=== PATIENT | female | born 1940 | race Caucasian/White ===

== ENCOUNTER → 2017-12-14 08:36 | Outpatient (CLI) | payer MEDICARE, OTHER, SELFPAY ==
--- NOTE | 2017-12-14 | DI.CT.S_ITS ---
PROCEDURE: CT CHEST ABDOMEN W CON INDICATIONS: RESTAGING CANCER TECHNIQUE: After the administration of oral contrast and intravenous contrast, 5 mm thick sections acquired from the lung apices to the iliac crests. 5 mm coronal and sagittal reformats were performed, with additional 7 mm coronal MIP reformats through the lungs. For radiation dose reduction, the following was used: automated exposure control, adjustment of mA and/or kV according to patient size. COMPARISON: [facility], CT, CHEST/ABD/PEL WITH CONTRAST, 04/18/2016, 9:55. [facility], [place], PET/CT SKULL BASE TO MID THIGH, 08/01/2016, 11:01. [facility], CT, CHEST/ABD/PEL WITH CONTRAST, 11/11/2016, 7:59. [facility], CT, CHEST/ABDOMEN WITH CONTRAST, 02/16/2017, 11:02. [facility], CT, CHEST/ABD/PEL WITH CONTRAST, 05/25/2017, 10:32. FINDINGS: Image quality: Excellent. 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 Volume loss in the right hemithorax compatible with prior partial resection. No acute air space opacities. No pleural effusions or pneumothorax. Central and peripheral airways are patent and normal in caliber. Mediastinum: Heart size is normal. No pericardial effusion. No mediastinal or hilar adenopathy by size criteria. Thoracic aorta and central pulmonary arteries are normal in size. Esophagus is normal in caliber. No hiatal hernia. Right paraesophageal lymph node noted on prior exams is stable measuring 1.3 x 0.8 cm. Chest wall: No axillary or supraclavicular adenopathy by size criteria. Thyroid gland appears normal. Sclerosis and old fracture in the right fourth rib is unchanged. Right shoulder prosthesis as before. ABDOMEN: Solid organs: Liver is normal in size and hypodense in enhancement. A 9 mm water attenuation filling defect is seen just beneath the capsule in the dome of the liver, unchanged. Gallbladder appears normal. Biliary system is non dilated. Pancreas enhances normally. Spleen is normal in size and enhancement. Small splenule. No adrenal nodules. Kidneys are normal in size and enhancement, without hydronephrosis. Peritoneum and bowel: Bowel loops demonstrate normal wall thickness and caliber. No free fluid or air. Nodes and vessels: No retroperitoneal or mesenteric adenopathy by size criteria. Atheromatous aorta and inferior vena cava are normal in caliber. Accessory left renal vein is retroaortic. Bones: No suspicious bony lesions. No vertebral body compression fractures. Miscellaneous: No ventral hernias. IMPRESSION: 1. Surgical and post radiation changes in the right hemithorax appear stable. Sclerosis and old fracture in the right fourth rib is unchanged. The small right paraesophageal lymph node near the diaphragm remains stable. No evidence of tumor recurrence or metastases. 2. Small hepatic cyst in the anterior dome of the liver. Generalized hepatic steatosis. 3. 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 Dictated by: Joseph Spann M.D. on 12/14/2017 at 12:19 Approved by: Joseph Spann M.D. on 12/14/2017 at 12:40
[2017-12-14 09:12] LABS: Add Manual Diff / Slide Review NO; Basophils Percent Auto 0.9 % (0-2); Eosinophils Percent Auto 0.1 % (2-4); Hematocrit 38.6 % (36-46); Hemoglobin 13.3 g/dL (12.0-16.0); Lymphocytes Percent Auto 9.5 % (25-40); Mean Corpuscular HGB Conc 34.4 % (30-36); Mean Corpuscular Hemoglobin 33.9 PG (26-34); Mean Corpuscular Volume 98.4 fL (80-100); Monocytes Percent Auto 1.2 % (3-14); Neutrophils Absolute Auto 4000 /uL (3000-5900); Neutrophils Percent Auto 88.3 % (50-75); Platelet Count 248 X10^3/uL (150-400); Red Blood Cell Count 3.93 X10^6/uL (4.0-5.2); Red Cell Distribution Width 13.8 % (11.6-14.8); White Blood Cell Count 4.6 X10^3/uL (4.5-11.0)
[2017-12-14 09:37] LABS: Alanine Aminotransferase 44 IU/L (9-52); Albumin 4.5 g/dL (3.5-5.0); Albumin Globulin Ratio 1.4 (1.0-2.8); Alkaline Phosphatase 75 U/L (38-126); Aspartate Aminotransferase 33 IU/L (14-36); BUN Creatinine Ratio 24.2 (6-22); Bilirubin Total 0.5 mg/dL (0.2-1.3); Blood Urea Nitrogen 29 mg/dL (7-17); Calcium 9.5 mg/dL (8.4-10.2); Carbon Dioxide 23 mmol/L (22-32); Chloride 100 mmol/L (98-107); Estimated Glomerular Filt Rate 43.8 mL/min (>60); Globulin 3.3 g/dL (1.7-4.1); Glucose 184 mg/dL (80-110); HEMOLYSIS < 15 (0-50); Potassium 4.8 mmol/L (3.4-5.1); Sodium 137 mmol/L (137-145); Total Protein 7.8 g/dL (6.3-8.2)
== END ==
PROVIDERS: Family Provider Family Medicine; PCP Family Medicine; Visit Provider Nurse Practitioner Gerontology
DX: C34.90 Malignant neoplasm of unspecified part of unspecified bronchus or lung (principal)
CPT/HCPCS: 36415; 71260; 74160; 80053; 85025; Q9967

== ENCOUNTER → 2017-12-29 10:25 | Outpatient (CLI) | payer MEDICARE, OTHER, SELFPAY ==
--- NOTE | 2017-12-29 | DI.RAD.S_ITS ---
PROCEDURE: XR LUMBAR SPINE 2-3V INDICATIONS: LOW BACK PAIN WITH RADCULOPATHY TECHNIQUE: 3 views of the lumbar spine were acquired. COMPARISON: [facility], , -SPINE 2-3 VIEWS, 11/01/2013, 11:06. FINDINGS: Bones: 5 [id number] vertebrae are present. There is multilevel trace retrolisthesis throughout the lumbar spine. Mild to moderate disc space narrowing is present at L1-L2, L4-5 and L5-S1, mild at L2-3, L3-4. There is moderate foraminal narrowing at L4-5 and L5-S1. Mild overall interval progression of degenerative changes is noted. No vertebral body compression fractures. No suspicious bony lesions. Soft tissues: Overlying bowel gas pattern is normal. No suspicious soft tissue calcifications. IMPRESSION: Degenerative changes most prominent at L4-5 and L5-S1 with overall mild interval progression compared to prior exam. Dictated by: Rosemary Holland M.D. on 12/29/2017 at 17:18 Approved by: Rosemary Holland M.D. on 12/29/2017 at 17:20
== END ==
PROVIDERS: Family Provider Family Medicine; PCP Family Medicine; Visit Provider Family Medicine
DX: M54.5 Low back pain (principal); M51.16 Intervertebral disc disorders with radiculopathy, lumbar region; M51.17 Intervertebral disc disorders with radiculopathy, lumbosacral region
CPT/HCPCS: 72100

== ENCOUNTER → 2018-04-05 12:15 | Outpatient (CLI) | payer MEDICARE, OTHER, SELFPAY ==
--- NOTE | 2018-04-05 12:07 | DI.RAD.S_ITS ---
PROCEDURE: XR CHEST 2V INDICATIONS: right rib pain TECHNIQUE: 2 views of the chest were acquired. COMPARISON: [facility], CT, CHEST/ABDOMEN WITH CONTRAST, 02/16/2017, 11:02. [facility], CT, CHEST/ABD/PEL WITH CONTRAST, 05/25/2017, 10:32. [facility], CT, CT CHEST ABDOMEN W CON, 12/14/2017, 9:40. [facility], CR, CHEST 1 VIEW, 12/21/2015, 12:25. [facility], CR, CHEST 1 VIEW, 12/04/2015, 8:59. FINDINGS: Surgical changes and devices: Prior right humeral arthroplasty.. Lungs and pleura: No pleural effusions or pneumothorax. Lungs are clear on the left and shows a persistent masslike radiodensity at the right lung parenchyma abutting the right hilum and extending peripherally to the mid chest ribs. A focus of rib ostiolysis is not found but quality of visualization is somewhat limited in this area.. Mediastinum: Mediastinal contours are normal. Heart size is normal. Bones and chest wall: No suspicious bony abnormalities. Soft tissues appear unremarkable. IMPRESSION: A definite warp changer time involving the right mid chest, right hilum, and right mid ribs is not seen in this patient who has reportedly undergone treatment for lung carcinoma and associated radiation therapy. As noted the quality of visualization through the area discussed on the right is somewhat limited by plain film and much better visualized by CT scanning. If clinically warranted a followup CT may become necessary, but also bone scanning may be warranted instead. Dictated by: Emory Garza M.D. on 04/05/2018 at 13:19 Approved by: Emory Garza M.D. on 04/05/2018 at 13:24
--- NOTE | 2018-05-11 12:21 | PC.NURSE ---
Spoke with Lavonne in diagnostic imaging. Pt scheduled for 940 check in for injection for bone scan on may 14Thursday. She'll start oral contrast for CT scan at 1030. Ct Scan to be done at 1200. Bone Scan to be done at 1 pm. She should be done with all scans by 2 pm that day. Pt has history of reaction to contrast and she has medications at home to help prevent this (dex and benadryl). Called twice to inform Carlota of above but she was not available to come to phone. Above information left with and he will relay to her the information. Instructed to have her call with any questions and also to remind her to take her premeds that she has at home prior to contrast. Verbalized understanding.
== END ==
PROVIDERS: PCP Internal Medicine; Visit Provider Nurse Practitioner Gerontology
DX: C34.90 Malignant neoplasm of unspecified part of unspecified bronchus or lung (principal); J70.0 Acute pulmonary manifestations due to radiation; R07.81 Pleurodynia
CPT/HCPCS: 71046

== ENCOUNTER → 2018-05-14 09:34 | Outpatient (CLI) | payer MEDICARE, OTHER, SELFPAY ==
--- NOTE | 2018-05-14 09:35 | DI.NM.S_ITS ---
PROCEDURE: MT BONE SCAN WHOLE BODY RADIOPHARMACEUTICAL: 20.9 mCi Tc-99m MDP IV. INDICATIONS: Non-small cell lung carcinoma. TECHNIQUE: Delayed whole-body scintigrams were obtained approximately 3-4 hours after intravenous injection of radiotracer. Anterior and posterior views were acquired from vertex to feet. Additional left and right oblique views of the thorax were obtained. COMPARISON: [facility], CT, CT CHEST ABDOMEN W CON, 05/14/2018, 10:40. [facility], [place], PET/CT SKULL BASE TO MID THIGH, 08/01/2016, 11:01. FINDINGS: Moderate radiotracer uptake noted in the cervical spine, the shoulders bilaterally, the elbows bilaterally, the wrists bilaterally, the knees bilaterally, the ankles bilaterally in the feet bilaterally most consistent with osteoarthritis. No areas of relative intense radiotracer uptake identified that are suspicious for metastatic disease. No areas of osteopenia identified in the osseous skeleton. No abnormal soft tissue uptake identified. Activity in the kidneys is normal and symmetric. IMPRESSION: No evidence of osseous metastatic disease. Dictated by: Lucia Carrasquillo MD, PhD on 05/14/2018 at 14:25 Approved by: Lucia Carrasquillo MD, PhD on 05/14/2018 at 14:29
[2018-05-14 10:01] LABS: Blood Urea Nitrogen 23 mg/dL (7-17); Estimated Glomerular Filt Rate 53.9 mL/min (>60)
--- NOTE | 2018-05-14 10:02 | DI.CT.S_ITS ---
PROCEDURE: CT CHEST ABDOMEN W CON INDICATIONS: new findings on chest x-ray, pain right side on chest and abdominal area TECHNIQUE: After the administration of oral contrast and intravenous contrast, 5 mm thick sections acquired from the lung apices to the iliac crests. 5 mm coronal and sagittal reformats were performed, with additional 7 mm coronal MIP reformats through the lungs. For radiation dose reduction, the following was used: automated exposure control, adjustment of mA and/or kV according to patient size. COMPARISON: [facility], CT, CHEST/ABD/PEL WITH CONTRAST, 05/25/2017, 10:32. [facility], CT, CHEST/ABD/PEL WITH CONTRAST, 07/15/2016, 10:31. [facility], CT, CHEST/ABD/PEL WITH CONTRAST, 04/18/2016, 9:55. [facility], CT, THORAX WITHOUT CONTRAST, 12/15/2016, 9:46. [facility], CR, CHEST 1 VIEW, 12/21/2015, 12:25. [facility], CR, XR CHEST 2V, 04/05/2018, 12:03. [facility], CT, CT CHEST ABDOMEN W CON, 12/14/2017, 9:40. FINDINGS: Image quality: Excellent. CHEST: Lungs and pleura: There is triangular shaped opacity in the right of her hemithorax, unchanged compared to 12/14/2017. There is airspace opacity in the right upper thorax and to lesser degree right lower thorax, probably secondary to postradiation inflammation. No pleural effusions or pneumothorax. Central and peripheral airways are patent and normal in caliber. Mediastinum: Heart size is normal. No pericardial effusion. No mediastinal or hilar adenopathy by size criteria. Thoracic aorta and central pulmonary arteries are normal in size. Esophagus is normal in caliber. Small hiatal hernia. Chest wall: No axillary or supraclavicular adenopathy by size criteria. Thyroid gland is normal. ABDOMEN: Solid organs: There is diffuse hepatic fatty infiltration. Liver is normal in size and enhancement. Gallbladder is normal. Biliary system is non dilated. Pancreas enhances normally. Spleen is normal in size and enhancement. A 7 mm nodule in the left upper lobe is noted, unchanged from the last exam and probably a small splenule. No adrenal nodules. Kidneys are normal in size and enhancement, without hydronephrosis. Peritoneum and bowel: Bowel loops demonstrate normal wall thickness and caliber. There are scattered colonic diverticula. No free fluid or air. Nodes and vessels: No retroperitoneal or mesenteric adenopathy by size criteria. Aorta and inferior vena cava are normal in caliber. There is moderate to severe atherosclerosis. Bones: An old right fourth rib fracture/deformity appears unchanged. No vertebral body compression fractures. Miscellaneous: Small fat-containing umbilical hernia is noted. IMPRESSION: 1. A triangular shaped opacity with associated air space infiltrate and consolidation in the right upper thorax is not significant changed from the last CT dated 12/14/2017. It is most likely postsurgical/post radiation changes. 2. No mediastinal or hilar lymphadenopathy. 3. Severe hepatic steatosis. 4. Diverticulosis without acute diverticulitis. 5. Atherosclerosis. Dictated by: Filemon Guerrero M.D. on 05/14/2018 at 16:30 Approved by: Filemon Guerrero M.D. on 05/17/2018 at 14:04
== END ==
PROVIDERS: PCP Internal Medicine; Visit Provider Nurse Practitioner Gerontology
DX: C34.90 Malignant neoplasm of unspecified part of unspecified bronchus or lung (principal); K76.0 Fatty (change of) liver, not elsewhere classified; K57.90 Diverticulosis of intestine, part unspecified, without perforation or abscess without bleeding; I70.0 Atherosclerosis of aorta; K42.9 Umbilical hernia without obstruction or gangrene; K44.9 Diaphragmatic hernia without obstruction or gangrene
CPT/HCPCS: 71260; 74160; 78306; 82565; 84520; A9503; Q9967

== ENCOUNTER → 2018-09-29 12:01 | Outpatient (CLI) | payer MEDICARE, OTHER, SELFPAY ==
--- NOTE | 2018-09-29 | DI.MRI.S_ITS ---
PROCEDURE: MR LUMBAR SPINE WO CON INDICATIONS: LOW BACK PAIN TECHNIQUE: Noncontrast sagittal T1 spin echo and T2 fast echo, sagittal STIR, axial T1 and T2 fast spin echo through the lumbar spine. In cases with scoliosis, additional coronal T2 fast spin echo may be performed. COMPARISON: [facility], MR, L-SPINE WITHOUT CONTRAST, 11/24/2013, 10:52. FINDINGS: Image quality: Excellent. Alignment and Curvature: There is normal bony alignment. No spondylolisthesis. Bone Marrow: Marrow is of normal overall signal. No acute vertebral body compression fractures. Vertebral body heights are preserved. Spinal Cord: Conus medullaris terminates at the L1 level. Visualized cord demonstrates normal signal and size. Paraspinous Soft Tissues: No paravertebral masses. L1-L2: Mild diffuse disc bulge and bilateral facet arthrosis is seen. No significant neuroforaminal narrowing or canal stenosis. L2-L3: Mild diffuse disc bulge is seen with bilateral facet arthrosis. No significant central canal stenosis or neuroforaminal narrowing. L3-L4: There is broad-based disc bulge and bilateral facet arthrosis causing mild central canal stenosis and very mild bilateral neuroforaminal narrowing. L4-L5: There is diffuse disc bulge and superimposed central to right-sided disc herniation and extrusion extending to right neural recess causing severe right-sided neuroforaminal narrowing and [id number] central canal stenosis. Mild to moderate left-sided neuroforaminal narrowing is also seen. Herniated disc is seen compressing the exiting right L4 nerve root at this level. L5-S1: Diffuse disc bulge and bilateral facet arthrosis is seen with mild central canal stenosis and moderate bilateral neuroforaminal narrowing. Bulging disc likely compressing bilateral exiting L5 nerve roots. IMPRESSION: 1. Diffuse disc bulge, bilateral facet arthrosis and superimposed central to right-sided disc herniation and extrusion at L4-5 level causing moderate central canal stenosis and severe right-sided neuroforaminal narrowing and compression of exiting right L4 nerve root at this level. Mild to moderate left-sided neuroforaminal narrowing is also seen. 2. Degenerative disc bulge and bilateral facet arthrosis throughout rest of lumbar spine causing [id number] central canal stenosis and bilateral neuroforaminal narrowing at L3-4 and L5-S1 levels as described above. 3. No compression fracture or spondylolisthesis. No marrow edema. Dictated by: Chandana Gary M.D. on 09/29/2018 at 15:12 Approved by: Chandana Gary M.D. on 09/29/2018 at 15:28
== END ==
PROVIDERS: Family Provider Internal Medicine; PCP Internal Medicine; Visit Provider Physical Medicine & Rehabilitation
DX: M47.816 Spondylosis without myelopathy or radiculopathy, lumbar region (principal); M47.817 Spondylosis without myelopathy or radiculopathy, lumbosacral region; M51.26 Other intervertebral disc displacement, lumbar region; M51.36 Other intervertebral disc degeneration, lumbar region; M48.061 Spinal stenosis, lumbar region without neurogenic claudication; M48.07 Spinal stenosis, lumbosacral region
CPT/HCPCS: 72148

== ENCOUNTER → 2018-11-15 07:08 | Outpatient (CLI) | payer MEDICARE, OTHER, SELFPAY ==
[2018-11-15 08:22] LABS: Alanine Aminotransferase 33 IU/L (9-52); Albumin 3.9 g/dL (3.5-5.0); Albumin Globulin Ratio 1.5 (1.0-2.8); Alkaline Phosphatase 78 U/L (38-126); Aspartate Aminotransferase 23 IU/L (14-36); BUN Creatinine Ratio 26.4 (6-22); Bilirubin Total 0.4 mg/dL (0.2-1.3); Blood Urea Nitrogen 29 mg/dL (7-17); Calcium 9.4 mg/dL (8.4-10.2); Carbon Dioxide 28 mmol/L (22-32); Chloride 101 mmol/L (98-107); Estimated Glomerular Filt Rate 48.3 mL/min (>60); Globulin 2.6 g/dL (1.7-4.1); Glucose 125 mg/dL (80-110); HEMOLYSIS < 15 (0-50); Sodium 138 mmol/L (137-145); Total Protein 6.5 g/dL (6.3-8.2)
[2018-11-15 08:24] LABS: Potassium 5.8 mmol/L (3.4-5.1)
[2018-11-15 08:25] LABS: Add Manual Diff / Slide Review NO; Basophils Absolute Auto 0 /uL (0-100); Basophils Percent Auto 0.1 % (0-2); Eosinophils Absolute Auto 600 /uL (0-450); Eosinophils Percent Auto 12.1 % (2-4); Hematocrit 36.1 % (36-46); Hemoglobin 11.9 g/dL (12.0-16.0); Lymphocytes Absolute Auto 800 /uL (1100-4500); Lymphocytes Percent Auto 15.2 % (25-40); Mean Corpuscular HGB Conc 33.1 % (30-36); Mean Corpuscular Hemoglobin 31.2 PG (26-34); Mean Corpuscular Volume 94.4 fL (80-100); Monocytes Absolute Auto 600 /uL (0-900); Neutrophils Absolute Auto 3300 /uL (1500-7000); Neutrophils Percent Auto 61.6 % (50-75); Platelet Count 354 X10^3/uL (150-400); Red Blood Cell Count 3.82 X10^6/uL (4.0-5.2); Red Cell Distribution Width 16.6 % (11.6-14.8); White Blood Cell Count 5.4 X10^3/uL (4.5-11.0)
--- NOTE | 2018-11-15 08:44 | DI.CT.S_ITS ---
PROCEDURE: CT CHEST ABD PEL W CON INDICATIONS: follow up lung cancer TECHNIQUE: After the administration of oral and intravenous contrast, 5 mm thick sections acquired from the lung apices to the symphysis. 5 mm coronal and sagittal reformats were performed, with additional 7 mm coronal MIP reformats through the lungs. For radiation dose reduction, the following was used: automated exposure control, adjustment of mA and/or kV according to patient size. COMPARISON: [facility], CT, ABDOMEN/PELVIS WITH CONTRAST, 07/20/2014, 11:30. [facility], CT, THORAX WITHOUT CONTRAST, 12/04/2015, 13:57. [facility], CT, CT CHEST ABDOMEN W CON, 05/14/2018, 10:40. [facility], CT, CT CHEST ABDOMEN W CON, 12/14/2017, 9:40. [facility], CT, CHEST/ABDOMEN WITH CONTRAST, 02/16/2017, 11:02. [facility], CT, CHEST/ABD/PEL WITH CONTRAST, 05/25/2017, 10:32. [facility], CT, CHEST/ABD/PEL WITH CONTRAST, 11/11/2016, 7:59. FINDINGS: Image quality: Excellent. CHEST: Lungs and pleura: No acute airspace opacities. Fibrotic change within the right middle lobe area contiguous with the mediastinal border is again noted, stable over time, without associated groin mass lesion within this space or within the adjacent mediastinum and hilar regions. No pleural effusions or pneumothorax. Central and peripheral airways appear patent and normal in caliber. Mediastinum: Heart size is normal. No pericardial effusion. No mediastinal or hilar adenopathy by size criteria. Thoracic aorta and central pulmonary arteries are normal in size. Esophagus is normal in caliber. No hiatal hernia. Chest wall: No axillary or supraclavicular adenopathy by size criteria. Thyroid gland appears normal where well visualized. ABDOMEN: Solid organs: Liver is normal in size and enhancement. Gallbladder appears normal. Biliary system is non dilated. Pancreas enhances normally. Spleen is normal in size and enhancement. No adrenal nodules. Kidneys demonstrate normal size and enhancement, without hydronephrosis. Peritoneum and bowel: Bowel loops demonstrate normal wall thickness and caliber. No free fluid or air. Nodes and vessels: No retroperitoneal or mesenteric adenopathy by size criteria. Aorta and inferior vena cava are normal in size. Miscellaneous: No ventral hernias. PELVIS: Genitourinary: Bladder wall thickness is normal. Miscellaneous: No inguinal hernias or adenopathy. Bones: No suspicious bony lesions. No vertebral body compression fractures. IMPRESSION: Stable post radiation fibrotic change at the right middle lobe area, no evidence of adenopathy or local/distant metastatic disease. No new abnormality is found. Dictated by: Emory Garza M.D. on 11/15/2018 at 13:48 Approved by: Emory Garza M.D. on 11/15/2018 at 13:53
== END ==
PROVIDERS: Family Provider Internal Medicine; PCP Internal Medicine
DX: C34.90 Malignant neoplasm of unspecified part of unspecified bronchus or lung (principal)
CPT/HCPCS: 36415; 71260; 74177; 80053; 85025; Q9967

== ENCOUNTER → 2019-04-22 09:43 | Outpatient (CLI) | payer MEDICARE, OTHER, SELFPAY ==
--- NOTE | 2019-04-22 | DI.US.S_ITS ---
PROCEDURE: US ABDOMEN COMPLETE INDICATIONS: UNSPECIFIED ABDOMINAL PAIN TECHNIQUE: Real-time scanning was performed of the abdominal and retroperitoneal organs, with image documentation. COMPARISON: [facility], CT, CT CHEST ABD PEL W CON, 11/15/2018, 8:34. FINDINGS: Liver: Liver is diffusely increased in echogenicity. No focal hepatic abnormalities identified. Normal hepatic size. Gallbladder: No gallstones identified. Normal gallbladder wall. No pericholecystic fluid. Negative sonographic Pierce sign. Biliary ducts: Intrahepatic bile ducts are non-dilated. Extrahepatic bile duct caliber measures 6.0 mm. Normal is 6-7 mm or less in diameter, or 10 mm or less post-cholecystectomy. Pancreas: Visualized portions of the pancreas are sonographically normal. Spleen: Spleen is normal in size and homogeneous in echotexture. Kidneys: Kidneys are normal in size and echotexture. Right kidney measures 11.6 cm long; left kidney measures 9.8 cm long. No hydronephrosis or nephrolithiasis. No solid masses. Aorta: Not well-visualized. Iliacs: Not well-visualized. IVC: Intrahepatic inferior vena cava is patent. Miscellaneous: No free abdominal fluid. IMPRESSION: 1. Increased hepatic echogenicity noted possibly related to hepatic steatosis but other sources of hepatocellular disease cannot be excluded. Recommend clinical correlation. Dictated by: Donovan HOLLINGSWORTH Interpreted: Skylar Tay MD on 04/22/2019 at 11:44 Approved by: Emory Garza M.D. on 04/26/2019 at 9:34
== END ==
PROVIDERS: Family Provider Family Medicine; PCP Internal Medicine; Visit Provider Internal Medicine
DX: R10.9 Unspecified abdominal pain (principal)
CPT/HCPCS: 76700

== ENCOUNTER → 2019-05-06 12:37 | Outpatient (CLI) | payer MEDICARE, OTHER, SELFPAY ==
[2019-05-06 13:05] LABS: Add Manual Diff / Slide Review NO; Basophils Absolute Auto 0 /uL (0-100); Basophils Percent Auto 0.2 % (0-2); Eosinophils Absolute Auto 600 /uL (0-450); Eosinophils Percent Auto 10.2 % (2-4); Hemoglobin 12.2 g/dL (12.0-16.0); Lymphocytes Absolute Auto 900 /uL (1100-4500); Lymphocytes Percent Auto 15.5 % (25-40); Mean Corpuscular HGB Conc 33.8 % (30-36); Mean Corpuscular Hemoglobin 31.5 PG (26-34); Mean Corpuscular Volume 93.1 fL (80-100); Monocytes Absolute Auto 500 /uL (0-900); Monocytes Percent Auto 9.5 % (3-14); Neutrophils Absolute Auto 3600 /uL (1500-7000); Neutrophils Percent Auto 64.6 % (50-75); Platelet Count 365 X10^3/uL (150-400); Red Blood Cell Count 3.87 X10^6/uL (4.0-5.2); Red Cell Distribution Width 15.6 % (11.6-14.8); White Blood Cell Count 5.6 X10^3/uL (4.5-11.0)
[2019-05-06 13:18] LABS: Alanine Aminotransferase 23 IU/L (<35); Albumin 4.4 g/dL (3.5-5.0); Albumin Globulin Ratio 1.4 (1.0-2.8); Alkaline Phosphatase 86 U/L (38-126); Aspartate Aminotransferase 24 IU/L (14-36); BUN Creatinine Ratio 23.8 (6-22); Bilirubin Total 0.4 mg/dL (0.2-1.3); Blood Urea Nitrogen 31 mg/dL (7-17); Calcium 9.6 mg/dL (8.4-10.2); Carbon Dioxide 28 mmol/L (22-32); Chloride 102 mmol/L (98-107); Estimated Glomerular Filt Rate 39.7 mL/min (>60); Globulin 3.2 g/dL (1.7-4.1); Glucose 150 mg/dL (80-110); HEMOLYSIS < 15 (0-50); Potassium 4.9 mmol/L (3.4-5.1); Sodium 142 mmol/L (137-145); Total Protein 7.6 g/dL (6.3-8.2)
== END ==
PROVIDERS: PCP Internal Medicine
DX: C34.90 Malignant neoplasm of unspecified part of unspecified bronchus or lung (principal)
CPT/HCPCS: 36415; 80053; 85025

== ENCOUNTER → 2019-05-11 13:16 | Outpatient (CLI) | payer MEDICARE, OTHER, SELFPAY ==
--- NOTE | 2019-05-11 13:18 | DI.CT.S_ITS ---
PROCEDURE: CT CHEST WO CON INDICATIONS: LUNG CANCER SURVEILLANCE TECHNIQUE: Noncontrast 5 mm thick sections acquired from the pulmonary apices to the posterior costophrenic angles. 1 mm lung window, 5 mm thick coronal and sagittal and 7 mm axial MIP reformats were then acquired. For radiation dose reduction, the following was used: automated exposure control, adjustment of mA and/or kV according to patient size. COMPARISON: [facility], CT, CT CHEST ABDOMEN W CON, 12/14/2017, 9:40. [facility], CT, CT CHEST ABDOMEN W CON, 05/14/2018, 10:40. [facility], CT, CT CHEST ABD PEL W CON, 11/15/2018, 8:34. FINDINGS: Image quality: Excellent. Lungs and pleura: Fibrotic pulmonary radiopacities are unchanged at the anterior right lung base and the posterior right lung base when compared with the prior CT dated 11/15/18. As before, bronchiectatic airways are present within the anterior basilar pulmonary radiopacities. No acute airspace opacities. A 6 mm diameter pulmonary nodule is present at the left apex (series 3, image 33). In retrospect, this is visualized on the comparison CT dated 11/15/18, but was not visualized on the prior CTs. Pulmonary scar is redemonstrated at the right apex. Mediastinum: Heart size is normal. No pericardial effusion. No mediastinal adenopathy by size criteria. Thoracic aorta and central pulmonary arteries are normal in size. Dense atheromatous calcifications are present within the aortic arch. Esophagus is normal in caliber. No hiatal hernia. Bones and chest wall: No suspicious bony lesions. No vertebral body compression fractures. No axillary or supraclavicular adenopathy by size criteria. Thyroid gland is unremarkable. Abdomen: Visualized upper abdominal solid organs and bowel loops appear normal in the absence of contrast. IMPRESSION: 1. Stable fibrotic change at the right lung base most consistent with prior radiation therapy. 2. 6 mm left apical pulmonary nodule now stable for 6 months. Six-month followup recommended. Fleischner Society criteria for SOLID lung nodule followup. Nodule size (mm)Low-risk patientHigh-risk patient?4No follow-up neededFollow-up at 12 mo; if no change, no further follow-up>9-2Ocuhhm-wm CT at 12 mo; if no change, no further follow-up needed.Initial follow-up CT at 6-12 mo, then 18-24 mo if no change. >6-8Initial follow-up CT at 6-12 mo, then 18-24 mo if no change. Initial follow-up CT at 3-6 mo, then 9-12 mo and 24 mo if no change. >8Follow-up CT at 3, 9, 24 mo. Or PET and/or biopsy.Same as for low-risk pts. Fleischner Society criteria for SUB-SOLID lung nodule followup. Solitary pure ground-glass nodules5 mm or lessNo followup needed. >5 mm3 mo follow-up CT to confirm persistence. Then annual CT for 3 years. Part-solid nodules3 mo follow-up CT to confirm persistence. If persistent with solid component <5 mm, annual CT for at least 3 years. If solid component is 5 mm or more, biopsy or surgical resection. Consider PET-CT for lesions > 10 mm. Multiple sub-solid nodulesPure ground glass nodules [address] at 2 and 4 years. Pure ground glass nodules >5 mm without dominant lesion. [address] to confirm persistence, then annual followup CT for at least 3 years. Dominant nodule(s) with part-solid or solid component. [address] to confirm persistence. If persistent, consider biopsy or surgical resection, kevin if lesions have >5 mm solid component. Dictated by: Lila Restrepo M.D. on 05/11/2019 at 15:49 Approved by: Lila Restrepo M.D. on 05/11/2019 at 16:01
== END ==
PROVIDERS: PCP Internal Medicine
DX: C34.91 Malignant neoplasm of unspecified part of right bronchus or lung; R91.1 Solitary pulmonary nodule
CPT/HCPCS: 71250

== ENCOUNTER → 2019-07-28 09:18 | Outpatient (CLI) | payer MEDICARE, OTHER, SELFPAY ==
--- NOTE | 2019-07-28 | DI.MG.S_ITS ---
BILATERAL DIGITAL SCREENING MAMMOGRAM 3D/2D WITH CAD: 07/28/2019 CLINICAL: Routine screening. Family history of breast cancer. Comparison is made to exams dated: 09/25/2017 mammogram, 09/09/2016 mammogram, 09/06/2015 mammogram, 06/06/2014 mammogram, 04/28/2013 mammogram, and 04/27/2012 mammogram - [facility]. There are scattered fibroglandular elements in both breasts. Current study was also evaluated with a Computer Aided Detection (CAD) system. There are benign vascular calcifications in both breasts. No significant masses, calcifications, or other findings are seen in either breast. There has been no significant interval change. IMPRESSION: There is no mammographic evidence of malignancy. A 1 year screening mammogram is recommended. This exam was interpreted at Station ID: [id number]. NOTE: For mammograms, a report in lay terms will be sent to the patient. Approximately 15% of breast malignancies will not be visualized mammographically. In the management of a palpable breast mass, a negative mammogram must not discourage biopsy of a clinically suspicious lesion. Electronically Signed By: Macho Almazan M.D. slc/:07/28/2019 20:47:18 letter sent: Normal Exam ACR BI-RADS Category 2: Benign Finding(s) [id number]
== END ==
PROVIDERS: Family Provider Internal Medicine; PCP Internal Medicine; Referring Provider Internal Medicine; Visit Provider Internal Medicine
DX: Z12.31 Encounter for screening mammogram for malignant neoplasm of breast (principal); Z80.3 Family history of malignant neoplasm of breast
CPT/HCPCS: 77063; 77067

== ENCOUNTER → 2019-07-29 08:41 | Outpatient (CLI) | payer MEDICARE, OTHER, SELFPAY ==
--- NOTE | 2019-08-05 16:33 | PM.PFT.1 ---
Pulmonary Function Test Referral & Results Date Patient Seen: 07/29/19 Requesting provider: Luis Herzog Results: The spirometry demonstrates an FVC of 1.98 L which is 67% of predicted. The FEV1 was measured at 1.60 L which is 73% of predicted. The FEV1/FVC ratio was 81 which is 100 a% of predicted. Following the administration of bronchodilator there was no appreciable change. Lung volumes show an SVC of 2.0 L which is 69% of predicted. The diffusing capacity was measured at 12.21 which is 46% of predicted. No hemoglobin value was provided, so no correction for potential anemia could be made, if appropriate. The maximum voluntary ventilation was reduced Interpretation: This study demonstrates moderate obstructive lung disease without evidence of significant benefit following bronchodilator There is also [id number]-[id number] restrictive lung disease present based on reduction SVC There is more significant reduction in diffusing capacity suggesting significant disease at the capillary alveolar level Clinical correlation suggested
== END ==
PROVIDERS: Family Provider Internal Medicine; PCP Internal Medicine; Referring Provider Internal Medicine; Visit Provider Internal Medicine
DX: J44.9 Chronic obstructive pulmonary disease, unspecified (principal); Z87.891 Personal history of nicotine dependence
CPT/HCPCS: 94060; 94726; 94729

== ENCOUNTER → 2019-08-04 08:56 | Outpatient (CLI) | payer MEDICARE, OTHER, SELFPAY ==
--- NOTE | 2019-08-04 | DI.ECHO.S_ITS ---
[facility] +---------+ : : [address] : [place] : : : : [id number] : : : : Phone: [phone]+ Echocardiogram Report + + :Name: MICHAEL RUBIO Study Date: 08/04/2019 Height: 65 in : :[facility] Weight: 205 lb : : Gender: Female BSA: 2.0 m2 : :: 1940 Age: 79 yrs BP: 168/82 mmHg: :Reason For Study: DYSPNEA : :Ordering Physician: Aric : :Jesika Lee Performed By: Kira Orosco : :Referring: Dr. Luis Herzog : + + Interpretation Summary Left ventricular systolic function is normal without focal wall motion abnormalities with the ejection fraction visually estimated to be 60-65% and is unchanged compared to the previous study. There is mild-moderate concentric left ventricular hypertrophy and diastolic parameters suggest a relaxation abnormality of the left ventricle, consistent with probable normal filling pressures and likely lower compared to the previous study. The right ventricle is normal in size and function and is unchanged compared to the previous study. Pulmonary artery pressures cannot be estimated because of the lack of a measurable TR jet velocity. Both atria are normal in size. The left atrium is likely somewhat smaller compared to the previous study. There is moderate aortic valve sclerosis with slight aortic stenosis with a peak velocity of 2.0 m/s and a mean gradient of 9 mmHg, essentially unchanged from the previous exam.. There is no other significant valvular heart disease. Procedure: A two-dimensional transthoracic echocardiogram with color flow and Doppler was performed. The study quality was technically difficult. Comparison is made with the echocardiogram of 12/07/2015. The patient was in normal sinus rhythm during the exam. Left Ventricle: The left ventricle is normal in size. There is mild-moderate concentric left ventricular hypertrophy. Left ventricular systolic function is normal without focal wall motion abnormalities. The ejection fraction is estimated to be 60-65%. This is unchanged compared to the previous study. Diastolic parameters suggest a relaxation abnormality of the left ventricle, consistent with probable normal filling pressures. This is Likely lower compared to the previous study. Right Ventricle: The right ventricle is normal in size and function. This is unchanged compared to the previous study. Atria: Both atria are normal in size. The left atrium is likely somewhat smaller compared to the previous study. Mitral Valve: There is mild to moderate mitral annular calcification. There is trace mitral regurgitation. This is unchanged compared to the previous study. Aortic Valve: The aortic valve is not well visualized. There is moderate aortic valve sclerosis. There is mildly reduced leaflet mobility. There is mild aortic stenosis. This is unchanged compared to the previous study. No aortic regurgitation is present. Tricuspid Valve: The tricuspid valve is not well visualized, but is grossly normal. There is a trace or physiologic amount of tricuspid regurgitation. Pulmonary artery pressures cannot be estimated because of the lack of a measurable TR jet velocity. Pulmonic Valve: The pulmonic valve is not well visualized. There is no pulmonic valvular regurgitation. There is no other significant valvular heart disease. Great Vessels: The aortic root is normal size. The ascending aorta could not be visualized. The inferior vena cava was not visualized. Pericardium/ Pleura There is no pericardial effusion. There is an anterior echo-free space consistent with a fat pad. There is no pleural effusion. MMode/2D Measurements & Calculations LVIDd: 3.7 cm LVOT diam: 2.2 cm LVIDs: 2.4 cm Ao root diam: 2.6 cm FS: 34.8 % IVSd: 1.2 cm LVPWd: 1.3 cm LV herrera. diameter/BSA (cm/m^2): 1.9 LV sys. diameter/BSA (cm/m^2): 1.2 LA A2 area: 14.1 cm2 RA long axis: 4.2 cm LA A4 area: 12.6 cm2 RA area: 12.4 cm2 LA length (vol): 4.0 cm RA vol: 30.6 ml LA vol: 38.1 ml RA : 15.3 ml/m2 LA vol index: 19.1 ml/m2 RVD1 (basal): 3.4 cm TAPSE: 1.9 cm Doppler Measurements & Calculations Ao V2 max: 201.3 cm/sec LVOT Max Aquiles: 81.9 cm/sec Ao V2 mean: 141.1 cm/sec LV V1 max P.7 mmHg Ao max P.2 mmHg LV V1 VTI: 16.7 cm Ao mean P.8 mmHg ROEL(I,D): 1.3 cm2 Ao V2 VTI: 46.6 cm ROEL(V,D): 1.5 cm2 sev ratio: 0.36 ROEL indexed to BSA (cm^2/m^2): 0.67 MV E max aquiles: 99.3 cm/sec PA V2 max: 89.9 cm/sec MV A max aquiles: 103.5 cm/sec PA V2 mean: 60.9 cm/sec MV E/A: 0.96 PA mean P.7 mmHg Med Peak E' Aquiles: 6.5 cm/sec PA pr(Accel): 41.6 mmHg E/E' med: 15.2 PA Accel Time: 0.07 sec Lat Peak E' Aquiles: 5.8 cm/sec E/E' lat: 17.0 E/e' average: 16.1 MV dec time: 0.24 sec MV P1/2t: 70.1 msec MVA(VTI): 1.8 cm2 MV V2 mean: 77.0 cm/sec MV P1/2t max aquiles: 99.3 cm/sec MV mean P.8 mmHg MVA(P1/2t): 3.1 cm2 MV V2 VTI: 35.2 cm SV(LVOT): 62.3 ml Reading Physician:MARILOU
== END ==
PROVIDERS: Family Provider Internal Medicine; PCP Internal Medicine; Referring Provider Hospitalist; Visit Provider Hospitalist
DX: I35.0 Nonrheumatic aortic (valve) stenosis (principal); R06.09 Other forms of dyspnea
CPT/HCPCS: 93306

== ENCOUNTER → 2019-11-09 10:02 | Outpatient (CLI) | payer MEDICARE, OTHER, SELFPAY ==
--- NOTE | 2019-11-09 10:04 | DI.CT.S_ITS ---
PROCEDURE: CT CHEST WO CON INDICATIONS: f/u lung cancer TECHNIQUE: Noncontrast 5 mm thick sections acquired from the pulmonary apices to the posterior costophrenic angles. 1 mm lung window, 5 mm thick coronal and sagittal and 7 mm axial MIP reformats were then acquired. For radiation dose reduction, the following was used: automated exposure control, adjustment of mA and/or kV according to patient size. COMPARISON: [facility], CT, CT CHEST ABD PEL W CON, 11/15/2018, 8:34. [facility], CT, THORAX WITHOUT CONTRAST, 11/07/2008, 12:11. [facility], [place], PET/CT NECK TO MID THIGH, 07/30/2006, 14:32. [facility], CT, CT CHEST WO CON, 05/11/2019, 13:34. FINDINGS: Image quality: Excellent. Lungs and pleura: There is a 9 mm nodule in the left apex (series 3 image 8, which has slightly increased in size (previously 6 mm on 05/11/2019). There is a masslike density in the right apex measuring 0.6 x 1.6 cm, unchanged in size. There are infiltrate and fibrotic changes in the right middle and lower lobes, also stable. No pleural effusions or pneumothorax. Central and peripheral airways are patent and normal in caliber. Mediastinum: Heart size is normal. No pericardial effusion. Severe calcification of aorta and coronary arteries. There is a 1.4 cm soft tissue nodule right posterior to the esophagus in the azygoesophageal recess. It appears unchanged in size. Thoracic aorta and central pulmonary arteries are normal in size. Esophagus is normal in caliber. Small hiatal hernia. Bones and chest wall: No suspicious bony lesions. No vertebral body compression fractures. Old right fifth rib fracture. No axillary or supraclavicular adenopathy by size criteria. Thyroid gland is normal. There is a right shoulder prosthesis. Abdomen: Visualized upper abdominal solid organs and bowel loops appear normal in the absence of contrast. IMPRESSION: 1. Interval enlargement of left apical nodule now measuring 9 mm (previously 6 mm on 05/11/2019). Continued close imaging followup is suggested. This can be followed by CT in 3 months or a PET/CT. 2. Stable masslike density in the right upper lobe. 3. Stable pulmonary fibrosis in right middle lobe and right lower lobe. 4. Stable 1.4 soft tissue nodule in the azygoesophageal recess. 5. Severe atherosclerosis of the aorta and coronary arteries. Dictated by: Filemon Guerrero M.D. on 11/09/2019 at 12:41 Approved by: Filemon Guerrero M.D. on 11/09/2019 at 13:13
== END ==
PROVIDERS: Family Provider Internal Medicine; PCP Internal Medicine
DX: C34.90 Malignant neoplasm of unspecified part of unspecified bronchus or lung (principal); I25.10 Atherosclerotic heart disease of native coronary artery without angina pectoris; K22.9 Disease of esophagus, unspecified; K44.9 Diaphragmatic hernia without obstruction or gangrene; R91.8 Other nonspecific abnormal finding of lung field; J84.10 Pulmonary fibrosis, unspecified
CPT/HCPCS: 71250

== ENCOUNTER → 2019-11-21 12:26 | Outpatient (CLI) | payer MEDICARE, OTHER, SELFPAY ==
[2019-11-21 13:27] LABS: Add Manual Diff / Slide Review NO; Basophils Absolute Auto 100 /uL (0-100); Basophils Percent Auto 1.3 % (0-2); Eosinophils Absolute Auto 500 /uL (0-450); Eosinophils Percent Auto 9.6 % (2-4); Hematocrit 35.4 % (36-46); Hemoglobin 12.1 g/dL (12.0-16.0); Lymphocytes Absolute Auto 700 /uL (1100-4500); Lymphocytes Percent Auto 13.8 % (25-40); Mean Corpuscular HGB Conc 34.1 % (30-36); Mean Corpuscular Hemoglobin 33.3 PG (26-34); Mean Corpuscular Volume 97.6 fL (80-100); Monocytes Absolute Auto 600 /uL (0-900); Monocytes Percent Auto 11.1 % (3-14); Neutrophils Absolute Auto 3300 /uL (1500-7000); Neutrophils Percent Auto 64.2 % (50-75); Platelet Count 247 X10^3/uL (150-400); Red Blood Cell Count 3.63 X10^6/uL (4.0-5.2); Red Cell Distribution Width 15.5 % (11.6-14.8); White Blood Cell Count 5.1 X10^3/uL (4.5-11.0)
[2019-11-21 13:40] LABS: Alanine Aminotransferase 27 IU/L (<35); Albumin 4.1 g/dL (3.5-5.0); Albumin Globulin Ratio 1.3 (1.0-2.8); Alkaline Phosphatase 80 U/L (38-126); Aspartate Aminotransferase 30 IU/L (14-36); BUN Creatinine Ratio 23.6 (6-22); Bilirubin Total 0.5 mg/dL (0.2-1.3); Blood Urea Nitrogen 26 mg/dL (7-17); Calcium 9.1 mg/dL (8.4-10.2); Carbon Dioxide 22 mmol/L (22-32); Chloride 102 mmol/L (98-107); Estimated Glomerular Filt Rate 48.2 mL/min (>60); Globulin 3.1 g/dL (1.7-4.1); Glucose 136 mg/dL (80-110); HEMOLYSIS 21 (0-50); Potassium 4.7 mmol/L (3.4-5.1); Sodium 135 mmol/L (137-145); Total Protein 7.2 g/dL (6.3-8.2)
== END ==
PROVIDERS: Family Provider Internal Medicine; PCP Internal Medicine; Referring Provider Internal Medicine; Visit Provider Internal Medicine
DX: Z08 Encounter for follow-up examination after completed treatment for malignant neoplasm (principal); Z85.118 Personal history of other malignant neoplasm of bronchus and lung; Z85.72 Personal history of non-Hodgkin lymphomas; Z85.41 Personal history of malignant neoplasm of cervix uteri; R91.1 Solitary pulmonary nodule; R53.83 Other fatigue
CPT/HCPCS: 36415; 80053; 85025

== ENCOUNTER → 2020-02-15 09:57 | Outpatient (CLI) | payer MEDICARE, OTHER, SELFPAY ==
--- NOTE | 2020-02-15 10:12 | DI.CT.S_ITS ---
PROCEDURE: CT CHEST WO CON INDICATIONS: f/u lung cancer with increasing left apical nodule TECHNIQUE: Noncontrast 5 mm thick sections acquired from the pulmonary apices to the posterior costophrenic angles. 1 mm lung window, 5 mm thick coronal and sagittal and 7 mm axial MIP reformats were then acquired. For radiation dose reduction, the following was used: automated exposure control, adjustment of mA and/or kV according to patient size. COMPARISON: [facility], CT, CT CHEST WO CON, 11/09/2019, 10:09. FINDINGS: Image quality: Excellent. Lungs and pleura: Stable 9 mm left apical nodule seen on image 31, series 3. Stable right apical pleural thickening. Stable masslike density in the right apex measuring approximately 0.6 x 1.6 cm (image 57, series 3) with associated architectural distortion. Infiltrative consolidation and fibrotic changes again noted in the right middle lobe and right lower lobe with mild bronchiectasis. This finding again abuts the right side of the mediastinum and right hilum. Unchanged appearance of posterior right lower lobe infiltrative opacity. No pleural effusions or pneumothorax. Central and peripheral airways are patent and normal in caliber. Mediastinum: Heart size is normal. No pericardial effusion. No mediastinal adenopathy by size criteria. Thoracic aorta and central pulmonary arteries are normal in size. Severe atherosclerotic calcifications of the aorta and coronary arteries. The Esophagus is normal in caliber. No hiatal hernia. Stable 1.4 cm soft tissue nodule measured in short axis dimension visualized in the right posterior to the esophagus within the azygoesophageal recess. Small hiatal hernia. Bones and chest wall: No suspicious bony lesions. No acute vertebral body compression fractures. No axillary or supraclavicular adenopathy by size criteria. Thyroid gland is unremarkable. Abdomen: Visualized upper abdominal solid organs and bowel loops appear normal in the absence of contrast. IMPRESSION: 1. Stable appearance of 9 mm left apical nodule. Consider continued imaging follow-up with CT in 6-12 months. 2. Stable appearance of masslike density in the right upper lobe. 3. Stable appearance of fibrotic changes involving the right middle lobe and right lower lobe. 4. Stable appearance of 1.4 cm soft tissue nodule within the azygoesophageal recess. 5. Atherosclerosis of the aorta and coronary arteries. Dictated by: Roc Chicas M.D. on 02/15/2020 at 15:17 Approved by: Roc Chicas M.D. on 02/15/2020 at 16:04
== END ==
PROVIDERS: Family Provider Internal Medicine; PCP Internal Medicine; Referring Provider Internal Medicine; Visit Provider Internal Medicine
DX: R91.8 Other nonspecific abnormal finding of lung field; Z85.118 Personal history of other malignant neoplasm of bronchus and lung; I25.10 Atherosclerotic heart disease of native coronary artery without angina pectoris; I70.0 Atherosclerosis of aorta
CPT/HCPCS: 71250

== ENCOUNTER 2020-05-28 12:10 | Emergency (ER) | payer MEDICARE, OTHER, SELFPAY ==
[2020-05-28 13:36] VITALS: BP 183/84; PULSE 71; RESP 22; TEMP 36.8; O2SAT 96; BMI 33.3
[2020-05-28 14:32] LABS: COVID19 -Nasal RAPID Negative (Negative)
--- NOTE | 2020-05-28 15:16 | ED_ITS ---
HPI - Fever General Chief Complaint: Fever Stated Complaint: Wants COVID Test, Fever, Headache, Backache, Cough Time Seen by Provider: 05/28/20 15:16 Source: patient Mode of arrival: Ambulatory Limitations: no limitations History of Present Illness HPI Narrative: Patient seen by FLOR Fontenot in department. Related Data Home Medications Medication Instructions Recorded Confirmed atorvastatin [Lipitor] 80 mg PO HS #0 04/22/12 02/22/20 citalopram 40 mg PO QDAY #0 04/22/12 02/22/20 hydrochlorothiazide 25 mg PO QDAY #0 04/22/12 02/22/20 telmisartan [Micardis] 40 mg PO Q DAY #0 04/22/12 02/22/20 aspirin 81 mg PO DAILY 12/17/17 02/22/20 diltiazem HCl 180 mg PO DAILY 12/17/17 02/22/20 doxepin 25 mg PO BEDTIME 12/17/17 02/22/20 metformin 500 mg PO TID 12/17/17 02/22/20 metoprolol succinate 50 mg PO BID 12/17/17 02/22/20 Previous Rx's Medication Instructions Recorded nitrofurantoin monohyd/m-cryst 100 mg PO BID #10 cap 05/28/20 [Macrobid] Allergies Allergy/AdvReac Type Severity Reaction Status Date / Time petrolatum,white Allergy Severe Difficulty Verified 05/28/20 13:36 [From A & D Barrier] Breathing venom-honey bee Allergy Severe HIVES Verified 05/28/20 13:36 [BEE VENOM (HONEY BEE)] adhesive [ADHESIVE] Allergy Intermediate REDNESS Verified 05/28/20 13:36 AND ITCHING OF SKIN WITH TAPE USE. Iodinated Contrast Media Allergy Intermediate RASH Verified 05/28/20 13:36 [IODINATED CONTRAST MEDIA - IV DYE] Penicillins [PENICILLINS] Allergy Intermediate SOB, Verified 05/28/20 13:36 ITCHING ALL TOPICAL OINTMENTS Allergy Severe RASH Uncoded 09/16/17 11:53 Patient History Social History Smoking Status: Former smoker Smoking Status: Former smoker alcohol intake frequency: other Exam Initial Vital Signs Initial Vital Signs: Vital Signs Temperature 98.3 F 05/28/20 13:36 Pulse Rate 71 05/28/20 13:36 Respiratory Rate 22 05/28/20 13:36 Blood Pressure 183/84 H 05/28/20 13:36 Pulse Oximetry 96 05/28/20 13:36 Course Orders Ordered: ED Orders 05/28/20 13:50 COVID19 Stat Vital Signs Vital signs: Vital Signs - 8 hr 05/28/20 13:36 Temperature 98.3 F Pulse Rate 71 Respiratory Rate 22 Blood Pressure 183/84 H Pulse Oximetry 96 MDM - Fever Lab Data Labs: Lab Results 05/28/20 05/28/20 Range/Units 13:50 15:28 Urine RBC None seen (0-5/HPF) Urine WBC 5-10/hpf H (0-5/HPF) Urine Bacteria None seen (None) Ur Culture Indicated? Specimen cultured COVID-19 PCR Negative (Negative) Urine Dip Bedside Urine Glucose Negative Bedside Urine Bilirubin - Negative Bedside Urine Ketone - Negative Urine Specific Dozier 1.015 Bedside Urine Occult Blood - Negative Bedside Urine pH 6.0 Bedside Urine Protein - Negative Bedside Urine Urobilinogen - Negative Bedside Urine Nitrite - Negative Bedside Urine Leukocytes + 70 Esterase Discharge Plan Departure Patient Disposition: Home Clinical Impression: Dysuria, Acute UTI Instructions: DI for Urinary Tract Infection (UTI), DI for Dysuria -- Adult Activity Restrictions/Additional Instructions: Follow-up with your physician this week for recheck. Your COVID swab is negative. We have not fully evaluated due for other symptoms. *What to do: * per recommendations from the CDC and the [facility] Department of Health * stay home except to get medical care. Restrict activities outside your home, except for getting medical care. Do not go to work, school, or public areas. Avoid using public transportation, ride sharing, or taxis. * separate yourself from other people in your home. * call ahead before visiting your doctor * Wear a face mask * Cover your coughs and sneezes * Clean your hands often * Avoid sharing household items * Clean all high-touch services every day * Monitor your symptoms and seek prompt medical attention if your illness is worsening, particularly with difficulty in breathing. Discussed continuing home isolation * for individuals with symptoms who are confirmed or suspected cases of COVID-19 and are directed to care for themselves at home, discontinue home isolation under the following conditions: 1. At least 72 hours have passed since recovery, defined as resolution of fever without the use of fever reducing medications, and improvement in respiratory symptoms (cough, shortness of breath) AND, 2. At least 7 days have passed since symptoms 1st appeared Individuals with laboratory confirmed COVID-19 who have not had any symptoms may discontinue home isolation when at least 7 days have passed since the date of their 1st COVID-19 diagnostic test and have had no subsequent illness You declined to have additional labs done today but you did give us a urine sample that suggest that you have a urinary tract infection. I have sent in a prescription to the [facility] in [place] for you to treat this. Please follow-up with your primary care provider in the next 2 days the same your symptom free or have a telemedicine visit about possible. Otherwise do not hesitate to return to the emergency department or seek medical care if you feel your having new or worsening symptoms as we discussed. Prescriptions: New nitrofurantoin monohyd/m-cryst [Macrobid] 100 mg capsule 100 mg PO BID Qty: 10 RF: 0 No Action atorvastatin [Lipitor] 40 MG tablet 80 mg PO HS Qty: 0 RF: 0 citalopram 20 MG tablet 40 mg PO QDAY Qty: 0 RF: 0 telmisartan [Micardis] 80 MG tablet 40 mg PO Q DAY Qty: 0 RF: 0 hydrochlorothiazide 25 MG tablet 25 mg PO QDAY Qty: 0 RF: 0 diltiazem HCl 180 mg Capsule,Extended Release 24 Hr 180 mg PO DAILY RF: 0 metformin 500 mg Tablet Extended Release 24 Hr 500 mg PO TID RF: 0 metoprolol succinate 50 mg Tablet Extended Release 24 Hr 50 mg PO BID RF: 0 doxepin 25 mg Capsule 25 mg PO BEDTIME RF: 0 aspirin 81 mg Tablet,Chewable 81 mg PO DAILY RF: 0 Referrals: Luis Herzog MD [Primary Care Provider] -
--- NOTE | 2020-05-28 15:30 | PC.NURSE ---
Patient informed Covid test negative. Patient refused IV/labs, flu swab, or lab draw. Provider notified and aware.
[2020-05-28 15:37] LABS: Bacteria Urine None Seen; RBC Urine None Seen (0-5/HPF)
[2020-05-28 15:42] LABS: Culture Indicated Urine Specimen Cultured; WBC Urine 5-10/HPF (0-5/HPF)
== END 2020-05-28 15:53 | disposition home or self-care (01) ==
PROVIDERS: Emergency Medicine; Emergency Provider Student in an Organized Health Care Education/Training Program; Family Provider Internal Medicine; PCP Internal Medicine
DX: N39.0 Urinary tract infection, site not specified (principal); Z20.828 Contact with and (suspected) exposure to other viral communicable diseases; R51.9 Headache, unspecified
CPT/HCPCS: 81003; 81015; 87077; 87086; 87186; 87635; 99281; 99282

== ENCOUNTER → 2020-07-31 10:17 | Outpatient (CLI) | payer MEDICARE, OTHER, SELFPAY ==
--- NOTE | 2020-07-31 | DI.MG.S_ITS ---
BILATERAL DIGITAL SCREENING MAMMOGRAM 3D/2D WITH CAD: 07/31/2020 CLINICAL: Routine screening. Family history of breast cancer. Comparison is made to exams dated: 07/28/2019 mammogram, 09/25/2017 mammogram, and 09/09/2016 mammogram - [facility]. There are scattered fibroglandular elements in both breasts. Current study was also evaluated with a Computer Aided Detection (CAD) system. There are benign vascular calcifications in both breasts. No significant masses, calcifications, or other findings are seen in either breast. There has been no significant interval change. IMPRESSION: BENIGN There is no mammographic evidence of malignancy. A 1 year screening mammogram is recommended. This exam was interpreted at Station ID: [id number]. NOTE: For mammograms, a report in lay terms will be sent to the patient. Approximately 15% of breast malignancies will not be visualized mammographically. In the management of a palpable breast mass, a negative mammogram must not discourage biopsy of a clinically suspicious lesion. Electronically Signed By: Millicent reilly/richar:07/31/2020 11:20:50 letter sent: Normal Exam ACR BI-RADS Category 2: Benign Finding(s) [id number]
== END ==
PROVIDERS: Family Provider Internal Medicine; PCP Internal Medicine; Referring Provider Internal Medicine; Visit Provider Internal Medicine
DX: Z12.31 Encounter for screening mammogram for malignant neoplasm of breast (principal); Z80.3 Family history of malignant neoplasm of breast
CPT/HCPCS: 77063; 77067

== ENCOUNTER → 2020-08-14 10:05 | Outpatient (CLI) | payer MEDICARE, OTHER, SELFPAY ==
--- NOTE | 2020-08-14 10:23 | DI.CT.S_ITS ---
PROCEDURE: CT CHEST WO CON INDICATIONS: Follow-up lung cancer TECHNIQUE: Noncontrast 5 mm thick sections acquired from the pulmonary apices to the posterior costophrenic angles. 1 mm lung window, 5 mm thick coronal and sagittal and 7 mm axial MIP reformats were then acquired. For radiation dose reduction, the following was used: automated exposure control, adjustment of mA and/or kV according to patient size. COMPARISON: [facility], CT, CT CHEST WO CON, 05/11/2019, 13:34. [facility], CT, CT CHEST WO CON, 02/15/2020, 9:59. FINDINGS: Image quality: Portions of the chest wall are suboptimally evaluated secondary to metallic streak artifact from right shoulder arthroplasty. Lungs and pleura: Left apical nodule is present appearing slightly larger when compared to prior exam currently measuring 10 mm compared to 7 mm on 02/15/2020. It is noted that this measured 4 mm in 2019. Right apical pleural thickening is present. Masslike density within the right apex is again noted, unchanged. Consolidative and fibrotic changes are noted in the right middle lobe with associated lower lobe bronchiectasis. Overall, this appearance is unchanged. Mediastinum: Heart size is normal. No pericardial effusion. No mediastinal adenopathy by size criteria. Previously noted 14 mm soft tissue nodule posterior to the esophagus within the azygoesophageal recess is unchanged. Thoracic aorta and central pulmonary arteries are normal in size. Esophagus is normal in caliber. No hiatal hernia. Bones and chest wall: No suspicious bony lesions. No vertebral body compression fractures. No axillary or supraclavicular adenopathy by size criteria. Thyroid gland is unremarkable . Abdomen: Visualized upper abdominal solid organs and bowel loops appear normal in the absence of contrast. IMPRESSION: 1. Right middle lobe fibrotic changes as well as right apical somewhat spiculated focus are stable compared to prior exam. 2. Left apical nodule demonstrate interval increase in size as noted above. Overall appearance is concerning for progression of metastatic focus. Dictated by: Rosemary Holland M.D. on 08/14/2020 at 11:25 Approved by: Rosemary Holland M.D. on 08/14/2020 at 11:44
== END ==
PROVIDERS: Family Provider Internal Medicine; PCP Internal Medicine; Referring Provider Internal Medicine; Visit Provider Internal Medicine
DX: Z08 Encounter for follow-up examination after completed treatment for malignant neoplasm (principal); Z85.118 Personal history of other malignant neoplasm of bronchus and lung; R91.8 Other nonspecific abnormal finding of lung field
CPT/HCPCS: 71250

== ENCOUNTER → 2020-08-16 13:54 | Outpatient (CLI) | payer MEDICARE, OTHER, SELFPAY ==
--- NOTE | 2020-08-16 14:44 | DI.MRI.S_ITS ---
PROCEDURE: MR LUMBAR SPINE WO CON INDICATIONS: Low back pain TECHNIQUE: Noncontrast sagittal T1 spin echo and T2 fast echo, sagittal STIR, axial T1 and T2 fast spin echo through the lumbar spine. In cases with scoliosis, additional coronal T2 fast spin echo may be performed. COMPARISON: [facility], MR, MR LUMBAR SPINE WO CON, 09/29/2018, 12:26. [facility], CR, XR LUMBAR SPINE WITH OLBIQUES PLUS FLEXION EXTENSION, 09/17/2018, 13:07. FINDINGS: Image quality: Excellent. Alignment and Curvature: 5 lumbar type vertebral bodies are present by plain film. Mild grade 1 retrolisthesis of L1 on L2. Bone Marrow: Marrow is of normal overall signal. No acute vertebral body compression fractures. Mild reactive signal within the endplates adjacent to the T10-T11, T11-T12, L1-L2, L2-L3, L3-L4, L4-L5, and L5-S1 intervertebral discs. Spinal Cord: Conus medullaris terminates at the L1-L2 disc space level. Visualized cord demonstrates normal signal and size. Paraspinous Soft Tissues: No paravertebral masses. T12-L1: Mild disc desiccation. No significant canal, or foraminal stenosis. No change. L1-L2: Moderate disc desiccation. Mild disc height loss. Moderate diffuse disc bulge. Mild facet and ligamentum flavum hypertrophy. Mild canal stenosis. Mild bilateral foraminal stenosis. No change. L2-L3: Moderate disc desiccation. Mild diffuse disc bulge. Mild facet and ligamentum flavum hypertrophy. Mild canal stenosis. Mild bilateral foraminal stenosis. No change. L3-L4: Moderate disc desiccation. Mild diffuse disc bulge with superimposed broad-based left far lateral protrusion. Mild facet and ligamentum flavum hypertrophy. Mild canal stenosis. Severe left and mild right foraminal stenosis. Left L3 nerve root compression. No change. L4-L5: Moderate disc height loss and desiccation. Moderate diffuse disc bulge. Mild facet and ligamentum flavum hypertrophy. Mild canal stenosis. Moderate bilateral foraminal stenosis. L5-S1: Moderate disc height loss and desiccation. Moderate diffuse disc bulge. Mild bilateral facet hypertrophy. Mild canal stenosis. Moderate right greater than left subarticular foraminal stenosis. No change. IMPRESSION: 1. Multilevel degenerative disc and facet disease, as well as ligamentum flavum hypertrophy and epidural lipomatosis. 2. Mild multilevel canal stenosis. 3. Multilevel foraminal stenosis, worst on the left at L3-L4 where there is associated intraforaminal nerve root compression. Recommend correlation with clinical symptoms to ascertain relevance of this finding. Dictated by: Skylar Tay M.D. on 08/16/2020 at 15:01 Approved by: Skylar Tay M.D. on 08/16/2020 at 15:06
== END ==
PROVIDERS: Family Provider Internal Medicine; PCP Internal Medicine; Referring Provider Internal Medicine; Visit Provider Internal Medicine
DX: M54.5 Low back pain (principal); M51.36 Other intervertebral disc degeneration, lumbar region; M51.37 Other intervertebral disc degeneration, lumbosacral region; M48.061 Spinal stenosis, lumbar region without neurogenic claudication; M48.07 Spinal stenosis, lumbosacral region; E88.2 Lipomatosis, not elsewhere classified
CPT/HCPCS: 72148

== ENCOUNTER → 2020-11-21 10:15 | Outpatient (CLI) | payer MEDICARE, OTHER, SELFPAY ==
[2020-11-21 11:28] LABS: COVID19 -Nasal RAPID Negative (Negative)
== END ==
PROVIDERS: Family Provider Internal Medicine; PCP Internal Medicine; Referring Provider Internal Medicine; Visit Provider Internal Medicine
DX: Z20.822 Contact with and (suspected) exposure to COVID-19 (principal)
CPT/HCPCS: 87635; C9803

== ENCOUNTER → 2020-11-22 06:56 | Outpatient (CLI) | payer MEDICARE, OTHER, SELFPAY ==
--- NOTE | 2020-11-30 08:57 | PM.PFT.1 ---
Pulmonary Function Test Referral & Results Date Patient Seen: 11/22/20 Requesting provider: Luis Herzog Indication: COPD Results: The spirometry demonstrates an FVC of 1.82 L which is 63% of predicted. The FEV1 was measured at 1.45 L which is 68% of predicted. The FEV1/FVC ratio was 80 which is 107% of predicted. Following the administration of bronchodilator there was 36% improvement in FEF 25-75%. Lung volumes show an SVC of 1.91 L which is 67% of predicted. The diffusing capacity was measured at 11.91 which is 45% of predicted. No hemoglobin value was provided, so no correction for potential anemia could be made, if appropriate. The maximum voluntary ventilation was reduced Interpretation: This study demonstrates perhaps mild to moderate obstructive lung disease based on reduction FEV1 although FEV1/FVC ratio is preserved. There is some evidence of benefit in small airway flow post bronchodilator based on improvement in FEF 25-75% as above. There is a minimal reduction in lung volumes suggesting minimal restrictive lung disease is also present There is a more moderate or moderately severe reduction diffusing capacity suggesting more significant disease at the capillary alveolar level Compared to PFTs performed in July 2019, current study is essentially unchanged
== END ==
PROVIDERS: Family Provider Internal Medicine; PCP Internal Medicine; Referring Provider Internal Medicine; Visit Provider Internal Medicine
DX: J44.9 Chronic obstructive pulmonary disease, unspecified (principal); Z87.891 Personal history of nicotine dependence
CPT/HCPCS: 94060; 94726; 94729

== ENCOUNTER 2021-01-27 08:04 | Emergency (ER) | payer MEDICARE, OTHER, SELFPAY ==
[2021-01-27 08:16] VITALS: BP 156/69; PULSE 76; RESP 19; TEMP 36.3; O2SAT 92; BMI 33.9
--- NOTE | 2021-01-27 08:24 | ED.LOWEXIN ---
HPI - Extremity Injury (Lower) General Chief Complaint: Extremity Injury, Lower Stated Complaint: Hurt right foot / painful Time Seen by Provider: 01/27/21 08:23 Source: patient Mode of arrival: Ambulatory Limitations: no limitations History of Present Illness HPI Narrative: The patient developed right lateral foot pain about 3 days ago. 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 She was wearing sandals. She has a right 2nd hammertoe, she is wondering if that is involving the pain. The pain is in lateral foot. She has no obvious trauma, there was no twisting or turning. She is wondering if the sandals may have contributed to the pain. There is no other leg or ankle pain. She has no other complaints. Related Data Home Medications Medication Instructions Recorded Confirmed atorvastatin 40 mg tablet (Lipitor) 80 mg PO HS #0 04/22/12 09/12/20 citalopram 20 mg tablet 40 mg PO QDAY #0 04/22/12 09/12/20 hydrochlorothiazide 25 mg tablet 25 mg PO QDAY #0 04/22/12 09/12/20 telmisartan 80 mg tablet (Micardis) 40 mg PO Q DAY #0 04/22/12 09/12/20 aspirin 81 mg chewable tablet 81 mg PO DAILY 12/17/17 09/12/20 diltiazem HCl 180 mg capsule,24 180 mg PO DAILY 12/17/17 09/12/20 hr,extended release doxepin 25 mg capsule 25 mg PO BEDTIME 12/17/17 09/12/20 metformin 500 mg tablet,extended 500 mg PO TID 12/17/17 09/12/20 release 24 hr metoprolol succinate 50 mg 50 mg PO BID 12/17/17 09/12/20 tablet,extended release 24 hr acetaminophen 650 mg 650 mg PO BEDTIME 08/21/20 09/12/20 tablet,extended release apixaban 5 mg tablet (Eliquis) 5 mg PO BID 08/21/20 09/12/20 Allergies Allergy/AdvReac Type Severity Reaction Status Date / Time petrolatum,white Allergy Severe Difficulty Verified 05/28/20 13:36 [From A & D Barrier] Breathing venom-honey bee Allergy Severe HIVES Verified 05/28/20 13:36 [BEE VENOM (HONEY BEE)] adhesive [ADHESIVE] Allergy Intermediate REDNESS Verified 05/28/20 13:36 AND ITCHING OF SKIN WITH TAPE USE. Iodinated Contrast Media Allergy Intermediate RASH Verified 05/28/20 13:36 [IODINATED CONTRAST MEDIA - IV DYE] Penicillins [PENICILLINS] Allergy Intermediate SOB, Verified 05/28/20 13:36 ITCHING ALL TOPICAL OINTMENTS Allergy Severe RASH Uncoded 09/16/17 11:53 Review of Systems Constitutional Constitutional: Denies weakness Comments: No recent illness, no other injuries. Musculoskeletal Musculoskeletal: Denies numbness Comments: Right foot pain is noted HPI. Integumentary/Breasts Skin/Breast: Denies erythema, Denies rash, Denies skin swelling and Denies skin ulcer Neurologic Neurologic: Denies numbness and Denies weakness Patient History Social History Smoking Status: Former smoker Smoking Status: Former smoker alcohol intake frequency: other Substance Use Type: does not use Exam Initial Vital Signs Initial Vital Signs: Vital Signs Temperature 97.4 F L 01/27/21 08:16 Pulse Rate 76 01/27/21 08:16 Respiratory Rate 19 01/27/21 08:16 Blood Pressure 156/69 H 01/27/21 08:16 Pulse Oximetry 92 01/27/21 08:16 Const General: cooperative, comfortable, well developed and well groomed Skin General: no rashes or lesions noted Neuro General: patient alert, patient awake and no focal motor deficits Extrem Other: Right ankle is nontender. She has a hammertoe of the right 2nd toe. No pain in this location. She has tenderness in the proximal 5th metatarsal region without edema or erythema. There is no palpable deformity. Psych Appearance: grossly normal Procedures Orthopedic Splinting/Casting Injury #1: Side: right Lower Extremity Injury Location: foot Lower Extremity Immobilizer: post-op shoe Post splinting neuro exam: intact Post splinting vascular exam: intact Placed by: Nursing Course Orders Ordered: ED Orders 01/27/21 08:33 XR foot RT min 3V Stat Vital Signs Vital signs: Vital Signs - 8 hr 01/27/21 08:16 01/27/21 09:20 01/27/21 10:33 Temperature 97.4 F L Pulse Rate 76 70 94 H Respiratory Rate 19 18 20 Blood Pressure 156/69 H 145/69 H 164/67 H Pulse Oximetry 92 99 94 MDM - Extremity Injury (Lower) Imaging Data Right foot x-ray: Radiologist's Impression: Right foot DJD Discharge Plan Departure Patient Disposition: Home Clinical Impression: Osteoarthritis of foot, right Qualifiers: Osteoarthritis type: primary Qualified Code(s): M19.071 - Primary osteoarthritis, right ankle and foot Instructions: DI for Foot Pain Activity Restrictions/Additional Instructions: The x-ray shows arthritis. Tylenol or Advil as needed for pain. Use the ortho shoe when up and about. If not improved within 2 days follow up with her PCM. Physical therapy or orthopedic consultation may be warranted. Return here as needed. Prescriptions: No Action atorvastatin [Lipitor] 40 MG tablet 80 mg PO HS Qty: 0 RF: 0 citalopram 20 MG tablet 40 mg PO QDAY Qty: 0 RF: 0 telmisartan [Micardis] 80 MG tablet 40 mg PO Q DAY Qty: 0 RF: 0 hydrochlorothiazide 25 MG tablet 25 mg PO QDAY Qty: 0 RF: 0 diltiazem HCl 180 mg Capsule,Extended Release 24 Hr 180 mg PO DAILY RF: 0 metformin 500 mg Tablet Extended Release 24 Hr 500 mg PO TID RF: 0 metoprolol succinate 50 mg Tablet Extended Release 24 Hr 50 mg PO BID RF: 0 doxepin 25 mg Capsule 25 mg PO BEDTIME RF: 0 aspirin 81 mg Tablet,Chewable 81 mg PO DAILY RF: 0 Eliquis 5 mg Tablet 5 mg PO BID RF: 0 acetaminophen [Tylenol Arthritis] 650 mg Tablet Extended Release 650 mg PO BEDTIME RF: 0 Referrals: Luis Herzog MD [Primary Care Provider] -
--- NOTE | 2021-01-27 08:33 | DI.RAD.S_ITS ---
PROCEDURE: XR FOOT RT MIN 3V INDICATIONS: Right 5th MTP pain TECHNIQUE: 3 views of the foot were acquired. COMPARISON: [facility], CR, XR FOOT 3 VIEWS WEIGHT BEARING RIGHT, 05/19/2017, 14:01. [facility], CR, XR FOOT 3+ VIEWS RIGHT, 07/09/2020, 13:09. FINDINGS: Bones: No fractures or dislocations. No suspicious bony lesions. Degenerative changes are seen, which are worst involving the 1st metatarsal phalangeal. Milder degenerative changes are seen elsewhere. There is a moderate plantar calcaneal spur. Toe alignment abnormalities are seen. Soft tissues: No tibiotalar joint effusion. Achilles tendon appears normal. IMPRESSION: A cause of right 5th metatarsal joint pain is not identified on this plain film study. If it would be helpful for clinical management decision making, please consider a dedicated forefoot MRI (without and with contrast) for further evaluation (assuming that there is no contraindication). Degenerative changes are seen, which are worst involving the 1st metatarsophalangeal joint. Dictated by: Ryan Sam M.D. on 01/27/2021 at 8:37 Approved by: Ryan Sam M.D. on 01/27/2021 at 8:39
--- NOTE | 2021-01-27 08:33 | PC.NURSE ---
pt states it feels like something is rubbing, like the bone on the outside of my foot
[2021-01-27 09:20] VITALS: BP 145/69; PULSE 70; RESP 18; O2SAT 99
[2021-01-27 10:33] VITALS: BP 164/67; PULSE 94; RESP 20; O2SAT 94
== END 2021-01-27 10:33 | disposition home or self-care (01) ==
PROVIDERS: Emergency Provider Emergency Medicine; Family Provider Internal Medicine; PCP Internal Medicine
DX: M19.071 Primary osteoarthritis, right ankle and foot (principal)
CPT/HCPCS: 73630; 99283; 99284

== ENCOUNTER → 2021-02-05 12:51 | Outpatient (CLI) | payer MEDICARE, OTHER, SELFPAY ==
--- NOTE | 2021-02-05 12:54 | DI.CT.S_ITS ---
PROCEDURE: CT CHEST WO CON INDICATIONS: Malignant neoplasm of upper lobe, left bronchus or TECHNIQUE: Noncontrast 5 mm thick sections acquired from the pulmonary apices to the posterior costophrenic angles. 1 mm lung window, 5 mm thick coronal and sagittal and 7 mm axial MIP reformats were then acquired. For radiation dose reduction, the following was used: automated exposure control, adjustment of mA and/or kV according to patient size. COMPARISON: [facility], [place], [place] PET CT FUSION SKULL 2 THIGH, 09/05/2020, 8:42. [facility], [place], CT CHEST WO CON, 08/14/2020, 10:18. FINDINGS: Image quality: Excellent. Lungs and pleura: Nodular scarring at the lung apices. Peribronchial thickening throughout the right lung centrally. Bronchiectasis, consolidative change, and volume loss involving right middle lobe. Patchy peripheral opacity in the right posterolateral lower lobe. The left lung demonstrates minor subpleural ground-glass opacity and trace interstitial thickening at the lung apex. The left lung apex nodule is has decreased in size and is not well seen on sagittal imaging. Mediastinum: Heart size is normal. Heavy coronary artery calcification. No pericardial effusion. Nodules in the right posterior esophageal region are slightly decreased in size, one measuring 1.3 cm and the other measuring 0.5 cm. Infrahilar/subcarinal nodule measures 8 mm, previously 9 mm. Nonenlarged, calcified left hilar lymph nodes. Confluent soft tissue circumferentially in the right perihilar region mildly decreased. Thoracic aorta and central pulmonary arteries are normal in size. Moderate aortic arch calcification. Esophagus is normal in caliber. No hiatal hernia. Bones and chest wall: Right shoulder arthroplasty. There is sclerotic change and contour irregularity involving the right anterior 4th rib. No vertebral body compression fractures. No axillary or supraclavicular adenopathy by size criteria. Thyroid gland Partially imaged and the visible portion is grossly normal. . Abdomen: Visualized upper abdominal solid organs and bowel loops appear normal in the absence of contrast. IMPRESSION: 1. No significant change to fibrotic and consolidative right middle lobe and patchy right lower lobe lung changes. 2. Slight improvement in right perihilar and subcarinal mediastinal adenopathy. 3. Decreased size of left apical pleural-based lung nodule. 4. Heavy coronary artery calcification. Dictated by: Millicent German M.D. on 02/05/2021 at 16:37 Approved by: Millicent German M.D. on 02/05/2021 at 16:56
== END ==
PROVIDERS: Family Provider Internal Medicine; PCP Internal Medicine; Referring Provider Radiology Radiation Oncology; Visit Provider Radiology Radiation Oncology
DX: C34.12 Malignant neoplasm of upper lobe, left bronchus or lung (principal); I25.10 Atherosclerotic heart disease of native coronary artery without angina pectoris
CPT/HCPCS: 71250

== ENCOUNTER → 2021-04-12 11:11 | Outpatient (CLI) | payer MEDICARE, OTHER, SELFPAY ==
--- NOTE | 2021-04-12 | DI.US.S_ITS ---
LIMITED ULTRASOUND OF LEFT BREAST: 04/12/2021 CLINICAL: Palpable left breast lump. Comparison is made to exams dated: 07/31/2020 mammogram, 07/28/2019 mammogram, 09/25/2017 mammogram, and 09/09/2016 mammogram - [facility]. Color flow ultrasound of the left breast 11 o'clock region was performed. See scale images of the real-time examination were reviewed. There is a 1.2 cm x 1.7 cm x 1 cm irregular mass with an indistinct margin in the left breast at 11 o'clock middle depth 4 cm from the nipple. This irregular mass is hyperechoic with posterior acoustic shadowing. This correlates as palpated. Small cystic spaces are seen adjacent to the abnormality. IMPRESSION: PROBABLY BENIGN The 1.2 cm x 1.7 cm x 1 cm irregular mass in the left breast likely represents a hematoma or fat necrosis and is probably benign. A follow-up mammogram and an ultrasound in 6 months is recommended to demonstrate stability. This exam was interpreted at Station ID: [id number]. Electronically Signed By: Terrell jaime/richar:04/12/2021 12:43:36 letter sent: Followup Recommended Ultrasound BI-RADS: 3 Probably benign
== END ==
PROVIDERS: Family Provider Internal Medicine; PCP Internal Medicine; Referring Provider Internal Medicine; Visit Provider Internal Medicine
DX: N63.22 Unspecified lump in the left breast, upper inner quadrant (principal)
CPT/HCPCS: 76642

== ENCOUNTER 2021-04-17 07:58 | Emergency (ER) | payer MEDICARE, OTHER, SELFPAY ==
[2021-04-17 08:14] VITALS: BP 140/63; PULSE 80; RESP 18; TEMP 36.5; O2SAT 94; BMI 32.4
--- NOTE | 2021-04-17 08:19 | ED.LOWEXIN ---
HPI - Extremity Injury (Lower) General Chief Complaint: Extremity Injury, Lower Stated Complaint: Pain in both feet- LT is severe Time Seen by Provider: 04/17/21 08:05 Source: patient Mode of arrival: Ambulatory Limitations: no limitations History of Present Illness HPI Narrative: Patient is a 80-year-old female with history of lung cancer on home oxygen, diabetes, coronary artery disease, hypertension atrial fibrillation on Eliquis presenting today with 1 week of left foot pain. Her big toe hurts the most it is difficult for her to walk. There is no redness she denies any fever. She also complains of right foot pain for which she was seen in the emergency department in January and diagnosed arthritis. She took 2 Tylenol last night for pain she said it did not help. Related Data Home Medications Medication Instructions Recorded Confirmed atorvastatin 40 mg tablet (Lipitor) 80 mg PO HS #0 04/22/12 09/12/20 citalopram 20 mg tablet 40 mg PO QDAY #0 04/22/12 09/12/20 hydrochlorothiazide 25 mg tablet 25 mg PO QDAY #0 04/22/12 09/12/20 telmisartan 80 mg tablet (Micardis) 40 mg PO Q DAY #0 04/22/12 09/12/20 aspirin 81 mg chewable tablet 81 mg PO DAILY 12/17/17 09/12/20 diltiazem HCl 180 mg capsule,24 180 mg PO DAILY 12/17/17 09/12/20 hr,extended release doxepin 25 mg capsule 25 mg PO BEDTIME 12/17/17 09/12/20 metformin 500 mg tablet,extended 500 mg PO TID 12/17/17 09/12/20 release 24 hr metoprolol succinate 50 mg 50 mg PO BID 12/17/17 09/12/20 tablet,extended release 24 hr acetaminophen 650 mg 650 mg PO BEDTIME 08/21/20 09/12/20 tablet,extended release apixaban 5 mg tablet (Eliquis) 5 mg PO BID 08/21/20 09/12/20 Previous Rx's Medication Instructions Recorded hydrocodone 5 mg-acetaminophen 325 1 tab PO Q6H PRN #10 tab 04/17/21 mg tablet Allergies Allergy/AdvReac Type Severity Reaction Status Date / Time petrolatum,white Allergy Severe Difficulty Verified 05/28/20 13:36 [From A & D Barrier] Breathing venom-honey bee Allergy Severe HIVES Verified 05/28/20 13:36 [BEE VENOM (HONEY BEE)] adhesive [ADHESIVE] Allergy Intermediate REDNESS Verified 05/28/20 13:36 AND ITCHING OF SKIN WITH TAPE USE. Iodinated Contrast Media Allergy Intermediate RASH Verified 05/28/20 13:36 [IODINATED CONTRAST MEDIA - IV DYE] Penicillins [PENICILLINS] Allergy Intermediate SOB, Verified 05/28/20 13:36 ITCHING ALL TOPICAL OINTMENTS Allergy Severe RASH Uncoded 09/16/17 11:53 Review of Systems Review of Systems Narrative: GENERAL: Denies chills,fever HEENT: Denies throat pain RESPIRATORY: Denies dyspnea, cough, wheezing CARDIOVASCULAR: Denies chest pain, palpitations GASTROINTESTINAL: Denies nausea, vomiting MUSCULOSKELETAL: See HPI SKIN: No rash, no laceration, no pruritus NEUROLOGIC: Denies weakness, dizziness, headache, numbness 8 point review of systems is negative except for those stated above and HPI Patient History Social History Smoking Status: Former smoker Smoking Status: Former smoker alcohol intake frequency: other Substance Use Type: does not use Exam Initial Vital Signs Initial Vital Signs: Vital Signs Temperature 97.7 F 04/17/21 08:14 Pulse Rate 80 04/17/21 08:14 Respiratory Rate 18 04/17/21 08:14 Blood Pressure 140/63 04/17/21 08:14 Pulse Oximetry 94 04/17/21 08:14 GENERAL: Alert well-appearing 80-year-old female CARDIOVASCULAR: peripheral pulses in tact, cap refill <2 sec RESPIRATORY: No respiratory distress, speaks in full sentences without difficulty EXTREMITIES: Normal range of motion, no clubbing or edema. Neurovascularly intact Left foot no erythema minimal swelling able to lift big toe against mild resistance. Some midfoot pain no gross bony deformity, distal pedal pulse intact. NEUROLOGICAL: Cranial nerves II through XII grossly intact. Normal gait and speech. SKIN: Warm, dry, no petechiae, no rashes or lesions. Course Orders Ordered: ED Orders 04/17/21 08:22 XR foot LT min 3V Stat Vital Signs Vital signs: Vital Signs - 8 hr 04/17/21 08:14 Temperature 97.7 F Pulse Rate 80 Respiratory Rate 18 Blood Pressure 140/63 Pulse Oximetry 94 MDM - Extremity Injury (Lower) Imaging Data Extremity x-ray #1: Radiologist's Impression: PROCEDURE:? XR FOOT LT MIN 3V ? INDICATIONS:? pain ? TECHNIQUE:? 3 views of the foot were acquired.? ? COMPARISON:? [facility], CR, XR FOOT RT MIN 3V, 01/27/2021, 9:06. ? FINDINGS:? ? Bones:? No fractures or dislocations.? No suspicious bony lesions.? Calcaneal enthesophytes are noted.? Mild joint space loss with osteophytosis at the 1st MTP joint.? Prominent osteophytosis of the hallux sesamoids. ? Soft tissues:? No tibiotalar joint effusion.? Vascular calcifications are seen. ? ? IMPRESSION:? No acute osseous abnormality. ? ? Dictated by: Jarett Oliva M.D. on 04/17/2021 at 9:02 ? ? [facility] Narrative Medical decision making narrative: Patient has some left toe and foot pain without any injury. X-ray is negative. No erythema diagnosed with arthritis previously and her other foot. This may be arthritis again. At this time she is given an orthopedic shoe and pain medication. Discharge Plan Departure Patient Disposition: Home Clinical Impression: Pain in toe of left foot Instructions: Toe Sprain Activity Restrictions/Additional Instructions: *You have been diagnosed with left toe pain *What to do: At this time there are no broken bones. Wear supportive shoe as needed *Continue to take medications as directed Tylenol 650 mg every 4-6 hours if needed [id number] [place] 1 tablet at night if needed for severe pain or every 4-6 hours--> SENT TO [facility] *Follow up with your primary care provider in 2-3 days *Return to ER if you should have increasing pain redness fever oror any new, worsening or concerning symptoms CONTROLLED SUBSTANCE DISCHARGE (Narcotoic/benzodiazepine/Flexeril/Phenergan) 1. You have been prescribed narcotic medications, it does have acetaminophen/Tylenol/paracetamol in it, DO NOT TAKE MORE THAN 4,00mg in 24 hours of Tylenol. TRAMADOL DOES NOT CONTAIN TYLENOL 2. Please understand that we cannot provide further refills of narcotics, benzodiazepines or controlled substances through the ED and her pain management will need to be through your provider. 3. While on these medications you cannot drive or operate heavy machinery. 4. You cannot sign legal documents or perform any duties such as this. 5. As long as you're taking opiate pain medications he should also be taking a stool softener such as Colace, Dulcolax, MiraLAX or prune juice, to help avoid constipation. Prescriptions: New hydrocodone-acetaminophen 5-325 mg tablet 1 tab PO Q6H PRN (Reason: pain) Qty: 10 RF: 0 No Action atorvastatin [Lipitor] 40 MG tablet 80 mg PO HS Qty: 0 RF: 0 citalopram 20 MG tablet 40 mg PO QDAY Qty: 0 RF: 0 telmisartan [Micardis] 80 MG tablet 40 mg PO Q DAY Qty: 0 RF: 0 hydrochlorothiazide 25 MG tablet 25 mg PO QDAY Qty: 0 RF: 0 diltiazem HCl 180 mg Capsule,Extended Release 24 Hr 180 mg PO DAILY RF: 0 metformin 500 mg Tablet Extended Release 24 Hr 500 mg PO TID RF: 0 metoprolol succinate 50 mg Tablet Extended Release 24 Hr 50 mg PO BID RF: 0 doxepin 25 mg Capsule 25 mg PO BEDTIME RF: 0 aspirin 81 mg Tablet,Chewable 81 mg PO DAILY RF: 0 Eliquis 5 mg Tablet 5 mg PO BID RF: 0 acetaminophen [Tylenol Arthritis] 650 mg Tablet Extended Release 650 mg PO BEDTIME RF: 0 Referrals: Luis Herzog MD [Primary Care Provider] -
--- NOTE | 2021-04-17 08:22 | DI.RAD.S_ITS ---
PROCEDURE: XR FOOT LT MIN 3V INDICATIONS: pain TECHNIQUE: 3 views of the foot were acquired. COMPARISON: [facility], CR, XR FOOT RT MIN 3V, 01/27/2021, 9:06. FINDINGS: Bones: No fractures or dislocations. No suspicious bony lesions. Calcaneal enthesophytes are noted. Mild joint space loss with osteophytosis at the 1st MTP joint. Prominent osteophytosis of the hallux sesamoids. Soft tissues: No tibiotalar joint effusion. Vascular calcifications are seen. IMPRESSION: No acute osseous abnormality. Dictated by: Jarett Oliva M.D. on 04/17/2021 at 9:02 Approved by: Jarett Oliva M.D. on 04/17/2021 at 9:04
== END 2021-04-17 09:50 | disposition home or self-care (01) ==
PROVIDERS: Emergency Provider Emergency Medicine; Family Provider Internal Medicine; PCP Internal Medicine
DX: M79.675 Pain in left toe(s) (principal)
CPT/HCPCS: 73630; 99283; 99284

== ENCOUNTER 2021-05-01 10:40 | Emergency (ER) | payer MEDICARE, OTHER, SELFPAY ==
[2021-05-01 10:53] VITALS: BP 144/77; PULSE 86; RESP 18; TEMP 37.2; O2SAT 85; BMI 32.5
--- NOTE | 2021-05-01 11:31 | ED_ITS ---
HPI - Extremity Injury (Lower) General Chief Complaint: Extremity Injury, Lower Stated Complaint: fell t-7 days and banged up leg Time Seen by Provider: 05/01/21 11:02 Source: patient Mode of arrival: Family Vehicle Limitations: no limitations History of Present Illness HPI Narrative: 80-year-old female who is here for evaluation of redness and swelling to her right lower extremity. Approximately 1 week ago she had a mechanical fall at home where she fell down some stairs. She is on anticoagulation. She did sustain some abrasions to the front of her right leg. She has been ambulatory since then. The abrasions are healing however she continues to have some redness over the area and it is quite tender to palpation. No fevers. She was putting some peroxide over the area but was told by her primary doctor to stop doing that. Related Data Home Medications Medication Instructions Recorded Confirmed atorvastatin 40 mg tablet (Lipitor) 80 mg PO HS #0 04/22/12 09/12/20 citalopram 20 mg tablet 40 mg PO QDAY #0 04/22/12 09/12/20 hydrochlorothiazide 25 mg tablet 25 mg PO QDAY #0 04/22/12 09/12/20 telmisartan 80 mg tablet (Micardis) 40 mg PO Q DAY #0 04/22/12 09/12/20 aspirin 81 mg chewable tablet 81 mg PO DAILY 12/17/17 09/12/20 diltiazem HCl 180 mg capsule,24 180 mg PO DAILY 12/17/17 09/12/20 hr,extended release doxepin 25 mg capsule 25 mg PO BEDTIME 12/17/17 09/12/20 metformin 500 mg tablet,extended 500 mg PO TID 12/17/17 09/12/20 release 24 hr metoprolol succinate 50 mg 50 mg PO BID 12/17/17 09/12/20 tablet,extended release 24 hr acetaminophen 650 mg 650 mg PO BEDTIME 08/21/20 09/12/20 tablet,extended release apixaban 5 mg tablet (Eliquis) 5 mg PO BID 08/21/20 09/12/20 Previous Rx's Medication Instructions Recorded hydrocodone 5 mg-acetaminophen 325 1 tab PO Q6H PRN #10 tab 04/17/21 mg tablet cephalexin 500 mg tablet 500 mg PO QID 7 Days #28 tab 05/01/21 Allergies Allergy/AdvReac Type Severity Reaction Status Date / Time petrolatum,white Allergy Severe Difficulty Verified 05/28/20 13:36 [From A & D Barrier] Breathing venom-honey bee Allergy Severe HIVES Verified 05/28/20 13:36 [BEE VENOM (HONEY BEE)] adhesive [ADHESIVE] Allergy Intermediate REDNESS Verified 05/28/20 13:36 AND ITCHING OF SKIN WITH TAPE USE. Iodinated Contrast Media Allergy Intermediate RASH Verified 05/28/20 13:36 [IODINATED CONTRAST MEDIA - IV DYE] Penicillins [PENICILLINS] Allergy Intermediate SOB, Verified 05/28/20 13:36 ITCHING ALL TOPICAL OINTMENTS Allergy Severe RASH Uncoded 09/16/17 11:53 Review of Systems Constitutional Constitutional: Denies fever(s) Respiratory Comments: Unchanged from baseline Musculoskeletal Musculoskeletal: Reports system reviewed and no additional complaints, except as documented and Reports as per HPI Integumentary/Breasts Skin/Breast: Reports system reviewed and no additional complaints, except as documented and Reports as per HPI Hematologic/Lymphatic On Anticoagulants: Yes Patient History Medical History Contrast media allergy COPD exacerbation Lung cancer Radiation fibrosis of lung Social History Smoking Status: Former smoker Smoking Status: Former smoker tobacco type: cigarettes alcohol intake frequency: 0-2 drinks per day Substance Use Type: does not use Exam Initial Vital Signs Initial Vital Signs: Vital Signs Temperature 98.9 F 05/01/21 10:53 Pulse Rate 86 05/01/21 10:53 Respiratory Rate 18 05/01/21 10:53 Blood Pressure 144/77 H 05/01/21 10:53 Pulse Oximetry 85 L 05/01/21 10:53 Const General: cooperative, healthy appearing, comfortable and well developed Skin Other: Patient has 2 areas of skin abrasions on the anterior right galo. There are blood clots over the area. No active bleeding. The surrounded by ecchymosis. There is no crepitus in the area. The bruising does extend somewhat back to her calf and there is a small amount on the medial right foot. There is also an area of redness that extends inferior to the skin abrasions. It is somewhat warm to the touch. Neuro General: patient alert, patient awake and moves all extremities Extrem Other: Patient does have bruising and swelling to the anterior aspect of the right galo. She can flex and extend at her ankle in her knee without issues. Her right foot unremarkable. Her hips unremarkable. Course Vital Signs Vital signs: Vital Signs - 8 hr 05/01/21 10:53 Temperature 98.9 F Pulse Rate 86 Respiratory Rate 18 Blood Pressure 144/77 H Pulse Oximetry 85 L MDM - Extremity Injury (Lower) MDM Narrative Medical decision making narrative: Patient is nontoxic. I have low suspicion for sepsis. Has been ambulatory for the past week. Can flex and extend at the knee and the ankle. I have low suspicion for fracture. I feel that we can hold on radiologic studies for now. The ecchymosis around the skin abrasions appears what I would expected to look like 1 week after the injury. There was quite a bit of ecchymosis but there is no crepitus in the area. However there is some redness that extends inferior down to the distal 1/3 of the galo that is somewhat concerning for cellulitis. She is at risk for this given the abrasions on the area. Was start her on antibiotics. She was given return precautions and care instructions and follow- up instructions. She expressed understanding and agreement Discharge Plan Departure Patient Disposition: Home Clinical Impression: Cellulitis Instructions: Cellulitis Activity Restrictions/Additional Instructions: We do need to start you on antibiotics. You can continue to shower like normal. I would expect some increase in bruising. Return to the emergency department for any new or worsening symptoms Prescriptions: New cephalexin 500 mg tablet 500 mg PO QID 7 Days Qty: 28 0RF No Action atorvastatin [Lipitor] 40 MG tablet 80 mg PO HS Qty: 0 0RF citalopram 20 MG tablet 40 mg PO QDAY Qty: 0 0RF telmisartan [Micardis] 80 MG tablet 40 mg PO Q DAY Qty: 0 0RF hydrochlorothiazide 25 MG tablet 25 mg PO QDAY Qty: 0 0RF diltiazem HCl 180 mg Capsule,Extended Release 24 Hr 180 mg PO DAILY 0RF metformin 500 mg Tablet Extended Release 24 Hr 500 mg PO TID 0RF metoprolol succinate 50 mg Tablet Extended Release 24 Hr 50 mg PO BID 0RF doxepin 25 mg Capsule 25 mg PO BEDTIME 0RF aspirin 81 mg Tablet,Chewable 81 mg PO DAILY 0RF Eliquis 5 mg Tablet 5 mg PO BID 0RF acetaminophen [Tylenol Arthritis] 650 mg Tablet Extended Release 650 mg PO BEDTIME 0RF hydrocodone-acetaminophen 5-325 mg tablet 1 tab PO Q6H PRN (Reason: pain) Qty: 10 0RF
[2021-05-01 11:38] VITALS: BP 187/75; PULSE 75; O2SAT 99
== END 2021-05-01 11:59 | disposition home or self-care (01) ==
PROVIDERS: Emergency Provider Emergency Medicine; Family Provider Internal Medicine
DX: L03.115 Cellulitis of right lower limb (principal); S80.811A Abrasion, right lower leg, initial encounter; W10.9XXA Fall (on) (from) unspecified stairs and steps, initial encounter
CPT/HCPCS: 99281

== ENCOUNTER → 2021-05-08 10:37 | Outpatient (CLI) | payer MEDICARE, OTHER, SELFPAY ==
--- NOTE | 2021-05-08 10:39 | DI.RAD.S_ITS ---
PROCEDURE: XR TIBIA FUBULA RT 2V INDICATIONS: fall, pain, cellulitis possible osteomyelitis x3wk TECHNIQUE: 2 views of the tibia and fibula were acquired. COMPARISON: None. FINDINGS: Bones: No fractures or dislocations. No suspicious bony lesions. Degenerative changes are seen, including involving the ankle. A plantar calcaneal spur is seen. Soft tissues: No suspicious soft tissue calcifications or masses. Atherosclerotic calcification is noted. IMPRESSION: Unremarkable plain film study, without plain film findings of osteomyelitis. If there is strong suspicion for developing osteomyelitis, please consider a dedicated MRI without and with contrast for further evaluation (assuming that there is no contraindication to MRI). Age-appropriate bony degenerative changes are seen. Dictated by: Ryan Sam M.D. on 05/08/2021 at 9:59 Approved by: Ryan Sam M.D. on 05/08/2021 at 10:00
== END ==
PROVIDERS: Family Provider Internal Medicine; Referring Provider Physician Assistant; Visit Provider Physician Assistant
DX: L03.90 Cellulitis, unspecified (principal); M77.31 Calcaneal spur, right foot
CPT/HCPCS: 73590

== ENCOUNTER 2021-05-09 08:30 | Outpatient (RCR) | payer MEDICARE, OTHER, SELFPAY | END 2021-05-09 10:30 | LOC: PUL 08:30 | PROVIDERS: Family Provider Internal Medicine; PCP Internal Medicine; Referring Provider Internal Medicine; Visit Provider Internal Medicine | DX: C34.12 Malignant neoplasm of upper lobe, left bronchus or lung (principal) | CPT/HCPCS: G0237; G0238 ==

== ENCOUNTER 2021-05-10 12:05 | Inpatient (IN) | payer MEDICARE, OTHER, SELFPAY ==
[2021-05-10] VITALS (18 sets, daily range): BP systolic 149–229; BP diastolic 81–103; PULSE 89–107; RESP 15–25; TEMP 36.6–37.2; O2SAT 95–99; BMI 30.9
[2021-05-10 13:37] LABS: Add Manual Diff / Slide Review NO; Basophils Absolute Auto 100 /uL (0-100); Basophils Percent Auto 1.1 % (0-2); Eosinophils Absolute Auto 200 /uL (0-450); Eosinophils Percent Auto 4.2 % (2-4); Hematocrit 34.2 % (36-46); Hemoglobin 11.3 g/dL (12.0-16.0); Lymphocytes Absolute Auto 500 /uL (1100-4500); Lymphocytes Percent Auto 9.1 % (25-40); Mean Corpuscular Hemoglobin 32.2 PG (26-34); Mean Corpuscular Volume 97.3 fL (80-100); Monocytes Absolute Auto 500 /uL (0-900); Monocytes Percent Auto 9.4 % (3-14); Neutrophils Absolute Auto 3900 /uL (1500-7000); Neutrophils Percent Auto 76.2 % (50-75); Platelet Count 286 X10^3/uL (150-400); Red Blood Cell Count 3.52 X10^6/uL (4.0-5.2); Red Cell Distribution Width 14.5 % (11.6-14.8); White Blood Cell Count 5.1 X10^3/uL (4.5-11.0)
[2021-05-10 13:45] LABS: INR 1.4 (0.9-1.3)
[2021-05-10 13:47] LABS: PTT Partial Thromboplastin Tim 43 SECONDS (26.4-36.2)
[2021-05-10 13:49] LABS: Lactate (Lactic Acid) 1.2 mmol/L (0.7-2.1)
[2021-05-10 13:52] LABS: Alanine Aminotransferase 24 IU/L (<35); Albumin 4.5 g/dL (3.5-5.0); Albumin Globulin Ratio 1.4 (1.0-2.8); Alkaline Phosphatase 86 U/L (38-126); Aspartate Aminotransferase 27 IU/L (14-36); BUN Creatinine Ratio 25.7 (6-22); Bilirubin Total 0.5 mg/dL (0.2-1.3); Blood Urea Nitrogen 26 mg/dL (7-17); Calcium 9.7 mg/dL (8.4-10.2); Carbon Dioxide 27 mmol/L (22-32); Chloride 103 mmol/L (98-107); Estimated Glomerular Filt Rate 52.9 mL/min (>60); Globulin 3.3 g/dL (1.7-4.1); Glucose 106 mg/dL (80-110); HEMOLYSIS < 15 (0-50); Lipase 212 U/L (23-300); Potassium 4.8 mmol/L (3.4-5.1); Sodium 139 mmol/L (137-145); Total Protein 7.8 g/dL (6.3-8.2)
[2021-05-10 14:03] LABS: Appearance Urine UA SL CLOUDY; Bilirubin Urine UA NEGATIVE (NEGATIVE); Color Urine UA YELLOW; Glucose Urine UA NEGATIVE (Negative); Ketones Urine UA NEGATIVE (NEGATIVE); Leukocyte Esterase Urine UA NEGATIVE (NEGATIVE); Nitrite Urine UA NEGATIVE (Negative); Occult Blood Urine UA NEGATIVE (Negative); Protein Urine UA NEGATIVE (Negative); Urobilinogen Urine UA 0.2 E.U./dL (0.2)
[2021-05-10] MEDS: SODIUM CHLORIDE 0.9% 1,000 ML 1000 ML IV (14:06)
[2021-05-10 14:07] LABS: Procalcitonin 0.08 ng/mL (<0.5)
[2021-05-10 14:14] LABS: Amorphous Sediment Urine 2+; Bacteria Urine None Seen; Culture Indicated Urine Cult Not Indicated; Mucus Urine 1+ (Negative); RBC Urine None Seen (0-5/HPF); Squamous Epithelial Cell Urine 0-1 /HPF (0-5/HPF); WBC Urine 0-1/HPF (0-5/HPF)
[2021-05-10 14:30] LABS: COVID19 - ADMIT (NP swab/PCR) Negative (Negative)
--- NOTE | 2021-05-10 14:54 | ED_ITS ---
HPI - Fever General Chief Complaint: Fever Stated Complaint: Fall, Lt Leg Laceration Pain/Redness Time Seen by Provider: 05/10/21 14:37 Source: patient Mode of arrival: Ambulatory Limitations: no limitations History of Present Illness HPI Narrative: Patient is a 81-year-old female history of chronic hypoxic respiratory failure on oxygen at home, lung cancer, coronary artery disease presenting with right leg redness. She initially fell down stairs on 04/17/2021 no injury to the right leg however seen and evaluated in the emergency department on 05/01/2021 where she to have a right leg tenderness and redness. Diagnosis cellulitis put on Keflex. She was seen and evaluated on 05/08/2021 at the walk-in clinic on doxycycline. She continues to have redness it is painful she generally does not feel well. Related Data Home Medications Medication Instructions Recorded Confirmed atorvastatin 40 mg tablet (Lipitor) 80 mg PO HS #0 04/22/12 05/10/21 citalopram 20 mg tablet 40 mg PO QDAY #0 04/22/12 05/10/21 hydrochlorothiazide 25 mg tablet 25 mg PO QDAY #0 04/22/12 05/10/21 telmisartan 80 mg tablet (Micardis) 40 mg PO Q DAY #0 04/22/12 05/10/21 aspirin 81 mg chewable tablet 81 mg PO DAILY 12/17/17 05/10/21 diltiazem HCl 180 mg capsule,24 180 mg PO DAILY 12/17/17 05/10/21 hr,extended release doxepin 25 mg capsule 25 mg PO BEDTIME 12/17/17 05/10/21 metformin 500 mg tablet,extended 500 mg PO TID 12/17/17 05/10/21 release 24 hr metoprolol succinate 50 mg 50 mg PO BID 12/17/17 05/10/21 tablet,extended release 24 hr acetaminophen 650 mg 650 mg PO BEDTIME 08/21/20 05/10/21 tablet,extended release apixaban 5 mg tablet (Eliquis) 5 mg PO BID 08/21/20 05/10/21 Previous Rx's Medication Instructions Recorded hydrocodone 5 mg-acetaminophen 325 1 tab PO Q6H PRN #10 tab 04/17/21 mg tablet Allergies Allergy/AdvReac Type Severity Reaction Status Date / Time petrayakatum,white Allergy Severe Difficulty Verified 05/08/21 10:53 [From A & D Barrier] Breathing venom-honey bee Allergy Severe HIVES Verified 05/08/21 10:53 [BEE VENOM (HONEY BEE)] adhesive [ADHESIVE] Allergy Intermediate REDNESS Verified 05/08/21 10:53 AND ITCHING OF SKIN WITH TAPE USE. Iodinated Contrast Media Allergy Intermediate RASH Verified 05/08/21 10:53 [IODINATED CONTRAST MEDIA - IV DYE] Penicillins [PENICILLINS] Allergy Intermediate SOB, Verified 05/08/21 10:53 ITCHING ALL TOPICAL OINTMENTS Allergy Severe RASH Uncoded 05/08/21 10:53 Review of Systems Review of Systems Narrative: GENERAL: Denies chills, fatigue, malaise, fever, sweats, travel HEENT: Denies sinus pain, ear pain, sore throat, difficulty swallowing, neck pain RESPIRATORY: Denies dyspnea, cough, wheezing, hemoptysis, sputum. CARDIOVASCULAR: Denies chest pain, palpitations, orthopnea, edema GASTROINTESTINAL: Denies nausea, vomiting, abdominal pain, diarrhea, constipation, melena. : Denies dysuria, frequency, incontinence, hematuria, urinary retention, flank pain. MUSCULOSKELETAL: Denies weakness, joint pain, or bony pain SKIN: See HPI NEUROLOGIC: Denies weakness, dizziness, headache, numbness, change in speech, confusion PSYCHIATRIC: No concerning psychosocial issues. 12 point review of systems is negative except for those stated above and HPI Patient History Medical History (Updated 05/10/21 @ 18:21 by Geeta Patel MD) Chronic atrial fibrillation Chronic respiratory failure with hypoxia Contrast media allergy COPD exacerbation Gout History of lymphoma Hyperlipidemia Hypertension Lung cancer Radiation fibrosis of lung Type 2 diabetes mellitus Family History (Updated 05/10/21 @ 18:22 by Geeta Patel MD) Sister Cancer Mother CAD (coronary artery disease) Father Malaria Social History household members: spouse Smoking Status: Former smoker alcohol intake: current Smoking Status: Former smoker tobacco type: cigarettes alcohol intake frequency: 0-2 drinks per day Substance Use Type: does not use Exam Initial Vital Signs Initial Vital Signs: Vital Signs Temperature 98.9 F 05/10/21 12:21 Pulse Rate 102 H 05/10/21 12:21 Respiratory Rate 18 05/10/21 12:21 Blood Pressure 220/85 H 05/10/21 12:21 Pulse Oximetry 95 05/10/21 12:21 GENERAL: Alert 81-year-old female, appears mildly weak but overall well and in no acute distress HEENT: Head atraumatic,EOMI, pupils reactive, face symmetric, [moist] mucous membranes CARDIOVASCULAR: Regular rate and rhythm without murmurs, rubs or gallops. RESPIRATORY: Breath sounds equal bilaterally, no wheezes rales or rhonchi. ABDOMEN: Soft, nontender. Normoactive bowel sounds all 4 quadrants. No guarding or rebound. RECTAL: + Stool. No blood. EXTREMITIES: Normal range of motion, no clubbing or edema. Neurovascularly intact NEUROLOGICAL: Alert and oriented x4.Normal gait and speech. SKIN: Right leg lower tibia erythematous non circumferential outlined upper legs some mild swelling just inferior patellar tendon no fluctuation Course Orders Ordered: ED Orders 05/10/21 12:26 RT Consult Eval and Treat Now 05/10/21 13:20 Blood Culture Stat Complete Blood Count AUTO DIFF Stat Comprehensive Metabolic Panel Stat Lactate (Lactic Acid) Stat Lipase Stat Partial Thromboplastin Time Stat Procalcitonin Stat Prothrombin Time INR Stat 05/10/21 13:33 COVID19 - ADMIT ([employer] swab/PCR) Stat Urinalysis and Microscopic Stat 05/10/21 15:11 CT LE RT w con Stat Acetaminophen (Acetaminophen 325 Mg Tablet) 650 mg PO Q6HR PRN PRN Reason: Fever/Mild Pain (1-3) Hydrocodone Bitart/Acetaminophen (Hydrocodone/Acet 5/325 Tablet) 1 tab PO Q4HR PRN PRN Reason: Pain, Moderate (4-6) Al Hydrox/Mg Hydrox/Simethicone (Mag Hydrox/Alum/Simeth 30 Ml Udc) 30 ml PO Q6HR PRN PRN Reason: Dyspepsia Aspirin (Aspirin Ec 81 Mg Tablet) 81 mg PO DAILY [facility] Atorvastatin Calcium (Atorvastatin 20 Mg Tablet) 80 mg PO BEDTIME [facility] Bisacodyl (Bisacodyl 10 Mg Supp) 10 mg [place] DAILY PRN PRN Reason: Constipation Citalopram Hydrobromide (Citalopram 10 Mg Tablet) 40 mg PO DAILY [facility] Dextrose (Dextrose 50 % In Water 25 Gm/50 Ml Syringe) 25 gm IV PRN PRN; Protocol PRN Reason: Hypoglycemia Diltiazem HCl (Diltiazem Cd 180 Mg Cap) 180 mg PO DAILY [facility] Docusate Sodium (Docusate 100 Mg Capsule) 100 mg PO BID [facility] Doxepin HCl (Doxepin 25 Mg Capsule) 25 mg PO BEDTIME [facility] Enoxaparin Sodium (Enoxaparin 40 Mg/0.4 Ml Syringe) 40 mg SUBCUT DAILY [facility] Sodium Chloride (Normal Saline 0.9%) 1,000 mls @ 100 mls/hr IV CONT [place] Last Admin: 05/10/21 19:03 Dose: 100 mls/hr Documented by: KENN Ceftriaxone Sodium 1,000 mg/ (Sodium Chloride) 100 mls @ 200 mls/hr IV Q24H [place] Vancomycin HCl/Dextrose (Vancomycin) 1,500 mg in 300 mls @ 200 mls/hr IV Q24H [place] Ibuprofen (Ibuprofen 600 Mg Tablet) 600 mg PO Q6HR PRN PRN Reason: Fever/Mild Pain (1-3) Insulin Human Lispro (Insulin Lispro 100 Unit/Ml 3ml Vial) 0 unit SUBCUT ACHS [place]; Protocol Losartan Potassium (Losartan 50 Mg Tablet) 50 mg PO DAILY [facility] Metoprolol Succinate (Metoprolol Er 50 Mg Tablet) 50 mg PO BID [facility] Morphine Sulfate (Morphine 4 Mg/Ml Inj) 4 mg IV Q4HR PRN PRN Reason: Pain, Severe (7-10) Last Admin: 05/10/21 19:01 Dose: 2 mg Documented by: KENN Naloxone HCl (Naloxone 0.4 Mg/Ml Vial) 0.2 mg IV Q2MIN PRN PRN Reason: Opiate Reversal Oxycodone HCl (Oxycodone Ir 10 Mg Tablet) 10 mg PO Q6HR PRN PRN Reason: Pain, Severe (7-10) Vancomycin HCl (Vancomycin Trough) 1 request [facility] [place], [place] [address] ONE Stop: 05/13/21 14:31 Discontinued Medications Diphenhydramine HCl (Diphenhydramine 50 Mg/Ml Vial) 25 mg IV NOW ONE Stop: 05/10/21 15:16 Last Admin: 05/10/21 15:27 Dose: 25 mg Documented by: HEAVENLY Sodium Chloride (Normal Saline 0.9%) 1,000 mls @ 1,000 mls/hr IV BOLUS ONE Stop: 05/10/21 13:25 Last Infusion: 05/10/21 15:57 Dose: 0 mls/hr Documented by: Admin: 05/10/21 14:06 Dose: 1,000 mls/hr Documented by: HEAVENLY Vancomycin HCl (Vancomycin) 1,250 mg in 250 mls @ 250 mls/hr IV NOW ONE Stop: 05/10/21 16:13 Last Admin: 05/10/21 18:50 Dose: 250 mls/hr Documented by: KENN Ceftriaxone Sodium 1,000 mg/ (Sodium Chloride) 100 mls @ 200 mls/hr IV NOW ONE Stop: 05/10/21 15:15 Last Admin: 05/10/21 16:59 Dose: 200 mls/hr Documented by: KENN Ceftriaxone Sodium 1,000 mg/ (Sodium Chloride) 100 mls @ 200 mls/hr IV Q24H [place] Last Admin: 05/10/21 19:34 Dose: Not Given Documented by: KENN Methylprednisolone (Methylprednisolone 125 Mg/2 Ml Vial) 125 mg IV NOW ONE Stop: 05/10/21 15:16 Last Admin: 05/10/21 15:28 Dose: 125 mg Documented by: HEAVENLY Ondansetron HCl (Ondansetron 4 Mg/2 Ml Inj) 4 mg IV Q8HR PRN PRN Reason: Nausea And Vomiting Vancomycin HCl (Vancomycin Per Pharmacy) 1 request MISC NOW ONE Stop: 05/10/21 18:04 Last Admin: 05/10/21 19:34 Dose: Not Given Documented by: KENN Vital Signs Vital signs: Vital Signs - 8 hr 05/10/21 12:21 05/10/21 12:36 05/10/21 12:37 Temperature 98.9 F Pulse Rate 102 H 101 H 101 H Respiratory Rate 18 Blood Pressure 220/85 H 229/103 H Pulse Oximetry 95 95 98 05/10/21 12:44 05/10/21 13:03 05/10/21 13:30 Temperature Pulse Rate 89 101 H 89 Respiratory Rate 21 20 15 Blood Pressure 201/84 H 206/89 H Pulse Oximetry 99 99 96 05/10/21 13:31 05/10/21 14:00 05/10/21 14:30 Temperature Pulse Rate 89 91 H 93 H Respiratory Rate 17 19 19 Blood Pressure 192/81 H 202/82 H Pulse Oximetry 99 96 97 05/10/21 14:31 05/10/21 15:00 Temperature Pulse Rate 94 H 104 H Respiratory Rate 20 25 H Blood Pressure 200/81 H 208/95 H Pulse Oximetry 97 98 MDM - Fever Lab Data Result diagrams: 05/10/21 19:20 05/10/21 19:20 Labs: Lab Results 05/10/21 05/10/21 05/10/21 Range/Units 13:20 13:20 13:20 WBC 5.1 (4.5-11.0) X10^3/uL RBC 3.52 L (4.0-5.2) X10^6/uL Hgb 11.3 L (12.0-16.0) g/dL Hct 34.2 L (36-46) % MCV 97.3 (80-100) fL MCH 32.2 (26-34) PG MCHC 33.0 (30-36) % RDW 14.5 (11.6-14.8) % Plt Count 286 (150-400) X10^3/uL Neut % (Auto) 76.2 H (50-75) % Lymph % (Auto) 9.1 L (25-40) % Irwin % (Auto) 9.4 (3-14) % Eos % (Auto) 4.2 H (2-4) % Baso % (Auto) 1.1 (0-2) % Neut # (Auto) 3900 (1785-6761) /uL Lymph # (Auto) 500 L (5540-0715) /uL Irwin # (Auto) 500 (0-900) /uL Eos # (Auto) 200 (0-450) /uL Baso # (Auto) 100 (0-100) /uL PT 16.0 H (10.1-12.7) SECONDS INR 1.4 H (0.9-1.3) APTT 43 H (26.4-36.2) SECONDS Sodium 139 (137-145) mmol/L Potassium 4.8 (3.4-5.1) mmol/L Chloride 103 (98-107) mmol/L Carbon Dioxide 27 (22-32) mmol/L BUN 26 H (7-17) mg/dL Creatinine 1.01 (0.52-1.04) mg/dL Estimated GFR 52.9 L (>60) mL/min BUN/Creatinine Ratio 25.7 H (6-22) Glucose 106 (80-110) mg/dL Lactate (0.7-2.1) mmol/L Calcium 9.7 (8.4-10.2) mg/dL Total Bilirubin 0.5 (0.2-1.3) mg/dL AST 27 (14-36) IU/L ALT 24 (<35) IU/L Alkaline Phosphatase 86 (38-126) U/L Total Protein 7.8 (6.3-8.2) g/dL Albumin 4.5 (3.5-5.0) g/dL Globulin 3.3 (1.7-4.1) g/dL Albumin/Globulin Ratio 1.4 (1.0-2.8) Lipase 212 (23-300) U/L Procalcitonin 0.08 (<0.5) ng/mL Urine Color Urine Appearance Urine pH (4.5-8.0) Ur Specific Ferriday (1.000-1.035) Urine Protein (Negative) Urine Glucose (UA) (Negative) g/dL Urine Ketones (NEGATIVE) Urine Occult Blood (Negative) Urine Nitrate (Negative) Urine Bilirubin (NEGATIVE) Urine Urobilinogen (0.2) E.U./dL Ur Leukocyte Esterase (NEGATIVE) Urine RBC (0-5/HPF) Urine WBC (0-5/HPF) Ur Squamous Epith Cells (0-5/HPF) Amorphous Sediment Urine Bacteria (None) Urine Mucus (Negative) Ur Culture Indicated? SARS-CoV-2 (PCR) (Negative) 05/10/21 05/10/21 05/10/21 Range/Units 13:20 13:33 13:33 WBC (4.5-11.0) X10^3/uL RBC (4.0-5.2) X10^6/uL Hgb (12.0-16.0) g/dL Hct (36-46) % MCV (80-100) fL MCH (26-34) PG MCHC (30-36) % RDW (11.6-14.8) % Plt Count (150-400) X10^3/uL Neut % (Auto) (50-75) % Lymph % (Auto) (25-40) % Irwin % (Auto) (3-14) % Eos % (Auto) (2-4) % Baso % (Auto) (0-2) % Neut # (Auto) (6880-6592) /uL Lymph # (Auto) (2165-2126) /uL Irwin # (Auto) (0-900) /uL Eos # (Auto) (0-450) /uL Baso # (Auto) (0-100) /uL PT (10.1-12.7) SECONDS INR (0.9-1.3) APTT (26.4-36.2) SECONDS Sodium (137-145) mmol/L Potassium (3.4-5.1) mmol/L Chloride (98-107) mmol/L Carbon Dioxide (22-32) mmol/L BUN (7-17) mg/dL Creatinine (0.52-1.04) mg/dL Estimated GFR (>60) mL/min BUN/Creatinine Ratio (6-22) Glucose (80-110) mg/dL Lactate 1.2 (0.7-2.1) mmol/L Calcium (8.4-10.2) mg/dL Total Bilirubin (0.2-1.3) mg/dL AST (14-36) IU/L ALT (<35) IU/L Alkaline Phosphatase (38-126) U/L Total Protein (6.3-8.2) g/dL Albumin (3.5-5.0) g/dL Globulin (1.7-4.1) g/dL Albumin/Globulin Ratio (1.0-2.8) Lipase (23-300) U/L Procalcitonin (<0.5) ng/mL Urine Color Yellow Urine Appearance Sl cloudy Urine pH 8.0 (4.5-8.0) Ur Specific Ferriday 1.020 (1.000-1.035) Urine Protein Negative (Negative) Urine Glucose (UA) Negative (Negative) g/dL Urine Ketones Negative (NEGATIVE) Urine Occult Blood Negative (Negative) Urine Nitrate Negative (Negative) Urine Bilirubin Negative (NEGATIVE) Urine Urobilinogen 0.2 (0.2) E.U./dL Ur Leukocyte Esterase Negative (NEGATIVE) Urine RBC None seen (0-5/HPF) Urine WBC 0-1/hpf (0-5/HPF) Ur Squamous Epith Cells 0-1 /hpf (0-5/HPF) Amorphous Sediment 2+ Urine Bacteria None seen (None) Urine Mucus 1+ H (Negative) Ur Culture Indicated? Cult not indicated SARS-CoV-2 (PCR) Negative (Negative) Urine Dip Bedside Urine Leukocytes +/- [address] LE: Radiologist's Impression: PROCEDURE:? CT LE RT W CON ? INDICATIONS:? lower ex wound ? TECHNIQUE:? After the administration of intravenous contrast, 3 mm axial sections acquired of the right lower leg, with coronal and sagittal reformats. ? ? COMPARISON:? [facility], CR, XR FOOT RT MIN 3V, 01/27/2021, 9:06.? [facility], CR, XR FOOT LT MIN 3V, 04/17/2021, 8:22.? [facility], CR, XR TIBIA FIBULA RT 2V, 05/08/2021, 10:32. ? FINDINGS:? Image quality:? Excellent.? ? Bones:? No acute fracture or dislocation.? Mild tricompartmental joint space narrowing is seen in the knee.? Mild dorsal spurring is seen at the talonavicular joint.? Small plantar and posterior calcaneal spurs are present.? Moderate to severe degenerative changes are seen in the 1st metatarsophalangeal joint.? Scattered degenerative changes are seen at the interphalangeal joints of the toes.? There is a focal osseous erosion at the dorsal medial aspect of the 3rd middle phalanx with hyperdense material in the adjacent subcutaneous soft tissues.? No definite overlying skin wound is seen.? Mild skin irregularity is seen in the anterior portion of the lower leg proximally.? The adjacent osseous structures are intact.? The included portions of the left foot demonstrate degenerative changes at the 1st metatarsophalangeal joint and metatarsal sesamoid articulations with mild fragmentation of the sesamoids and mild surrounding edema. ? Soft tissues:? Skin irregularity is seen at the proximal lower leg anteriorly that may represent the clinically indicated wound.? There is confluent subcutaneous edema without a well-formed peripherally enhancing abscess identified.? Edema extends to the deep investing fascial layer of the muscles without intermuscular fascial edema or soft tissue gas.? Subcutaneous soft tissue edema is also seen in the distal lower leg and ankle that is more prominent laterally.? High-density material surrounding the 3rd proximal interphalangeal joint are nonspecific, but could represent gouty tophi.? There is mild fatty infiltration of the lower leg musculature.? Diffuse arterial vascular calcifications are seen. ? IMPRESSION:? 1. Skin irregularity in the anterior proximal lower leg may represent the known wound.? There is underlying subcutaneous edema without a well-formed drainable abscess.? No signs of osteomyelitis or fasciitis.? No soft tissue gas. ? 2. Chronic appearing osseous erosion in the 3rd middle phalanx with nodular hyperdense material in the surrounding subcutaneous tissues of the 3rd toe, which is of uncertain etiology, but is most suspicious for gout.? Recommend correlation with clinical findings and exam. ? ? Dictated by: Terrell Velez M.D. on 05/10/2021 at 16:36 ? ? [facility] Narrative Medical decision making narrative: Patient has obvious cellulitis of her right lower leg that has failed outpatient antibiotic treatment. She has no leukocytosis or fever but persistent nonhealing wound. CT does show some swelling and edema but no obvious abscess. Discussed case with Dr. patel who happily accepts and agrees with vancomycin and Rocephin. Discharge Plan Departure Patient Disposition: Admitted As Inpatient Clinical Impression: Cellulitis Qualifiers: Site of cellulitis of extremity: lower extremity Laterality: right Admit Date/Time: 05/10/21 15:18 Admit Provider: Geeta Patel
--- NOTE | 2021-05-10 15:11 | DI.CT.S_ITS ---
PROCEDURE: CT LE RT W CON INDICATIONS: lower ex wound TECHNIQUE: After the administration of intravenous contrast, 3 mm axial sections acquired of the right lower leg, with coronal and sagittal reformats. COMPARISON: [facility], CR, XR FOOT RT MIN 3V, 01/27/2021, 9:06. [facility], CR, XR FOOT LT MIN 3V, 04/17/2021, 8:22. [facility], CR, XR TIBIA FIBULA RT 2V, 05/08/2021, 10:32. FINDINGS: Image quality: Excellent. Bones: No acute fracture or dislocation. Mild tricompartmental joint space narrowing is seen in the knee. Mild dorsal spurring is seen at the talonavicular joint. Small plantar and posterior calcaneal spurs are present. Moderate to severe degenerative changes are seen in the 1st metatarsophalangeal joint. Scattered degenerative changes are seen at the interphalangeal joints of the toes. There is a focal osseous erosion at the dorsal medial aspect of the 3rd middle phalanx with hyperdense material in the adjacent subcutaneous soft tissues. No definite overlying skin wound is seen. Mild skin irregularity is seen in the anterior portion of the lower leg proximally. The adjacent osseous structures are intact. The included portions of the left foot demonstrate degenerative changes at the 1st metatarsophalangeal joint and metatarsal sesamoid articulations with mild fragmentation of the sesamoids and mild surrounding edema. Soft tissues: Skin irregularity is seen at the proximal lower leg anteriorly that may represent the clinically indicated wound. There is confluent subcutaneous edema without a well-formed peripherally enhancing abscess identified. Edema extends to the deep investing fascial layer of the muscles without intermuscular fascial edema or soft tissue gas. Subcutaneous soft tissue edema is also seen in the distal lower leg and ankle that is more prominent laterally. High-density material surrounding the 3rd proximal interphalangeal joint are nonspecific, but could represent gouty tophi. There is mild fatty infiltration of the lower leg musculature. Diffuse arterial vascular calcifications are seen. IMPRESSION: 1. Skin irregularity in the anterior proximal lower leg may represent the known wound. There is underlying subcutaneous edema without a well-formed drainable abscess. No signs of osteomyelitis or fasciitis. No soft tissue gas. 2. Chronic appearing osseous erosion in the 3rd middle phalanx with nodular hyperdense material in the surrounding subcutaneous tissues of the 3rd toe, which is of uncertain etiology, but is most suspicious for gout. Recommend correlation with clinical findings and exam. Dictated by: Terrell Velez M.D. on 05/10/2021 at 16:36 Approved by: Terrell Velez M.D. on 05/10/2021 at 16:51
[2021-05-10] MEDS: diphenhydrAMINE 50 MG/ML VIAL 25 MG IV (15:27)
[2021-05-10] MEDS: methylPREDNISolone 125 MG/2 ML VIAL IV (15:28)
--- NOTE | 2021-05-10 16:32 | PC.NURSE ---
1555: Pt tranpsorted to CT. ABX held until pt returns. Brianda, Acute Care RN in department for bedside report. Pt taken to acute care from CT scanner. ABX to be given by floor RN.
[2021-05-10] MEDS: cefTRIAXone 1,000 MG in SODIUM CHLORIDE 0.9% 100 ML 200 ML IV (16:59)
--- NOTE | 2021-05-10 18:16 | PM.HP.1 ---
History of Present Illness History of Present Illness Date Patient Seen: 05/10/21 Time Patient Seen: 18:16 Chief complaint: Fall, Lt Leg Laceration Pain/Redness Narrative: The patient is a 81-year-old female with a history of chronic hypoxic respiratory failure on home O2, hypertension, type 2 diabetes, hyperlipidemia, gout, history of lymphoma, history of lung cancer, history of atrial fibrillation on Eliquis. Patient presented to the emergency room on April 17 after a fall. She landed on her right leg. The patient was seen by Dr. Aguilera on May 01 for cellulitis. She was started on Keflex without significant improvement. She was seen in the walk in clinic ceye and switched to doxycycline. She continues to have redness, pain, and an eschar over her anterior galo. She presented to the emergency room for evaluation. Patient is afebrile, her white count is normal, imaging of the right lower extremity revealed the following: Skin irregularity in the anterior proximal lower leg may represent the known wound.?There is underlying subcutaneous edema without a well-formed drainable abscess.? No signs of osteomyelitis or fasciitis.? No soft tissue gas .2. Chronic appearing osseous erosion in the 3rd middle phalanx with nodular hyperdense material in the surrounding subcutaneous tissues of the 3rd toe, which is of uncertain etiology, but is most suspicious for gout.? Recommend correlation with clinical findings and exam. Patient is admitted to the hospital for further evaluation. Patient History Medical History (Updated 05/10/21 @ 18:21 by Geeta Patel MD) Chronic atrial fibrillation Chronic respiratory failure with hypoxia Contrast media allergy COPD exacerbation Gout History of lymphoma Hyperlipidemia Hypertension Lung cancer Radiation fibrosis of lung Type 2 diabetes mellitus Family & Social History Family History (Updated 05/10/21 @ 18:22 by Geeta Patel MD) Sister Cancer Mother CAD (coronary artery disease) Father Malaria Social History: household members spouse Prior Living Arrangements House Safety & Behavioral: Feels Safe in Current Yes Environment Been Physically Hurt or No Threatened By a Person Suicidal Ideation Description None Suicide Plan Description No Plan Tobacco & Substance use: Tobacco type cigarettes Smoking Status Former smoker Smoking packs per day 1 alcohol intake current alcohol intake frequency holiday/special occasion Substance Use Type does not use Meds Home Medications and Allergies Home Medications Medication Instructions Recorded Confirmed Type atorvastatin 40 mg tablet (Lipitor) 80 mg PO HS #0 04/22/12 05/10/21 History citalopram 20 mg tablet 40 mg PO QDAY #0 04/22/12 05/10/21 History hydrochlorothiazide 25 mg tablet 25 mg PO QDAY #0 04/22/12 05/08/21 History telmisartan 80 mg tablet (Micardis) 40 mg PO Q DAY #0 04/22/12 05/08/21 History aspirin 81 mg chewable tablet 81 mg PO DAILY 12/17/17 05/10/21 History diltiazem HCl 180 mg capsule,24 180 mg PO DAILY 12/17/17 05/10/21 History hr,extended release doxepin 25 mg capsule 25 mg PO BEDTIME 12/17/17 05/10/21 History metformin 500 mg tablet,extended 500 mg PO TID 12/17/17 05/08/21 History release 24 hr metoprolol succinate 50 mg 50 mg PO BID 12/17/17 05/08/21 History tablet,extended release 24 hr acetaminophen 650 mg 650 mg PO BEDTIME 08/21/20 05/10/21 History tablet,extended release apixaban 5 mg tablet (Eliquis) 5 mg PO BID 08/21/20 05/10/21 History hydrocodone 5 mg-acetaminophen 325 1 tab PO Q6H PRN #10 tab 04/17/21 05/08/21 Rx mg tablet Allergies Allergy/AdvReac Type Severity Reaction Status Date / Time petrolatum,white Allergy Severe Difficulty Verified 05/08/21 10:53 [From A & D Barrier] Breathing venom-honey bee Allergy Severe HIVES Verified 05/08/21 10:53 [BEE VENOM (HONEY BEE)] adhesive [ADHESIVE] Allergy Intermediate REDNESS Verified 05/08/21 10:53 AND ITCHING OF SKIN WITH TAPE USE. Iodinated Contrast Media Allergy Intermediate RASH Verified 05/08/21 10:53 [IODINATED CONTRAST MEDIA - IV DYE] Penicillins [PENICILLINS] Allergy Intermediate SOB, Verified 05/08/21 10:53 ITCHING ALL TOPICAL OINTMENTS Allergy Severe RASH Uncoded 05/08/21 10:53 Review of Systems Review of Systems Narrative: ten point review of systems is negative except as above The patient does describe having vertigo when rolling over in her bed. That has been present for about 1 month Exam Vital Signs (past 8 hours): - 05/10/21 12:21 05/10/21 12:36 05/10/21 12:37 Temperature 98.9 F Pulse Rate 102 H 101 H 101 H Respiratory Rate 18 Blood Pressure 220/85 H 229/103 H Pulse Oximetry 95 95 98 05/10/21 12:44 05/10/21 13:03 05/10/21 13:30 Temperature Pulse Rate 89 101 H 89 Respiratory Rate 21 20 15 Blood Pressure 201/84 H 206/89 H Pulse Oximetry 99 99 96 05/10/21 13:31 05/10/21 14:00 05/10/21 14:30 Temperature Pulse Rate 89 91 H 93 H Respiratory Rate 17 19 19 Blood Pressure 192/81 H 202/82 H Pulse Oximetry 99 96 97 05/10/21 14:31 05/10/21 15:00 Temperature Pulse Rate 94 H 104 H Respiratory Rate 20 25 H Blood Pressure 200/81 H 208/95 H Pulse Oximetry 97 98 Oxygen Delivery Method Nasal Cannula Oxygen Flow Rate 2 Narrative Exam Narrative: Pleasant chronically ill female lying in bed uncomfortable in pain Const Other: Patient with 2 L of oxygen on HENMT Other: HEENT: Normocephalic atraumatic, extraocular muscles are intact, oropharynx is clear, neck is supple without adenopathy Resp Other: Lungs: Decreased breath sounds with occasional scattered rhonchi Cardio Other: Cardiac exam: Regular rate and rhythm normal S1-S2 with a 3/6 blowing systolic ejection murmur GI Other: Abdomen: Soft nontender nondistended no appreciable hepatosplenomegaly Neuro Other: Neuro exam is nonfocal Extrem Other: Right lower extremity with a large area of erythema extending from above the ankle to just beneath the knee There is an open wound along the anterior galo, with a escar, open area with ecchymosis very tender to palpation, fluctuant, but no pus expressed Objective Labs Result Diagrams: 05/10/21 13:20 05/10/21 13:20 Labs: Laboratory Results - last 24 hr 05/10/21 05/10/21 05/10/21 13:20 13:20 13:20 WBC 5.1 RBC 3.52 L Hgb 11.3 L Hct 34.2 L MCV 97.3 MCH 32.2 MCHC 33.0 RDW 14.5 Plt Count 286 Neut % (Auto) 76.2 H Lymph % (Auto) 9.1 L [place] % (Auto) 9.4 Eos % (Auto) 4.2 H Baso % (Auto) 1.1 Neut # (Auto) 3900 Lymph # (Auto) 500 L [place] # (Auto) 500 Eos # (Auto) 200 Baso # (Auto) 100 PT 16.0 H INR 1.4 H APTT 43 H Sodium 139 Potassium 4.8 Chloride 103 Carbon Dioxide 27 BUN 26 H Creatinine 1.01 Estimated GFR 52.9 L BUN/Creatinine Ratio 25.7 H Glucose 106 Lactate Calcium 9.7 Total Bilirubin 0.5 AST 27 ALT 24 Alkaline Phosphatase 86 Total Protein 7.8 Albumin 4.5 Globulin 3.3 Albumin/Globulin Ratio 1.4 Lipase 212 Procalcitonin 0.08 Urine Color Urine Appearance Urine pH Ur Specific [place] Urine Protein Urine Glucose (UA) Urine Ketones Urine Occult Blood Urine Nitrate Urine Bilirubin Urine Urobilinogen Ur Leukocyte Esterase Urine RBC Urine WBC Ur Squamous Epith Cells Amorphous Sediment Urine Bacteria Urine Mucus Ur Culture Indicated? SARS-CoV-2 (PCR) 05/10/21 05/10/21 05/10/21 13:20 13:33 13:33 WBC RBC Hgb Hct MCV MCH MCHC RDW Plt Count Neut % (Auto) Lymph % (Auto) [place] % (Auto) Eos % (Auto) Baso % (Auto) Neut # (Auto) Lymph # (Auto) [place] # (Auto) Eos # (Auto) Baso # (Auto) PT INR APTT Sodium Potassium Chloride Carbon Dioxide BUN Creatinine Estimated GFR BUN/Creatinine Ratio Glucose Lactate 1.2 Calcium Total Bilirubin AST ALT Alkaline Phosphatase Total Protein Albumin Globulin Albumin/Globulin Ratio Lipase Procalcitonin Urine Color Yellow Urine Appearance Sl cloudy Urine pH 8.0 Ur Specific [place] 1.020 Urine Protein Negative Urine Glucose (UA) Negative Urine Ketones Negative Urine Occult Blood Negative Urine Nitrate Negative Urine Bilirubin Negative Urine Urobilinogen 0.2 Ur Leukocyte Esterase Negative Urine RBC None seen Urine WBC 0-1/hpf Ur Squamous Epith Cells 0-1 /hpf Amorphous Sediment 2+ Urine Bacteria None seen Urine Mucus 1+ H Ur Culture Indicated? Cult not indicated SARS-CoV-2 (PCR) Negative Assessment & Plan Assessment & Plan narrative: 1. 81-year-old female with a history of chronic hypoxic respiratory failure on home O2, chronic atrial fibrillation on Eliquis, hypertension, hyperlipidemia, type 2 diabetes, history of lymphoma, admitted to the hospital with severe right lower extremity cellulitis -patient clearly has significant cellulitis of the right lower extremity which has failed outpatient antibiotic -equally concerning is the open wound that appears to be a hematoma, with possible necrotic tissue -will continue ceftriaxone and vancomycin -will consult Orthopedic surgery, as the patient may require debridement and or a wound VAC for healing -will hold Eliquis at this time until orthopedic consultation has been obtained -pain medication as she is quite uncomfortable -CT of the lower extremity reveals no drainable collection of pus, no gas, or signs of osteomyelitis/fasciitis 2. Chronic hypoxic respiratory failure -patient with a history of COPD and lung cancer -will continue 2 L of oxygen 3. Chronic atrial fibrillation -will continue metoprolol and diltiazem -will hold Eliquis at this time -will hold her baby aspirin at this time 4. Hypertension -continue metoprolol, diltiazem, and telmisartan -will hold hydrochlorothiazide at this time 5. Type 2 diabetes -metformin on hold here in the hospital -will start sliding scale insulin and adjust accordingly 6. Hyperlipidemia -will continue statin Patient reports she has a living will, that outlines her DPOA Review of her prior records indicates that the patient would like to be DNR DNI will note that her record accordingly I have utilized all available methods to review update and confirm her current medications Patient will be admitted as an inpatient as it is expected her length of stay will be greater than 48 hours Time Spent With Patient Critical Care time: I spent a total of [] minutes of critical care time on this patient's care today; this time is exclusive of procedural time. Quality VTE Deep Vein Thrombosis/Pulmonary Embolism Present on Admission: No
--- NOTE | 2021-05-10 18:39 | PC.NURSE ---
PT arrived to room 222 at 1600. Patient is on 2 L NC (at home baseline)Elevated SBP MD notified. Pt states she thinks she forgot to take scheduled home medications this a.m. She reports pain 5-7/10 in RLE. +2 swelling with erythema to RLE. Borders marked with marker. Scab on top of wound is JUVENILE COUNSELOR black not drainage. Pt is A&OX3. Patient able to eat dinner. IV antibiotics initiated ceftriaxone and vancomycin. pharmacy notified of schedule.
[2021-05-10] MEDS: VANCOMYCIN 1,250 MG/250 ML PIGGYBACK 250 MG IV (18:50)
[2021-05-10] MEDS: MORPHINE 4 MG/ML INJ IV (19:01)
[2021-05-10] MEDS: SODIUM CHLORIDE 0.9% 1,000 ML 100 ML IV (19:03)
[2021-05-10 19:25] LABS: Add Manual Diff / Slide Review NO; Basophils Absolute Auto 0 /uL (0-100); Basophils Percent Auto 0.6 % (0-2); Eosinophils Absolute Auto 0 /uL (0-450); Eosinophils Percent Auto 0.3 % (2-4); Hematocrit 35.1 % (36-46); Hemoglobin 11.7 g/dL (12.0-16.0); Lymphocytes Absolute Auto 300 /uL (1100-4500); Lymphocytes Percent Auto 4.5 % (25-40); Mean Corpuscular HGB Conc 33.2 % (30-36); Mean Corpuscular Hemoglobin 31.8 PG (26-34); Mean Corpuscular Volume 95.8 fL (80-100); Monocytes Absolute Auto 100 /uL (0-900); Monocytes Percent Auto 1.2 % (3-14); Neutrophils Absolute Auto 7000 /uL (1500-7000); Neutrophils Percent Auto 93.4 % (50-75); Platelet Count 276 X10^3/uL (150-400); Red Blood Cell Count 3.66 X10^6/uL (4.0-5.2); Red Cell Distribution Width 14.9 % (11.6-14.8); White Blood Cell Count 7.5 X10^3/uL (4.5-11.0)
[2021-05-10 19:42] LABS: Blood Urea Nitrogen 23 mg/dL (7-17); Calcium 9.6 mg/dL (8.4-10.2); Carbon Dioxide 29 mmol/L (22-32); Chloride 101 mmol/L (98-107); Estimated Glomerular Filt Rate 56.1 mL/min (>60); Glucose 233 mg/dL (80-110); HEMOLYSIS < 15 (0-50); Potassium 4.4 mmol/L (3.4-5.1); Sodium 139 mmol/L (137-145)
[2021-05-10] MEDS: DOCUSATE 100 MG CAPSULE PO (20:34)
[2021-05-10] MEDS: METOPROLOL ER 50 MG TABLET PO (20:34)
[2021-05-10] MEDS: ATORVASTATIN 20 MG TABLET 80 MG PO (20:35)
[2021-05-10] MEDS: DOXEPIN 25 MG CAPSULE PO (20:36)
[2021-05-10] MEDS: INSULIN LISPRO 100 UNIT/ML 3ML VIAL SUBCUT (22:09)
[2021-05-11] VITALS (16 sets, daily range): BP systolic 149–163; BP diastolic 77–97; PULSE 86–99; RESP 16–18; TEMP 36.4–37.1; O2SAT 94–98
[2021-05-11] MEDS: SODIUM CHLORIDE 0.9% 1,000 ML 100 ML IV ×2 (05:47→20:11)
[2021-05-11] MEDS: OXYCODONE IR 10 MG TABLET PO (05:48)
[2021-05-11] MEDS: INSULIN LISPRO 100 UNIT/ML 3ML VIAL SUBCUT ×2 (08:30→12:30)
[2021-05-11] MEDS: DOCUSATE 100 MG CAPSULE PO ×2 (08:56→21:00)
[2021-05-11] MEDS: ASPIRIN EC 81 MG TABLET PO (08:56)
[2021-05-11] MEDS: dilTIAZem CD 180 MG CAP PO (08:56)
[2021-05-11] MEDS: ENOXAPARIN 40 MG/0.4 ML SYRINGE SUBCUT (08:56)
[2021-05-11] MEDS: LOSARTAN 50 MG TABLET PO (08:56)
[2021-05-11] MEDS: CITALOPRAM 10 MG TABLET 40 MG PO (08:57)
[2021-05-11] MEDS: METOPROLOL ER 50 MG TABLET PO ×2 (08:57→21:00)
--- NOTE | 2021-05-11 12:09 | CM.DANOTE ---
DCP: Case received, EMR reviewed and met with patient. Introduced self and role. Was able to obtain information regarding patient's baseline activity level prior to hospitalization. DCP assessment completed with information currently available. Patient is a 81 year old female who admitted yesterday afternoon to the care of the hospitalist team. PCP: Dr. Franco/Rosenda. Payer: confirmed: Medicare/ for Life. Patient came to the hospital via private vehicle secondary to her having increased redness and pain to her right lower leg. Patient has tripped on 04/17, over some stairs in her home, with no major injuries. She had noticed some redness recently to her leg and had gone to the walk in clinic on 05/08. She was advised to come here for IV antibiotics, patient holds current diagnosis of cellulitis. According to her diagnostics, she does not have osteomyelitis. She may be getting ortho consult to see if she needs I&D. After discussion at team rounds, patient should be able to go home on oral antibiotics. Met with patient in her room. She is alert and oriented. Her right leg notes redness. She resides in [place] with her spouse, Bob. She does have a FWW at home, and does still drive. Patient indicated, she did drive herself here. Discussed briefly home health possibility for wound care, as she was managing the wound on her own prior. She is open to home health if needed. P: DCP to continue to follow. Patient should be able to go home when stable as long as she can discharge on oral antibiotics, and may benefit with home health as long as she is homebound. Anita Zuniga RN/School Physical Therapist Discharge Planning/Care Management Discharge Assessment Start: 05/11/21 12:07 Freq: Status: Active Protocol: Document 05/11/21 12:08 (Rec: 05/11/21 12:09 [id number]) Discharge Planning Assessment Assigned Shuttle Bus Driver Anita Zuniga RN/School Physical Therapist Advance Directives? Yes Advance Directives on File Yes History Provided By Patient,Medical Record Prior Living Arrangements House Household Members spouse Type of transporation used prior to Drives own vehicle admit Independent with ADL's Yes Is patient alert and oriented? Yes Caregiver for Another No DME Already Rented / Owned FWW / Walker Barriers to Discharge No Discharge Plan Home Transportation Arrangement Spouse Additional Comment Patient may benefit with home health for wound care, will see what ortho indicates. Whiteboard Updated in Patient Room with Yes name and ext. # of Shuttle Bus Driver Review Status In Process Next Review Type Continued Stay Review
[2021-05-11] MEDS: VANCOMYCIN 1,500 MG/300 ML PIGGYBACK 200 MG IV (15:19)
[2021-05-11] MEDS: cefTRIAXone 1,000 MG in SODIUM CHLORIDE 0.9% 100 ML 200 ML IV (17:15)
--- NOTE | 2021-05-11 18:29 | P.PN_ITS ---
Subjective Subjective Interval history: Patient reports continued pain to the RLE cellulitis area. However, she endorse improvement in the redness, swelling and warmth of the area. She reports this happened to her before, many years ago, also after direct trauma to the skin. She has a hx of lymphoma and lung cancer. Exam Vital Signs (past 8 hours): - 05/11/21 11:00 05/11/21 11:35 05/11/21 13:11 Temperature 98.5 F Pulse Rate 99 H 99 H Respiratory Rate 18 Blood Pressure 162/93 H 162/93 H Pulse Oximetry 97 97 05/11/21 14:00 05/11/21 15:00 Temperature 98.8 F Pulse Rate 92 H Respiratory Rate 18 Blood Pressure 149/80 H Pulse Oximetry 97 98 Oxygen Delivery Method Room Air Oxygen Flow Rate 2 Narrative Exam Narrative: Narrative Exam Narrative: Pleasant female lying in bed comfortably, in no apparent acute distress Const Other: Patient with 2 liters of oxygen on HENMT Other: HEENT:? Normocephalic, atraumatic, extraocular muscles are intact Resp Other: Lungs:? Decreased breath sounds with occasional scattered rhonchi Cardio Other: Cardiac exam: Regular rate and rhythm normal S1-S2 with a 3/6 blowing systolic ejection murmur GI Other: Abdomen:? Soft, non-tender, non-distended, with bowel sounds present Extrem Other: Right lower extremity with a large area of erythema extending from above the ankle to just beneath the kneeThere is an open wound along the anterior galo, with a eschar, open area with ecchymosis very tender to palpation, but no pus expressed, with regression of erythema from the marker demarcation lines Objective Labs Result Diagrams: 05/10/21 19:20 05/10/21 19:20 Labs: Laboratory Results - last 24 hr 05/10/21 05/10/21 19:20 19:20 WBC 7.5 RBC 3.66 L Hgb 11.7 L Hct 35.1 L MCV 95.8 MCH 31.8 MCHC 33.2 RDW 14.9 H Plt Count 276 Neut % (Auto) 93.4 H Lymph % (Auto) 4.5 L [place] % (Auto) 1.2 L Eos % (Auto) 0.3 L Baso % (Auto) 0.6 Neut # (Auto) 7000 Lymph # (Auto) 300 L [place] # (Auto) 100 Eos # (Auto) 0 Baso # (Auto) 0 Sodium 139 Potassium 4.4 Chloride 101 Carbon Dioxide 29 BUN 23 H Creatinine 0.96 Estimated GFR 56.1 L BUN/Creatinine Ratio 24.0 H Glucose 233 H D Calcium 9.6 PFSH Medical History (Updated 05/10/21 @ 18:21 by Geeta Patel MD) Chronic atrial fibrillation Chronic respiratory failure with hypoxia Contrast media allergy COPD exacerbation Gout History of lymphoma Hyperlipidemia Hypertension Lung cancer Radiation fibrosis of lung Type 2 diabetes mellitus Family History (Updated 05/10/21 @ 18:22 by Geeta Patel MD) Sister Cancer Mother CAD (coronary artery disease) Father Malaria Social History household members: spouse Smoking Status: Former smoker alcohol intake: current Assessment & Plan Assessment & Plan narrative: 81-year-old female with a history of chronic hypoxic respiratory failure on home O2, chronic atrial fibrillation on Eliquis, hypertension, hyperlipidemia, type 2 diabetes, history of lymphoma, admitted to the hospital with severe right lower extremity cellulitis 1. RLE cellulitis, with portal of entry likely occurring secondary to problem 2 -patient clearly has significant cellulitis of the right lower extremity which has failed outpatient antibiotics -will continue ceftriaxone and vancomycin -will consult general surgery, as the patient may require debridement and or a wound VAC for healing -will hold Eliquis at this time until general surgery consultation has been obtained -pain medication as she is quite uncomfortable -CT of the lower extremity reveals no drainable collection of pus, no gas, or signs of osteomyelitis/fasciitis 2. 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 Chronic hypoxic respiratory failure -patient with a history of COPD and lung cancer -will continue 2 L of oxygen 4. Chronic atrial fibrillation -will continue metoprolol and diltiazem -will hold Eliquis at this time -will hold her baby aspirin at this time 5. Hypertension -continue metoprolol, diltiazem, and telmisartan -will hold hydrochlorothiazide at this time 6. Type 2 diabetes -metformin on hold here in the hospital -will start sliding scale insulin and adjust accordingly 7. Hyperlipidemia -will continue statin VTE prophylaxis: Patient on Eliquis at home for a fib, holding for now pending possible need for surgical debridement Time Spent With Patient Critical Care time: I spent a total of [] minutes of critical care time on this patient's care today; this time is exclusive of procedural time. Quality VTE Deep Vein Thrombosis/Pulmonary Embolism Present on Admission: No
[2021-05-11 19:54] LABS: Add Manual Diff / Slide Review NO; Basophils Absolute Auto 0 /uL (0-100); Basophils Percent Auto 0.3 % (0-2); Eosinophils Absolute Auto 0 /uL (0-450); Eosinophils Percent Auto 0.1 % (2-4); Hematocrit 32.8 % (36-46); Lymphocytes Absolute Auto 500 /uL (1100-4500); Lymphocytes Percent Auto 5.9 % (25-40); Mean Corpuscular HGB Conc 33.7 % (30-36); Mean Corpuscular Hemoglobin 32.3 PG (26-34); Mean Corpuscular Volume 95.8 fL (80-100); Monocytes Absolute Auto 800 /uL (0-900); Neutrophils Absolute Auto 7600 /uL (1500-7000); Neutrophils Percent Auto 84.7 % (50-75); Platelet Count 301 X10^3/uL (150-400); Red Blood Cell Count 3.42 X10^6/uL (4.0-5.2); Red Cell Distribution Width 14.9 % (11.6-14.8)
[2021-05-11 20:23] LABS: BUN Creatinine Ratio 21.6 (6-22); Blood Urea Nitrogen 24 mg/dL (7-17); Calcium 9.1 mg/dL (8.4-10.2); Carbon Dioxide 29 mmol/L (22-32); Chloride 103 mmol/L (98-107); Estimated Glomerular Filt Rate 47.4 mL/min (>60); Glucose 153 mg/dL (80-110); HEMOLYSIS < 15 (0-50); Potassium 4.2 mmol/L (3.4-5.1); Sodium 140 mmol/L (137-145)
[2021-05-11] MEDS: ATORVASTATIN 20 MG TABLET 80 MG PO (20:59)
[2021-05-11] MEDS: DOXEPIN 25 MG CAPSULE PO (21:00)
[2021-05-11] MEDS: HYDROCODONE/ACET 5/325 TABLET 1 TAB PO (21:00)
[2021-05-12] VITALS (16 sets, daily range): BP systolic 154–188; BP diastolic 77–93; PULSE 84–93; RESP 18–22; TEMP 36.4–36.9; O2SAT 92–96
[2021-05-12] MEDS: SODIUM CHLORIDE 0.9% 1,000 ML 100 ML IV ×2 (06:25→17:24)
[2021-05-12] MEDS: LOSARTAN 50 MG TABLET PO (10:01)
[2021-05-12] MEDS: ASPIRIN EC 81 MG TABLET PO (10:01)
[2021-05-12] MEDS: HYDROCODONE/ACET 5/325 TABLET 1 TAB PO ×2 (10:01→20:39)
[2021-05-12] MEDS: dilTIAZem CD 180 MG CAP PO (10:01)
[2021-05-12] MEDS: METOPROLOL ER 50 MG TABLET PO ×2 (10:02→20:39)
[2021-05-12] MEDS: DOCUSATE 100 MG CAPSULE PO ×2 (10:02→20:39)
[2021-05-12] MEDS: CITALOPRAM 10 MG TABLET 40 MG PO (10:02)
[2021-05-12] MEDS: CLOBETASOL 0.05% OINTMENT 30 GM 1 APPLIC TOP ×2 (10:02→20:40)
--- NOTE | 2021-05-12 12:59 | P.CONS_ITS ---
History of Present Illness Consult details Date Patient Seen: 05/12/21 Time Patient Seen: 12:59 Chief complaint: Fall, Lt Leg Laceration Pain/Redness Reason for consult: wound care Requesting provider: Noah Davis Narrative: Patient on Eliquis. Fell recently and has slow healing wound with new onset cellulitis. Being treated with good response using IV antibiotics. Meds Home Medications and Allergies Home Medications Medication Instructions Recorded Confirmed Type atorvastatin 40 mg tablet (Lipitor) 80 mg PO HS #0 04/22/12 05/10/21 History citalopram 20 mg tablet 40 mg PO QDAY #0 04/22/12 05/10/21 History hydrochlorothiazide 25 mg tablet 25 mg PO QDAY #0 04/22/12 05/10/21 History telmisartan 80 mg tablet (Micardis) 40 mg PO Q DAY #0 04/22/12 05/10/21 History aspirin 81 mg chewable tablet 81 mg PO DAILY 12/17/17 05/10/21 History diltiazem HCl 180 mg capsule,24 180 mg PO DAILY 12/17/17 05/10/21 History hr,extended release doxepin 25 mg capsule 25 mg PO BEDTIME 12/17/17 05/10/21 History metformin 500 mg tablet,extended 500 mg PO TID 12/17/17 05/10/21 History release 24 hr metoprolol succinate 50 mg 50 mg PO BID 12/17/17 05/10/21 History tablet,extended release 24 hr acetaminophen 650 mg 650 mg PO BEDTIME 08/21/20 05/10/21 History tablet,extended release apixaban 5 mg tablet (Eliquis) 5 mg PO BID 08/21/20 05/10/21 History hydrocodone 5 mg-acetaminophen 325 1 tab PO Q6H PRN #10 tab 04/17/21 05/11/21 Rx mg tablet Allergies Allergy/AdvReac Type Severity Reaction Status Date / Time petrolatum,white Allergy Severe Difficulty Verified 05/08/21 10:53 [From A & D Barrier] Breathing venom-honey bee Allergy Severe HIVES Verified 05/08/21 10:53 [BEE VENOM (HONEY BEE)] adhesive [ADHESIVE] Allergy Intermediate REDNESS Verified 05/08/21 10:53 AND ITCHING OF SKIN WITH TAPE USE. Iodinated Contrast Media Allergy Intermediate RASH Verified 05/08/21 10:53 [IODINATED CONTRAST MEDIA - IV DYE] Penicillins [PENICILLINS] Allergy Intermediate SOB, Verified 05/08/21 10:53 ITCHING ALL TOPICAL OINTMENTS Allergy Severe RASH Uncoded 05/08/21 10:53 Review of Systems Review of Systems Narrative: SOB on home 02 ROS: Yes All systems reviewed with the patient and are negative except as otherwise documented ENT Ears, Nose, Mouth, and Throat: Yes system reviewed and no additional complaints, except as documented Exam Vital Signs (past 8 hours): - 05/12/21 05:53 05/12/21 08:00 05/12/21 09:00 Temperature 98.2 F Pulse Rate 91 H 89 Respiratory Rate 18 18 Blood Pressure 157/85 H 188/93 H Pulse Oximetry 92 95 94 05/12/21 10:01 05/12/21 10:02 05/12/21 11:30 Temperature 98.5 F Pulse Rate 86 Respiratory Rate 18 Blood Pressure 188/93 H 188/93 H 173/86 H Pulse Oximetry 94 Oxygen Delivery Method Nasal Cannula Oxygen Flow Rate 2 Narrative Exam Narrative: Recent fall. Persistent right lower leg wound now with associated cellulitis re sponding to medical management Const General: cooperative and comfortable Nutritional Appearance: well nourished Orientation: alert and oriented x3 HENMT Head: normocephalic Eyes Sclera: sclerae normal Neck Neck: trachea midline Chest Chest: normal inspection of the chest Resp Effort & Inspection: normal respiratory effort and able to speak in complete sentences Other: Home 02 Cardio Rate: regular rate Rhythm: regular rhythm GI Inspection: normal to inspection Skin General: atrophy, dry skin, ecchymosis and erythema Other: Right anterior tibial region with wound 5 cm x 7cm of thin black eschar with underlying hematoma. Cellulitis receding. Neuro General: patient alert and patient oriented x3 Extrem Other: right lower leg described above Psych Appearance: grossly normal Attitude: cooperative Judgment: judgment good Objective Labs Result Diagrams: 05/11/21 19:45 05/11/21 19:45 Labs: Laboratory Results - last 24 hr 05/11/21 05/11/21 19:45 19:45 WBC 9.0 RBC 3.42 L Hgb 11.0 L Hct 32.8 L MCV 95.8 MCH 32.3 MCHC 33.7 RDW 14.9 H Plt Count 301 Neut % (Auto) 84.7 H Lymph % (Auto) 5.9 L [place] % (Auto) 9.0 Eos % (Auto) 0.1 L Baso % (Auto) 0.3 Neut # (Auto) 7600 H Lymph # (Auto) 500 L [place] # (Auto) 800 Eos # (Auto) 0 Baso # (Auto) 0 Sodium 140 Potassium 4.2 Chloride 103 Carbon Dioxide 29 BUN 24 H Creatinine 1.11 H Estimated GFR 47.4 L BUN/Creatinine Ratio 21.6 Glucose 153 H Calcium 9.1 PFSH Medical History Chronic atrial fibrillation Chronic respiratory failure with hypoxia Contrast media allergy COPD exacerbation Gout History of lymphoma Hyperlipidemia Hypertension Lung cancer Radiation fibrosis of lung Type 2 diabetes mellitus Family History Sister Cancer Mother CAD (coronary artery disease) Father Malaria Social History household members: spouse Tobacco & Substance Use Smoking Status: Former smoker alcohol intake: current Assessment & Plan Assessment & Plan narrative: RLE Cellulitis likely stemming from anterior tibial hematoma with associated wound. Wound would benefit from debridement with hematoma evacutation. Last Eliquis was Thursday. Plan: OR on Thursday. COVID-19 COVID-19 status: Negative Time Spent With Patient Critical Care time: I spent a total of [] minutes of critical care time on this patient's care today; this time is exclusive of procedural time.
[2021-05-12] MEDS: VANCOMYCIN 1,500 MG/300 ML PIGGYBACK 200 MG IV (15:43)
--- NOTE | 2021-05-12 15:52 | PM.PN.1 ---
Subjective Subjective Interval history: Patient reports improvement of her RLE cellulitis daily. She is still experiencing some pain to the area, but reports it's tolerable, and wants to avoid taking pain medication, although I encourage her to take the pain meds when it hurts. She is pending evaluation by general surgery. Exam Vital Signs (past 8 hours): - 05/12/21 08:00 05/12/21 09:00 05/12/21 10:01 Temperature 98.2 F Pulse Rate 89 Respiratory Rate 18 Blood Pressure 188/93 H 188/93 H Pulse Oximetry 95 94 05/12/21 10:02 05/12/21 11:30 05/12/21 13:00 Temperature 98.5 F Pulse Rate 86 Respiratory Rate 18 Blood Pressure 188/93 H 173/86 H Pulse Oximetry 94 94 Oxygen Delivery Method Nasal Cannula Oxygen Flow Rate 2 Narrative Exam Narrative: Pleasant female sitting up in bed comfortably, eating breakfast, in no apparent acute distress Const Other: Patient with 2 liters of oxygen nasal cannulae [facility] Other: HEENT: Normocephalic, atraumatic, extraocular muscles are intact Resp Other: Lungs: Decreased breath sounds with occasional scattered rhonchi Cardio Other: Cardiac exam: Regular rate and rhythm, with normal S1-S2 with a 3/6 blowing systolic ejection murmur GI Other: Abdomen: Soft, non-tender, non-distended, with bowel sounds present Extrem Other: Right lower extremity with a large area of erythema extending from above the ankle to just beneath the knee There is an open wound along the anterior galo, with an eschar, open area with ecchymosis very tender to palpation, but no pus expressed, with regression of erythema from the marker demarcation lines Objective Labs Result Diagrams: 05/11/21 19:45 05/11/21 19:45 Labs: Laboratory Results - last 24 hr 05/11/21 05/11/21 19:45 19:45 WBC 9.0 RBC 3.42 L Hgb 11.0 L Hct 32.8 L MCV 95.8 MCH 32.3 MCHC 33.7 RDW 14.9 H Plt Count 301 Neut % (Auto) 84.7 H Lymph % (Auto) 5.9 L [place] % (Auto) 9.0 Eos % (Auto) 0.1 L Baso % (Auto) 0.3 Neut # (Auto) 7600 H Lymph # (Auto) 500 L [place] # (Auto) 800 Eos # (Auto) 0 Baso # (Auto) 0 Sodium 140 Potassium 4.2 Chloride 103 Carbon Dioxide 29 BUN 24 H Creatinine 1.11 H Estimated GFR 47.4 L BUN/Creatinine Ratio 21.6 Glucose 153 H Calcium 9.1 PFSH Medical History Chronic atrial fibrillation Chronic respiratory failure with hypoxia Contrast media allergy COPD exacerbation Gout History of lymphoma Hyperlipidemia Hypertension Lung cancer Radiation fibrosis of lung Type 2 diabetes mellitus Family History Sister Cancer Mother CAD (coronary artery disease) Father Malaria Social History household members: spouse Smoking Status: Former smoker alcohol intake: current Assessment & Plan Assessment & Plan narrative: 81-year-old female with a history of chronic hypoxic respiratory failure on home O2, chronic atrial fibrillation on Eliquis, hypertension, hyperlipidemia, type 2 diabetes, history of lymphoma, admitted to the hospital with severe right lower extremity cellulitis 1. RLE cellulitis, with portal of entry likely occurring secondary to problem 2 -patient has significant cellulitis of the right lower extremity which has failed outpatient antibiotics -will continue IV ceftriaxone and vancomycin -appreciate general surgery recommendations for OR debridement on May 13 -will hold Eliquis at this time pending surgery -pain medication as she is quite uncomfortable -CT of the lower extremity reveals no drainable collection of pus, no gas, or signs of osteomyelitis/fasciitis 2. 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 Chronic hypoxic respiratory failure -patient with a history of COPD and lung cancer -will continue 2 L of oxygen 4. Chronic atrial fibrillation -will continue metoprolol and diltiazem -will hold Eliquis at this time -will hold her baby aspirin at this time 5. Hypertension -continue metoprolol, diltiazem, and telmisartan -will hold hydrochlorothiazide at this time 6. Type 2 diabetes -metformin on hold here in the hospital -will start sliding scale insulin and adjust accordingly 7. Hyperlipidemia -will continue statin VTE prophylaxis: Patient on Eliquis at home for a fib, holding for now pending possible need for surgical debridement Time Spent With Patient Critical Care time: I spent a total of [] minutes of critical care time on this patient's care today; this time is exclusive of procedural time. Quality VTE Deep Vein Thrombosis/Pulmonary Embolism Present on Admission: No
[2021-05-12] MEDS: INSULIN LISPRO 100 UNIT/ML 3ML VIAL SUBCUT (17:14)
[2021-05-12] MEDS: cefTRIAXone 1,000 MG in SODIUM CHLORIDE 0.9% 100 ML IV (17:19)
[2021-05-12 19:17] LABS: Add Manual Diff / Slide Review NO; Basophils Absolute Auto 0 /uL (0-100); Basophils Percent Auto 0.3 % (0-2); Eosinophils Absolute Auto 0 /uL (0-450); Eosinophils Percent Auto 0.1 % (2-4); Hematocrit 34.4 % (36-46); Hemoglobin 11.7 g/dL (12.0-16.0); Lymphocytes Absolute Auto 500 /uL (1100-4500); Lymphocytes Percent Auto 5.3 % (25-40); Mean Corpuscular Hemoglobin 32.6 PG (26-34); Mean Corpuscular Volume 95.7 fL (80-100); Monocytes Absolute Auto 600 /uL (0-900); Monocytes Percent Auto 6.5 % (3-14); Neutrophils Absolute Auto 8100 /uL (1500-7000); Neutrophils Percent Auto 87.8 % (50-75); Platelet Count 334 X10^3/uL (150-400); Red Cell Distribution Width 15.1 % (11.6-14.8); White Blood Cell Count 9.2 X10^3/uL (4.5-11.0)
[2021-05-12 19:23] LABS: BUN Creatinine Ratio 24.8 (6-22); Blood Urea Nitrogen 26 mg/dL (7-17); Calcium 8.9 mg/dL (8.4-10.2); Carbon Dioxide 27 mmol/L (22-32); Chloride 102 mmol/L (98-107); Estimated Glomerular Filt Rate 50.6 mL/min (>60); Glucose 230 mg/dL (80-110); HEMOLYSIS < 15 (0-50); Potassium 4.7 mmol/L (3.4-5.1); Sodium 138 mmol/L (137-145)
[2021-05-12] MEDS: ATORVASTATIN 20 MG TABLET 80 MG PO (20:39)
[2021-05-12] MEDS: DOXEPIN 25 MG CAPSULE PO (20:39)
[2021-05-13] VITALS (28 sets, daily range): BP systolic 115–199; BP diastolic 62–120; PULSE 75–97; RESP 12–97; TEMP 36.1–37.1; O2SAT 94–100; BMI 30.9
[2021-05-13] MEDS: SODIUM CHLORIDE 0.9% 1,000 ML 100 ML IV ×2 (03:54→18:33)
[2021-05-13] MEDS: dilTIAZem CD 180 MG CAP PO (09:00)
[2021-05-13] MEDS: LOSARTAN 50 MG TABLET PO (09:00)
[2021-05-13] MEDS: METOPROLOL ER 50 MG TABLET PO ×2 (09:00→20:57)
[2021-05-13] MEDS: DOCUSATE 100 MG CAPSULE PO ×2 (09:01→20:57)
[2021-05-13] MEDS: CLOBETASOL 0.05% OINTMENT 30 GM 1 APPLIC TOP (09:01)
[2021-05-13] MEDS: ASPIRIN EC 81 MG TABLET PO (09:01)
[2021-05-13] MEDS: CITALOPRAM 10 MG TABLET 40 MG PO (09:01)
[2021-05-13] MEDS: ACETAMINOPHEN 325 MG TABLET 650 MG PO ×2 (11:38→15:44)
[2021-05-13] MEDS: LACTATED RINGERS 1,000 ML 42 ML IV (13:42)
--- NOTE | 2021-05-13 14:01 | PM.PREOP ---
Pre-operative Note Interval Note History & Physical reviewed/Exam performed by Physician: Yes Changes to H&P: No H&P completed within 30 days and has changed as indicated here:: Incision and drainage today of infected hematoma right lower leg. Technical details discussed with patient. Operative risks including bleeding, infection, delayed wound healing, were discussed. She is in agreement with this plan.
--- NOTE | 2021-05-13 14:01 | SUR.HOLD ---
Patient from room 222 to OPD with this RN on 2L of oxygen [place] after SBAR report at bedside from [place] RN. Pt awake, alert. Alistair velázquez applied. Dr Barnett to bedside. Informed of Vanco trough planned for 1430. last dose of Vanco and Ceftriaxone.
[2021-05-13 14:13] LABS: COVID19 -Nasal RAPID Negative (Negative)
[2021-05-13] MEDS: CEFAZOLIN 2 GM/20 ML SYRINGE IV (14:57)
--- NOTE | 2021-05-13 15:03 | SUR.OPER ---
Supine on padded OR bed, head on pillow, arms secured on padded arm boards at <90 degrees abduction, legs uncrossed, safety belt at thigh, tape over blanket over lower legs.
[2021-05-13] MEDS: VANCOMYCIN 1,500 MG/300 ML PIGGYBACK 200 MG IV (15:12)
[2021-05-13] MEDS: BUPIVACAINE 0.25% (PF) VIAL 30 ML INJ (15:13)
--- NOTE | 2021-05-13 15:26 | PM.OP.1 ---
Operative Date/Time/Diagnoses Date of procedure: 05/13/21 Time of procedure: 15:26 Pre-op diagnosis: infected hematoma Post-op diagnosis: same Procedure & Clinicians Procedure: sharp excisional debridement of right lower extremity wound to the fascia 8 x 5 x 1 cm defect. wound vac application Same procedure as scheduled: Yes Indications: cellulitis associated with hematoma Surgeon: Nathan Barnett Anesthesia Type: MAC +/- Operative Notes Findings: 8x5x1 cm area of necrotic skin with associated hematoma. Specimen(s): none sent Estimated Blood Loss (mL): 10 Procedure in detail: Patient was brought to the operating room placed supine on the table. Lower extremity compression device was applied the left leg. Anesthesia was induced and she was sedated. The right lower leg was then prepped and draped sterile fashion. Time-out performed. Local anesthetic was infiltrated into the skin in the right lower extremity. A elliptical incision was made the wound was sharply debrided to the level of the fascia. The wound measured 8 x 5 x 1 cm. The wound material consisted of skin and subcutaneous tissue which was necrotic and associated hematoma. Cultures were taken of the hematoma. The fascia was viable. Using a curette all remaining areas of necrosis were carefully debrided the wound was irrigated and then a wound VAC was placed to the lower extremity. Patient tolerated procedure well Post-operative Condition: stable Plan for aftercare: 05/15 patient to follow up with wound care services following discharge
[2021-05-13 15:36] LABS: Vancomycin Trough 9.6 ug/mL (10-20)
[2021-05-13] MEDS: OXYCODONE IR 5 MG TABLET 10 MG PO (15:47)
--- NOTE | 2021-05-13 16:36 | PM.PN.1 ---
Subjective Subjective Interval history: Patient endorses feeling much better this morning. She reports significant improvement in her pain of the RLE. She denies any other active issues. Exam Vital Signs (past 8 hours): - 05/13/21 08:53 05/13/21 11:17 05/13/21 11:25 Temperature 97.8 F 97.9 F Pulse Rate 88 83 Respiratory Rate 18 18 Blood Pressure 159/98 H Pulse Oximetry 97 95 98 05/13/21 12:54 05/13/21 13:36 05/13/21 15:25 Temperature 98.8 F 97.3 F L Pulse Rate 82 82 Respiratory Rate 20 19 Blood Pressure 154/84 H 199/96 H 115/62 Pulse Oximetry 98 100 05/13/21 15:29 05/13/21 15:34 05/13/21 15:39 Temperature Pulse Rate 85 83 89 Respiratory Rate 17 97 H 19 Blood Pressure 160/115 H 176/74 H 180/82 H Pulse Oximetry 100 97 97 05/13/21 15:44 05/13/21 15:50 05/13/21 15:55 Temperature 98.1 F Pulse Rate 87 85 87 Respiratory Rate 17 17 15 Blood Pressure 167/100 H 160/72 H 155/120 H Pulse Oximetry 97 98 97 05/13/21 15:59 05/13/21 16:15 Temperature Pulse Rate 97 H 89 Respiratory Rate 12 16 Blood Pressure 193/82 H 194/87 H Pulse Oximetry 98 97 Oxygen Delivery Method Nasal Cannula Oxygen Flow Rate 2 Narrative Exam Narrative: Pleasant female sitting up in bed comfortably, eating breakfast, in no apparent acute distress Const Other: Patient with 2 liters of oxygen nasal cannulae [facility] Other: HEENT: Normocephalic, atraumatic, extraocular muscles are intact Resp Other: Lungs: Decreased breath sounds with occasional scattered rhonchi Cardio Other: Cardiac exam: Regular rate and rhythm, with normal S1-S2 with a 3/6 blowing systolic ejection murmur GI Other: Abdomen: Soft, non-tender, non-distended, with bowel sounds present Extrem Other: Right lower extremity with a large area of erythema extending from above the ankle to just beneath the knee There is an open wound along the anterior galo, with an eschar, open area with ecchymosis very tender to palpation, but no pus expressed, with regression of erythema from the marker demarcation lines Objective Labs Result Diagrams: 05/12/21 18:50 05/12/21 18:50 Labs: Laboratory Results - last 24 hr 05/12/21 05/12/21 05/13/21 18:50 18:50 13:50 WBC 9.2 RBC 3.60 L Hgb 11.7 L Hct 34.4 L MCV 95.7 MCH 32.6 MCHC 34.0 RDW 15.1 H Plt Count 334 Neut % (Auto) 87.8 H Lymph % (Auto) 5.3 L [place] % (Auto) 6.5 Eos % (Auto) 0.1 L Baso % (Auto) 0.3 Neut # (Auto) 8100 H Lymph # (Auto) 500 L [place] # (Auto) 600 Eos # (Auto) 0 Baso # (Auto) 0 Sodium 138 Potassium 4.7 Chloride 102 Carbon Dioxide 27 BUN 26 H Creatinine 1.05 H Estimated GFR 50.6 L BUN/Creatinine Ratio 24.8 H Glucose 230 H Calcium 8.9 Vancomycin Trough SARS-CoV-2 (PCR) Negative 05/13/21 14:50 WBC RBC Hgb Hct MCV MCH MCHC RDW Plt Count Neut % (Auto) Lymph % (Auto) [place] % (Auto) Eos % (Auto) Baso % (Auto) Neut # (Auto) Lymph # (Auto) [place] # (Auto) Eos # (Auto) Baso # (Auto) Sodium Potassium Chloride Carbon Dioxide BUN Creatinine Estimated GFR BUN/Creatinine Ratio Glucose Calcium Vancomycin Trough 9.6 L SARS-CoV-2 (PCR) [facility] Medical History Chronic atrial fibrillation Chronic respiratory failure with hypoxia Contrast media allergy COPD exacerbation Gout History of lymphoma Hyperlipidemia Hypertension Lung cancer Radiation fibrosis of lung Type 2 diabetes mellitus Family History Sister Cancer Mother CAD (coronary artery disease) Father Malaria Social History household members: spouse Smoking Status: Former smoker alcohol intake: current Assessment & Plan Assessment & Plan narrative: 81-year-old female with a history of chronic hypoxic respiratory failure on home O2, chronic atrial fibrillation on Eliquis, hypertension, hyperlipidemia, type 2 diabetes, history of lymphoma, admitted to the hospital with severe right lower extremity cellulitis 1. RLE cellulitis, with portal of entry likely occurring secondary to problem 2 -patient has significant cellulitis of the right lower extremity which has failed outpatient antibiotics -will continue IV ceftriaxone and vancomycin -appreciate general surgery recommendations for OR debridement on May 13 -will hold Eliquis at this time pending surgery -pain medication as she is quite uncomfortable -CT of the lower extremity reveals no drainable collection of pus, no gas, or signs of osteomyelitis/fasciitis 2. RLE cellulitis with associated large wound, underlying hematoma, eschar with necrotic tissue to open wound -pain medication as she is quite uncomfortable -CT of the lower extremity reveals no drainable collection of pus, no gas, or signs of osteomyelitis/fasciitis -pt due to undergo surgical debridement with hematoma evacuation today 3. Chronic hypoxic respiratory failure -patient with a history of COPD and lung cancer -will continue 2 L of oxygen 4. Chronic atrial fibrillation -will continue metoprolol and diltiazem -will hold Eliquis at this time, pending surgery -will hold her baby aspirin at this time 5. Hypertension -continue metoprolol, diltiazem, and telmisartan -will hold hydrochlorothiazide at this time 6. Type 2 diabetes -metformin on hold here in the hospital -will start sliding scale insulin and adjust accordingly 7. Hyperlipidemia -will continue statin VTE prophylaxis: Patient on Eliquis at home for a fib, holding for now pending possible need for surgical debridement Time Spent With Patient Critical Care time: I spent a total of [] minutes of critical care time on this patient's care today; this time is exclusive of procedural time. Quality VTE Deep Vein Thrombosis/Pulmonary Embolism Present on Admission: No
--- NOTE | 2021-05-13 17:00 | SUR.PHASEI ---
Patient transferred in bed on 2L oxygen via [place] per patient baseline. Pt alert, oriented with mild pain. No nausea. SBAR report and update at bedside to [place] LOPEZ. Wound Vac at cont suction, intact. Bed in low position. Call Light in reach.
[2021-05-13] MEDS: cefTRIAXone 1,000 MG in SODIUM CHLORIDE 0.9% 100 ML 200 ML IV (17:04)
[2021-05-13] MEDS: ATORVASTATIN 20 MG TABLET 80 MG PO (20:57)
[2021-05-13] MEDS: INSULIN LISPRO 100 UNIT/ML 3ML VIAL SUBCUT (20:57)
[2021-05-13] MEDS: OXYCODONE IR 10 MG TABLET PO (20:57)
[2021-05-13] MEDS: DOXEPIN 25 MG CAPSULE PO (20:57)
[2021-05-14] VITALS (18 sets, daily range): BP systolic 146–195; BP diastolic 76–95; PULSE 72–88; RESP 16–20; TEMP 36.2–36.9; O2SAT 93–99
[2021-05-14] MEDS: SODIUM CHLORIDE 0.9% 1,000 ML 100 ML IV ×2 (04:44→15:55)
[2021-05-14] MEDS: ASPIRIN EC 81 MG TABLET PO (08:06)
[2021-05-14] MEDS: METOPROLOL ER 50 MG TABLET PO ×2 (08:06→21:05)
[2021-05-14] MEDS: CITALOPRAM 10 MG TABLET 40 MG PO (08:07)
[2021-05-14] MEDS: LOSARTAN 50 MG TABLET PO (08:07)
[2021-05-14] MEDS: dilTIAZem CD 180 MG CAP PO (08:07)
[2021-05-14] MEDS: INSULIN LISPRO 100 UNIT/ML 3ML VIAL SUBCUT (08:08)
[2021-05-14] MEDS: DOCUSATE 100 MG CAPSULE PO ×2 (08:12→21:04)
--- NOTE | 2021-05-14 10:38 | PM.PN.1 ---
Subjective Subjective Interval history: Patient denies any acute complaints this morning. She reports some discomfort at the wound vac site, but reports it's tolerable. She thinks the surrounding erythema might have slightly worsened. She denies fever/chills, or generally feeling unwell. Exam Vital Signs (past 8 hours): - 05/14/21 04:00 05/14/21 06:00 05/14/21 07:30 Temperature 97.2 F L Pulse Rate 73 88 Respiratory Rate 17 18 Blood Pressure 151/77 H 195/95 H Pulse Oximetry 93 94 98 05/14/21 08:06 05/14/21 08:07 05/14/21 09:38 Temperature Pulse Rate 88 88 84 Respiratory Rate Blood Pressure 195/95 H 195/95 H 156/86 H Pulse Oximetry 05/14/21 09:39 05/14/21 10:00 Temperature Pulse Rate 84 Respiratory Rate Blood Pressure 156/86 H Pulse Oximetry 94 Oxygen Delivery Method Nasal Cannula Oxygen Flow Rate 2 Narrative Exam Narrative: Pleasant female sitting up in bed comfortably, eating breakfast, in no apparent acute distress Const Other: Patient with 2 liters of oxygen nasal cannulae [facility] Other: HEENT: Normocephalic, atraumatic, extraocular muscles are intact Resp Other: Lungs: Decreased breath sounds with occasional scattered rhonchi Cardio Other: Cardiac exam: Regular rate and rhythm, with normal S1-S2 with a 3/6 blowing systolic ejection murmur GI Other: Abdomen: Soft, non-tender, non-distended, with bowel sounds present Extrem Other: There is an open wound along the anterior galo, with wound vac in place, with no purulence appreciated, and regression of erythema from originial demarcation lines Objective Labs Result Diagrams: 05/12/21 18:50 05/12/21 18:50 Labs: Laboratory Results - last 24 hr 05/13/21 05/13/21 13:50 14:50 Vancomycin Trough 9.6 L SARS-CoV-2 (PCR) Negative PFSH Medical History Chronic atrial fibrillation Chronic respiratory failure with hypoxia Contrast media allergy COPD exacerbation Gout History of lymphoma Hyperlipidemia Hypertension Lung cancer Radiation fibrosis of lung Type 2 diabetes mellitus Family History Sister Cancer Mother CAD (coronary artery disease) Father Malaria Social History household members: spouse Smoking Status: Former smoker alcohol intake: current Assessment & Plan Assessment & Plan narrative: 81-year-old female with a history of chronic hypoxic respiratory failure on home O2, chronic atrial fibrillation on Eliquis, hypertension, hyperlipidemia, type 2 diabetes, history of lymphoma, admitted to the hospital with severe right lower extremity cellulitis associated with open wound to the anterior galo area 1. RLE cellulitis, with portal of entry likely occurring secondary open wound to anterior galo area -CT of the RLE reveals no drainable collection of pus, no gas, or signs of osteomyelitis/fasciitis -will continue IV ceftriaxone and vancomycin -status post debridement of necrotic tissue with wound vac placement by general surgery on May 13 -apprecite general surgery recommendations to resume Eliquis on May 15 -pain medication as she is quite uncomfortable 3. Chronic hypoxic respiratory failure -patient with a history of COPD and lung cancer -will continue home 2 liters of oxygen 4. Chronic atrial fibrillation -will continue metoprolol and diltiazem -appreciate general surgery recommendations to resume Eliquis on May 15 5. Hypertension -continue metoprolol, diltiazem, and telmisartan 6. Type 2 diabetes -metformin on hold here in the hospital -will start sliding scale insulin and adjust accordingly -will continue home aspirin 81 mg daily 7. Hyperlipidemia -will continue statin VTE prophylaxis: Patient on Eliquis at home for a fib, holding for now, likely resume on May 15 Time Spent With Patient Critical Care time: I spent a total of [] minutes of critical care time on this patient's care today; this time is exclusive of procedural time. Quality VTE Deep Vein Thrombosis/Pulmonary Embolism Present on Admission: No
--- NOTE | 2021-05-14 15:10 | CM.DPC ---
DCP Cont: Patient has a wound vac in place to lower right leg. Was placed after surgery for debridement yesterday. Hospitalist indicated during team rounds that patient should be able to go home with oral antibiotics. It is uncertain if patient will need to still have wound vac in place upon discharge. Did have hospitalist sign face to face for nursing to come into the home for wound care. Met with patient in her room. She wants home, not rehab. Stated, she has no preference upon home health agencies. [facility] is on the list. Called Felicity at [facility]. Faxed her over the referral letting her know that patient may need wound vac when going home. Called Michelle at wound clinic. She encouraged this shutdown planner to fax over face sheet and surgical note to her so she can start the process. Left Page a message. Her phone number is: [phone]. Faxing her face sheet, surgical note. Her fax number is: [phone]. Michelle at wound care stated that she can be seen at their clinic Thursday at 1300, if she discharges tomorrow. P: DCP sent referral to [facility]. Included face sheet, face to face, orders, H&P, surgical progress note. Faxed Page at [employer] to review in case patient needs wound vac. Anita Zuniga RN/Wireless Sales Consultant
[2021-05-14] MEDS: VANCOMYCIN 1,500 MG/300 ML PIGGYBACK 200 MG IV (15:54)
[2021-05-14] MEDS: cefTRIAXone 1,000 MG in SODIUM CHLORIDE 0.9% 100 ML 200 ML IV (18:55)
[2021-05-14] MEDS: ATORVASTATIN 20 MG TABLET 80 MG PO (21:04)
[2021-05-14] MEDS: OXYCODONE IR 10 MG TABLET PO (21:04)
[2021-05-14] MEDS: DOXEPIN 25 MG CAPSULE PO (21:05)
[2021-05-15] VITALS (11 sets, daily range): BP systolic 140–192; BP diastolic 72–90; PULSE 68–77; RESP 16–18; TEMP 36.3–36.8; O2SAT 95–98
[2021-05-15] MEDS: SODIUM CHLORIDE 0.9% 1,000 ML 40 ML IV (06:24)
[2021-05-15 06:36] LABS: Hematocrit 36.1 % (36-46); Hemoglobin 12.2 g/dL (12.0-16.0); Mean Corpuscular HGB Conc 33.8 % (30-36); Mean Corpuscular Hemoglobin 32.3 PG (26-34); Mean Corpuscular Volume 95.6 fL (80-100); Platelet Count 323 X10^3/uL (150-400); Red Blood Cell Count 3.77 X10^6/uL (4.0-5.2); White Blood Cell Count 8.1 X10^3/uL (4.5-11.0)
[2021-05-15 06:38] LABS: Add Manual Diff / Slide Review YES
[2021-05-15 06:59] LABS: Alanine Aminotransferase 26 IU/L (<35); Albumin 3.7 g/dL (3.5-5.0); Albumin Globulin Ratio 1.3 (1.0-2.8); Alkaline Phosphatase 53 U/L (38-126); Aspartate Aminotransferase 25 IU/L (14-36); BUN Creatinine Ratio 29.8 (6-22); Bilirubin Total 0.3 mg/dL (0.2-1.3); Blood Urea Nitrogen 28 mg/dL (7-17); Calcium 8.9 mg/dL (8.4-10.2); Carbon Dioxide 32 mmol/L (22-32); Chloride 102 mmol/L (98-107); Estimated Glomerular Filt Rate 57.4 mL/min (>60); Globulin 2.8 g/dL (1.7-4.1); Glucose 122 mg/dL (80-110); HEMOLYSIS < 15 (0-50); Magnesium 1.4 mg/dL (1.6-2.3); Sodium 139 mmol/L (137-145); Total Protein 6.5 g/dL (6.3-8.2)
[2021-05-15 08:22] LABS: Neutrophils Absolute Manual 6561 /uL (3000-5900); RBC Morphology Normal Morphology; Total Cells Counted 100
[2021-05-15] MEDS: CITALOPRAM 10 MG TABLET 40 MG PO (08:23)
[2021-05-15] MEDS: LOSARTAN 50 MG TABLET PO (08:23)
[2021-05-15] MEDS: dilTIAZem CD 180 MG CAP PO (08:23)
[2021-05-15] MEDS: ASPIRIN EC 81 MG TABLET PO (08:23)
[2021-05-15] MEDS: DOCUSATE 100 MG CAPSULE PO (08:23)
[2021-05-15] MEDS: HYDROCODONE/ACET 5/325 TABLET 1 TAB PO (08:24)
[2021-05-15] MEDS: METOPROLOL ER 50 MG TABLET PO (08:24)
--- NOTE | 2021-05-15 11:58 | PM.PN.1 ---
Subjective Subjective Date Patient Seen: 05/15/21 Time Patient Seen: 09:00 Interval history: Today she has mild pain. She says it is controlled with pain medications. Exam Vital Signs (past 8 hours): - 05/15/21 04:00 05/15/21 06:00 05/15/21 08:00 Temperature 97.4 F L 98.2 F Pulse Rate 77 68 Respiratory Rate 16 16 Blood Pressure 152/82 H 192/74 H Pulse Oximetry 97 97 97 05/15/21 08:23 05/15/21 08:24 Temperature Pulse Rate 77 77 Respiratory Rate Blood Pressure 190/89 H 190/90 H Pulse Oximetry Oxygen Delivery Method Nasal Cannula Oxygen Flow Rate 0 Narrative Exam Narrative: GEN: no acute distress PULM: clear bilaterally CV: regular rate and rhythm, no murmurs EXT: large wound on antierior galo with wound vac in place and minimal erythema surrounding Objective Labs Result Diagrams: 05/15/21 05:55 05/15/21 05:55 Labs: Laboratory Results - last 24 hr 05/15/21 05/15/21 05:55 05:55 WBC 8.1 RBC 3.77 L Hgb 12.2 Hct 36.1 MCV 95.6 MCH 32.3 MCHC 33.8 RDW 15.0 H Plt Count 323 Neut % (Auto) Not Reportable Lymph % (Auto) Not Reportable [place] % (Auto) Not Reportable Eos % (Auto) Not Reportable Baso % (Auto) Not Reportable Lymph # (Auto) Not Reportable [place] # (Auto) Not Reportable Baso # (Auto) Not Reportable Total Counted 100 Seg Neutrophils % 71.0 H Band Neutrophils % 10.0 H Lymphocytes % (Manual) 12.0 L Atypical Lymphs % 2.0 H Monocytes % (Manual) 5.0 Neutrophils # (Manual) 6561 H RBC Morphology Normal morphology Sodium 139 Potassium 4.0 Chloride 102 Carbon Dioxide 32 BUN 28 H Creatinine 0.94 Estimated GFR 57.4 L BUN/Creatinine Ratio 29.8 H Glucose 122 H D Calcium 8.9 Magnesium 1.4 L Total Bilirubin 0.3 AST 25 ALT 26 Alkaline Phosphatase 53 Total Protein 6.5 Albumin 3.7 Globulin 2.8 Albumin/Globulin Ratio 1.3 PFSH Medical History Chronic atrial fibrillation Chronic respiratory failure with hypoxia Contrast media allergy COPD exacerbation Gout History of lymphoma Hyperlipidemia Hypertension Lung cancer Radiation fibrosis of lung Type 2 diabetes mellitus Family History Sister Cancer Mother CAD (coronary artery disease) Father Malaria Social History household members: spouse Smoking Status: Former smoker alcohol intake: current Assessment & Plan Assessment & Plan narrative: 81-year-old female with a history of chronic hypoxic respiratory failure on home O2, chronic atrial fibrillation on Eliquis, hypertension, hyperlipidemia, type 2 diabetes, history of lymphoma, admitted to the hospital with severe right lower extremity cellulitis associated with open wound to the anterior galo area 1. RLE cellulitis, with portal of entry likely occurring secondary open wound to anterior galo area -CT of the RLE reveals no drainable collection of pus, no gas, or signs of osteomyelitis/fasciitis -will continue IV ceftriaxone and vancomycin -status post debridement of necrotic tissue with wound vac placement by general surgery on May 13 -apprecite general surgery recommendations to resume Eliquis on May 15 -pain medication as she is quite uncomfortable -plan to discuss with surgery need for wound vac on discharge 3. Chronic hypoxic respiratory failure -patient with a history of COPD and lung cancer -will continue home 2 liters of oxygen 4. Chronic atrial fibrillation -will continue metoprolol and diltiazem -appreciate general surgery recommendations to resume Eliquis on May 15 5. Hypertension -continue metoprolol, diltiazem, and telmisartan 6. Type 2 diabetes -metformin on hold here in the hospital -sliding scale insulin and adjust accordingly -will continue home aspirin 81 mg daily 7. Hyperlipidemia -will continue statin Time Spent With Patient Critical Care time: I spent a total of [] minutes of critical care time on this patient's care today; this time is exclusive of procedural time. Quality VTE Deep Vein Thrombosis/Pulmonary Embolism Present on Admission: No
--- NOTE | 2021-05-15 12:12 | CM.DPC ---
Addendum entered by Anita Zuniga R.N. 05/15/21 13:09: Updated hospitalist regarding wound vac. Dr. Elkins signed RX for [facility], faxed over to [place]. Michelle at the wound clinic was updated, and a wound vac will be sent over and exchanged. Left a message with Felicity at [facility] that patient is discharging tomorrow, and that she has wound clinic appointment on Thursday at 1300. Will fax [facility] DC Summary when completed. Orders and face to face were already faxed. Anita Zuniga RN/Autobody Technician Original Note: DCP Cont: Spoke to Michelle at the wound clinic, for this materials planner had not heard back from Ruth Ann at [facility] for wound vac. Michelle indicated that Page just needed signed script for the insurance. Michelle brought up the RX, and this materials planner went down to the OR and had Dr. Elkins, surgeon, sign it. Verified with Dr. Elkins that patient would be going home with wound vac. Faxed the RX back to [facility]. They have the supply in the store room per Michelle. Patient will also follow up with wound clinic on Thursday at 1300. Spoke [address] Velez, and updated him regarding the wound vac. She should be able to go home on oral antibiotics. Patient most likely will discharge today. Will update Felicity at [facility], for they may be able to see her tomorrow. P: DCP to continue to follow. Will follow up with Michelle at wound care as soon as patient is ready for discharge today. Anita Zuniga RN/Autobody Technician
[2021-05-15] MEDS: MAGNESIUM CHLORIDE 64 MG TABLET 128 MG PO (12:44)
[2021-05-15] MEDS: INSULIN LISPRO 100 UNIT/ML 3ML VIAL SUBCUT (12:49)
[2021-05-15] MEDS: OXYCODONE IR 10 MG TABLET PO (12:56)
--- NOTE | 2021-05-15 14:56 | DIET.PN1 ---
Dietary Progress Note Assessment: 81y F admitted after fall resulting in large hematoma on leg requiring I&D and wound vac placement. Pt reports doing well with her diet recently, trying to avoid potatoes at dinner and instead eat meat with two vegetables. Pt endorses eating Triscuit crackers in the evening while watching TV and feels she may be overdoing it because her FBGs are creeping up into 150s range. Pt uses Triscuits as fiber source to avoid constipation. Pt interested in OP DM ed visit to review diet and medications to ensure she is doing everything she can for leg wound to heal. Ht: 165.1 cm Wt: 84.368 kg BMI: 30.9 Last BM: 05/15/21 (05/15/21 07:40) MNA: 10 Bjorn Score: 21 Diet: 05/13/21 Dinner General (Regular) Diet Diet Modifications: Nutrition Percent Meal Consumed 100% 05/15/21 13:37 Percent Meal Consumed 75% 05/15/21 09:00 Percent Meal Consumed 100% 05/14/21 18:00 Percent Meal Consumed 75% 05/14/21 12:53 Percent Meal Consumed 100% 05/14/21 07:30 Percent Meal Consumed 100% 05/13/21 18:15 Labs: RBC 3.77 X10^6/uL (4.0-5.2) L 05/15/21 05:55 Hgb 12.2 g/dL (12.0-16.0) 05/15/21 05:55 Hct 36.1 % (36-46) 05/15/21 05:55 Creatinine 0.94 mg/dL (0.52-1.04) 05/15/21 05:55 Lactate 1.2 mmol/L (0.7-2.1) 05/10/21 13:20 Interventions: 1. Discussed importance of protein and vitamin A foods for healing of leg wound. Educated pt on sources of both and encouraged pt to eat orange fruits and vegetables for not only Vit A, but also beneficial dietary fiber. 2. Discussed Triscuits as a fiber source. While a serving of crackers has 3g fiber, there are many foods which will give her more nutritional benefit without elevating BG. Pt eating crackers without protein or healthy fat in the evening while watching television. Encouraged pt to limit serving to 5 crackers and eat with protein source like string cheese, tuna, chicken, or peanut butter. EER: 85g PRO Monitoring/Evaluations: Pt will call PCP and request OP visit with DM educator at Electronically Signed by: Anuradha Solitario 05/15/21 14:56 Clinical Dietitian [address] [address]
[2021-05-15] MEDS: VANCOMYCIN 1,500 MG/300 ML PIGGYBACK 200 MG IV (14:57)
--- NOTE | 2021-05-15 16:22 | PC.NURSE ---
Pt A&OX3 ambulatory with SBA. Woundvac to RLE, to continuous suction with good seal. Surrounding tissue pink withing marked borders, blanchable. +CMS to RLE no edema to feed, and capillary refill< 3 seconds. Pt reports pain well controlled with PRN pain medications. BP initially elevated but improved after scheduled antihypertensive medications administered. MD at bedside this a.m. clearing patient for discharge home with oral antibiotics. CM received authorization from insurance for wound vac and arranged home health care as well as follow up for patient in wound care clinic. Portable wound vac arrived late this afternoon. Patient and instructed on wound vac as well as follow up, signs of worsening infections and medications. Patient and spouse verbalize understanding of discharge instructions and she is escorted to private vehicle with via wheel chair with wound vac, personal home 02, and all of her belongings as well as prescriptions.
--- NOTE | 2021-05-15 18:48 | P.DS_ITS ---
History of Present Illness History of Present Illness Chief complaint: Fall, Lt Leg Laceration Pain/Redness Narrative: Per Dr. Patel: The patient is a 81-year-old female with a history of chronic hypoxic respirato ry failure on home O2, hypertension, type 2 diabetes, hyperlipidemia, gout, history of lymphoma, history of lung cancer, history of atrial fibrillation on Eliquis.? Patient presented to the emergency room on April 17 after a fall.? She landed on her right leg.? The patient was seen by Dr. Aguilera? on May 01 for cellulitis.? She was started on Keflex without significant improvement.? She was seen in the walk in clinic ceye and switched to doxycycline.? She continues to have redness, pain, and an eschar over her anterior galo.? She presented to the emergency room for evaluation.? Patient is afebrile, her white count is normal, imaging of the right lower extremity revealed the following:?Skin irregularity in the anterior proximal lower leg may represent the known wound.?There is underlying subcutaneous edema without a well-formed drainable abscess.? No signs of osteomyelitis or fasciitis.? No soft tissue gas .2. Chronic appearing osseous erosion in the 3rd middle phalanx with nodular hyperdense material in the surrounding subcutaneous tissues of the 3rd toe, which is of uncertain etiology, but is most suspicious for gout.? Recommend correlation with clinical findings and exam.? Patient is admitted to the hospital for further evaluation. Discharge Providers Provider Date of admission: 05/10/21 15:18 Discharge Date: 05/15/21 Primary care physician: Khai Franco MD Consults: 05/10/21 17:30 Consult to Dietitian, Adult Routine Comment: Reason For Exam: decreased appetite 05/11/21 13:32 Consult to General Surgery Routine Comment: Consulting Provider: Noah Davis Reason for consultation: RLE cellulitis with eschar ulcers, possible debridement Has provider been notified: Yes 05/14/21 14:57 Consult to Home Health Routine Comment: For wound care, dressing changes Reason For Exam: Home Health accounting manager controller provider: Alphonse Velez MD Summary Hospital Course Discharge Diagnosis: 1. R lower extremity cellulitis s/p I and D 2. Chronic hypoxemic respiratory failure secondary to COPD, lung cancer 3. Chronic persistent atrial fibrillation 4. Hypertension 5. Type 2 Diabetes 6. Hyperlipidemia Hospital Course: Ms. Mcduffie was admitted with a cellulitis. She was initially started on broad spectrum antibiotics. She did have a wound on her anterior tibia. She did get this wound debrided with surgery on 05/13. Wound cultures grew back E. coli sensitive to ceftriaxone and cefpodoxime. She was continued on antibiotics and improved. She was discharged with an additional week of oral antibiotics with cefpodoxime. She was recommended to follow up with surgery within one week. Exam Vital Signs (past 8 hours): - 05/15/21 12:00 05/15/21 12:44 05/15/21 14:00 Temperature 97.7 F Pulse Rate 74 74 Respiratory Rate 18 Blood Pressure 140/72 140/72 Pulse Oximetry 95 95 05/15/21 14:43 Temperature Pulse Rate Respiratory Rate Blood Pressure Pulse Oximetry 95 Oxygen Delivery Method Nasal Cannula Oxygen Flow Rate 2 Narrative Exam Narrative: GEN: no acute distress PULM: clear bilaterally CV: regular rate and rhythm, no murmurs EXT: large wound on antierior galo with wound vac in place and minimal erythema surrounding Objective Labs Result Diagrams: 05/15/21 05:55 05/15/21 05:55 Labs: Laboratory Results - last 24 hr 05/15/21 05/15/21 05:55 05:55 WBC 8.1 RBC 3.77 L Hgb 12.2 Hct 36.1 MCV 95.6 MCH 32.3 MCHC 33.8 RDW 15.0 H Plt Count 323 Neut % (Auto) Not Reportable Lymph % (Auto) Not Reportable [place] % (Auto) Not Reportable Eos % (Auto) Not Reportable Baso % (Auto) Not Reportable Lymph # (Auto) Not Reportable [place] # (Auto) Not Reportable Baso # (Auto) Not Reportable Total Counted 100 Seg Neutrophils % 71.0 H Band Neutrophils % 10.0 H Lymphocytes % (Manual) 12.0 L Atypical Lymphs % 2.0 H Monocytes % (Manual) 5.0 Neutrophils # (Manual) 6561 H RBC Morphology Normal morphology Sodium 139 Potassium 4.0 Chloride 102 Carbon Dioxide 32 BUN 28 H Creatinine 0.94 Estimated GFR 57.4 L BUN/Creatinine Ratio 29.8 H Glucose 122 H D Calcium 8.9 Magnesium 1.4 L Total Bilirubin 0.3 AST 25 ALT 26 Alkaline Phosphatase 53 Total Protein 6.5 Albumin 3.7 Globulin 2.8 Albumin/Globulin Ratio 1.3 PFSH Medical History Chronic atrial fibrillation Chronic respiratory failure with hypoxia Contrast media allergy COPD exacerbation Gout History of lymphoma Hyperlipidemia Hypertension Lung cancer Radiation fibrosis of lung Type 2 diabetes mellitus Family History Sister Cancer Mother CAD (coronary artery disease) Father Malaria Social History household members: spouse Smoking Status: Former smoker alcohol intake: current Discharge Plan Discharge Plan Patient Disposition: Home Health Service Provider Discharge Comment: Ms. Jacome was admitted with an infected leg. She had surgery to remove part of the infected area. She will be discharged with a wound vac. She should follow up with her surgeon Dr. Montero within a week. She will be given a prescription for one more week of antibiotics. Discharge orders & Medications Prescriptions: New hydrocodone-acetaminophen 5-325 mg Tablet 1 tab PO Q4HR PRN (Reason: Pain, Moderate (4-6)) Qty: 12 0RF docusate sodium 100 mg Capsule 100 mg PO BID Qty: 20 0RF cefpodoxime 200 mg tablet 400 mg PO Q12H Qty: 14 0RF Rx Instructions: must administer with a meal/food Continued atorvastatin [Lipitor] 40 MG tablet 80 mg PO HS Qty: 0 0RF citalopram 20 MG tablet 40 mg PO QDAY Qty: 0 0RF telmisartan [Micardis] 80 MG tablet 40 mg PO Q DAY Qty: 0 0RF hydrochlorothiazide 25 MG tablet 25 mg PO QDAY Qty: 0 0RF diltiazem HCl 180 mg Capsule,Extended Release 24 Hr 180 mg PO DAILY 0RF metformin 500 mg Tablet Extended Release 24 Hr 500 mg PO TID 0RF metoprolol succinate 50 mg Tablet Extended Release 24 Hr 50 mg PO BID 0RF doxepin 25 mg Capsule 25 mg PO BEDTIME 0RF aspirin 81 mg Tablet,Chewable 81 mg PO DAILY 0RF Eliquis 5 mg Tablet 5 mg PO BID 0RF acetaminophen 650 mg Tablet Extended Release 650 mg PO BEDTIME 0RF hydrocodone-acetaminophen 5-325 mg tablet 1 tab PO Q6H PRN (Reason: pain) Qty: 10 0RF Follow up/Referrals: Khai Franco MD [Primary Care Provider] - Nathan Montero MD [Physician] - 05/22/21 2:30 pm (05/22 chewck in @ 2:15 for a 2:[address] montero [phone]) Diet/Activity/Treatments Diet: Carb-consistent/Diabetic Visit Report/Discharge Packet Instructions: DI for Cellulitis -- Adult, DI for Incision and Drainage Discharge Data Primary Care Provider: Khai Franco Quality VTE Deep Vein Thrombosis/Pulmonary Embolism Present on Admission: No
== END 2021-05-15 16:15 | disposition home health service (06) | DRG 571 ==
LOC: ED 14:37 → AC 15:18
PROVIDERS: Anesthesiology; Nurse Practitioner Family; Surgery; Admitting Provider Internal Medicine; Emergency Provider Emergency Medicine; Family Provider Internal Medicine; PCP Internal Medicine; Referring Provider Emergency Medicine; Visit Provider Internal Medicine
PROC: 0JBN0ZZ Excision of Right Lower Leg Subcutaneous Tissue and Fascia, Open Approach (ICD-10-PCS; principal; 2021-05-13 14:30)
DX: L03.115 Cellulitis of right lower limb (principal); J96.11 Chronic respiratory failure with hypoxia; I48.20 Chronic atrial fibrillation, unspecified; I96 Gangrene, not elsewhere classified; J44.9 Chronic obstructive pulmonary disease, unspecified; Z99.81 Dependence on supplemental oxygen; Z79.01 Long term (current) use of anticoagulants; S81.801A Unspecified open wound, right lower leg, initial encounter; E78.5 Hyperlipidemia, unspecified; B96.20 Unspecified Escherichia coli [E. coli] as the cause of diseases classified elsewhere; E11.22 Type 2 diabetes mellitus with diabetic chronic kidney disease; I12.9 Hypertensive chronic kidney disease with stage 1 through stage 4 chronic kidney disease, or unspecified chronic kidney disease; N18.30 Chronic kidney disease, stage 3 unspecified; W18.30XA Fall on same level, unspecified, initial encounter; Z66 Do not resuscitate; Z87.891 Personal history of nicotine dependence; Z20.822 Contact with and (suspected) exposure to COVID-19; Z79.84 Long term (current) use of oral hypoglycemic drugs
CPT/HCPCS: 11043; 36415; 73590; 73701; 80048; 80053; 80202; 81001; 81003; 82962; 83605; 83690; 83735; 84145; 85007; 85025; 85610; 85730; 87040; 87070; 87075; 87077; 87186; 87205; 87635; 94760; 96361; 96374; 96375; 99232; 99284; 99285; C9803; G0237; G0238; J0690; J0696; J1200; J1650; J1815; J2270; J2704; J2920; J2930; J3010; Q9967

== ENCOUNTER → 2021-05-17 13:11 | Outpatient (CLI) | payer MEDICARE, OTHER, SELFPAY ==
[2021-05-15 13:23] VITALS: BMI 30.9
== END ==
PROVIDERS: Family Provider Internal Medicine; PCP Internal Medicine; Referring Provider Internal Medicine; Visit Provider Family Medicine
DX: T81.31XA Disruption of external operation (surgical) wound, not elsewhere classified, initial encounter (principal); S81.801A Unspecified open wound, right lower leg, initial encounter; S90.821A Blister (nonthermal), right foot, initial encounter; R60.0 Localized edema; E11.628 Type 2 diabetes mellitus with other skin complications; J96.11 Chronic respiratory failure with hypoxia; C34.91 Malignant neoplasm of unspecified part of right bronchus or lung; C50.911 Malignant neoplasm of unspecified site of right female breast; I10 Essential (primary) hypertension; I48.91 Unspecified atrial fibrillation; Z99.81 Dependence on supplemental oxygen; Z74.09 Other reduced mobility; Z79.01 Long term (current) use of anticoagulants; Z79.84 Long term (current) use of oral hypoglycemic drugs; Z85.72 Personal history of non-Hodgkin lymphomas; Z92.3 Personal history of irradiation; Z92.21 Personal history of antineoplastic chemotherapy
CPT/HCPCS: 97597; 97605; 99204; 99214

== ENCOUNTER → 2021-05-24 12:51 | Outpatient (CLI) | payer MEDICARE, OTHER, SELFPAY ==
[2021-05-15 13:23] VITALS: BMI 30.9
== END ==
PROVIDERS: Family Provider Internal Medicine; PCP Internal Medicine; Referring Provider Surgery; Visit Provider Family Medicine
DX: T81.31XA Disruption of external operation (surgical) wound, not elsewhere classified, initial encounter (principal); S90.821A Blister (nonthermal), right foot, initial encounter
CPT/HCPCS: 97605

== ENCOUNTER → 2021-05-30 09:44 | Outpatient (CLI) | payer MEDICARE, OTHER, SELFPAY ==
[2021-05-15 13:23] VITALS: BMI 30.9
== END ==
PROVIDERS: Family Provider Internal Medicine; PCP Internal Medicine; Referring Provider Physician Assistant; Visit Provider Family Medicine
DX: T81.31XA Disruption of external operation (surgical) wound, not elsewhere classified, initial encounter (principal); S81.801A Unspecified open wound, right lower leg, initial encounter
CPT/HCPCS: 97605

== ENCOUNTER → 2021-06-12 14:25 | Outpatient (CLI) | payer MEDICARE, OTHER, SELFPAY ==
[2021-05-15 13:23] VITALS: BMI 30.9
== END ==
PROVIDERS: Family Provider Internal Medicine; PCP Internal Medicine; Referring Provider Physician Assistant; Visit Provider Family Medicine
DX: T81.89XA Other complications of procedures, not elsewhere classified, initial encounter (principal); S81.801A Unspecified open wound, right lower leg, initial encounter; R60.0 Localized edema; E11.51 Type 2 diabetes mellitus with diabetic peripheral angiopathy without gangrene; C34.90 Malignant neoplasm of unspecified part of unspecified bronchus or lung; J44.9 Chronic obstructive pulmonary disease, unspecified; I48.91 Unspecified atrial fibrillation; Z79.01 Long term (current) use of anticoagulants; Z74.09 Other reduced mobility; Z99.81 Dependence on supplemental oxygen; Z79.84 Long term (current) use of oral hypoglycemic drugs
CPT/HCPCS: 11042; 11045; 97605; 99212

== ENCOUNTER → 2021-06-21 14:32 | Outpatient (CLI) | payer MEDICARE, OTHER, SELFPAY ==
[2021-05-15 13:23] VITALS: BMI 30.9
== END ==
PROVIDERS: Family Provider Internal Medicine; PCP Internal Medicine; Referring Provider Physician Assistant; Visit Provider Family Medicine
DX: T81.31XA Disruption of external operation (surgical) wound, not elsewhere classified, initial encounter (principal); S81.801A Unspecified open wound, right lower leg, initial encounter; E11.622 Type 2 diabetes mellitus with other skin ulcer; Z74.09 Other reduced mobility; Z79.01 Long term (current) use of anticoagulants
CPT/HCPCS: 87070; 87075; 87077; 87147; 87185; 87186; 87205; 97597; 97598

== ENCOUNTER → 2021-06-28 11:07 | Outpatient (CLI) | payer MEDICARE, OTHER, SELFPAY ==
[2021-05-15 13:23] VITALS: BMI 30.9
== END ==
PROVIDERS: Family Provider Internal Medicine; PCP Internal Medicine; Referring Provider Internal Medicine; Visit Provider Nurse Practitioner Family
DX: T81.31XA Disruption of external operation (surgical) wound, not elsewhere classified, initial encounter (principal); S81.801A Unspecified open wound, right lower leg, initial encounter; L08.9 Local infection of the skin and subcutaneous tissue, unspecified; E11.628 Type 2 diabetes mellitus with other skin complications; C34.92 Malignant neoplasm of unspecified part of left bronchus or lung; J96.11 Chronic respiratory failure with hypoxia; I48.91 Unspecified atrial fibrillation; Z79.01 Long term (current) use of anticoagulants; I10 Essential (primary) hypertension; Z74.09 Other reduced mobility; Z99.81 Dependence on supplemental oxygen; Z85.72 Personal history of non-Hodgkin lymphomas; Z92.3 Personal history of irradiation
CPT/HCPCS: 11042; 11045; 99212

== ENCOUNTER → 2021-07-05 13:51 | Outpatient (CLI) | payer MEDICARE, OTHER, SELFPAY ==
[2021-05-15 13:23] VITALS: BMI 30.9
== END ==
PROVIDERS: Family Provider Internal Medicine; PCP Internal Medicine; Referring Provider Internal Medicine; Visit Provider Nurse Practitioner Family
DX: T81.89XA Other complications of procedures, not elsewhere classified, initial encounter (principal); S81.801A Unspecified open wound, right lower leg, initial encounter; E11.628 Type 2 diabetes mellitus with other skin complications; J96.11 Chronic respiratory failure with hypoxia; C34.91 Malignant neoplasm of unspecified part of right bronchus or lung; C50.911 Malignant neoplasm of unspecified site of right female breast; I10 Essential (primary) hypertension; I48.91 Unspecified atrial fibrillation; Z74.09 Other reduced mobility; Z99.81 Dependence on supplemental oxygen; Z79.01 Long term (current) use of anticoagulants
CPT/HCPCS: 11042; 11045

== ENCOUNTER → 2021-07-12 10:45 | Outpatient (CLI) | payer MEDICARE, OTHER, SELFPAY ==
[2021-05-15 13:23] VITALS: BMI 30.9
== END ==
PROVIDERS: Family Provider Internal Medicine; PCP Internal Medicine; Referring Provider Internal Medicine; Visit Provider Nurse Practitioner Family
DX: T81.31XA Disruption of external operation (surgical) wound, not elsewhere classified, initial encounter (principal); S81.801A Unspecified open wound, right lower leg, initial encounter; E11.628 Type 2 diabetes mellitus with other skin complications; J96.11 Chronic respiratory failure with hypoxia; C34.91 Malignant neoplasm of unspecified part of right bronchus or lung; C50.911 Malignant neoplasm of unspecified site of right female breast; I10 Essential (primary) hypertension; I48.91 Unspecified atrial fibrillation; Z74.09 Other reduced mobility; Z99.81 Dependence on supplemental oxygen; Z79.01 Long term (current) use of anticoagulants; Z85.72 Personal history of non-Hodgkin lymphomas; Z92.3 Personal history of irradiation; Z92.21 Personal history of antineoplastic chemotherapy; Z79.84 Long term (current) use of oral hypoglycemic drugs
CPT/HCPCS: 15271; 15272; Q4101

== ENCOUNTER → 2021-07-19 13:03 | Outpatient (CLI) | payer MEDICARE, OTHER, SELFPAY ==
[2021-05-15 13:23] VITALS: BMI 30.9
== END ==
PROVIDERS: Family Provider Internal Medicine; PCP Internal Medicine; Referring Provider Internal Medicine; Visit Provider Nurse Practitioner Family
DX: T81.31XA Disruption of external operation (surgical) wound, not elsewhere classified, initial encounter (principal); S81.801A Unspecified open wound, right lower leg, initial encounter; E11.628 Type 2 diabetes mellitus with other skin complications; J96.11 Chronic respiratory failure with hypoxia; C34.91 Malignant neoplasm of unspecified part of right bronchus or lung; C50.911 Malignant neoplasm of unspecified site of right female breast; I10 Essential (primary) hypertension; I48.91 Unspecified atrial fibrillation; Z99.81 Dependence on supplemental oxygen; Z85.72 Personal history of non-Hodgkin lymphomas; Z92.3 Personal history of irradiation; Z92.21 Personal history of antineoplastic chemotherapy; Z79.84 Long term (current) use of oral hypoglycemic drugs; Z79.01 Long term (current) use of anticoagulants; Z74.09 Other reduced mobility
CPT/HCPCS: 15271; Q4196

== ENCOUNTER → 2021-07-26 12:12 | Outpatient (CLI) | payer MEDICARE, OTHER, SELFPAY ==
[2021-05-15 13:23] VITALS: BMI 30.9
== END ==
PROVIDERS: Family Provider Internal Medicine; PCP Internal Medicine; Referring Provider Internal Medicine; Visit Provider Nurse Practitioner Family
DX: T81.31XA Disruption of external operation (surgical) wound, not elsewhere classified, initial encounter (principal); S81.801A Unspecified open wound, right lower leg, initial encounter; L03.031 Cellulitis of right toe; R60.0 Localized edema; E11.628 Type 2 diabetes mellitus with other skin complications; C34.92 Malignant neoplasm of unspecified part of left bronchus or lung; J96.11 Chronic respiratory failure with hypoxia; Z74.09 Other reduced mobility; M10.9 Gout, unspecified; I10 Essential (primary) hypertension; I48.91 Unspecified atrial fibrillation; Z79.01 Long term (current) use of anticoagulants; Z99.81 Dependence on supplemental oxygen; Z79.84 Long term (current) use of oral hypoglycemic drugs
CPT/HCPCS: 15271; 99213; 99214; Q4101

== ENCOUNTER 2021-07-28 06:46 | Emergency (ER) | payer MEDICARE, OTHER, SELFPAY ==
[2021-05-15 13:23] VITALS: BMI 30.9
[2021-07-28 06:59] VITALS: BP 137/64; PULSE 92; RESP 17; TEMP 37.1; O2SAT 93; BMI 32.1
--- NOTE | 2021-07-28 08:29 | ED.SKABFB ---
HPI - Skin/Abscess/Foreign Bdy General Chief complaint: Skin/Abscess/Foreign Body Stated complaint: painful/infected toe on left foot x7 days Time Seen by Provider: 07/28/21 08:29 Source: patient Mode of arrival: Ambulatory Limitations: no limitations History of Present Illness HPI narrative: This is a 81-year-old female who arrives with complaint of potential infected toe on her right foot. Patient states she has had symptoms for at least a week. She has always had a white spot she states for longer than that but she has had increasing redness of the toe and now spreading over to the dorsum of the foot. Patient states that she has not had fevers or chills. She denies any new chest pain or shortness of breath. She has known lung cancer which has been treated with multiple rounds and pneumonectomy or partial lobectomy. She denies any nausea or vomiting. No new GI or urinary symptoms. She has pain with weight-bearing over the toe in is radiating into the foot she has no new numbness or tingling but does have chronic neuropathy so does not have normal sensation. She does not recall any injuries. She was started on doxycycline and has had 4 doses of oral doxycycline since Thursday afternoon. She was seen by wound care for her chronic lower extremity wounds and they had started her on doxycycline. We did discuss that was noted she had a CT in the past which showed possible gout in that toe as well. She uses a history of who returns., dyslipidemia and diabetes. She states she is allergic to penicillin but as a child and does not know the exact cause as well as contrast iodine. Related Data Home Medications Medication Instructions Recorded Confirmed atorvastatin 40 mg tablet (Lipitor) 80 mg PO HS #0 04/22/12 05/23/21 citalopram 20 mg tablet 40 mg PO QDAY #0 04/22/12 05/23/21 hydrochlorothiazide 25 mg tablet 25 mg PO QDAY #0 04/22/12 05/23/21 telmisartan 80 mg tablet (Micardis) 40 mg PO Q DAY #0 04/22/12 05/23/21 aspirin 81 mg chewable tablet 81 mg PO DAILY 12/17/17 05/23/21 diltiazem HCl 180 mg capsule,24 180 mg PO DAILY 12/17/17 05/23/21 hr,extended release doxepin 25 mg capsule 25 mg PO BEDTIME 12/17/17 05/23/21 metformin 500 mg tablet,extended 500 mg PO TID 12/17/17 05/23/21 release 24 hr metoprolol succinate 50 mg 50 mg PO BID 12/17/17 05/23/21 tablet,extended release 24 hr acetaminophen 650 mg 650 mg PO BEDTIME 08/21/20 05/23/21 tablet,extended release apixaban 5 mg tablet (Eliquis) 5 mg PO BID 08/21/20 05/23/21 Previous Rx's Medication Instructions Recorded hydrocodone 5 mg-acetaminophen 325 1 tab PO Q6H PRN #10 tab 04/17/21 mg tablet cefpodoxime 200 mg tablet 400 mg PO Q12H #14 tab 05/15/21 docusate sodium 100 mg capsule 100 mg PO BID #20 cap 05/15/21 hydrocodone 5 mg-acetaminophen 325 1 tab PO Q4HR PRN #12 tab 05/15/21 mg tablet hydrocodone 5 mg-acetaminophen 325 1 tab PO Q6H PRN #10 tab 07/28/21 mg tablet prednisone 10 mg tablets in a dose See Rx Instructions .ROUTE 07/28/21 pack .COMPLEX #27 ea Allergies Allergy/AdvReac Type Severity Reaction Status Date / Time petrolatum,white Allergy Severe Difficulty Verified 05/23/21 09:58 [From A & D Barrier] Breathing venom-honey bee Allergy Severe HIVES Verified 05/23/21 09:58 [BEE VENOM (HONEY BEE)] adhesive [ADHESIVE] Allergy Intermediate REDNESS Verified 05/23/21 09:58 AND ITCHING OF SKIN WITH TAPE USE. Iodinated Contrast Media Allergy Intermediate RASH Verified 05/23/21 09:58 [IODINATED CONTRAST MEDIA - IV DYE] Penicillins [PENICILLINS] Allergy Intermediate SOB, Verified 05/23/21 09:58 ITCHING ALL TOPICAL OINTMENTS Allergy Severe RASH Uncoded 05/23/21 09:58 Review of Systems Review of Systems ROS Unobtainable: All systems reviewed & are unremarkable except as noted in HPI and below Patient History Medical History Chronic atrial fibrillation Chronic respiratory failure with hypoxia Contrast media allergy COPD exacerbation Gout History of lymphoma Hyperlipidemia Hypertension Lung cancer Radiation fibrosis of lung Type 2 diabetes mellitus Family History Sister Cancer Mother CAD (coronary artery disease) Father Malaria Social History household members: spouse Smoking Status: Former smoker alcohol intake: current Smoking Status: Former smoker tobacco type: cigarettes alcohol intake frequency: holidays/special occasions only Substance Use Type: does not use Exam Narrative Exam Narrative: GENERAL: Alert and oriented x three, female in mild distress. HEENT: Head normocephalic, atraumatic, EOMI, pupils reactive, face symmetric, moist mucous membranes NECK: Supple, full range of motion CARDIOVASCULAR: Regular rate and rhythm without murmurs, rubs or gallops. RESPIRATORY: Breath sounds equal bilaterally, no wheezes rales or rhonchi. ABDOMEN: Soft, nontender. Normoactive bowel sounds all 4 quadrants. No guarding or rebound, rigidity, no mass EXTREMITIES: Normal range of motion, no clubbing. Patient's 3rd toe is swollen with area of white discoloration that actually feels harder nodular and nonfluctuant. There is some slight erythema extending into the dorsum of the foot by 1 cm. The toe actually feels normal temperature and not warm. Patient is tender to touch and with movement. She is neurovascularly intact. NEUROLOGICAL: Cranial nerves II through XII grossly Intact. Moving all extremities. Normal range of motion. SKIN: Warm, dry, no petechiae, no rashes or lesions otherwise noted. Patient's lower extremities are wrapped. Initial Vital Signs Initial Vital Signs: Vital Signs Temperature 98.8 F 07/28/21 06:59 Pulse Rate 92 H 07/28/21 06:59 Respiratory Rate 17 07/28/21 06:59 Blood Pressure 137/64 07/28/21 06:59 Pulse Oximetry 93 07/28/21 06:59 Course Orders Ordered: ED Orders 07/28/21 08:40 XR foot RT min 3V Stat 07/28/21 09:00 Basic Metabolic Panel Stat CRP [C-Reactive Protein Quant] Stat Complete Blood Count AUTO DIFF Stat ESR [Erythrocyte Sedimentation Rate] Stat Uric Acid Stat Discontinued Medications Morphine Sulfate (Morphine 2 Mg/Ml Inj) 2 mg IV NOW ONE Stop: 07/28/21 08:43 Last Admin: 07/28/21 09:23 Dose: 2 mg Documented by: MIKEY Prednisone (Prednisone 20 Mg Tablet) 60 mg PO NOW ONE Stop: 07/28/21 09:44 Last Admin: 07/28/21 10:14 Dose: 60 mg Documented by: MIKEY Vital Signs Vital signs: Vital Signs - 8 hr 07/28/21 10:28 Temperature 98.2 F Pulse Rate 83 Respiratory Rate 18 Blood Pressure 154/70 H Pulse Oximetry 93 MDM - Skin/Abscess/Foreign Bdy Lab Data Result diagrams: 07/28/21 09:00 07/28/21 09:00 Labs: Lab Results 07/28/21 07/28/21 Range/Units 09:00 09:00 WBC 6.6 (4.5-11.0) X10^3/uL RBC 3.98 L (4.0-5.2) X10^6/uL Hgb 12.9 (12.0-16.0) g/dL Hct 38.4 (36-46) % MCV 96.7 (80-100) fL MCH 32.5 (26-34) PG MCHC 33.6 (30-36) % RDW 15.9 H (11.6-14.8) % Plt Count 274 (150-400) X10^3/uL Neut % (Auto) Not Reportable Lymph % (Auto) Not Reportable [place] % (Auto) Not Reportable Eos % (Auto) Not Reportable Baso % (Auto) Not Reportable Lymph # (Auto) Not Reportable [place] # (Auto) Not Reportable Baso # (Auto) Not Reportable Total Counted 100 Seg Neutrophils % 68.0 (38-70) % Band Neutrophils % 2.0 L (3-7) % Lymphocytes % (Manual) 7.0 L (25-45) % Atypical Lymphs % 2.0 H ( - 0) % Monocytes % (Manual) 13.0 H (2-11) % Eosinophils % (Manual) 8.0 H (2-4) % Neutrophils # (Manual) 4620 (0409-7098) /uL RBC Morphology Not Reportable Anisocytosis 2+ H ESR 22 H (0-20) MM/HR Sodium 138 (137-145) mmol/L Potassium 4.8 (3.4-5.1) mmol/L Chloride 100 (98-107) mmol/L Carbon Dioxide 28 (22-32) mmol/L BUN 36 H (7-17) mg/dL Creatinine 1.21 H (0.52-1.04) mg/dL Estimated GFR 42.9 L (>60) mL/min BUN/Creatinine Ratio 29.8 H (6-22) Glucose 106 (80-110) mg/dL Uric Acid 9.7 H (2.5-6.2) mg/dL Calcium 9.5 (8.4-10.2) mg/dL C-Reactive Protein < 0.5 (<1.0) mg/dL Imaging Data Extremity x-ray #1: Radiologist's Impression: [address] [address] XRay Report Signed Patient: Carlota Jacome MR#: [id number] : 1940 Acct:[id number] Age/Sex: 81 / F Date of Service: 07/28/21 Loc: ED Accession Number: [id number] ?? Procedure: XR foot RT min 3V Ordering Provider: Latoya Hagen D.O. PROCEDURE:? XR FOOT RT MIN 3V ? INDICATIONS:? 3rd toe, swelling/redness, infx vs. gout ? TECHNIQUE:? 3 views of the foot were acquired.? ? COMPARISON:? [facility], CR, XR FOOT RT MIN 3V, 01/27/2021, 9:06.? [facility], CR, XR FOOT LT MIN 3V, 04/17/2021, 8:22. ? FINDINGS:? ? Bones:? In this patient with this given history, scrutiny is given to the 3rd 2. No felicia areas of bony license are seen when compared to the prior plain films dated 01/27/2021. ? Generalized degenerative changes are seen.? No fractures are seen. ? Soft tissues:? 3rd toe soft tissue swelling is seen. ? ? IMPRESSION:? 3rd toe soft tissue swelling is seen, without felicia plain film findings of osteomyelitis. ? If there is strong suspicion for developing osteomyelitis, please consider a dedicated MRI without and with contrast for further evaluation (assuming that there is no contraindication to MRI).? ? ? Dictated by: Ryan Sam M.D. on 07/28/2021 at 8:02 ? ? Approved by: Ryan Sam M.D. on 07/28/2021 at 8:04?? MDM Narrative Medical decision making narrative: This is a 81-year-old female comes emergency department concern for infected toe for 7 days he was started on oral doxycycline without any improvement. Patient has a known history of gout in that toe she has a CT which shows gouty changes in the past. Patient states there was a white spot which has been present it is tender throughout the toe there is redness she states when she has had gout in the past it has appeared similar. Patient states the pain has been increasing. We re-x-rayed her foot with no clear osteomyelitic or infectious changes from that perspective. Labs showed elevated uric acid and do not sure a clear bacterial infection. I suspect this may be more of a gouty flare and discuss trying prednisone she has chronic kidney disease so ibuprofen and colchicine are not appropriate options. Patient is agreeable to this I asked her to return if she has worsening redness swelling or signs of an infectious change to come back. Discharge Plan Departure Patient Disposition: Home Clinical Impression: Acute gout involving toe of right foot Instructions: Gout Activity Restrictions/Additional Instructions: Based on your examination, imaging, your prior imaging and CT scans as well as labs today I believe you are having a gout flare. Would recommend steroids daily until gone. NSAIDs and colchicine or often recommended but based on your chronic kidney disease I would not give these today. You may take 1-2 tablets of [place] every 6 hours as needed for pain. This medication can make you sleepy do not drive, perform hazardous activities or make any major decisions while taking it. This medication will make you constipated please take a stool softener once to twice daily until stools are soft and regular. You may stop your oral antibiotic Prescription sent to [facility] in [place] Please continue home medications as prescribed. Please return for worsening redness, increasing pain, loss of sensation or discoloration, fevers, redness swelling or skin changes that are spreading. Prescriptions: New hydrocodone-acetaminophen 5-325 mg tablet 1 tab PO Q6H PRN (Reason: pain) Qty: 10 0RF prednisone 10 mg tablets,dose pack See Rx Instructions .ROUTE .COMPLEX Qty: 27 0RF Rx Instructions: Take 40 mg p.o. q.day x3 days, then 30 mg p.o. q.day x3 days, then 20 mg p.o. q.day x3 days, then 10 mg p.o. q.day times 10 days No Action atorvastatin [Lipitor] 40 MG tablet 80 mg PO HS Qty: 0 0RF citalopram 20 MG tablet 40 mg PO QDAY Qty: 0 0RF telmisartan [Micardis] 80 MG tablet 40 mg PO Q DAY Qty: 0 0RF hydrochlorothiazide 25 MG tablet 25 mg PO QDAY Qty: 0 0RF diltiazem HCl 180 mg Capsule,Extended Release 24 Hr 180 mg PO DAILY 0RF metformin 500 mg Tablet Extended Release 24 Hr 500 mg PO TID 0RF metoprolol succinate 50 mg Tablet Extended Release 24 Hr 50 mg PO BID 0RF doxepin 25 mg Capsule 25 mg PO BEDTIME 0RF aspirin 81 mg Tablet,Chewable 81 mg PO DAILY 0RF Eliquis 5 mg Tablet 5 mg PO BID 0RF acetaminophen 650 mg Tablet Extended Release 650 mg PO BEDTIME 0RF hydrocodone-acetaminophen 5-325 mg tablet 1 tab PO Q6H PRN (Reason: pain) Qty: 10 0RF hydrocodone-acetaminophen 5-325 mg Tablet 1 tab PO Q4HR PRN (Reason: Pain, Moderate (4-6)) Qty: 12 0RF docusate sodium 100 mg Capsule 100 mg PO BID Qty: 20 0RF cefpodoxime 200 mg tablet 400 mg PO Q12H Qty: 14 0RF Rx Instructions: must administer with a meal/food Referrals: Luis Herzog MD [Primary Care Provider] -
--- NOTE | 2021-07-28 08:40 | DI.RAD.S_ITS ---
PROCEDURE: XR FOOT RT MIN 3V INDICATIONS: 3rd toe, swelling/redness, infx vs. gout TECHNIQUE: 3 views of the foot were acquired. COMPARISON: [facility], CR, XR FOOT RT MIN 3V, 01/27/2021, 9:06. [facility], CR, XR FOOT LT MIN 3V, 04/17/2021, 8:22. FINDINGS: Bones: In this patient with this given history, scrutiny is given to the 3rd 2. No felicia areas of bony license are seen when compared to the prior plain films dated 01/27/2021. Generalized degenerative changes are seen. No fractures are seen. Soft tissues: 3rd toe soft tissue swelling is seen. IMPRESSION: 3rd toe soft tissue swelling is seen, without felicia plain film findings of osteomyelitis. If there is strong suspicion for developing osteomyelitis, please consider a dedicated MRI without and with contrast for further evaluation (assuming that there is no contraindication to MRI). Dictated by: Ryan Sam M.D. on 07/28/2021 at 8:02 Approved by: Ryan Sam M.D. on 07/28/2021 at 8:04
[2021-07-28 09:14] LABS: Hematocrit 38.4 % (36-46); Hemoglobin 12.9 g/dL (12.0-16.0); Mean Corpuscular HGB Conc 33.6 % (30-36); Mean Corpuscular Hemoglobin 32.5 PG (26-34); Mean Corpuscular Volume 96.7 fL (80-100); Platelet Count 274 X10^3/uL (150-400); Red Blood Cell Count 3.98 X10^6/uL (4.0-5.2); Red Cell Distribution Width 15.9 % (11.6-14.8); White Blood Cell Count 6.6 X10^3/uL (4.5-11.0)
[2021-07-28 09:15] LABS: Add Manual Diff / Slide Review YES
[2021-07-28] MEDS: MORPHINE 2 MG/ML INJ IV (09:23)
[2021-07-28 09:28] LABS: BUN Creatinine Ratio 29.8 (6-22); Blood Urea Nitrogen 36 mg/dL (7-17); C-Reactive Protein Quant < 0.5 mg/dL (<1.0); Calcium 9.5 mg/dL (8.4-10.2); Carbon Dioxide 28 mmol/L (22-32); Chloride 100 mmol/L (98-107); Estimated Glomerular Filt Rate 42.9 mL/min (>60); Glucose 106 mg/dL (80-110); HEMOLYSIS < 15 (0-50); Potassium 4.8 mmol/L (3.4-5.1); Sodium 138 mmol/L (137-145); Uric Acid 9.7 mg/dL (2.5-6.2)
[2021-07-28 09:33] LABS: Anisocytosis 2+; Neutrophils Absolute Manual 4620 /uL (3000-5900); Total Cells Counted 100
[2021-07-28 09:34] LABS: Erythrocyte Sedimentation Rate 22 MM/HR (0-20)
[2021-07-28] MEDS: predniSONE 20 MG TABLET 60 MG PO (10:14)
[2021-07-28 10:28] VITALS: BP 154/70; PULSE 83; RESP 18; TEMP 36.8; O2SAT 93
== END 2021-07-28 10:29 | disposition home or self-care (01) ==
PROVIDERS: Emergency Provider Emergency Medicine; Family Provider Internal Medicine; PCP Internal Medicine
DX: M10.071 Idiopathic gout, right ankle and foot (principal); Z88.0 Allergy status to penicillin
CPT/HCPCS: 36415; 73630; 80048; 84550; 85007; 85025; 85651; 86140; 96374; 99284; J2270

== ENCOUNTER → 2021-08-02 12:06 | Outpatient (CLI) | payer MEDICARE, OTHER, SELFPAY ==
[2021-05-15 13:23] VITALS: BMI 30.9
== END ==
PROVIDERS: Family Provider Internal Medicine; PCP Internal Medicine; Referring Provider Internal Medicine; Visit Provider Nurse Practitioner Family
DX: T81.31XA Disruption of external operation (surgical) wound, not elsewhere classified, initial encounter (principal); S81.801A Unspecified open wound, right lower leg, initial encounter; R60.0 Localized edema; E11.628 Type 2 diabetes mellitus with other skin complications; I10 Essential (primary) hypertension; J96.11 Chronic respiratory failure with hypoxia; I48.91 Unspecified atrial fibrillation; Z79.01 Long term (current) use of anticoagulants; Z74.09 Other reduced mobility; Z85.118 Personal history of other malignant neoplasm of bronchus and lung; Z99.81 Dependence on supplemental oxygen; Z92.3 Personal history of irradiation
CPT/HCPCS: 15271; Q4101

== ENCOUNTER → 2021-08-09 14:42 | Outpatient (CLI) | payer MEDICARE, OTHER, SELFPAY ==
[2021-05-15 13:23] VITALS: BMI 30.9
== END ==
PROVIDERS: Family Provider Internal Medicine; PCP Internal Medicine; Referring Provider Internal Medicine; Visit Provider Nurse Practitioner Family
DX: T81.31XA Disruption of external operation (surgical) wound, not elsewhere classified, initial encounter (principal); S81.801A Unspecified open wound, right lower leg, initial encounter; R60.0 Localized edema; E11.628 Type 2 diabetes mellitus with other skin complications; C34.92 Malignant neoplasm of unspecified part of left bronchus or lung; J96.11 Chronic respiratory failure with hypoxia; M10.9 Gout, unspecified; I10 Essential (primary) hypertension; I48.91 Unspecified atrial fibrillation; Z99.81 Dependence on supplemental oxygen; Z79.84 Long term (current) use of oral hypoglycemic drugs; Z79.01 Long term (current) use of anticoagulants; Z74.09 Other reduced mobility
CPT/HCPCS: 15271; Q4101

== ENCOUNTER → 2021-08-16 12:01 | Outpatient (CLI) | payer MEDICARE, OTHER, SELFPAY ==
[2021-05-15 13:23] VITALS: BMI 30.9
== END ==
PROVIDERS: Family Provider Internal Medicine; PCP Internal Medicine; Referring Provider Internal Medicine; Visit Provider Nurse Practitioner Family
DX: T81.31XA Disruption of external operation (surgical) wound, not elsewhere classified, initial encounter (principal); S81.801A Unspecified open wound, right lower leg, initial encounter; R60.0 Localized edema; E11.628 Type 2 diabetes mellitus with other skin complications; J96.11 Chronic respiratory failure with hypoxia; C34.90 Malignant neoplasm of unspecified part of unspecified bronchus or lung; I48.91 Unspecified atrial fibrillation; I10 Essential (primary) hypertension; Z74.09 Other reduced mobility; Z79.01 Long term (current) use of anticoagulants; Z99.81 Dependence on supplemental oxygen; Z79.84 Long term (current) use of oral hypoglycemic drugs
CPT/HCPCS: 97597

== ENCOUNTER → 2021-08-23 09:30 | Outpatient (CLI) | payer MEDICARE, OTHER, SELFPAY ==
[2021-05-15 13:23] VITALS: BMI 30.9
== END ==
PROVIDERS: Family Provider Internal Medicine; PCP Internal Medicine; Referring Provider Internal Medicine; Visit Provider Nurse Practitioner Family
DX: T81.31XA Disruption of external operation (surgical) wound, not elsewhere classified, initial encounter (principal); S81.801A Unspecified open wound, right lower leg, initial encounter; L92.8 Other granulomatous disorders of the skin and subcutaneous tissue; R60.0 Localized edema; E11.628 Type 2 diabetes mellitus with other skin complications; I10 Essential (primary) hypertension; J96.11 Chronic respiratory failure with hypoxia; I48.91 Unspecified atrial fibrillation; Z74.09 Other reduced mobility; Z79.01 Long term (current) use of anticoagulants; Z99.81 Dependence on supplemental oxygen; Z85.118 Personal history of other malignant neoplasm of bronchus and lung; Z79.84 Long term (current) use of oral hypoglycemic drugs
CPT/HCPCS: 11042; 99213

== ENCOUNTER → 2021-08-30 11:47 | Outpatient (CLI) | payer MEDICARE, OTHER, SELFPAY ==
[2021-05-15 13:23] VITALS: BMI 30.9
== END ==
PROVIDERS: Family Provider Internal Medicine; PCP Internal Medicine; Referring Provider Internal Medicine; Visit Provider Nurse Practitioner Family
DX: T81.31XA Disruption of external operation (surgical) wound, not elsewhere classified, initial encounter (principal); S81.801A Unspecified open wound, right lower leg, initial encounter; E11.622 Type 2 diabetes mellitus with other skin ulcer; J96.11 Chronic respiratory failure with hypoxia; C34.92 Malignant neoplasm of unspecified part of left bronchus or lung; I10 Essential (primary) hypertension; I48.91 Unspecified atrial fibrillation; Z79.01 Long term (current) use of anticoagulants; Z74.09 Other reduced mobility; Z99.81 Dependence on supplemental oxygen; Z92.3 Personal history of irradiation
CPT/HCPCS: 11042

== ENCOUNTER → 2021-09-03 10:21 | Outpatient (CLI) | payer MEDICARE, OTHER, SELFPAY ==
[2021-05-15 13:23] VITALS: BMI 30.9
--- NOTE | 2021-09-03 10:22 | DI.CT.S_ITS ---
PROCEDURE: CT CHEST WO CON INDICATIONS: right lung mass TECHNIQUE: Noncontrast 5 mm thick sections acquired from the pulmonary apices to the posterior costophrenic angles. 1 mm lung window, 5 mm thick coronal and sagittal and 7 mm axial MIP reformats were then acquired. For radiation dose reduction, the following was used: automated exposure control, adjustment of mA and/or kV according to patient size. COMPARISON: [facility], CT, CT CHEST WO CON, 02/05/2021, 13:01. FINDINGS: Image quality: Excellent. Lungs and pleura: Ground-glass opacity in the left apex, unchanged. Biapical scarring and scarring with calcifications in the right upper lobe are unchanged. Bronchiectasis, consolidative change, and volume loss of the right middle lobe is unchanged. Pleural peripheral opacity in the right posterolateral lower lobe is unchanged. Mediastinum: Heart size is normal. The coronary arteries have atherosclerotic calcifications. Nodules in the right posterior esophageal region measuring 1.3 cm and 0.5 cm are unchanged compared to the prior CT on 02/05/2021. Soft tissue density circumferentially surrounding the right perihilar region is unchanged compared to the prior CT. No pericardial effusion. No mediastinal adenopathy by size criteria. Thoracic aorta and central pulmonary arteries are normal in size. The aorta has atherosclerotic calcifications. Esophagus is normal in caliber. No hiatal hernia. Bones and chest wall: No suspicious bony lesions. No vertebral body compression fractures. No axillary or supraclavicular adenopathy by size criteria. Thyroid gland is normal. Status post right shoulder arthroplasty. Contour irregularity of the right anterior 4th rib is unchanged. Abdomen: Visualized upper abdominal solid organs and bowel loops appear normal in the absence of contrast. IMPRESSION: 1. Bronchiectatic and consolidative change in the right middle lobe and consolidation in the right posterolateral lower lobe is unchanged. 2. Confluent soft tissue density around the right hilum and subcarinal mediastinum adjacent to the esophagus on the right is unchanged. 3. Left apical pleural nodule is no longer seen. 4. Coronary artery calcifications. Dictated by: Luan Overton M.D. on 09/03/2021 at 13:05 Approved by: Luan Overton M.D. on 09/03/2021 at 13:16
== END ==
PROVIDERS: Family Provider Internal Medicine; PCP Internal Medicine; Referring Provider Internal Medicine Hematology & Oncology; Visit Provider Internal Medicine Hematology & Oncology
DX: R91.8 Other nonspecific abnormal finding of lung field (principal); I25.10 Atherosclerotic heart disease of native coronary artery without angina pectoris
CPT/HCPCS: 71250

== ENCOUNTER → 2021-09-06 10:08 | Outpatient (CLI) | payer MEDICARE, OTHER, SELFPAY ==
[2021-05-15 13:23] VITALS: BMI 30.9
== END ==
PROVIDERS: Family Provider Internal Medicine; PCP Internal Medicine; Referring Provider Internal Medicine; Visit Provider Nurse Practitioner Family
DX: Z09 Encounter for follow-up examination after completed treatment for conditions other than malignant neoplasm (principal); J96.11 Chronic respiratory failure with hypoxia; I48.91 Unspecified atrial fibrillation; I10 Essential (primary) hypertension; E11.9 Type 2 diabetes mellitus without complications; Z74.09 Other reduced mobility; Z79.01 Long term (current) use of anticoagulants; Z85.118 Personal history of other malignant neoplasm of bronchus and lung; Z99.81 Dependence on supplemental oxygen; Z87.2 Personal history of diseases of the skin and subcutaneous tissue
CPT/HCPCS: 99212

== ENCOUNTER → 2021-11-15 10:58 | Outpatient (CLI) | payer MEDICARE, OTHER, SELFPAY ==
[2021-05-15 13:23] VITALS: BMI 30.9
--- NOTE | 2021-11-15 | DI.RAD.S_ITS ---
PROCEDURE: XR THORACIC SPINE 3V INDICATIONS: Pain in thoracic spine TECHNIQUE: 3 views of the thoracic spine were acquired. COMPARISON: None. FINDINGS: Bones: No fractures or dislocations. No suspicious bony lesions. 12 pairs of ribs are noted, and appear intact where visualized. There is multilevel moderate intervertebral disc space narrowing, endplate sclerosis, and osteophytosis. Soft tissues: No paravertebral stripe thickening. Scattered atheromatous calcifications are present throughout the thoracic aorta. Surgical clips are present in the right upper lobe. IMPRESSION: Moderate degenerative change of the thoracic spine. Aortic atherosclerosis. Dictated by: Lila Restrepo M.D. on 11/15/2021 at 12:46 Approved by: Lila Restrepo M.D. on 11/15/2021 at 12:47
== END ==
PROVIDERS: Family Provider Internal Medicine; PCP Internal Medicine; Referring Provider Internal Medicine; Visit Provider Internal Medicine
DX: M47.814 Spondylosis without myelopathy or radiculopathy, thoracic region (principal); M54.6 Pain in thoracic spine; I70.0 Atherosclerosis of aorta
CPT/HCPCS: 72072

== ENCOUNTER 2021-12-11 09:59 | Outpatient (RCR) | payer MEDICARE, OTHER, SELFPAY ==
[2021-05-15 13:23] VITALS: BMI 30.9
[2021-12-11 10:15] VITALS: BP 130/58; BP 146/70; BP 152/76
--- NOTE | 2021-12-11 11:39 | PT.OIE ---
Current Diagnoses Benign paroxysmal vertigo, bilateral (12/11/21) Orthostatic hypotension (12/11/21) Dizziness and giddiness (12/11/21) Past Medical History (Last Reviewed 07/28/21 @ 09:00 by Latoya Hagen DO) Chronic atrial fibrillation Chronic respiratory failure with hypoxia Contrast media allergy COPD exacerbation Gout History of lymphoma Hyperlipidemia Hypertension Lung cancer Radiation fibrosis of lung Type 2 diabetes mellitus Visit Care Team Role Provider Type Kenia Lam MD Attending Provider Physician Family Provider Primary Care Provider Referring Provider Specialty: Internal Medicine Address: [address] [place] [address], [facility] Email: [email or web address] Physical Therapy Initial Evaluation PT-OP-A Visit Information Start: 12/11/21 11:08 Freq: Status: Active Protocol: Document 12/11/21 10:15 DCW (Rec: 12/11/21 11:13 DCW [id number]) Out-Patient Physical Therapy Visit Information Visit Information Visit Type Initial Evaluation Visit Start Time 10:15 Visit Stop Time 11:00 Total Visit Minutes 45 Visit Number 1 Number of JUNIOR ACCOUNT EXECUTIVE Visits 0 Evaluation Information Evaluation Date 12/11/21 PT-OP-B Current Condition Start: 12/11/21 11:08 Freq: Status: Active Protocol: Document 12/11/21 10:15 DCW (Rec: 12/11/21 11:29 DCW [id number]) Current Condition History of Current Condition Onset Date Two months Current Complaints Positional vertigo, light- headedness with standing History of Current Condition Pt is a 81 year old female complaining of a two month history of motion-induced vertigo. Pt reports episodes last 30-60 seconds. Symptoms are provoked by rolling over in bed, turning to fast, or lying down. Pt additionally notes that she gets light- headed and feel like I'm going to faint when standing up too quickly. Pt denies recent hearing changes, diplopia, dysarthria, discoordination, or decreased mentation/consciousness. Pt reports symptoms are waxing/ waning in nature. Pt denies hx of head trauma, seizure, migraines, anxiety/panic disorders, depression, or excessive smoking or drinking. Does note HTN ( pharmacologically controlled), DM II (pharmacologically controlled), multiple TIAs, A- fib, and vertebral stenosis. Also notes a history of falls, reports she has had a lot over the years, for a much longer time than her vertigo has been occurring, but feels the last few months, most of her falls have been dizziness- related. Personal Factors Other Personal Factors That May Effect Hx Lung cancer s/p R lobectomy Therapy/Recovery on portable O2 concentrator, Hx R TSA, vertebral stenosis PT-OP-C Subjective Start: 12/11/21 11:08 Freq: Status: Active Protocol: Document 12/11/21 10:15 DCW (Rec: 12/11/21 11:13 DCW [id number]) OP-PT Subjective Patient Comments Patient Comments Dr. Lam decreased my one medication, and completely took me off the other, and it seems like it has helped a bit .. Patient Reported Progress Improving Patient Questionnaires Dizziness Handicap Inventory DHI Score 78% DHI Functional Impairment 60 to 79% Impaired (Score 60- 79) PT-OP-H Neuro Start: 12/11/21 11:08 Freq: Status: Active Protocol: Document 12/11/21 10:15 DCW (Rec: 12/11/21 11:13 DCW [id number]) Vital Signs Blood Pressure Standing Blood Pressure (90/60-120/80 mmHg) 130/58 H Blood Pressure Source Manual Cuff,Left Upper Extremity Sitting Blood Pressure (90/60-120/80 mmHg) 146/70 H Blood Pressure Source Manual Cuff,Left Upper Extremity Supine Blood Pressure (90/60-120/80 mmHg) 152/76 H Blood Pressure Source Manual Cuff,Left Upper Extremity PT-OP-O Vestibular Start: 12/11/21 11:08 Freq: Status: Active Protocol: Document 12/11/21 10:15 DCW (Rec: 12/11/21 11:13 DCW [id number]) Vestibular Assessment Screening Tests Vestibular Artery Screen Negative Auditory Tests Dubose Test Within normal limits Rinne Test Negative Air Conduction Results Equal Visual Testing Smooth Pursuits Horizontal WNL Smooth Pursuits Vertical WNL Saccades Horizontal WNL Saccades Vertical WNL Gaze Evoked Nystagmus With Fixation Negative Heave Test Negative Thrust Head Negative Positional Testing Alessandro-Hallpike Negative Left,Negative Right Rolling Test Negative Left,Negative Right PT-OP-T Assessment and Plan Start: 12/11/21 11:08 Freq: Status: Active Protocol: Document 12/11/21 10:15 DCW (Rec: 12/11/21 11:39 DC [id number]) Physical Therapy Assessment Rehab Potential Rehabilitation Potential Good Evaluation Complexity Number of Personal Factors/Comorbidities 3 or More Number of Body Systems Impaired 1-2 Clinical Presentation at Evaluation Unstable Impairments Impairments Activity Tolerance,Balance, Functional Activities, Functional Mobility,Vestibular Goals Two Impairment Pt becomes light-headed when getting out of bed to quickly Short Term Goal (STG) Pt to demonstrate understanding of slow transitions from supine to standing and a pause standing at her bed to decrease risk of falling. STG Duration 12/25/21 One Impairment Pt reports positional vertigo with bed mobility Short Term Goal (STG) Pt to report no vertigo with getting into or rolling in bed STG Duration 12/25/21 Assessment Summary Assessment Pt's vestibular evaluation largely negative today, no complaints of vertigo or nystagmus with positional testing. Pt's subjective history, however, is strongly suggestive of BPPV. Due to the waxing and waning nature that can occur with BPPV, follow- up testing is recommended just to ensure that today's testing was not a false negative. Additionally, pt's complaints of light-headedness with standing are unlikely to be caused by BPPV, and in fact positional blood pressure measurements today are suggestive of orthostatic hypotension, with a systolic drop of 22 mmHg from 152->130 between supine and standing and a diastolic drop of 18 mmHg from 76 ->58. Discussed importance of safety measures of slow transitions from supine to standing and being able to pause for a moment after standing to ensure she does not become light-headed after standing. Physical Therapy Plan Frequency and Duration Frequency of Treatment 1-2x/week Duration of Treatment 3 weeks Plan of Care Start Date 12/11/21 Plan of Care End Date 01/01/22 Therapeutic Interventions Therapeutic Interventions Balance Training,Home Exercise Program,Neuromuscular Re- education,Patient/Caregiver Education,Self-Care/Home Management,Vestibular Rehabilitation Next Visit Focus/Plan Next Note Type Treatment Note Next Visit Plan Positional testing with CRM as indicated.
--- NOTE | 2021-12-11 11:40 | PT.OPPOC ---
Physical, Occupational & Speech Therapy At [facility] Current Diagnoses Benign paroxysmal vertigo, bilateral (12/11/21) Orthostatic hypotension (12/11/21) Dizziness and giddiness (12/11/21) Visit Care Team Role Provider Type Kenia Lam MD Attending Provider Physician Family Provider Primary Care Provider Referring Provider Specialty: Internal Medicine Address: [address] [place] [address], [facility] Email: [email or web address] Plan Of Care PT-OP-T Assessment and Plan Start: 12/11/21 11:08 Freq: Status: Active Protocol: Document 12/11/21 10:15 DCW (Rec: 12/11/21 11:39 DCW [id number]) Physical Therapy Assessment Rehab Potential Rehabilitation Potential Good Evaluation Complexity Number of Personal Factors/Comorbidities 3 or More Number of Body Systems Impaired 1-2 Clinical Presentation at Evaluation Unstable Impairments Impairments Activity Tolerance,Balance, Functional Activities, Functional Mobility,Vestibular Goals Two Impairment Pt becomes light-headed when getting out of bed to quickly Short Term Goal (STG) Pt to demonstrate understanding of slow transitions from supine to standing and a pause standing at her bed to decrease risk of falling. STG Duration 12/25/21 One Impairment Pt reports positional vertigo with bed mobility Short Term Goal (STG) Pt to report no vertigo with getting into or rolling in bed STG Duration 12/25/21 Assessment Summary Assessment Pt's vestibular evaluation largely negative today, no complaints of vertigo or nystagmus with positional testing. Pt's subjective history, however, is strongly suggestive of BPPV. Due to the waxing and waning nature that can occur with BPPV, follow- up testing is recommended just to ensure that today's testing was not a false negative. Additionally, pt's complaints of light-headedness with standing are unlikely to be caused by BPPV, and in fact positional blood pressure measurements today are suggestive of orthostatic hypotension, with a systolic drop of 22 mmHg from 152->130 between supine and standing and a diastolic drop of 18 mmHg from 76 ->58. Discussed importance of safety measures of slow transitions from supine to standing and being able to pause for a moment after standing to ensure she does not become light-headed after standing. Physical Therapy Plan Frequency and Duration Frequency of Treatment 1-2x/week Duration of Treatment 3 weeks Plan of Care Start Date 12/11/21 Plan of Care End Date 01/01/22 Therapeutic Interventions Therapeutic Interventions Balance Training,Home Exercise Program,Neuromuscular Re- education,Patient/Caregiver Education,Self-Care/Home Management,Vestibular Rehabilitation Next Visit Focus/Plan Next Note Type Treatment Note Next Visit Plan Positional testing with CRM as indicated. Plan of Care Dates Plan of Care Start Date 12/11/21 Plan of Care End Date 01/01/22 Electronically Signed by: Marty Severino, PT 12/11/21 [id number] If you are in agreement with this Plan of Care, please return a signed and dated copy. I have reviewed this Plan of Care and certify that the skilled therapy services above are required to meet the patient?s needs. Physician Signature Date Printed Name and Credentials Clinical Instructor Signature Printed Name and Credentials
--- NOTE | 2021-12-25 14:51 | PT-OP ANOTE ---
No show- called pt she states she is no longer having dizziness and requests d/c.
--- NOTE | 2021-12-25 15:15 | PT.OPDS ---
Current Diagnoses Benign paroxysmal vertigo, bilateral (12/11/21) Orthostatic hypotension (12/11/21) Visit Care Team Role Provider Type Kenia Lam MD Attending Provider Physician Family Provider Primary Care Provider Referring Provider Specialty: Internal Medicine Address: [address] [place] [address], [facility] Email: [email or web address] Visit Number Visit Number 1 Discharge Summary PT-OP-B Current Condition Start: 12/11/21 11:08 Freq: Status: Active Protocol: Document 12/11/21 10:15 DCW (Rec: 12/11/21 11:29 DCW [id number]) Current Condition History of Current Condition Onset Date Two months Current Complaints Positional vertigo, light- headedness with standing History of Current Condition Pt is a 81 year old female complaining of a two month history of motion-induced vertigo. Pt reports episodes last 30-60 seconds. Symptoms are provoked by rolling over in bed, turning to fast, or lying down. Pt additionally notes that she gets light- headed and feel like I'm going to faint when standing up too quickly. Pt denies recent hearing changes, diplopia, dysarthria, discoordination, or decreased mentation/consciousness. Pt reports symptoms are waxing/ waning in nature. Pt denies hx of head trauma, seizure, migraines, anxiety/panic disorders, depression, or excessive smoking or drinking. Does note HTN ( pharmacologically controlled), DM II (pharmacologically controlled), multiple TIAs, A- fib, and vertebral stenosis. Also notes a history of falls, reports she has had a lot over the years, for a much longer time than her vertigo has been occurring, but feels the last few months, most of her falls have been dizziness- related. Personal Factors Other Personal Factors That May Effect Hx Lung cancer s/p R lobectomy Therapy/Recovery on portable O2 concentrator, Hx R TSA, vertebral stenosis PT-OP-C Subjective Start: 12/11/21 11:08 Freq: Status: Active Protocol: Document 12/11/21 10:15 DCW (Rec: 12/11/21 11:13 DCW [id number]) OP-PT Subjective Patient Comments Patient Comments Dr. Lam decreased my one medication, and completely took me off the other, and it seems like it has helped a bit .. Patient Reported Progress Improving Patient Questionnaires Dizziness Handicap Inventory DHI Score 78% DHI Functional Impairment 60 to 79% Impaired (Score 60- 79) PT-OP-H Neuro Start: 12/11/21 11:08 Freq: Status: Active Protocol: Document 12/11/21 10:15 DCW (Rec: 12/11/21 11:13 DCW [id number]) Vital Signs Blood Pressure Standing Blood Pressure (90/60-120/80 mmHg) 130/58 H Blood Pressure Source Manual Cuff,Left Upper Extremity Sitting Blood Pressure (90/60-120/80 mmHg) 146/70 H Blood Pressure Source Manual Cuff,Left Upper Extremity Supine Blood Pressure (90/60-120/80 mmHg) 152/76 H Blood Pressure Source Manual Cuff,Left Upper Extremity PT-OP-O Vestibular Start: 12/11/21 11:08 Freq: Status: Active Protocol: Document 12/11/21 10:15 DCW (Rec: 12/11/21 11:13 DCW [id number]) Vestibular Assessment Screening Tests Vestibular Artery Screen Negative Auditory Tests Dubose Test Within normal limits Rinne Test Negative Air Conduction Results Equal Visual Testing Smooth Pursuits Horizontal WNL Smooth Pursuits Vertical WNL Saccades Horizontal WNL Saccades Vertical WNL Gaze Evoked Nystagmus With Fixation Negative Heave Test Negative Thrust Head Negative Positional Testing Alessandro-Hallpike Negative Left,Negative Right Rolling Test Negative Left,Negative Right PT-OP-T Assessment and Plan Start: 12/11/21 11:08 Freq: Status: Active Protocol: Document 12/25/21 14:52 AMB (Rec: 12/25/21 15:15 AMB [id number]) Physical Therapy Assessment Assessment Summary Assessment Pt canceled/no showed all apts after eval. Called her and she is no longer dizzy and requests dc. Physical Therapy Plan Discharge Physical Therapy Discharge Reasons Patient Request
== END 2021-12-30 14:43 ==
LOC: PHYS 09:59
PROVIDERS: Family Provider Internal Medicine; PCP Internal Medicine; Referring Provider Internal Medicine; Visit Provider Internal Medicine
DX: H81.13 Benign paroxysmal vertigo, bilateral (principal); I95.1 Orthostatic hypotension
CPT/HCPCS: 97161

== ENCOUNTER → 2022-02-05 10:17 | Outpatient (CLI) | payer MEDICARE, OTHER, SELFPAY ==
[2021-05-15 13:23] VITALS: BMI 30.9
--- NOTE | 2022-02-05 | DI.MG.S_ITS ---
BILATERAL DIGITAL DIAGNOSTIC MAMMOGRAM 3D/2D: 02/05/2022 CLINICAL: Short term follow up of the left breast, due for bilateral imaging. Comparison is made to exams dated: 04/12/2021 ultrasound, 07/31/2020 mammogram, 07/28/2019 mammogram, and 09/25/2017 mammogram - [facility]. There are scattered areas of fibroglandular density in both breasts (category b / 25%-50% glandular tissue). The abnormality seen on prior left breast ultrasound has no mammographic correlate on the current mammogram. There is no suspicious mass, calcification, or other finding seen in either breast. IMPRESSION: INCOMPLETE: NEEDS ADDITIONAL IMAGING EVALUATION The 1.2 cm x 1.7 cm x 1 cm abnormality seen on previous ultrasound has no mammographic correlate. An ultrasound will be performed to demonstrate stability, as recommended previously. Based on the Tyrer Cuzick model (a risk assessment model) the patient's lifetime risk is 1.6% and her 10 year risk is 0.0%. According to the ACR, ACS, and NCCN guidelines, an annual breast MRI exam along with mammogram is recommended if the patient's lifetime risk is 20% or greater. This exam was interpreted at Station ID: [id number]. NOTE: For mammograms, a report in lay terms will be sent to the patient. Approximately 15% of breast malignancies will not be visualized mammographically. In the management of a palpable breast mass, a negative mammogram must not discourage biopsy of a clinically suspicious lesion. Electronically Signed By: Juanpablo Nguyen M.D. jr/:02/05/2022 12:52:38 ACR BI-RADS Category 0: Incomplete [id number]
--- NOTE | 2022-02-05 | DI.US.S_ITS ---
ULTRASOUND OF LEFT BREAST: 02/05/2022 CLINICAL: 6 month follow-up of hematoma. Comparison is made to exams dated: 02/05/2022 mammogram, 04/12/2021 ultrasound, 07/31/2020 mammogram, 07/28/2019 mammogram, 09/25/2017 mammogram, and 03/26/2017 mammogram - [facility]. Color flow and real-time ultrasound of the left breast were performed. See scale images of the real-time examination were reviewed. Previously seen hematoma has resolved. No significant abnormalities were seen sonographically in the left breast. IMPRESSION: BENIGN There is no sonographic evidence of malignancy. Previously seen hematoma has resolved. This exam was interpreted at Station ID: [id number]. Electronically Signed By: Juanpablo Nguyen M.D. jr/:02/05/2022 12:54:13 letter sent: Normal Exam Ultrasound BI-RADS: 2 Benign
== END ==
PROVIDERS: PCP Internal Medicine; Referring Provider Internal Medicine; Visit Provider Internal Medicine
DX: R92.8 Other abnormal and inconclusive findings on diagnostic imaging of breast (principal); N63.22 Unspecified lump in the left breast, upper inner quadrant
CPT/HCPCS: 76642; 77066; G0279

== ENCOUNTER → 2022-03-06 13:54 | Outpatient (CLI) | payer MEDICARE, OTHER, SELFPAY ==
[2021-05-15 13:23] VITALS: BMI 30.9
--- NOTE | 2022-03-06 13:55 | DI.CT.S_ITS ---
PROCEDURE: CT CHEST WO CON INDICATIONS: lung cancer TECHNIQUE: Noncontrast 5 mm thick sections acquired from the pulmonary apices to the posterior costophrenic angles. 1 mm lung window, 5 mm thick coronal and sagittal and 7 mm axial MIP reformats were then acquired. For radiation dose reduction, the following was used: automated exposure control, adjustment of mA and/or kV according to patient size. COMPARISON: [facility], CT, CT CHEST WO [facility], 09/03/2021, 10:28. FINDINGS: Image quality: Excellent. Lungs and pleura: Pulmonary scarring at the right apex is unchanged from the study dated September 03, 2021. Ground-glass radiopacities at the left apex with interlobular septal thickening is unchanged. Consolidative radiopacities within the right mid lung with bronchiectasis is redemonstrated and unchanged from the prior study. No new pulmonary nodules. No new acute airspace opacities. No pleural effusion or pneumothorax. Mediastinum: Heart size is normal. No pericardial effusion. Coronary artery calcifications are noted. No mediastinal adenopathy by size criteria. Thoracic aorta and central pulmonary arteries are normal in size. Dense atheromatous calcifications are present throughout the thoracic aorta. Esophagus is normal in caliber. No hiatal hernia. Bones and chest wall: No suspicious bony lesions. No vertebral body compression fractures. No axillary or supraclavicular adenopathy by size criteria. Thyroid gland is unremarkable . Abdomen: Visualized upper abdominal solid organs and bowel loops appear normal in the absence of contrast. IMPRESSION: 1. Stable findings when compared with the CT dated September 03, 2021. No findings to suggest tumor recurrence or metastasis at this time. 2. Dense aortic atherosclerosis. Dictated by: Lila Restrepo M.D. on 03/06/2022 at 16:21 Approved by: Lila Restrepo M.D. on 03/06/2022 at 16:29
== END ==
PROVIDERS: PCP Internal Medicine; Referring Provider Internal Medicine Hematology & Oncology; Visit Provider Internal Medicine Hematology & Oncology
DX: C34.91 Malignant neoplasm of unspecified part of right bronchus or lung (principal); C34.92 Malignant neoplasm of unspecified part of left bronchus or lung; I70.0 Atherosclerosis of aorta
CPT/HCPCS: 71250

== ENCOUNTER → 2022-04-07 09:20 | Outpatient (CLI) | payer MEDICARE, OTHER, SELFPAY ==
[2021-05-15 13:23] VITALS: BMI 30.9
--- NOTE | 2022-04-07 | DI.NM.S_ITS ---
PROCEDURE: NM FARHAD PERF SPECT R&S PHARM Rest and pharmacological stress myocardial perfusion SPECT with gated imaging and ejection fraction RADIOPHARMACEUTICAL: 12.7 mCi Tc-99m tetrafosmin IV at rest and 24.8 mCi Tc-99m tetrafosmin IV at peak effect of pharmacological stress. A [id number]-rjzkcngt was performed. INDICATIONS: CAD TECHNIQUE: Radiopharmaceutical was injected at peak stress test, and also at rest. SPECT images were obtained. SPECT myocardial perfusion images were displayed in short axis, horizontal long axis, and vertical long axis views. Gated images were reviewed using Sennari software. COMPARISON: 12/06/2015, report only. CARDIAC STRESS: A pharmacologic stress test was performed under the supervision of an attending staff, using an infusion of regadenoson. Hemodynamic data: There is normal blood pressure and heart rate response to pharmacologic stress. Symptoms: The patient complained of chest pain with inhalation. EKG: No diagnostic changes of ischemia; no ectopy. FINDINGS: Raw data: There is good myocardial uptake of radiotracer. No significant motion artifacts. Zbfz-na-llxoo ratio is 0.26 (normal is less than 0.38 for tetrafosmin tracer). Left ventricle function: Gated images demonstrate normal left ventricular wall thickening. No segmental wall motion abnormalities. No transient ischemic dilation; TID is 1.03 (normal less than 1.3). Left ventricle resting end diastolic volume is 76 mL. Left ventricle stress ejection fraction is >75%; normal range is above 45%. Myocardial perfusion: There is normal distribution of activity in the right and left ventricular myocardium. No fixed or reversible perfusion defects. IMPRESSION: No evidence of pharmacologic induced ischemia or scar. Hyperdynamic left ventricular function. No change when compared to prior pharmacologic nuclear stress test 12/06/2015. Dictated by: Debbie Davila D.O. on 04/07/2022 at 17:18 Approved by: Debbie Davila D.O. on 04/07/2022 at 17:21
[2022-04-07 12:13] LABS: COVID19 -Nasal RAPID Negative (Negative)
== END ==
PROVIDERS: PCP Internal Medicine; Referring Provider Internal Medicine Cardiovascular Disease; Visit Provider Internal Medicine Cardiovascular Disease
DX: I25.10 Atherosclerotic heart disease of native coronary artery without angina pectoris (principal)
CPT/HCPCS: 78452; 87635; 93017; A9502; J2785

== ENCOUNTER 2022-08-20 08:34 | Emergency (ER) | payer MEDICARE, OTHER, SELFPAY ==
[2021-05-15 13:23] VITALS: BMI 30.9
[2022-08-20 09:12] VITALS: BP 194/86; PULSE 90; RESP 18; TEMP 36.6; O2SAT 94; BMI 29.5
--- NOTE | 2022-08-20 09:25 | ED.SKABFB ---
HPI - Skin/Abscess/Foreign Bdy General Chief complaint: Skin/Abscess/Foreign Body Stated complaint: growth on RT side of face T-14 /itches/birch Time Seen by Provider: 08/20/22 09:25 Source: patient Mode of arrival: Family Vehicle Limitations: no limitations History of Present Illness HPI narrative: This is an 82-year-old female history of atrial fibrillation, COPD, gout, hypertension, dyslipidemia, diabetes and prior cancer with complaint of rash on her right cheek which has been growing over the past 2 weeks. She states it started as a small razor sized area and has grown it has been red the skin is been a little bit thickened and itchy. She states she has not had similar issues in the past. She has tried lotion and a new facial bar to see if that is helpful but this was after it started. Patient states it has not bled, she has not had any pain with it. She states it has gotten bigger. Patient states she had an appointment with her primary care but the appointment got pushed back another month so she came to be evaluated. 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 She has not started any other new medications. Related Data Home Medications Medication Instructions Recorded Confirmed atorvastatin 40 mg tablet (Lipitor) 80 mg PO HS ##0 04/22/12 03/13/22 citalopram 20 mg tablet 10 mg PO QDAY ##0 04/22/12 03/13/22 hydrochlorothiazide 25 mg tablet 25 mg PO QDAY ##0 04/22/12 03/13/22 telmisartan 80 mg tablet (Micardis) 20 mg PO Q DAY ##0 04/22/12 03/13/22 aspirin 81 mg chewable tablet 81 mg PO DAILY 12/17/17 03/13/22 diltiazem HCl 180 mg capsule,24 180 mg PO DAILY 12/17/17 03/13/22 hr,extended release doxepin 25 mg capsule 50 mg PO BEDTIME 12/17/17 03/13/22 metformin 500 mg tablet,extended 500 mg PO TID 12/17/17 03/13/22 release 24 hr metoprolol succinate 50 mg 50 mg PO BID 12/17/17 03/13/22 tablet,extended release 24 hr acetaminophen 650 mg 650 mg PO BEDTIME 08/21/20 03/13/22 tablet,extended release apixaban 5 mg tablet (Eliquis) 5 mg PO BID 08/21/20 03/13/22 allopurinol 100 mg tablet 50 mg PO DAILY 09/09/21 03/13/22 dulaglutide 0.75 mg/0.5 mL 0.75 mg SUBCUT QWEEK 09/09/21 03/13/22 subcutaneous pen injector (Trulicity) calcium carbonate 600 mg-vitamin 1 tab PO DAILY 03/13/22 03/13/22 D3 5 mcg (200 unit) tablet fenofibrate 150 mg capsule 145 mg PO DAILY 03/13/22 03/13/22 melatonin 10 mg tablet 20 mg PO DAILY 03/13/22 03/13/22 Previous Rx's Medication Instructions Recorded triamcinolone acetonide 0.025 % 1 applic topical BID 10 days #15 08/20/22 topical cream grams Allergies Allergy/AdvReac Type Severity Reaction Status Date / Time petrolatum,white Allergy Severe Difficulty Verified 05/23/21 09:58 [From A & D Barrier] Breathing venom-honey bee Allergy Severe HIVES Verified 05/23/21 09:58 [BEE VENOM (HONEY BEE)] adhesive [ADHESIVE] Allergy Intermediate REDNESS Verified 05/23/21 09:58 AND ITCHING OF SKIN WITH TAPE USE. Iodinated Contrast Media Allergy Intermediate RASH Verified 05/23/21 09:58 [IODINATED CONTRAST MEDIA - IV DYE] Penicillins [PENICILLINS] Allergy Intermediate SOB, Verified 05/23/21 09:58 ITCHING ALL TOPICAL OINTMENTS Allergy Severe RASH Uncoded 05/23/21 09:58 Review of Systems Review of Systems ROS Unobtainable: All systems reviewed & are unremarkable except as noted in HPI and below Patient History Medical History Chronic atrial fibrillation Chronic respiratory failure with hypoxia Contrast media allergy COPD exacerbation Gout History of lymphoma Hyperlipidemia Hypertension Lung cancer Radiation fibrosis of lung Type 2 diabetes mellitus Family History Sister Cancer Mother CAD (coronary artery disease) Father Malaria Social History household members: spouse Smoking Status: Former smoker alcohol intake: current Smoking Status: Former smoker tobacco type: cigarettes alcohol intake frequency: holidays/special occasions only Substance Use Type: does not use Exam Narrative Exam Narrative: GEN: well nourished, well appearing female, alert and oriented x 3, patient appears to be in mild distress. HEENT: Atraumatic, pupils are equal round reactive to light, extraocular movements are intact, nares are clear, TMs are clear with no fluid, there is no conjunctival pallor. Throat is clear without any exudates, erythema, tonsillar enlargement or uvular deviation HEART: Regular rate and rhythm without murmur, clicks, rubs. LUNGS:Lungs clear to auscultation, no wheezes, rales, crackles, chest moves symmetrically ABD:bowel sounds normal, soft, non-tender, no guarding, rebound, rigidity, no masses noted, no hepatosplenomegaly MSCL: Non-tender, no muscle atrophy, muscles strength 5/5 upper and lower extremities, full range of motion, normal gait NEURO:CN 2-12 intact, sensation normal SKIN: Patient has approximately 2 x 1 cm semi circular erythematous patch that is nonraised, slightly hyperkeratotic, no bleeding, no thickening of the skin is appreciated over the right cheek on the lateral maxillary region. Initial Vital Signs Initial Vital Signs: Vital Signs Temperature 97.9 F 08/20/22 09:12 Pulse Rate 90 08/20/22 09:12 Respiratory Rate 18 08/20/22 09:12 Blood Pressure 194/86 H 08/20/22 09:12 Pulse Oximetry 94 08/20/22 09:12 Oxygen Delivery Method Room Air 08/20/22 09:12 Course Vital Signs Vital signs: Vital Signs - 8 hr 08/20/22 09:12 Temperature 97.9 F Pulse Rate 90 Respiratory Rate 18 Blood Pressure 194/86 H Pulse Oximetry 94 Oxygen Delivery Method Room Air MDM - Skin/Abscess/Foreign Bdy MDM Narrative Medical decision making narrative: Patient has a erythematous patchy area that looks somewhat eczematous but has not had similar issues in the past. Discussed with patient can try a lower dose topical steroid to the affected area and Vaseline or similar emollient to the affected area for 2 weeks. I did ask her to follow up with Dermatology for evaluation if not resolved as she may need biopsy. Discharge Plan Departure Patient Disposition: Home Clinical Impression: Skin rash Instructions: DI for Rash Activity Restrictions/Additional Instructions: Follow-up in the next 2 weeks if your rash has not resolved and is not improving. I would recommend following up for Dermatology for follow-up and possibly biopsy if no improvement or continuing to grow. You may use topical steroid twice daily to the affected area. Do not use this for more than 2 weeks without the direction of a office machinery or equipment installer or your primary care physician. Prescription sent to [facility] in [place] You can also apply a small amount of emollient lotion such as Vaseline twice daily. Please return for rapidly worsening symptoms, bleeding, signs of infection or other new or concerning changes. Prescriptions: New triamcinolone acetonide 0.025 % cream 1 applic topical BID 10 Days Qty: 15 0RF No Action atorvastatin [Lipitor] 40 MG tablet 80 mg PO HS Qty: 0 citalopram 20 MG tablet 10 mg PO QDAY Qty: 0 telmisartan [Micardis] 80 MG tablet 20 mg PO Q DAY Qty: 0 hydrochlorothiazide 25 MG tablet 25 mg PO QDAY Qty: 0 diltiazem HCl 180 mg Capsule,Extended Release 24 Hr 180 mg PO DAILY metformin 500 mg Tablet Extended Release 24 Hr 500 mg PO TID metoprolol succinate 50 mg Tablet Extended Release 24 Hr 50 mg PO BID doxepin 25 mg Capsule 50 mg PO BEDTIME aspirin 81 mg Tablet,Chewable 81 mg PO DAILY Eliquis 5 mg Tablet 5 mg PO BID acetaminophen 650 mg Tablet Extended Release 650 mg PO BEDTIME allopurinol 100 mg Tablet 50 mg PO DAILY Trulicity 0.75 mg/0.5 mL Pen Injector 0.75 mg SUBCUT QWEEK calcium carbonate-vitamin D3 [Calcium + D] 600 mg-5 mcg (200 unit) Tablet 1 tab PO DAILY fenofibrate 150 mg Capsule 145 mg PO DAILY melatonin 10 mg Tablet 20 mg PO DAILY Referrals: Kenia Lam MD [Primary Care Provider] - Stand Alone Forms: Patient Portal/API
[2022-08-20 09:33] VITALS: PULSE 82; O2SAT 94
[2022-08-20 09:43] VITALS: PULSE 83; O2SAT 94
[2022-08-20 09:52] VITALS: BP 159/73
== END 2022-08-20 10:01 | disposition home or self-care (01) ==
PROVIDERS: Emergency Provider Emergency Medicine; PCP Internal Medicine
DX: R21 Rash and other nonspecific skin eruption (principal)
CPT/HCPCS: 99281

== ENCOUNTER → 2022-09-08 11:33 | Outpatient (CLI) | payer MEDICARE, OTHER, SELFPAY ==
[2021-05-15 13:23] VITALS: BMI 30.9
--- NOTE | 2022-09-08 11:35 | DI.CT.S_ITS ---
PROCEDURE: CT CHEST WO CON INDICATIONS: lung cancer TECHNIQUE: Noncontrast 5 mm thick sections acquired from the pulmonary apices to the posterior costophrenic angles. 1 mm lung window, 5 mm thick coronal and sagittal and 7 mm axial MIP reformats were then acquired. For radiation dose reduction, the following was used: automated exposure control, adjustment of mA and/or kV according to patient size. COMPARISON: [facility], CT, CT CHEST WO [facility], 03/06/2022, 14:22. FINDINGS: Image quality: Excellent. Lungs and pleura: Similar pleural parenchymal band with associated nodularity in the right lung apex. Soot is alert ground-glass in the left lung apex. Similar posttreatment change within the right middle lobe, with architectural distortion, volume loss and bronchiectasis. Trace band like consolidation in the dependent right lower lobe. No suspicious pulmonary nodules. Mediastinum: Heart size is normal. No pericardial effusion. No mediastinal adenopathy by size criteria. Thoracic aorta and central pulmonary arteries are normal in size. Esophagus is normal in caliber. No hiatal hernia. Three-vessel coronary artery disease. Bones and chest wall: Dystrophic appearance of the right lateral ribs, with resection; findings are likely posttreatment change. No vertebral body compression fractures. No axillary or supraclavicular adenopathy by size criteria. Thyroid gland is unremarkable. Abdomen: Visualized upper abdominal solid organs and bowel loops appear normal in the absence of contrast. IMPRESSION: Posttreatment change in the right middle lobe, with associated architectural distortion and volume loss. No evidence of local recurrence or terri disease. Similar regions of lung scarring in the lung apices and dependent right lower lobe. Dictated by: José Miguel Kemp M.D. on 09/08/2022 at 14:08 Approved by: José Miguel Kemp M.D. on 09/08/2022 at 14:11
[2022-09-08 12:25] LABS: Add Manual Diff / Slide Review NO; Basophils Absolute Auto 0 /uL (0-100); Basophils Percent Auto 0.3 % (0-2); Eosinophils Absolute Auto 900 /uL (0-450); Eosinophils Percent Auto 15.7 % (2-4); Hematocrit 37.1 % (36-46); Hemoglobin 12.4 g/dL (12.0-16.0); Lymphocytes Absolute Auto 900 /uL (1100-4500); Lymphocytes Percent Auto 17.2 % (25-40); Mean Corpuscular HGB Conc 33.5 % (30-36); Mean Corpuscular Volume 98.5 fL (80-100); Monocytes Absolute Auto 500 /uL (0-900); Monocytes Percent Auto 9.8 % (3-14); Neutrophils Absolute Auto 3100 /uL (1500-7000); Platelet Count 249 X10^3/uL (150-400); Red Blood Cell Count 3.77 X10^6/uL (4.0-5.2); Red Cell Distribution Width 14.1 % (11.6-14.8); White Blood Cell Count 5.4 X10^3/uL (4.5-11.0)
[2022-09-08 12:56] LABS: Alanine Aminotransferase 27 IU/L (<35); Albumin 4.2 g/dL (3.5-5.0); Albumin Globulin Ratio 1.4 (1.0-2.8); Alkaline Phosphatase 39 U/L (38-126); Aspartate Aminotransferase 31 IU/L (14-36); BUN Creatinine Ratio 28.7 (6-22); Bilirubin Total 0.4 mg/dL (0.2-1.3); Blood Urea Nitrogen 35 mg/dL (7-17); Calcium 9.5 mg/dL (8.4-10.2); Carbon Dioxide 27 mmol/L (22-32); Chloride 101 mmol/L (98-107); Estimated Glomerular Filt Rate 45 mL/min (>60); Globulin 3.1 g/dL (1.7-4.1); Glucose 92 mg/dL (80-110); HEMOLYSIS 24 (0-50); Potassium 4.9 mmol/L (3.4-5.1); Sodium 137 mmol/L (137-145); Total Protein 7.3 g/dL (6.3-8.2)
[2022-09-09 07:53] LABS: Labcorp Hemoglobin (Hb) A1c 6.5 % (4.8-5.6)
== END ==
PROVIDERS: PCP Internal Medicine; Referring Provider Internal Medicine Hematology & Oncology; Visit Provider Internal Medicine Hematology & Oncology
DX: I25.10 Atherosclerotic heart disease of native coronary artery without angina pectoris; C34.90 Malignant neoplasm of unspecified part of unspecified bronchus or lung
CPT/HCPCS: 71250; 80053; 83036; 85025

== ENCOUNTER → 2023-02-06 11:17 | Outpatient (CLI) | payer MEDICARE, OTHER, SELFPAY ==
[2021-05-15 13:23] VITALS: BMI 30.9
--- NOTE | 2023-02-06 11:18 | DI.MG.S_ITS ---
BILATERAL DIGITAL SCREENING MAMMOGRAM 3D/2D WITH CAD: 02/06/2023 CLINICAL: Routine screening. Family history of breast cancer. Comparison is made to exams dated: 02/05/2022 mammogram, 07/31/2020 mammogram, 07/28/2019 mammogram, and 09/25/2017 mammogram - [facility]. There are scattered areas of fibroglandular density in both breasts (category b / 25%-50% glandular tissue). Current study was also evaluated with a Computer Aided Detection (CAD) system. There is an irregular equal density asymmetry in the left breast posterior depth superior region seen on the mediolateral oblique view only. This is increased in size. No other significant masses, calcifications, or other findings are seen in either breast. IMPRESSION: INCOMPLETE: NEEDS ADDITIONAL IMAGING EVALUATION The irregular equal density asymmetry in the left breast is indeterminate. Additional views with possible ultrasound are recommended. Based on the Tyrer Cuzick model (a risk assessment model) the patient's lifetime risk is 1.3% and her 10 year risk is 0.0%. According to the ACR, ACS, and NCCN guidelines, an annual breast MRI exam along with mammogram is recommended if the patient's lifetime risk is 20% or greater. This exam was interpreted at Station ID: [id number]. NOTE: For mammograms, a report in lay terms will be sent to the patient. Approximately 15% of breast malignancies will not be visualized mammographically. In the management of a palpable breast mass, a negative mammogram must not discourage biopsy of a clinically suspicious lesion. Electronically Signed By: Millicent reilly/richar:02/10/2023 08:23:19 letter sent: Additional Imaging Needed ACR BI-RADS Category 0: Incomplete 3340F
== END ==
PROVIDERS: PCP Internal Medicine; Referring Provider Internal Medicine; Visit Provider Internal Medicine
DX: Z12.31 Encounter for screening mammogram for malignant neoplasm of breast (principal); Z80.3 Family history of malignant neoplasm of breast
CPT/HCPCS: 77063; 77067

== ENCOUNTER → 2023-02-13 13:54 | Outpatient (CLI) | payer MEDICARE, OTHER, SELFPAY ==
[2021-05-15 13:23] VITALS: BMI 30.9
--- NOTE | 2023-02-13 13:56 | DI.CT.S_ITS ---
PROCEDURE: CT CHEST WO CON INDICATIONS: lung cancer TECHNIQUE: Noncontrast 5 mm thick sections acquired from the pulmonary apices to the posterior costophrenic angles. 1 mm lung window, 5 mm thick coronal and sagittal and 7 mm axial MIP reformats were then acquired. For radiation dose reduction, the following was used: automated exposure control, adjustment of mA and/or kV according to patient size. COMPARISON: [facility], [place], [place] CT FUSION SKULL 2 THIGH, 09/05/2020, 8:42. [facility], CT, CT CHEST WO CON, 05/11/2019, 13:34. [facility], CT, CT CHEST WO CON, 03/06/2022, 14:22. [facility], CT, CT CHEST WO CON, 09/08/2022, 11:53. FINDINGS: Image quality: Excellent. Lungs and pleura: Prior right lobectomy. Similar scarring at the right apex. Similar consolidative opacity in the right mid lung. Right lung volume loss. Mild opacity in the right lower lobe is unchanged. Central airways are clear. Mediastinal thickening near the central airway is unchanged. Mediastinum: Heart size is normal. Three-vessel coronary artery calcifications. No pericardial effusion. No mediastinal adenopathy by size criteria. Thoracic aorta and central pulmonary arteries are normal in size. Esophagus is normal in caliber. No hiatal hernia. Bones and chest wall: No suspicious bony lesions. No vertebral body compression fractures. No axillary or supraclavicular adenopathy by size criteria. Thyroid gland is unremarkable . Right shoulder arthroplasty. Abdomen: Visualized upper abdominal solid organs and bowel loops appear normal in the absence of contrast. IMPRESSION: No interval change appreciated. Stable postoperative changes. Stable consolidation in the right mid lung. Stable mediastinal thickening. Dictated by: Macho Almazan M.D. on 02/13/2023 at 17:36 Approved by: Macho Almazan M.D. on 02/13/2023 at 17:51
== END ==
PROVIDERS: PCP Internal Medicine; Referring Provider Internal Medicine Hematology & Oncology; Visit Provider Internal Medicine Hematology & Oncology
DX: C34.90 Malignant neoplasm of unspecified part of unspecified bronchus or lung (principal)
CPT/HCPCS: 71250

== ENCOUNTER → 2023-02-17 07:58 | Outpatient (CLI) | payer MEDICARE, OTHER, SELFPAY ==
[2021-05-15 13:23] VITALS: BMI 30.9
--- NOTE | 2023-02-17 | DI.MG.S_ITS ---
UNILATERAL LEFT DIGITAL DIAGNOSTIC MAMMOGRAM 3D/2D WITH ADDITIONAL VIEWS: 02/17/2023 CLINICAL: Additional evaluation requested from prior study. Comparison is made to exams dated: 02/06/2023 mammogram, 02/05/2022 mammogram, 07/31/2020 mammogram, and 07/28/2019 mammogram - [facility]. There are scattered areas of fibroglandular density in the left breast (category b / 25%-50% glandular tissue). There is a 5 mm oval equal density asymmetry with a spiculated margin in the left breast at 10 o'clock posterior depth. This is seen in additional views. No other significant masses or calcifications are seen in the breast. IMPRESSION: INCOMPLETE: NEEDS ADDITIONAL IMAGING EVALUATION The 5 mm oval equal density asymmetry in the left breast is confirmed in additional views and remains indeterminate. An ultrasound is recommended. This was performed immediately following this exam. Based on the Tyrer Cuzick model (a risk assessment model) the patient's lifetime risk is 1.3% and her 10 year risk is 0.0%. According to the ACR, ACS, and NCCN guidelines, an annual breast MRI exam along with mammogram is recommended if the patient's lifetime risk is 20% or greater. This exam was interpreted at Station ID: [id number]. NOTE: For mammograms, a report in lay terms will be sent to the patient. Approximately 15% of breast malignancies will not be visualized mammographically. In the management of a palpable breast mass, a negative mammogram must not discourage biopsy of a clinically suspicious lesion. Electronically Signed By: Millicent reilly/:02/17/2023 09:01:57 ACR BI-RADS Category 0: Incomplete 3340F
--- NOTE | 2023-02-17 | DI.US.S_ITS ---
LIMITED ULTRASOUND OF LEFT BREAST: 02/17/2023 CLINICAL: Patient returns today to evaluate an asymmetry in the left breast. Comparison is made to exams dated: 02/17/2023 mammogram, 02/06/2023 mammogram, 02/05/2022 ultrasound, 02/05/2022 mammogram, 04/12/2021 ultrasound, and 07/31/2020 mammogram - [facility]. Color flow ultrasound of the left breast 10 o'clock region was performed. Real-time ultrasonography of left breast was performed with computer guidance to assure complete coverage of the breast tissue and to provide a uniform data set. Images were transferred to a viewing station for 3-D rendering. No significant abnormalities were seen sonographically in the left breast. Specifically, no finding to correspond to the patient's persistent, new left breast mammographic asymmetry. IMPRESSION: PROBABLY BENIGN A follow-up left mammogram and an ultrasound in 6 months is recommended to demonstrate stability of mammogram only finding. This is likely fibrous tissue or scarring. Findings and recommendations were conveyed to the patient at time of exam. This exam was interpreted at Station ID: [id number]. Electronically Signed By: Millicent reilly/:02/17/2023 09:36:35 letter sent: Followup Recommended Ultrasound BI-RADS: 3 Probably benign
== END ==
PROVIDERS: PCP Internal Medicine; Referring Provider Internal Medicine; Visit Provider Internal Medicine
DX: R92.8 Other abnormal and inconclusive findings on diagnostic imaging of breast (principal)
CPT/HCPCS: 76642; 77065; G0279

== ENCOUNTER 2023-03-16 17:20 | Inpatient (IN) | payer MEDICARE, OTHER, SELFPAY ==
[2021-05-15 13:23] VITALS: BMI 30.9
[2023-03-16] VITALS (18 sets, daily range): BP systolic 117–193; BP diastolic 58–79; PULSE 106–117; RESP 20–33; TEMP 36.7–37.1; O2SAT 88–96; BMI 27.8; BMI 27.6
--- NOTE | 2023-03-16 17:31 | DI.RAD.S_ITS ---
PROCEDURE: XR CHEST 1V INDICATIONS: Shortness of breath TECHNIQUE: One view of the chest was acquired. COMPARISON: , , XR CHEST 2V, 04/05/2018, 12:03. FINDINGS: Surgical changes and devices: Right shoulder arthroplasty. Lungs and pleura: No change in right mid lung density and right basilar pleural parenchymal density. No pleural effusions or pneumothorax. Mediastinum: Mediastinal contours appear normal. Heart size is normal. Bones and chest wall: No suspicious bony lesions. Overlying soft tissues appear unremarkable. IMPRESSION: No significant change. No definite acute process. Dictated by: Sklyar Tay M.D. on 03/16/2023 at 17:53 Approved by: Skylar Tay M.D. on 03/16/2023 at 17:53
[2023-03-16 18:05] LABS: Add Manual Diff / Slide Review NO; Basophils Absolute Auto 100 /uL (0-100); Basophils Percent Auto 1.4 % (0-2); Eosinophils Absolute Auto 300 /uL (0-450); Eosinophils Percent Auto 5.8 % (2-4); Lymphocytes Absolute Auto 600 /uL (1100-4500); Lymphocytes Percent Auto 11.9 % (25-40); Mean Corpuscular HGB Conc 32.6 % (30-36); Mean Corpuscular Hemoglobin 29.4 PG (26-34); Mean Corpuscular Volume 90.1 fL (80-100); Monocytes Absolute Auto 500 /uL (0-900); Monocytes Percent Auto 9.2 % (3-14); Neutrophils Absolute Auto 3900 /uL (1500-7000); Neutrophils Percent Auto 71.7 % (50-75); Platelet Count 386 X10^3/uL (150-400); Red Blood Cell Count 2.32 X10^6/uL (4.0-5.2); Red Cell Distribution Width 15.6 % (11.6-14.8); White Blood Cell Count 5.4 X10^3/uL (4.5-11.0)
[2023-03-16 18:06] LABS: Hemoglobin 6.8 g/dL (12.0-16.0)
[2023-03-16 18:07] LABS: Hematocrit 20.9 % (36-46); INR 1.4 (0.9-1.3); Prothrombin Time 16.5 SECONDS (10.1-12.7)
--- NOTE | 2023-03-16 18:09 | ED_ITS ---
HPI - SOB/Dyspnea General Chief Complaint: Shortness of Breath/Dyspnea Stated Complaint: SOB Time Seen by Provider: 03/16/23 18:07 Source: patient Mode of arrival: Wheelchair Limitations: no limitations History of Present Illness HPI Narrative: 82-year-old female with history of atrial fibrillation, cardiac stents x2, COPD, gout, hypertension, dyslipidemia, diabetes, prior non-Hodgkin's lymphoma treated with chapped and prior lung cancer treated with chemo and radiation in upper lobe resection who presents with increasing shortness of breath, weakness and fatigue with exertional dyspnea chest pain with exertion. Patient states she started noticing a month ago she can walk about 2 miles daily and has had increasing shortness of breath with exertion. Patient states no syncope. She does not have any active chest pain currently. She denies any abdominal back or flank pain. She is had some nausea but no vomiting. She is noted black tarry stools in the past 4 days in the last 1-2 days up to 10 times daily. She states she is on Eliquis daily for her atrial fibrillation. She is not had prior ablation, she states she does have an aortic valve that does not close completely. Patient states she is had colonoscopy, unclear she is had EGD in the past. Allergy to bee stings, tape and IV contrast. Quit smoking in 1998, quit alcohol in 1998, no recreational drugs for illicit drugs. Her primary care is Dr. Lam, Dr. Caba is her Microstrategy Architect Developer. Related Data Home Medications Medication Instructions Recorded Confirmed atorvastatin 40 mg tablet (Lipitor) 80 mg PO DAILY ##0 04/22/12 03/16/23 diltiazem HCl 180 mg capsule,24 240 mg PO DAILY 12/17/17 03/16/23 hr,extended release doxepin 25 mg capsule 25 mg PO BID 12/17/17 03/16/23 metformin 500 mg tablet,extended 500 mg PO TID 12/17/17 03/16/23 release 24 hr metoprolol succinate 50 mg 50 mg PO BID 12/17/17 03/16/23 tablet,extended release 24 hr apixaban 5 mg tablet (Eliquis) 5 mg PO BID 08/21/20 03/16/23 allopurinol 100 mg tablet 100 mg PO DAILY 09/09/21 03/16/23 fenofibrate 150 mg capsule 145 mg PO DAILY 03/13/22 03/16/23 melatonin 10 mg tablet 20 mg PO DAILY 03/13/22 03/16/23 acetaminophen 650 mg 650 mg PO BEDTIME 03/16/23 03/16/23 tablet,extended release calcium carbonate 600 mg-vitamin 1 tab PO DAILY 03/16/23 03/16/23 D3 10 mcg (400 unit) chewable tablet (Calcium 600 with Vitamin D3) citalopram 10 mg tablet 10 mg PO DAILY 03/16/23 03/16/23 dulaglutide 1.5 mg/0.5 mL 1.5 mg SUBCUT WEEKLY 03/16/23 03/16/23 subcutaneous pen injector (Trulicity) telmisartan 20 mg tablet 20 mg PO DAILY 03/16/23 03/16/23 Allergies Allergy/AdvReac Type Severity Reaction Status Date / Time petrolatum,white Allergy Severe Difficulty Verified 03/16/23 17:24 [From A & D Barrier] Breathing venom-honey bee Allergy Severe HIVES Verified 03/16/23 17:24 [BEE VENOM (HONEY BEE)] adhesive [ADHESIVE] Allergy Intermediate REDNESS Verified 03/16/23 17:24 AND ITCHING OF SKIN WITH TAPE USE. Iodinated Contrast Media Allergy Intermediate RASH Verified 03/16/23 17:24 [IODINATED CONTRAST MEDIA - IV DYE] Penicillins [PENICILLINS] Allergy Intermediate SOB, Verified 03/16/23 17:24 ITCHING ALL TOPICAL OINTMENTS Allergy Severe RASH Uncoded 05/23/21 09:58 Review of Systems Review of Systems ROS Unobtainable: All systems reviewed & are unremarkable except as noted in HPI and below Patient History Medical History (Updated 03/16/23 @ 23:28 by Tony Elliott MD) Gout Chronic respiratory failure with hypoxia History of lymphoma Chronic atrial fibrillation Type 2 diabetes mellitus Hyperlipidemia Hypertension Radiation fibrosis of lung Contrast media allergy Lung cancer COPD exacerbation Family History Sister Cancer Mother CAD (coronary artery disease) Father Malaria Social History household members: spouse Smoking Status: Former smoker alcohol intake: current Smoking Status: Former smoker tobacco type: cigarettes alcohol intake frequency: holidays/special occasions only Substance Use Type: does not use Exam Narrative Exam Narrative: GENERAL: Alert and oriented x three, female in no distress. HEENT: Head normocephalic, atraumatic, EOMI, pupils reactive, pale conjunctiva, face symmetric, moist mucous membranes NECK: Supple, full range of motion CARDIOVASCULAR: Tachycardic but regular rate and rhythm with systolic ejection murmur heard best at right upper border, no rubs or gallops. No JVD. No swelling bilateral lower extremities. RESPIRATORY: Breath sounds equal bilaterally, no wheezes rales or rhonchi. Mild tachypnea. No accessory muscle use. Speaks in full sentences. ABDOMEN: Soft, nontender. Normoactive bowel sounds all 4 quadrants. No guarding or rebound, rigidity, no mass : No CVA tenderness EXTREMITIES: Normal range of motion, no clubbing or edema. Neurovascularly intact NEUROLOGICAL: Cranial nerves II through XII grossly intact. Moving all extremities SKIN: Warm, dry, no petechiae, no rashes or lesions. Initial Vital Signs Initial Vital Signs: Vital Signs Temperature 98.1 F 03/16/23 17:24 Pulse Rate 109 H 03/16/23 17:24 Respiratory Rate 28 H 03/16/23 17:24 Blood Pressure 144/68 H 03/16/23 17:24 Pulse Oximetry 96 03/16/23 17:24 Oxygen Delivery Method Nasal Cannula 03/16/23 17:24 Oxygen Flow Rate 2 03/16/23 17:24 Course Orders Ordered: ED Orders 03/16/23 17:31 XR chest 1V Stat EKG-12 Lead Stat Measure peak expiratory flow ONCE RT Consult Eval and Treat NOW 03/16/23 17:45 Complete Blood Count AUTO DIFF Stat Comprehensive Metabolic Panel Stat Lactate (Lactic Acid) Stat NT-proBNP (BNP-Adult 18+) Stat Prothrombin Time INR Stat Troponin I Stat 03/16/23 17:55 Respiratory Panel (Film Array) Stat 03/16/23 18:08 PRBC [Packed Cells] Stat Type and Screen Stat Bisacodyl (Bisacodyl 10 Mg Supp) 10 mg MN DAILY PRN PRN Reason: Constipation Diltiazem HCl (Diltiazem 5 Mg/Ml Sdv) 10 mg IV Q2HR PRN PRN Reason: HR > 120 Hydromorphone HCl (Hydromorphone 0.5 Mg Inj) 0.5 mg IV Q2H PRN PRN Reason: Pain, Severe (7-10) Dextrose/Lactated Ringer's (Dextrose 5%-Lactated Ringers) 1,000 mls @ 100 mls/hr IV CONT [place] Last Admin: 03/17/23 01:08 Dose: 100 mls/hr Documented By: VESNA Dextrose (D10w) 100 mls @ 1,200 mls/hr IV PRN PRN PRN Reason: Hypoglycemia Influenza Virus Vaccine (Influenza Hd Vaccine 0.7 Ml Syringe) 0.7 ml IM .ONCE ONE Stop: 03/18/23 09:01 Insulin Human Lispro (Insulin Lispro 100 Unit/Ml 3ml Vial) 0 unit SUBCUT Q6H [facility]; Protocol Last Admin: 03/16/23 22:19 Dose: Not Given Documented By: VESNA Metoprolol Tartrate (Metoprolol Tartrate 5 Mg/5 Ml Inj) 5 mg IV Q2HR PRN PRN Reason: for HR > 120 and SBP>160 Naloxone HCl (Naloxone 0.4 Mg/Ml Vial) 0.2 mg IV Q2MIN PRN PRN Reason: Opiate Reversal Ondansetron HCl (Ondansetron 4 Mg/2 Ml Inj) 4 mg IV Q4HR PRN PRN Reason: nausea Promethazine HCl (Promethazine 12.5 Mg Supp) 12.5 mg MN Q6HR PRN PRN Reason: Nausea And Vomiting Vital Signs Vital signs: Vital Signs - 8 hr 03/16/23 17:37 03/16/23 17:38 03/16/23 17:38 Pulse Rate 117 H 115 H Respiratory Rate Blood Pressure 117/58 L Pulse Oximetry 88 L 89 L Oxygen Delivery Method Room Air Nasal Cannula Oxygen Flow Rate 2 03/16/23 18:00 03/16/23 18:00 03/16/23 18:30 Pulse Rate 106 H 110 H Respiratory Rate 22 31 H Blood Pressure 146/65 H Pulse Oximetry 92 93 Oxygen Delivery Method Nasal Cannula Nasal Cannula Oxygen Flow Rate 2 2 03/16/23 18:31 03/16/23 18:31 03/16/23 19:00 Pulse Rate 112 H 106 H Respiratory Rate 32 H 24 Blood Pressure 180/71 H Pulse Oximetry 92 91 Oxygen Delivery Method Nasal Cannula Oxygen Flow Rate 2 03/16/23 19:00 03/16/23 19:30 03/16/23 19:30 Pulse Rate 113 H Respiratory Rate 21 Blood Pressure 168/74 H 193/77 H Pulse Oximetry 91 Oxygen Delivery Method Nasal Cannula Oxygen Flow Rate 2 MDM - SOB/Dyspnea Lab Data 03/16/23 17:45 03/16/23 17:45 Labs: Lab Results 03/16/23 03/16/23 03/16/23 Range/Units 17:45 17:55 18:08 WBC 5.4 (4.5-11.0) X10^3/uL RBC 2.32 L (4.0-5.2) X10^6/uL Hgb 6.8 L* (12.0-16.0) g/dL Hct 20.9 L* (36-46) % MCV 90.1 (80-100) fL MCH 29.4 (26-34) PG MCHC 32.6 (30-36) % RDW 15.6 H (11.6-14.8) % Plt Count 386 (150-400) X10^3/uL Neut % (Auto) 71.7 (50-75) % Lymph % (Auto) 11.9 L (25-40) % Blaine % (Auto) 9.2 (3-14) % Eos % (Auto) 5.8 H (2-4) % Baso % (Auto) 1.4 (0-2) % Neut # (Auto) 3900 (8215-7846) /uL Lymph # (Auto) 600 L (5096-2795) /uL Blaine # (Auto) 500 (0-900) /uL Eos # (Auto) 300 (0-450) /uL Baso # (Auto) 100 (0-100) /uL PT 16.5 H (10.1-12.7) SECONDS INR 1.4 H (0.9-1.3) Sodium 137 (137-145) mmol/L Potassium 4.1 (3.4-5.1) mmol/L Chloride 102 (98-107) mmol/L Carbon Dioxide 23 (22-32) mmol/L BUN 29 H (7-17) mg/dL Creatinine 1.48 H (0.52-1.04) mg/dL Estimated GFR 36 L (>60) mL/min BUN/Creatinine Ratio 19.6 (6-22) Glucose 131 H (80-110) mg/dL Lactate 2.4 H (0.7-2.1) mmol/L Calcium 9.0 (8.4-10.2) mg/dL Total Bilirubin 0.1 L (0.2-1.3) mg/dL AST 27 (14-36) IU/L ALT 21 (<35) IU/L Alkaline Phosphatase 34 L (38-126) U/L Troponin I < 0.012 (0.01-0.034) ng/mL NT-Pro-B Natriuret Pep 2720 H (<450) pg/mL Total Protein 6.8 (6.3-8.2) g/dL Albumin 4.0 (3.5-5.0) g/dL Globulin 2.8 (1.7-4.1) g/dL Albumin/Globulin Ratio 1.4 (1.0-2.8) Chlamy pneumoniae PCR Not detected (Not Detect) Adenovirus (PCR) Not detected (Not Detect) B.parapertussis DNA PCR Not detected (Not Detecte) Coronavirus OC43 (PCR) Not detected (Not Detect) Coronavirus HKU1 (PCR) Not detected (Not Detect) Coronavirus 229E (PCR) Not detected (Not Detect) SARS-CoV-2 (PCR) Not detected (Not Detecte) Coronavirus NL63 (PCR) Not detected (Not Detect) Human Metapneumovir PCR Not detected (Not Detect) Influenza Type A (PCR) Not detected (Not Detect) Influenza Type B (PCR) Not detected (Not Detect) M. pneumoniae (PCR) Not detected (Not Detect) Parainfluenza 1 (PCR) Not detected (Not Detect) Parainfluenza 2 (PCR) Not detected (Not Detect) Parainfluenza 3 (PCR) Not detected (Not Detect) Parainfluenza 4 (PCR) Not detected (Not Detect) RSV (PCR) Not detected (Not Detect) Entero/Rhino (PCR) Not detected (Not Detect) Blood Type A Positive Antibody Screen Negative Crossmatch See Detail Imaging Data Chest x-ray: Radiologist's Impression: ?TOPICAL OINTMENTS] (More??) Close Chest X-Ray (Signed) Skylar Tay - 03/16/23 Mammogram, Additional Views (Signed) Millicent German - 02/17/23 Breast Ultrasound (Signed) Millicent German - 02/17/[address] (Signed) Macho Almazan - 02/13/23 Mammogram Screening (Signed) Millicent German - 02/06/[address] (Signed) José Miguel Kemp - 09/08/22 Myocardial Perfusion Scan Nuc Med (Signed) Debbie Davila - 04/07/[address] (Signed) Kialmaat,Lila - 03/06/22 Mammogram Diagnostic (Signed) Juanpablo Nguyen - 02/05/22 Breast Ultrasound (Signed) Juanpablo Nguyen - 02/05/22 Thoracic Spine X-Ray (Signed) Evensjames,Lila - 11/15/[address] (Signed) Luan Overton - 09/03/21 Foot X-Ray (Signed) Ryan Sam - 07/28/21 Telemetry Strips 05/10/[address] (Signed) Terrell Velez - 05/10/21 Tibia/Fibula X-Ray (Signed) Ryan Sam - 05/08/21 Foot X-Ray (Signed) Jarett Oliva - 04/17/21 Breast Ultrasound (Signed) Terrell Velez - 04/12/[address] (Signed) Millicent German - 02/05/21 Foot X-Ray (Signed) Ryan Sam - 01/27/21 PFT Result 11/22/20 PET, Tumor Imaging Skull-Mid Thigh (Signed) Brenton Robbins - 09/05/20 Lumbar Spine MRI (Signed) Skylar Tay - 08/16/[address] (Signed) Rosemary Holland - 08/14/20 Mammogram Screening (Signed) Millicent German - 07/31/[address] (Signed) Roc Chicas - 02/15/[address] (Signed) Krishan Guerrero - 11/09/19 Echocardiogram Ultrasound (Signed) Khai Vasquez - 08/04/19 PFT Result 07/29/19 Mammogram Screening (Signed) Macho Almazan - 07/28/[address] (Signed) Kaye,Lila - 05/11/19 Abdomen Ultrasound (Signed) Emory Garza - 04/22/19 Chest/Abdomen/Pelvis CT (Signed) Emory Garza - 11/15/18 Lumbar Spine MRI (Signed) Chandana Gary - 09/29/18 Chest/Abdomen CT (Signed) Krishan Guerrero - 05/14/18 Bone Scan Nuclear Medicine (Signed) Lucia Carrasquillo - 05/14/18 Chest X-Ray (Signed) Emory Garza - 04/05/18 Lumbar Spine X-Ray (Signed) Rosemary Holland - 12/29/17 Chest/Abdomen CT (Signed) Joseph Spann - 12/14/17 Launch?[facility] [address] [address] XRay Report Signed Patient: Carlota Jacome MR#: [id number] : 1940 Acct:[id number] Age/Sex: 82 / F Date of Service: 03/16/23 Loc: ED Accession Number: [id number] Procedure: XR chest 1V Ordering Provider: Chang Aguilera D.O. PROCEDURE: XR CHEST 1V INDICATIONS: Shortness of breath TECHNIQUE: One view of the chest was acquired. COMPARISON: [facility], , XR CHEST 2V, 04/05/2018, 12:03. FINDINGS: Surgical changes and devices: Right shoulder arthroplasty. Lungs and pleura: No change in right mid lung density and right basilar pleural parenchymal density. No pleural effusions or pneumothorax. Mediastinum: Mediastinal contours appear normal. Heart size is normal. Bones and chest wall: No suspicious bony lesions. Overlying soft tissues appear unremarkable. IMPRESSION: No significant change. No definite acute process. Dictated by: Skylar Tay M.D. on 03/16/2023 at 17:53 Approved by: Skylar Tay M.D. on 03/16/2023 at 17:53 ECG Data Attestation: I personally reviewed and interpreted this ECG as follows: Prior ECG tracings: available for review Interpretation: Sinus tachycardia, rate of 105 MN 120 QRS is 88 QTC 449. Rash mostly depression lateral all 2 and AVF. MDM Narrative Medical decision making narrative: This is an 82-year-old female who presents with increasing shortness of breath, dyspnea exertional chest pain who has sinus tachycardia with known cardiac history, patient's hemoglobin is 6.8 was 12 in August, crit of 20, white count 5.4 with platelets of 386. INR is 1.4 she is on Eliquis. Chest x-ray was negative. CMP and troponin show creatinine 1.48 has been slowly trending upwards over the past year was 1.09 in May of 2022 and 1.22 in September of 2022 but with normal hemoglobin, BUN 29 normal electrolytes, lactate was 2.4, LFTs are negative troponins negative BNP is 2720 with no priors for comparison. Chest x-ray shows no acute change, no pulmonary edema to support CHF and suspect patient's symptoms are secondary to her symptomatic anemia and lowered oxygen carrying capacity. Discussed with patient she consents to blood transfusion, 2 units were ordered, patient has had black tarry stools for the past 4 days and suspect upper GI bleed. Plan to hold Eliquis, protonix and admission. Spoke with general surgery, spoke with Dr. Hugo on for General surgery who agrees with plan for admission hospitalist with goal for EGD possibly tomorrow EGD and colonoscopy at the same time. Spoke with hospitalist, Dr. Elliott who accepts for admission. Agrees with plan for transfusion and admission. Critical Care Time Critical Care Time Attestation: The high probability of a clinically significant, sudden or life threatening deterioration of the [cardiac, pulm] system(s) required my full and direct attention, intervention and personal management. The aggregate critical care time was [30] minutes. This time is in addition to time spent performing reported procedures but includes the following: [x] Data Review and interpretation [x] Patient assessment and monitoring of vital signs [x] Documentation [x] Medication orders and management Discharge Plan Departure Patient Disposition: Admitted As Inpatient Clinical Impression: Symptomatic anemia, GI bleed Admit Date/Time: 03/16/23 19:36 Admit Provider: Tony Elliott
[2023-03-16 18:11] LABS: Lactate (Lactic Acid) 2.4 mmol/L (0.7-2.1)
[2023-03-16 18:12] LABS: Alanine Aminotransferase 21 IU/L (<35); Albumin Globulin Ratio 1.4 (1.0-2.8); Alkaline Phosphatase 34 U/L (38-126); Aspartate Aminotransferase 27 IU/L (14-36); BUN Creatinine Ratio 19.6 (6-22); Bilirubin Total 0.1 mg/dL (0.2-1.3); Blood Urea Nitrogen 29 mg/dL (7-17); Carbon Dioxide 23 mmol/L (22-32); Chloride 102 mmol/L (98-107); Estimated Glomerular Filt Rate 36 mL/min (>60); Globulin 2.8 g/dL (1.7-4.1); Glucose 131 mg/dL (80-110); HEMOLYSIS < 15 (0-50); Potassium 4.1 mmol/L (3.4-5.1); Sodium 137 mmol/L (137-145); Total Protein 6.8 g/dL (6.3-8.2)
[2023-03-16 18:24] LABS: NT-proBNP (BNP-Adult 18+) 2720 pg/mL (<450); Troponin I < 0.012 ng/mL (0.01-0.034)
--- NOTE | 2023-03-16 18:32 | PC.NURSE ---
Upon further assessment of patient. Patient reports 4 days of dark black stools I attributed this to the asparagus Patient states she was up all night with multiple dark stools. Patient increase in SOB over the last week. Patient on blood thinners has not had previous GI bleed. Reports some nausea with no vomiting. Decrease appetite.
[2023-03-16 18:50] LABS: Adenovirus Not Detected (Not Detect); B. parapertussis Not Detected (Not Detecte); Bordetella pertussis Not Detected (Not Detect); Chlamydophila pneumoniae Not Detected (Not Detect); Coronavirus 229E Not Detected (Not Detect); Coronavirus HKU1 Not Detected (Not Detect); Coronavirus NL 63 Not Detected (Not Detect); Coronavirus OC43 Not Detected (Not Detect); Human Metapneumovirus Not Detected (Not Detect); Human Rhinovirus/Enterovirus Not Detected (Not Detect); Influenza A Not Detected (Not Detect); Influenza B Not Detected (Not Detect); Mycoplasma pneumoniae Not Detected (Not Detect); Parainfluenza Virus 1 Not Detected (Not Detect); Parainfluenza Virus 2 Not Detected (Not Detect); Parainfluenza Virus 3 Not Detected (Not Detect); Parainfluenza Virus 4 Not Detected (Not Detect); Respiratory Syncytial Virus Not Detected (Not Detect); SARS- CoV-2 Not Detected (Not Detecte)
[2023-03-16 19:55] LABS: Reflexed Lactate in 2 Hours Y
--- NOTE | 2023-03-16 19:58 | P.HP_ITS ---
History of Present Illness History of Present Illness Date Patient Seen: 03/16/23 Chief complaint: SOB Narrative: 82 y/o, presented to ED with complaints on worsening shortness of breath, generalized weakness, over the last month or so, getting more serious 4-5 days ago. Initial workup showing severe anemia, likely GI bleed as she initially reported dark stool and to me she said that she saw blood. She was not sure if it was dark or bright red blood. All that in the last several days. She does not have heartburn, nausea, epigastric pain. [facility] Medical History (Updated 03/16/23 @ 23:28 by Tony Elliott MD) Gout Chronic respiratory failure with hypoxia History of lymphoma Chronic atrial fibrillation Type 2 diabetes mellitus Hyperlipidemia Hypertension Radiation fibrosis of lung Contrast media allergy Lung cancer COPD exacerbation Family History Sister Cancer Mother CAD (coronary artery disease) Father Malaria Social History household members: spouse Smoking Status: Former smoker alcohol intake: current Meds Home Medications and Allergies Home Medications Medication Instructions Recorded Confirmed Type atorvastatin 40 mg tablet (Lipitor) 80 mg PO DAILY ##0 04/22/12 03/16/23 History diltiazem HCl 180 mg capsule,24 240 mg PO DAILY 12/17/17 03/16/23 History hr,extended release doxepin 25 mg capsule 25 mg PO BID 12/17/17 03/16/23 History metformin 500 mg tablet,extended 500 mg PO TID 12/17/17 03/16/23 History release 24 hr metoprolol succinate 50 mg 50 mg PO BID 12/17/17 03/16/23 History tablet,extended release 24 hr apixaban 5 mg tablet (Eliquis) 5 mg PO BID 08/21/20 03/16/23 History allopurinol 100 mg tablet 100 mg PO DAILY 09/09/21 03/16/23 History fenofibrate 150 mg capsule 145 mg PO DAILY 03/13/22 03/16/23 History melatonin 10 mg tablet 20 mg PO DAILY 03/13/22 03/16/23 History acetaminophen 650 mg 650 mg PO BEDTIME 03/16/23 03/16/23 History tablet,extended release calcium carbonate 600 mg-vitamin 1 tab PO DAILY 03/16/23 03/16/23 History D3 10 mcg (400 unit) chewable tablet (Calcium 600 with Vitamin D3) citalopram 10 mg tablet 10 mg PO DAILY 03/16/23 03/16/23 History dulaglutide 1.5 mg/0.5 mL 1.5 mg SUBCUT WEEKLY 03/16/23 03/16/23 History subcutaneous pen injector (Trulicity) telmisartan 20 mg tablet 20 mg PO DAILY 03/16/23 03/16/23 History Allergies Allergy/AdvReac Type Severity Reaction Status Date / Time petrolatum,white Allergy Severe Difficulty Verified 03/16/23 17:24 [From A & D Barrier] Breathing venom-honey bee Allergy Severe HIVES Verified 03/16/23 17:24 [BEE VENOM (HONEY BEE)] adhesive [ADHESIVE] Allergy Intermediate REDNESS Verified 03/16/23 17:24 AND ITCHING OF SKIN WITH TAPE USE. Iodinated Contrast Media Allergy Intermediate RASH Verified 03/16/23 17:24 [IODINATED CONTRAST MEDIA - IV DYE] Penicillins [PENICILLINS] Allergy Intermediate SOB, Verified 03/16/23 17:24 ITCHING ALL TOPICAL OINTMENTS Allergy Severe RASH Uncoded 05/23/21 09:58 Review of Systems Constitutional Comments: generalized weakness, no fever or chills Cardiovascular Comments: w/o chest pain or palpitations Respiratory Comments: exertional dyspnea - a new symptom w/o wheezing or coughing chronic shortness of breath - on 2 L day / night Gastrointestinal Comments: dark stool Genitourinary Comments: w/o hematuria or dysuria Neurologic Comments: w/o headache, focal weakness or numbness Hematologic/Lymphatic Comments: blood in the stool, dark stool Exam Vital Signs (past 8 hours): - 03/16/23 17:24 03/16/23 17:37 03/16/23 17:38 Temperature 98.1 F Pulse Rate 109 H 117 H Respiratory Rate 28 H Blood Pressure 144/68 H 117/58 L Pulse Oximetry 96 88 L Oxygen Delivery Method Nasal Cannula Room Air Oxygen Flow Rate 2 03/16/23 17:38 03/16/23 18:00 03/16/23 18:00 Temperature Pulse Rate 115 H 106 H Respiratory Rate 22 Blood Pressure 146/65 H Pulse Oximetry 89 L 92 Oxygen Delivery Method Nasal Cannula Nasal Cannula Oxygen Flow Rate 2 2 03/16/23 18:30 03/16/23 18:31 03/16/23 18:31 Temperature Pulse Rate 110 H 112 H Respiratory Rate 31 H 32 H Blood Pressure 180/71 H Pulse Oximetry 93 92 Oxygen Delivery Method Nasal Cannula Nasal Cannula Oxygen Flow Rate 2 2 03/16/23 19:00 03/16/23 19:00 03/16/23 19:30 Temperature Pulse Rate 106 H Respiratory Rate 24 Blood Pressure 168/74 H 193/77 H Pulse Oximetry 91 Oxygen Delivery Method Oxygen Flow Rate 03/16/23 19:30 03/16/23 19:50 03/16/23 19:50 Temperature Pulse Rate 113 H 108 H Respiratory Rate 21 27 H Blood Pressure 164/72 H Pulse Oximetry 91 92 Oxygen Delivery Method Nasal Cannula Nasal Cannula Oxygen Flow Rate 2 2 03/16/23 19:54 Temperature 98.7 F Pulse Rate 108 H Respiratory Rate 20 Blood Pressure 164/72 H Pulse Oximetry Oxygen Delivery Method Oxygen Flow Rate Oxygen Delivery Method Nasal Cannula Oxygen Flow Rate 2 Const Other: Laying in bed in no distress HENMT Other: NC with 2L O2 Eyes Other: reactive pupils, eomi Resp Other: decreased breath sounds on right Cardio Other: irregular, HEDY Extrem Other: w/o significant swelling Psych Other: lucid Objective Labs 03/16/23 17:45 03/16/23 17:45 Labs: Laboratory Results - last 24 hr 03/16/23 03/16/23 03/16/23 17:45 17:55 18:08 WBC 5.4 RBC 2.32 L Hgb 6.8 L* Hct 20.9 L* MCV 90.1 MCH 29.4 MCHC 32.6 RDW 15.6 H Plt Count 386 Neut % (Auto) 71.7 Lymph % (Auto) 11.9 L [place] % (Auto) 9.2 Eos % (Auto) 5.8 H Baso % (Auto) 1.4 Neut # (Auto) 3900 Lymph # (Auto) 600 L [place] # (Auto) 500 Eos # (Auto) 300 Baso # (Auto) 100 PT 16.5 H INR 1.4 H Sodium 137 Potassium 4.1 Chloride 102 Carbon Dioxide 23 BUN 29 H Creatinine 1.48 H Estimated GFR 36 L BUN/Creatinine Ratio 19.6 Glucose 131 H Lactate 2.4 H Calcium 9.0 Total Bilirubin 0.1 L AST 27 ALT 21 Alkaline Phosphatase 34 L Troponin I < 0.012 NT-Pro-B Natriuret Pep 2720 H Total Protein 6.8 Albumin 4.0 Globulin 2.8 Albumin/Globulin Ratio 1.4 Chlamy pneumoniae PCR Not detected Adenovirus (PCR) Not detected B.parapertussis DNA PCR Not detected Coronavirus OC43 (PCR) Not detected Coronavirus HKU1 (PCR) Not detected Coronavirus 229E (PCR) Not detected SARS-CoV-2 (PCR) Not detected Coronavirus NL63 (PCR) Not detected Human Metapneumovir PCR Not detected Influenza Type A (PCR) Not detected Influenza Type B (PCR) Not detected M. pneumoniae (PCR) Not detected Parainfluenza 1 (PCR) Not detected Parainfluenza 2 (PCR) Not detected Parainfluenza 3 (PCR) Not detected Parainfluenza 4 (PCR) Not detected RSV (PCR) Not detected Entero/Rhino (PCR) Not detected Blood Type A Positive Antibody Screen Negative Crossmatch See Detail Assessment & Plan Assessment and plan (1) Acute post-hemorrhagic anemia: Status: Acute Plan: Likely GI bleed - NPO, EGD in AM, PPI IV, PRBCs, serial CBCs (2) GI bleed: Status: Acute Plan: As above, if EGD non-revealing - colonoscopy Home Eliquis on hold (3) Chronic atrial fibrillation: Status: Acute Plan: Rate controlled with BB, CCB at home Eliquis on hold Metoprolol iv, Cardiazem iv for rate control, telemetry (4) Type 2 diabetes mellitus: Status: Acute Plan: SS while NPO At home on metformin and Trulicity (5) Hypertension: Status: Acute Plan: On metoprolol and diltiazem at home - restart with resumed PO (6) History of lung cancer: Status: Acute Plan: SCC, currently under oncology surveillance, recent CT chest w/o evidence of recurrence (7) Depression: Status: Acute Plan: With resumed PO restart citalopram and doxepin (8) Mixed hyperlipidemia: Status: Acute Plan: statin, fenofibrate - restart with resumed PO (9) Gout: Status: Acute Plan: resume home allopurinol with resumed PO (10) PAD (peripheral artery disease): Status: Acute Plan: both legs, w/o claudication - on high-intensity statin and Eliquis (hence not on ASA / Plavix) She also has severe carotid stenosis, b/l, Rt > Lt - with treatment as above. Hopefully EGD/Colonoscopy will be diagnostic and possibly therapeutic as she will need to be either anticoagulated or on antiplatelet for both PVD and A-fib.
--- NOTE | 2023-03-16 20:14 | PC.NURSE ---
PRBC started at 1955 at 75ml/hr. Pt tolerated infusion without signs/symptoms of adverse reactions. Rate dose changed to 150ml/hr after 15 minutes. Pt transferred to the floor with transportation planner.
[2023-03-16 21:04] LABS: Lactate 2HR (Lactic Acid Rflx) 1.1 mmol/L (0.7-2.1)
[2023-03-17] VITALS (17 sets, daily range): BP systolic 130–185; BP diastolic 60–89; PULSE 104–115; RESP 14–26; TEMP 36.1–37.5; O2SAT 93–99; BMI 27.6
--- NOTE | 2023-03-17 | PATH_ITS ---
[facility] Accession Number: [id number] No. of containers..02 Tissue . 01 Material submitted: . PART A: gastrointestinal site - GASTRIC BIOPSY PART B: duodenum - DUODENAL BIOPSY . 01 Diagnosis: A. Stomach, Biopsy: Gastric body mucosa with no diagnostic abnormality. No evidence of Helicobacter organisms on H/E stain. Negative for intestinal metaplasia. Negative for dysplasia or malignancy. . B. Duodenum, Biopsy: Duodenal mucosa with no diagnostic abnormality. Negative for active inflammation, features of sprue, dysplasia, or malignancy. MRV 03/20/2023 1324 Local . 01 Electronically signed: . Boo Brar MD, PhD, Pathologist NPI- [id number] . 01 Gross description: . Part A: GASTRIC BIOPSY: Received in formalin is 1 fragment(s) of rubio, soft tissue measuring 0.3 x 0.2 x 0.2 cm submitted entirely in 1 cassette(s) Part B: DUODENAL BIOPSY: Received in formalin is 1 fragment(s) of rubio, soft tissue measuring 0.1 x 0.1 x 0.1 cm submitted entirely in 1 cassette(s) /VALARIE 03/18/2023 1908 Local . 01 Pathologist provided ICD-10: R10.13 . 01 CPT . 757296, 577644 Specimen Comment: A courtesy copy of this report has been sent to [phone] Performed at: [facility] [address] [place] [id number] MD Brenton Morrow MD Phone: [phone]
[2023-03-17] MEDS: DEXTROSE 5%-LACTATED RINGERS 1,000 ML 100 ML IV (01:08)
[2023-03-17] MEDS: PANTOPRAZOLE 40 MG VIAL 80 MG IV (01:40)
[2023-03-17 06:07] LABS: Add Manual Diff / Slide Review NO; Basophils Absolute Auto 100 /uL (0-100); Basophils Percent Auto 1.3 % (0-2); Eosinophils Absolute Auto 200 /uL (0-450); Eosinophils Percent Auto 2.9 % (2-4); Hemoglobin 9.5 g/dL (12.0-16.0); Lymphocytes Absolute Auto 600 /uL (1100-4500); Lymphocytes Percent Auto 8.2 % (25-40); Mean Corpuscular HGB Conc 33.2 % (30-36); Mean Corpuscular Hemoglobin 28.9 PG (26-34); Mean Corpuscular Volume 87.1 fL (80-100); Monocytes Absolute Auto 600 /uL (0-900); Monocytes Percent Auto 8.6 % (3-14); Neutrophils Absolute Auto 5400 /uL (1500-7000); Platelet Count 351 X10^3/uL (150-400); Red Blood Cell Count 3.29 X10^6/uL (4.0-5.2); Red Cell Distribution Width 16.5 % (11.6-14.8); White Blood Cell Count 6.9 X10^3/uL (4.5-11.0)
[2023-03-17 06:08] LABS: Hematocrit 28.6 % (36-46)
[2023-03-17 06:19] LABS: BUN Creatinine Ratio 18.6 (6-22); Blood Urea Nitrogen 19 mg/dL (7-17); Carbon Dioxide 23 mmol/L (22-32); Chloride 105 mmol/L (98-107); Estimated Glomerular Filt Rate 56 mL/min (>60); Glucose 115 mg/dL (80-110); HEMOLYSIS < 15 (0-50); Sodium 137 mmol/L (137-145)
[2023-03-17] MEDS: SODIUM CHLORIDE 0.9% FLUSH 10 ML IV (08:44)
[2023-03-17] MEDS: PANTOPRAZOLE 40 MG VIAL IV ×2 (08:44→20:58)
--- NOTE | 2023-03-17 10:03 | PC.NURSE ---
Pt to OR via w/c for EGD.
--- NOTE | 2023-03-17 10:28 | P.CONS_ITS ---
History of Present Illness Consult details Date Patient Seen: 03/17/23 Time Patient Seen: 10:28 Chief complaint: SOB Narrative: 82-year-old woman history of lung cancer and cardiovascular disease admitted to the hospital with a GI bleed. She takes Eliquis for history cardiac stents last dose yesterday. Complaint weakness and fatigue at admission hematocrit 21 was transfused 2 units of packed red blood cells. History of duodenal ulcer. Currently no abdominal pain nausea or emesis. Meds Home Medications and Allergies Home Medications Medication Instructions Recorded Confirmed Type atorvastatin 40 mg tablet (Lipitor) 80 mg PO DAILY ##0 04/22/12 03/16/23 History diltiazem HCl 180 mg capsule,24 240 mg PO DAILY 12/17/17 03/16/23 History hr,extended release doxepin 25 mg capsule 25 mg PO BID 12/17/17 03/16/23 History metformin 500 mg tablet,extended 500 mg PO TID 12/17/17 03/16/23 History release 24 hr metoprolol succinate 50 mg 50 mg PO BID 12/17/17 03/16/23 History tablet,extended release 24 hr apixaban 5 mg tablet (Eliquis) 5 mg PO BID 08/21/20 03/16/23 History allopurinol 100 mg tablet 100 mg PO DAILY 09/09/21 03/16/23 History fenofibrate 150 mg capsule 145 mg PO DAILY 03/13/22 03/16/23 History melatonin 10 mg tablet 20 mg PO DAILY 03/13/22 03/16/23 History acetaminophen 650 mg 650 mg PO BEDTIME 03/16/23 03/16/23 History tablet,extended release calcium carbonate 600 mg-vitamin 1 tab PO DAILY 03/16/23 03/16/23 History D3 10 mcg (400 unit) chewable tablet (Calcium 600 with Vitamin D3) citalopram 10 mg tablet 10 mg PO DAILY 03/16/23 03/16/23 History dulaglutide 1.5 mg/0.5 mL 1.5 mg SUBCUT WEEKLY 03/16/23 03/16/23 History subcutaneous pen injector (Trulicity) telmisartan 20 mg tablet 20 mg PO DAILY 03/16/23 03/16/23 History Allergies Allergy/AdvReac Type Severity Reaction Status Date / Time petrolatum,white Allergy Severe Difficulty Verified 03/16/23 17:24 [From A & D Barrier] Breathing venom-honey bee Allergy Severe HIVES Verified 03/16/23 17:24 [BEE VENOM (HONEY BEE)] adhesive [ADHESIVE] Allergy Intermediate REDNESS Verified 03/16/23 17:24 AND ITCHING OF SKIN WITH TAPE USE. Iodinated Contrast Media Allergy Intermediate RASH Verified 03/16/23 17:24 [IODINATED CONTRAST MEDIA - IV DYE] Penicillins [PENICILLINS] Allergy Intermediate SOB, Verified 03/16/23 17:24 ITCHING ALL TOPICAL OINTMENTS Allergy Severe RASH Uncoded 05/23/21 09:58 Exam Vital Signs (past 8 hours): - 03/17/23 04:00 03/17/23 08:00 03/17/23 10:14 Temperature 99.5 F 97.1 F L 97.1 F L Pulse Rate 112 H 113 H 114 H Respiratory Rate 22 17 26 H Blood Pressure 154/64 H 168/73 H 185/89 H Pulse Oximetry 93 95 97 Oxygen Delivery Method Nasal Cannula Oxygen Flow Rate 2 2 3 Oxygen Delivery Method Nasal Cannula Oxygen Flow Rate 3 Narrative Exam Narrative: General elderly woman alert oriented no acute distress Abdomen soft nontender nondistended Objective Labs 03/17/23 05:35 03/17/23 05:35 Labs: Laboratory Results - last 24 hr 03/16/23 03/16/23 03/16/23 17:45 17:55 18:08 WBC 5.4 RBC 2.32 L Hgb 6.8 L* Hct 20.9 L* MCV 90.1 MCH 29.4 MCHC 32.6 RDW 15.6 H Plt Count 386 Neut % (Auto) 71.7 Lymph % (Auto) 11.9 L [place] % (Auto) 9.2 Eos % (Auto) 5.8 H Baso % (Auto) 1.4 Neut # (Auto) 3900 Lymph # (Auto) 600 L [place] # (Auto) 500 Eos # (Auto) 300 Baso # (Auto) 100 PT 16.5 H INR 1.4 H Sodium 137 Potassium 4.1 Chloride 102 Carbon Dioxide 23 BUN 29 H Creatinine 1.48 H Estimated GFR 36 L BUN/Creatinine Ratio 19.6 Glucose 131 H Lactate 2.4 H Calcium 9.0 Total Bilirubin 0.1 L AST 27 ALT 21 Alkaline Phosphatase 34 L Troponin I < 0.012 NT-Pro-B Natriuret Pep 2720 H Total Protein 6.8 Albumin 4.0 Globulin 2.8 Albumin/Globulin Ratio 1.4 Chlamy pneumoniae PCR Not detected Adenovirus (PCR) Not detected B.parapertussis DNA PCR Not detected Coronavirus OC43 (PCR) Not detected Coronavirus HKU1 (PCR) Not detected Coronavirus 229E (PCR) Not detected SARS-CoV-2 (PCR) Not detected Coronavirus NL63 (PCR) Not detected Human Metapneumovir PCR Not detected Influenza Type A (PCR) Not detected Influenza Type B (PCR) Not detected M. pneumoniae (PCR) Not detected Parainfluenza 1 (PCR) Not detected Parainfluenza 2 (PCR) Not detected Parainfluenza 3 (PCR) Not detected Parainfluenza 4 (PCR) Not detected RSV (PCR) Not detected Entero/Rhino (PCR) Not detected Blood Type A Positive Antibody Screen Negative Crossmatch See Detail 03/16/23 03/17/23 20:30 05:35 WBC 6.9 RBC 3.29 L Hgb 9.5 L Hct 28.6 L MCV 87.1 D MCH 28.9 MCHC 33.2 RDW 16.5 H Plt Count 351 Neut % (Auto) 79.0 H Lymph % (Auto) 8.2 L [place] % (Auto) 8.6 Eos % (Auto) 2.9 Baso % (Auto) 1.3 Neut # (Auto) 5400 Lymph # (Auto) 600 L [place] # (Auto) 600 Eos # (Auto) 200 Baso # (Auto) 100 PT INR Sodium 137 Potassium 4.0 Chloride 105 Carbon Dioxide 23 BUN 19 H Creatinine 1.02 Estimated GFR 56 L BUN/Creatinine Ratio 18.6 Glucose 115 H Lactate 1.1 Calcium 9.0 Total Bilirubin AST ALT Alkaline Phosphatase Troponin I NT-Pro-B Natriuret Pep Total Protein Albumin Globulin Albumin/Globulin Ratio Chlamy pneumoniae PCR Adenovirus (PCR) B.parapertussis DNA PCR Coronavirus OC43 (PCR) Coronavirus HKU1 (PCR) Coronavirus 229E (PCR) SARS-CoV-2 (PCR) Coronavirus NL63 (PCR) Human Metapneumovir PCR Influenza Type A (PCR) Influenza Type B (PCR) M. pneumoniae (PCR) Parainfluenza 1 (PCR) Parainfluenza 2 (PCR) Parainfluenza 3 (PCR) Parainfluenza 4 (PCR) RSV (PCR) Entero/Rhino (PCR) Blood Type Antibody Screen Crossmatch [facility] Medical History Gout Chronic respiratory failure with hypoxia History of lymphoma Chronic atrial fibrillation Type 2 diabetes mellitus Hyperlipidemia Hypertension Radiation fibrosis of lung Contrast media allergy Lung cancer COPD exacerbation Family History Sister Cancer Mother CAD (coronary artery disease) Father Malaria Social History household members: spouse Tobacco & Substance Use Smoking Status: Former smoker alcohol intake: current Assessment & Plan Assessment and plan (1) GI bleed: Qualifiers: GI bleed type/associated pathology: melena Qualified Code(s): K92.1 - Melena Status: Acute Assessment & Plan narrative: 82-year-old woman on Eliquis with a history of duodenal ulcers admitted with a GI bleed, likely upper hemodynamically stable. Discussed recommendations to proceed with esophagoduodenoscopy for diagnosis and potential treatment. Overview of the procedure was discussed. Procedural risks including hemorrhage, esophageal injury discussed. Questions have been answered and she is in agreement with this plan. She provides her written and verbal consent to proceed
--- NOTE | 2023-03-17 11:05 | P.OP.EGD_ITS ---
Operative Date/Time/Diagnoses Date of procedure: 03/17/23 Time of procedure: 11:05 Pre-op diagnosis: GI bleed Post-op diagnosis: other (Gastritis/duodenitis) Procedure & Clinicians Study performed: Esophagoduodenoscopy Same procedure as scheduled: Yes Indications: 82-year-old woman history of lung cancer and cardiac disease admitted to the [facility] with a GI bleed likely upper hemodynamically stable. Surgeon: Nathan Barnett Procedure Notes Procedure in detail: The history and physical was performed/updated and the patient is ASA class is 3. The procedure was discussed in detail with the patient. Potential risks complications including infection, bleeding, missed diagnosis, perforation, need for surgery, and were explained. Their questions were answered and informed consent was obtained. Patient placed in left lateral decubitus position. Time out was performed. Procedural sedation was administered by Anesthesia. A bite block was placed. the scope was inserted into the mouth and advanced through the esophagus and into the stomach. The stomach was notable for diffuse gastritis, mild. Biopsy of the stomach was performed. The pylorus was intubated and the duodenum was notable for duodenitis no distinct ulcer. Biopsies of the duodenum were performed with forceps. The scope was then pulled back into the stomach and then the stomach was suctioned. The scope was withdrawn into the esophagus the Z line was seen at 35 cm from the incisions. There was no Flores's esophagitis, esophageal masses or strictures. Stomach was desufflated and scope removed. The patient tolerated the procedure well and will be discharged when they meet criteria. Specimen(s): other (Gastric, duodenum) Impression: Gastritis/duodenitis Post-procedure Plan for aftercare: Diet as tolerated. PPI Hold Eliquis Disposition: Acute Care
[2023-03-17] MEDS: ATORVASTATIN 20 MG TABLET 80 MG PO (12:14)
[2023-03-17] MEDS: CITALOPRAM 10 MG TABLET PO (12:15)
[2023-03-17] MEDS: METOPROLOL ER 50 MG TABLET PO ×2 (12:15→20:58)
[2023-03-17] MEDS: allopurinoL 100 MG TABLET PO (12:15)
--- NOTE | 2023-03-17 13:08 | CM.DANOTE ---
Addendum entered by RA Husain 03/17/23 13:15: ADD: SW did confirm that pt still sees Dr. Morillo for Oncology for her baseline lymphoma and has an upcoming appointment with him to review to results of her recent CT scan. BF Original Note: Patient is an 82 yo female who was admitted on 03/16/23 for SOB. Pt has [employer] and [employer] for insurance and her PCP is Dr. Kenia Lam at [facility]. EMR was reviewed. Per MD, pt with hx of AFIB and admitted for increased weakness and SOB due to severe anemia and possible GI bleed. Pt currently NPO for EGD today at 1500. SW met bedside with pt and explained role and she confirms she still lives with her spouse in [place] and both are active and drive and pt does not typically use DME for ambulation but does have a walker if needed. Pt has home oxygen at baseline and a portable tank with her. Pt states her spouse is her DPOA. Both have had some health issues this year as pt was admitted in October 2022 this year for uncontrolled AFIB and her spouse was recently admitted for A-Flutter. Both are mobile and ambulatory but just slow moving. Pt denies any hx of HH or SNF. Pt states she plans to set up Meals on Wheels through the [employer] and requested info from [facility]. Per RN, pt was taken down to EGD earlier than scheduled and EGD showed mild gastritis but no active bleed and no current need for colonoscopy. Plan is to monitor H&H and then likely d/c home tomorrow if stable. SW met bedside again with pt and provided the Meals on Wheels information and she confirms she feels much better post EGD and being able to eat and feels her strength is back and declines any need for HH at d/c and plans transport herself home as her car is in the parking lot from driving herself to the ED. Pt does not anticipate any further needs at d/c. Plan: SW to follow for plan of d/c to home tomorrow via own POV if medically stable and any further identified discharge planning needs. RA Husain Discharge Planning/Care Management CM Discharge Assessment Start: 03/17/23 13:06 Freq: Status: Active Protocol: Document 03/17/23 13:06 BF (Rec: 03/17/23 13:08 BF [id number]) Discharge Planning Assessment Assigned Bilingual Research Interviewer RA Nolan DPOA/Assigned Designee Name spouse Bob Contact Information [phone] Advance Directives? Yes: Advance Directive Advance Directives on File Yes History Provided By Patient,Medical Record Has Patient been admitted in last 30 No days? Comment States last admit was in October 2022 this year for AFIB Prior Living Arrangements House Household Members spouse Type of transporation used prior to Drives own vehicle admit Independent with ADL's Yes Is patient alert and oriented? Yes Caregiver for Another No Community Services used prior to Oxygen Therapy admission: DME Already Rented / Owned FWW / Walker Barriers to Discharge No Discharge Plan Home Community Services Oxygen Therapy Transportation Arrangement Has own vehicle in the parking lot Referrals Initiated None needed Whiteboard Updated in Patient Room with Yes name and ext. # of Bilingual Research Interviewer Review Status In Process Please Provide Date Initial DC 03/17/23 Assessment Was Performed Next Review Type Continued Stay Review
--- NOTE | 2023-03-17 15:17 | P.PN_ITS ---
Subjective Subjective Interval history: EGD this morning negative for bleeding. Gastritis and duodenitis present. Hgb improved to 9.5 from 6.8. Said she had a small BM with blood in it. Exam Vital Signs (past 8 hours): - 03/17/23 08:00 03/17/23 10:14 03/17/23 11:02 Temperature 97.1 F L 97.1 F L 97.8 F Pulse Rate 113 H 114 H 106 H Respiratory Rate 17 26 H 24 Blood Pressure 168/73 H 185/89 H 179/75 H Pulse Oximetry 95 97 99 Oxygen Delivery Method Nasal Cannula Simple Mask Oxygen Flow Rate 2 3 4 03/17/23 11:07 03/17/23 11:12 03/17/23 11:18 Temperature Pulse Rate 107 H 106 H 106 H Respiratory Rate 24 14 25 H Blood Pressure 161/82 H 163/72 H 163/77 H Pulse Oximetry 96 95 96 Oxygen Delivery Method Nasal Cannula Nasal Cannula Nasal Cannula Oxygen Flow Rate 3 3 3 03/17/23 11:30 03/17/23 12:00 03/17/23 12:15 Temperature 97.8 F 97.0 F L Pulse Rate 108 H 107 H Respiratory Rate 17 16 Blood Pressure 180/76 H 158/75 H 180/76 H Pulse Oximetry 97 95 Oxygen Delivery Method Oxygen Flow Rate 2 2 03/17/23 12:30 03/17/23 13:28 Temperature 97.0 F L 97 F L Pulse Rate 112 H 109 H Respiratory Rate 16 16 Blood Pressure 151/85 H 147/60 H Pulse Oximetry 95 96 Oxygen Delivery Method Oxygen Flow Rate 0 2 Oxygen Delivery Method Nasal Cannula Oxygen Flow Rate 2 Const Other: Laying in bed in no distress [facility] Other: NC with 2L O2 Eyes Other: reactive pupils, eomi Resp Other: decreased breath sounds on right Cardio Other: irregular, HEDY Extrem Other: w/o significant swelling Psych Other: lucid Objective Labs 03/17/23 05:35 03/17/23 05:35 Labs: Laboratory Results - last 24 hr 03/16/23 03/16/23 03/16/23 17:45 17:55 18:08 WBC 5.4 RBC 2.32 L Hgb 6.8 L* Hct 20.9 L* MCV 90.1 MCH 29.4 MCHC 32.6 RDW 15.6 H Plt Count 386 Neut % (Auto) 71.7 Lymph % (Auto) 11.9 L [place] % (Auto) 9.2 Eos % (Auto) 5.8 H Baso % (Auto) 1.4 Neut # (Auto) 3900 Lymph # (Auto) 600 L [place] # (Auto) 500 Eos # (Auto) 300 Baso # (Auto) 100 PT 16.5 H INR 1.4 H Sodium 137 Potassium 4.1 Chloride 102 Carbon Dioxide 23 BUN 29 H Creatinine 1.48 H Estimated GFR 36 L BUN/Creatinine Ratio 19.6 Glucose 131 H Lactate 2.4 H Calcium 9.0 Total Bilirubin 0.1 L AST 27 ALT 21 Alkaline Phosphatase 34 L Troponin I < 0.012 NT-Pro-B Natriuret Pep 2720 H Total Protein 6.8 Albumin 4.0 Globulin 2.8 Albumin/Globulin Ratio 1.4 Chlamy pneumoniae PCR Not detected Adenovirus (PCR) Not detected B.parapertussis DNA PCR Not detected Coronavirus OC43 (PCR) Not detected Coronavirus HKU1 (PCR) Not detected Coronavirus 229E (PCR) Not detected SARS-CoV-2 (PCR) Not detected Coronavirus NL63 (PCR) Not detected Human Metapneumovir PCR Not detected Influenza Type A (PCR) Not detected Influenza Type B (PCR) Not detected M. pneumoniae (PCR) Not detected Parainfluenza 1 (PCR) Not detected Parainfluenza 2 (PCR) Not detected Parainfluenza 3 (PCR) Not detected Parainfluenza 4 (PCR) Not detected RSV (PCR) Not detected Entero/Rhino (PCR) Not detected Blood Type A Positive Antibody Screen Negative Crossmatch See Detail 03/16/23 03/17/23 20:30 05:35 WBC 6.9 RBC 3.29 L Hgb 9.5 L Hct 28.6 L MCV 87.1 D MCH 28.9 MCHC 33.2 RDW 16.5 H Plt Count 351 Neut % (Auto) 79.0 H Lymph % (Auto) 8.2 L [place] % (Auto) 8.6 Eos % (Auto) 2.9 Baso % (Auto) 1.3 Neut # (Auto) 5400 Lymph # (Auto) 600 L [place] # (Auto) 600 Eos # (Auto) 200 Baso # (Auto) 100 PT INR Sodium 137 Potassium 4.0 Chloride 105 Carbon Dioxide 23 BUN 19 H Creatinine 1.02 Estimated GFR 56 L BUN/Creatinine Ratio 18.6 Glucose 115 H Lactate 1.1 Calcium 9.0 Total Bilirubin AST ALT Alkaline Phosphatase Troponin I NT-Pro-B Natriuret Pep Total Protein Albumin Globulin Albumin/Globulin Ratio Chlamy pneumoniae PCR Adenovirus (PCR) B.parapertussis DNA PCR Coronavirus OC43 (PCR) Coronavirus HKU1 (PCR) Coronavirus 229E (PCR) SARS-CoV-2 (PCR) Coronavirus NL63 (PCR) Human Metapneumovir PCR Influenza Type A (PCR) Influenza Type B (PCR) M. pneumoniae (PCR) Parainfluenza 1 (PCR) Parainfluenza 2 (PCR) Parainfluenza 3 (PCR) Parainfluenza 4 (PCR) RSV (PCR) Entero/Rhino (PCR) Blood Type Antibody Screen Crossmatch [facility] Medical History Gout Chronic respiratory failure with hypoxia History of lymphoma Chronic atrial fibrillation Type 2 diabetes mellitus Hyperlipidemia Hypertension Radiation fibrosis of lung Contrast media allergy Lung cancer COPD exacerbation Family History Sister Cancer Mother CAD (coronary artery disease) Father Malaria Social History household members: spouse Smoking Status: Former smoker alcohol intake: current Assessment & Plan Assessment and plan (1) Acute post-hemorrhagic anemia: Status: Acute Plan: Likely GI bleed EGD without source of bleed PPI IV, PRBCs 2u given, serial CBCs patient would prefer to defer colonoscopy and watch if Hgb drops with eliquis on hold (2) GI bleed: Qualifiers: GI bleed type/associated pathology: melena Qualified Code(s): K92.1 - Melena Status: Acute Plan: As above, if EGD non-revealing - colonoscopy Home Eliquis on hold (3) Chronic atrial fibrillation: Status: Acute Plan: Rate controlled with BB, CCB at home Eliquis on hold, will likely stop and switch to baby aspirin after discussion with patient. 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 Metoprolol iv, Cardiazem iv for rate control, telemetry (4) Type 2 diabetes mellitus: Status: Acute Plan: SSI At home on metformin and Trulicity (5) Hypertension: Status: Acute Plan: On metoprolol and diltiazem at home, continue (6) History of lung cancer: Status: Acute Plan: SCC, currently under oncology surveillance, recent CT chest w/o evidence of recurrence (7) Depression: Status: Acute Plan: continue citalopram and doxepin (8) Mixed hyperlipidemia: Status: Acute Plan: statin, fenofibrate (9) Gout: Status: Acute Plan: home allopurinol (10) PAD (peripheral artery disease): Status: Acute Plan: both legs, w/o claudication - on high-intensity statin and Eliquis (hence not on ASA / Plavix) She also has severe carotid stenosis, b/l, Rt > Lt - with treatment as above. Hopefully EGD/Colonoscopy will be diagnostic and possibly therapeutic as she will need to be either anticoagulated or on antiplatelet for both PVD and A-fib. Quality VTE Deep Vein Thrombosis/Pulmonary Embolism Present on Admission: No
[2023-03-17] MEDS: MELATONIN 3 MG TABLET 18 MG PO (20:57)
[2023-03-18] VITALS: BP 129/68; PULSE 90; RESP 16; TEMP 36.3; O2SAT 93
[2023-03-18 00:39] VITALS: BP 129/68; PULSE 90
[2023-03-18 04:00] VITALS: BP 146/83; PULSE 104; RESP 19; TEMP 36.8; O2SAT 96
[2023-03-18 06:25] LABS: Add Manual Diff / Slide Review NO; Basophils Absolute Auto 100 /uL (0-100); Basophils Percent Auto 1.1 % (0-2); Eosinophils Absolute Auto 600 /uL (0-450); Eosinophils Percent Auto 11.1 % (2-4); Hematocrit 28.4 % (36-46); Hemoglobin 9.4 g/dL (12.0-16.0); Lymphocytes Absolute Auto 500 /uL (1100-4500); Lymphocytes Percent Auto 9.6 % (25-40); Mean Corpuscular HGB Conc 33.1 % (30-36); Mean Corpuscular Hemoglobin 28.9 PG (26-34); Mean Corpuscular Volume 87.1 fL (80-100); Monocytes Absolute Auto 600 /uL (0-900); Monocytes Percent Auto 10.4 % (3-14); Neutrophils Absolute Auto 3800 /uL (1500-7000); Neutrophils Percent Auto 67.8 % (50-75); Platelet Count 322 X10^3/uL (150-400); Red Blood Cell Count 3.26 X10^6/uL (4.0-5.2); Red Cell Distribution Width 16.7 % (11.6-14.8); White Blood Cell Count 5.7 X10^3/uL (4.5-11.0)
[2023-03-18 06:41] LABS: BUN Creatinine Ratio 21.2 (6-22); Blood Urea Nitrogen 25 mg/dL (7-17); Calcium 9.1 mg/dL (8.4-10.2); Carbon Dioxide 27 mmol/L (22-32); Chloride 103 mmol/L (98-107); Estimated Glomerular Filt Rate 47 mL/min (>60); Glucose 97 mg/dL (80-110); HEMOLYSIS < 15 (0-50); Potassium 4.5 mmol/L (3.4-5.1); Sodium 137 mmol/L (137-145)
[2023-03-18 07:16] VITALS: PULSE 80; O2SAT 98
[2023-03-18 07:59] VITALS: BP 142/64; PULSE 82; RESP 19; TEMP 36.3; O2SAT 97
[2023-03-18] MEDS: ASPIRIN EC 81 MG TABLET PO (09:17)
[2023-03-18] MEDS: FENOFIBRATE, MICRONIZED 67 MG CAPSULE 134 MG PO (09:17)
[2023-03-18] MEDS: dilTIAZem CD 120 MG CAP 240 MG PO (09:17)
[2023-03-18] MEDS: PANTOPRAZOLE 40 MG VIAL IV (09:17)
[2023-03-18] MEDS: METOPROLOL ER 50 MG TABLET PO (09:17)
[2023-03-18] MEDS: ATORVASTATIN 20 MG TABLET 80 MG PO (09:17)
[2023-03-18] MEDS: allopurinoL 100 MG TABLET PO (09:17)
[2023-03-18] MEDS: CITALOPRAM 10 MG TABLET PO (09:18)
[2023-03-18] MEDS: LOSARTAN 25 MG TABLET PO (09:18)
[2023-03-18 11:00] VITALS: BP 134/61; PULSE 89; RESP 18; TEMP 36.2; O2SAT 96
--- NOTE | 2023-03-18 12:15 | P.DS_ITS ---
History of Present Illness History of Present Illness Date Patient Seen: 03/16/23 Chief complaint: SOB Narrative: 82 y/o, presented to ED with complaints on worsening shortness of breath, generalized weakness, over the last month or so, getting more serious 4-5 days ago. Initial workup showing severe anemia, likely GI bleed as she initially reported dark stool and to me she said that she saw blood. She was not sure if it was dark or bright red blood. All that in the last several days. She does not have heartburn, nausea, epigastric pain. Discharge Providers Provider Date of admission: 03/16/23 19:36 Discharge Date: 03/18/23 Primary care physician: Kenia Lam MD Consults: 03/17/23 07:24 Consult to General Surgery Routine Comment: Consulting Provider: Simone Hugo Reason for consultation: GIB Has provider been notified: Yes Discharge provider: Boo Judd DO Summary Hospital Course Discharge Diagnosis: (1) Acute post-hemorrhagic anemia: Status: Acute Plan: Likely GI bleed EGD without source of bleed PPI IV, PRBCs 2u given, serial CBCs patient would prefer to defer colonoscopy and watch if Hgb drops with eliquis on hold Spoke with cards who recommended only aspirin daily until outpatient GI workup. Ok to stop eliquis for now. (2) Melena Qualifier Status: Acute Plan: As above, EGD non-revealing - colonoscopy defered Home Eliquis on hold (3) Chronic atrial fibrillation: Status: Acute Plan: Rate controlled with BB, CCB at home Eliquis on hold, will likely stop and switch to baby aspirin after discussion with patient. Hoof And Shoe Inspector ok with this after discussion. Metoprolol iv, Cardiazem iv for rate control, telemetry (4) Type 2 diabetes mellitus: Status: Acute Plan: SSI At home on metformin and Trulicity (5) Hypertension: Status: Acute Plan: On metoprolol and diltiazem at home, continue (6) History of lung cancer: Status: Acute Plan: SCC, currently under oncology surveillance, recent CT chest w/o evidence of recurrence (7) Depression: Status: Acute Plan: continue citalopram and doxepin (8) Mixed hyperlipidemia: Status: Acute Plan: statin, fenofibrate (9) Gout: Status: Acute Plan: home allopurinol (10) PAD (peripheral artery disease): Status: Acute Plan: both legs, w/o claudication - on high-intensity statin and Eliquis (hence not on ASA / Plavix) She also has severe carotid stenosis, b/l, Rt > Lt - with treatment as above. Hospital Course: Admitted for melena on eliquis with anemia. This was held and 2 units of PRBC given. Hgb stabilized. Had negative EGD. Patient preferred to stop eliquis and defer colonoscopy. Spoke with pressure steamer tender who was ok with holding eliquis and taking just aspirin until outpatient GI workup could be completed. Exam Vital Signs (past 8 hours): - 03/18/23 07:16 03/18/23 07:59 03/18/23 09:17 Temperature 97.4 F L Pulse Rate 80 82 Respiratory Rate 19 Blood Pressure 142/64 H Pulse Oximetry 98 97 Oxygen Delivery Method Nasal Cannula Nasal Cannula Oxygen Flow Rate 2 1 Fraction of Inspired Oxygen 28 03/18/23 11:00 Temperature 97.2 F L Pulse Rate 89 Respiratory Rate 18 Blood Pressure 134/61 Pulse Oximetry 96 Oxygen Delivery Method Oxygen Flow Rate 1 Fraction of Inspired Oxygen Fraction of Inspired Oxygen 28 SaO2/FiO2 Ratio 350 Oxygen Delivery Method Nasal Cannula Oxygen Flow Rate 1 Const Other: Laying in bed in no distress [facility] Other: NC with 2L O2 Eyes Other: reactive pupils, eomi Resp Other: decreased breath sounds on right Cardio Other: irregular, HEDY Extrem Other: w/o significant swelling Psych Other: lucid Objective Labs 03/18/23 06:14 03/18/23 06:14 Labs: Laboratory Results - last 24 hr 03/18/23 06:14 WBC 5.7 RBC 3.26 L Hgb 9.4 L Hct 28.4 L MCV 87.1 MCH 28.9 MCHC 33.1 RDW 16.7 H Plt Count 322 Neut % (Auto) 67.8 Lymph % (Auto) 9.6 L [place] % (Auto) 10.4 Eos % (Auto) 11.1 H Baso % (Auto) 1.1 Neut # (Auto) 3800 Lymph # (Auto) 500 L [place] # (Auto) 600 Eos # (Auto) 600 H Baso # (Auto) 100 Sodium 137 Potassium 4.5 Chloride 103 Carbon Dioxide 27 BUN 25 H Creatinine 1.18 H Estimated GFR 47 L BUN/Creatinine Ratio 21.2 Glucose 97 Calcium 9.1 PFSH Medical History Gout Chronic respiratory failure with hypoxia History of lymphoma Chronic atrial fibrillation Type 2 diabetes mellitus Hyperlipidemia Hypertension Radiation fibrosis of lung Contrast media allergy Lung cancer COPD exacerbation Family History Sister Cancer Mother CAD (coronary artery disease) Father Malaria Social History household members: spouse Smoking Status: Former smoker alcohol intake: current Discharge Plan Discharge Plan Patient Disposition: Home Provider Discharge Comment: We have stopped your eliquis due to likely blood loss in your stool. I've switched you to daily aspirin instead. Discharge orders & Medications Prescriptions: New aspirin 81 mg Tablet,Delayed Release (Dr/Ec) 81 mg PO DAILY Qty: 30 0RF Continued atorvastatin [Lipitor] 40 MG tablet 80 mg PO DAILY Qty: 0 diltiazem HCl 180 mg Capsule,Extended Release 24 Hr 240 mg PO DAILY metformin 500 mg Tablet Extended Release 24 Hr 500 mg PO TID metoprolol succinate 50 mg Tablet Extended Release 24 Hr 50 mg PO BID doxepin 25 mg Capsule 25 mg PO BID allopurinol 100 mg Tablet 100 mg PO DAILY fenofibrate 150 mg Capsule 145 mg PO DAILY melatonin 10 mg Tablet 20 mg PO DAILY citalopram 10 mg tablet 10 mg PO DAILY acetaminophen 650 mg Tablet Extended Release 650 mg PO BEDTIME telmisartan 20 mg tablet 20 mg PO DAILY Calcium 600 with Vitamin D3 600 mg-10 mcg (400 unit) Tablet,Chewable 1 tab PO DAILY Trulicity 1.5 mg/0.5 mL pen injector 1.5 mg SUBCUT WEEKLY Rx Instructions: on fridays Discontinued Eliquis 5 mg Tablet 5 mg PO BID Follow up/Referrals: Kenia Lam MD [Primary Care Provider] - 03/23/23 4:30 pm (Appt:03/23 @ 4:[address] Lam please bring photo id,insurance card if you need to cancel please give 24 hr notice ) Visit Report/Discharge Packet Instructions: DI for Gastritis, Gastrointestinal Bleeding Stand Alone Forms: Patient Portal/API, Stroke Signs & Symptoms, EGD Result: [facility] Surg Discharge Data Primary Care Provider: Young,Kenia Y Quality VTE Deep Vein Thrombosis/Pulmonary Embolism Present on Admission: No
== END 2023-03-18 12:40 | disposition home or self-care (01) | DRG 377 ==
LOC: ED 19:36 → AC 19:37
PROVIDERS: Emergency Medicine; Student in an Organized Health Care Education/Training Program; Surgery; Admitting Provider Internal Medicine; Emergency Provider Emergency Medicine; PCP Internal Medicine; Referring Provider Emergency Medicine; Visit Provider Internal Medicine
PROC: 0DJ08ZZ Inspection of Upper Intestinal Tract, Via Natural or Artificial Opening Endoscopic (ICD-10-PCS; CPT 43235; principal; 2023-03-17 15:00)
DX: K92.2 Gastrointestinal hemorrhage, unspecified (principal); J96.21 Acute and chronic respiratory failure with hypoxia; D62 Acute posthemorrhagic anemia; I48.20 Chronic atrial fibrillation, unspecified; E11.9 Type 2 diabetes mellitus without complications; I10 Essential (primary) hypertension; F32.A Depression, unspecified; E78.2 Mixed hyperlipidemia; M10.9 Gout, unspecified; I73.9 Peripheral vascular disease, unspecified; Z87.891 Personal history of nicotine dependence; Z79.85 Long-term (current) use of injectable non-insulin antidiabetic drugs; Z79.01 Long term (current) use of anticoagulants; Z79.84 Long term (current) use of oral hypoglycemic drugs; Z85.118 Personal history of other malignant neoplasm of bronchus and lung
CPT/HCPCS: 36415; 36430; 43239; 71045; 80048; 80053; 82962; 83605; 83880; 84484; 85025; 85610; 86850; 86900; 86901; 87633; 93005; 94762; 99232; 99285; 99291; P9016; C9113; J2704; J7121

== ENCOUNTER → 2023-03-24 13:23 | Outpatient (CLI) | payer MEDICARE, OTHER, SELFPAY ==
[2023-03-16 19:51] VITALS: BMI 27.6
--- NOTE | 2023-03-24 | DI.RAD.S_ITS ---
PROCEDURE: XR CHEST 2V INDICATIONS: SOB TECHNIQUE: 2 views of the chest were acquired. COMPARISON: [facility], CR, XR CHEST 1V, 03/16/2023, 17:30. FINDINGS: Surgical changes and devices: Right shoulder arthroplasty unchanged Lungs and pleura: Mid right lung pleural-parenchymal density remains unchanged. There is blunting of both costophrenic angles. Remainder the left lung is clear. Underlying chronic interstitial changes Mediastinum: Mediastinal contours are normal. Heart size is normal. Atherosclerotic vascular calcification noted in the aortic arch. Bones and chest wall: No suspicious bony abnormalities. Soft tissues appear unremarkable. IMPRESSION: Stable right midlung pleural and parenchymal density Small bibasilar pleural effusions with atelectasis. Approved by: Jose Juarez M.D. on 03/24/2023 at 18:57
== END ==
PROVIDERS: PCP Internal Medicine; Referring Provider Physician Assistant; Visit Provider Physician Assistant
DX: J96.11 Chronic respiratory failure with hypoxia (principal); J90 Pleural effusion, not elsewhere classified; J98.11 Atelectasis
CPT/HCPCS: 71046

== ENCOUNTER → 2023-06-02 11:07 | Outpatient (CLI) | payer MEDICARE, OTHER, SELFPAY ==
[2023-03-16 19:51] VITALS: BMI 27.6
[2023-06-02 12:05] LABS: Add Manual Diff / Slide Review NO; Basophils Absolute Auto 100 /uL (0-100); Basophils Percent Auto 1.4 % (0-2); Eosinophils Absolute Auto 300 /uL (0-450); Eosinophils Percent Auto 4.7 % (2-4); Hematocrit 36.9 % (36-46); Hemoglobin 12.1 g/dL (12.0-16.0); Lymphocytes Absolute Auto 800 /uL (1100-4500); Lymphocytes Percent Auto 13.4 % (25-40); Mean Corpuscular HGB Conc 32.7 % (30-36); Mean Corpuscular Hemoglobin 29.1 PG (26-34); Mean Corpuscular Volume 89.2 fL (80-100); Monocytes Absolute Auto 400 /uL (0-900); Monocytes Percent Auto 7.2 % (3-14); Neutrophils Absolute Auto 4300 /uL (1500-7000); Neutrophils Percent Auto 73.3 % (50-75); Platelet Count 233 X10^3/uL (150-400); Red Blood Cell Count 4.14 X10^6/uL (4.0-5.2); Red Cell Distribution Width 20.9 % (11.6-14.8); White Blood Cell Count 5.8 X10^3/uL (4.5-11.0)
[2023-06-02 12:11] LABS: Alanine Aminotransferase 27 IU/L (<35); Albumin 4.6 g/dL (3.5-5.0); Albumin Globulin Ratio 1.3 (1.0-2.8); Alkaline Phosphatase 51 U/L (38-126); Aspartate Aminotransferase 39 IU/L (14-36); Bilirubin Total 0.8 mg/dL (0.2-1.3); Blood Urea Nitrogen 33 mg/dL (7-17); Calcium 10.1 mg/dL (8.4-10.2); Carbon Dioxide 31 mmol/L (22-32); Chloride 97 mmol/L (98-107); Cholesterol 190 mg/dL (140-199); Estimated Glomerular Filt Rate 55 mL/min (>60); Globulin 3.5 g/dL (1.7-4.1); Glucose 89 mg/dL (80-110); HDL Cholesterol 46 mg/dL (40-60); HEMOLYSIS 31 (0-50); LDL Cholesterol Calculated 99 mg/dL (<100); Potassium 4.2 mmol/L (3.4-5.1); Sodium 138 mmol/L (137-145); Total Protein 8.1 g/dL (6.3-8.2); Triglycerides 227 mg/dL (35-150)
[2023-06-02 12:28] LABS: Hemoglobin A1C% w Est Avg Glu 5.5 % (4.0-6.0)
[2023-06-02 12:30] LABS: Anisocytosis 1+
[2023-06-02 12:40] LABS: Reticulocyte Count, Percent 0.6 % (1.1-2.6)
[2023-06-02 13:15] LABS: Folate > 20.0 ng/mL (2.76-20.0); Vitamin B12 841 pg/mL (239-931)
[2023-06-02 15:18] LABS: Creatinine Urine Random 29.9 mg/dL
[2023-06-02 15:26] LABS: Microalbumi Creatinin Ratio Ur 53.5 ug/mg CR (<30); Microalbumin Urine Random 1.6 mg/dL (0-1.6)
== END ==
PROVIDERS: PCP Family Medicine; Referring Provider Registered Nurse; Visit Provider Registered Nurse
DX: E11.22 Type 2 diabetes mellitus with diabetic chronic kidney disease (principal); N18.32 Chronic kidney disease, stage 3b; D64.9 Anemia, unspecified
CPT/HCPCS: 36415; 80053; 80061; 82043; 82570; 82607; 82746; 83036; 85025; 85045

== ENCOUNTER → 2023-06-14 10:48 | Outpatient (CLI) | payer MEDICARE, OTHER, SELFPAY ==
[2023-03-16 19:51] VITALS: BMI 27.6
--- NOTE | 2023-06-14 | DI.MRI.S_ITS ---
PROCEDURE: MR ABDOMEN LIVER PROTOCOL INDICATIONS: LIVER MASSES. [id number] lung cancer. Liver lesions on PET-CT. TECHNIQUE: Coronal HASTE, axial 2D FLASH in- and [id number]; axial breath-hold T2 FSE. Dynamic axial VIBE during the administration of contrast; post-contrast coronal VIBE or 2D FLASH with fat saturation from the hepatic dome to the iliac crests. Optional diffusion weighted imaging and ADC may be performed. COMPARISON: [place], [place], PET NECK TO MID THIGH, 06/12/2023, 9:35. FINDINGS: Image quality: Diagnostic. Lung bases: Partially visualized right middle lobe and right lower lobar lesions. Liver: Vascular shunt in segment 8, without filling defect within the portal vein supplying this region. Approximately 11 liver lesions which demonstrate T2 intermediate, T1 hypointense signal with rim enhancement. These are best visualized on the diffusion-weighted sequences (series 13). These have a bilateral distribution. Index lesions as follows: -2.3 centimeter segment 6 lesion (series 6, image 37). -2.5 centimeter segment 3 lesion (series 6, image 45). Gallbladder: No gallstones or wall thickening. Gallbladder sludge. Biliary ducts: No biliary dilation. Pancreas: No ductal dilation. Spleen: Size is within normal limits. Adrenal Glands: No adrenal nodules. Kidneys and Ureters: No hydronephrosis. No solid mass. No complex renal cystic lesion which requires follow up. Stomach and Bowel: Normal colonic caliber, without significant wall thickening. Peritoneum: No abnormal intraperitoneal fluid. No free air. Ventral Wall: No hernia. Abdominal Nodes: No retroperitoneal or mesenteric adenopathy by size criteria. Vessels: Aorta and inferior vena cava are normal in size. Bones: No aggressive osseous abnormality. IMPRESSION: Approximately 11 liver metastases, which are bilateral in distribution. Partially visualized right lung base mass. Dictated by: José Miguel Kemp M.D. on 06/15/2023 at 8:41 Approved by: José Miguel Kemp M.D. on 06/15/2023 at 8:47
== END ==
PROVIDERS: PCP Family Medicine; Referring Provider Family Medicine; Visit Provider Family Medicine
DX: C78.7 Secondary malignant neoplasm of liver and intrahepatic bile duct (principal); C80.1 Malignant (primary) neoplasm, unspecified; R91.8 Other nonspecific abnormal finding of lung field
CPT/HCPCS: 74183; A9579

== ENCOUNTER → 2023-06-16 08:15 | Day surgery (SDC) | payer MEDICARE, OTHER, SELFPAY ==
[2023-03-16 19:51] VITALS: BMI 27.6
[2023-06-16 09:04] VITALS: BMI 24.4
[2023-06-16 09:18] VITALS: BP 161/74; PULSE 98; RESP 16; TEMP 35.7; O2SAT 94
--- NOTE | 2023-06-16 09:20 | P.HP_ITS ---
History of Present Illness History of Present Illness Date Patient Seen: 06/16/23 Time Patient Seen: 09:20 Chief complaint: Colonoscopy Narrative: 83-year-old woman here for diagnostic colonoscopy. Recently admitted to the hospital for management of a GI bleed was found to have duodenitis no active ulcer. Last colonoscopy. No family history of intestinal malignancy. [facility] Medical History Gout Chronic respiratory failure with hypoxia History of lymphoma Chronic atrial fibrillation Type 2 diabetes mellitus Hyperlipidemia Hypertension Radiation fibrosis of lung Contrast media allergy Lung cancer COPD exacerbation Family History Sister Cancer Mother CAD (coronary artery disease) Father Malaria Social History household members: spouse Smoking Status: Former smoker alcohol intake: current Meds Home Medications and Allergies Home Medications Medication Instructions Recorded Confirmed Type atorvastatin 40 mg tablet (Lipitor) 80 mg PO DAILY ##0 04/22/12 06/16/23 History doxepin 25 mg capsule 25 mg PO BID 12/17/17 06/16/23 History metoprolol succinate 50 mg 50 mg PO BID 12/17/17 06/16/23 History tablet,extended release 24 hr allopurinol 100 mg tablet 100 mg PO DAILY 09/09/21 06/16/23 History melatonin 10 mg tablet 20 mg PO DAILY 03/13/22 06/16/23 History acetaminophen 650 mg 650 mg PO BEDTIME 03/16/23 06/16/23 History tablet,extended release calcium carbonate 600 mg-vitamin 1 tab PO DAILY 03/16/23 06/16/23 History D3 10 mcg (400 unit) chewable tablet (Calcium 600 with Vitamin D3) citalopram 10 mg tablet 10 mg PO DAILY 03/16/23 06/16/23 History dulaglutide 1.5 mg/0.5 mL 1.5 mg SUBCUT WEEKLY 03/16/23 06/16/23 History subcutaneous pen injector (Trulicity) aspirin 81 mg tablet,delayed 81 mg PO DAILY #30 tabs 03/18/23 06/16/23 Rx release blood sugar diagnostic (FreeStyle #10 ea 05/25/23 05/25/23 History Lite Strips) blood-glucose meter (FreeStyle #1 ea 05/25/23 05/25/23 History Lite Meter kit) ferrous sulfate 325 mg (65 mg 325 mg PO DAILY 05/25/23 06/16/23 History iron) tablet (FeroSul) furosemide 20 mg tablet 20 mg PO DAILY 05/25/23 06/16/23 History lancets 28 gauge (FreeStyle #100 ea 05/25/23 05/25/23 History Lancets) metformin 500 mg tablet 500 mg PO 3XD 05/25/23 06/16/23 History pantoprazole 40 mg tablet,delayed 40 mg PO DAILY 05/25/23 06/16/23 History release sodium,potassium,mag sulfates 17.5 See Rx Instructions PO .COMPLEX 06/09/23 06/16/23 Rx gram-3.13 gram-1.6 gram oral soln #354 mL (Suprep Bowel Prep Kit) Allergies Allergy/AdvReac Type Severity Reaction Status Date / Time petrolatum,white Allergy Severe Difficulty Verified 06/16/23 08:58 [From A & D Barrier] Breathing venom-honey bee Allergy Severe HIVES Verified 06/16/23 08:58 [BEE VENOM (HONEY BEE)] adhesive [ADHESIVE] Allergy Intermediate REDNESS Verified 06/16/23 08:58 AND ITCHING OF SKIN WITH TAPE USE. Iodinated Contrast Media Allergy Intermediate RASH Verified 06/16/23 08:58 [IODINATED CONTRAST MEDIA - IV DYE] Penicillins [PENICILLINS] Allergy Intermediate SOB, Verified 06/16/23 08:58 ITCHING ALL TOPICAL OINTMENTS Allergy Severe RASH Uncoded 05/23/21 09:58 Exam Narrative Exam Narrative: General elderly woman alert oriented no acute distress Chest nonlabored respiration Extremities warm well perfused Assessment & Plan Assessment & Plan narrative: 83-year-old woman recent GI bleed here for diagnostic colonoscopy. Technical details were discussed. Risks, benefits, alternatives explained. Risks including but not limited to myocardial infarction, aspiration, bleeding, pain, missed lesion, incomplete examination, need for further radiographic studies, colonic perforation, and need for major abdominal surgery were discussed. All questions were answered to their satisfaction, and they are in agreement with this plan.
[2023-06-16] MEDS: LACTATED RINGERS 1,000 ML 120 ML IV (09:33)
--- NOTE | 2023-06-16 10:28 | SUR.PREOP ---
Procedure cancelled by provider. Provider notified patient. IV d/c'd by Annika. Patient dressed and ambulated out independently. She reported having all of her belongings.
--- NOTE | 2023-06-16 10:41 | PM.CALLCOV.1 ---
Call Coverage Note Note Date of Patient Contact: 06/16/23 Time of Patient Contact: 10:41 Narrative of Care Provided: 83 F here for diagnostic colonoscopy. Recent hospitalization for GIB EGD demonstrated gastritis/duodenitis no active ulcer. She has severe symptomatic aortic stenosis and MRI liver shows numerous metastases. In light of these findings procedure cancelled as risk is significant with minimal potential benefit.
== END | disposition home or self-care (01) ==
PROVIDERS: PCP Family Medicine; Referring Provider Surgery; Visit Provider Surgery
CPT/HCPCS: J2704

== ENCOUNTER → 2023-09-01 09:05 | Outpatient (CLI) | payer MEDICARE, OTHER, SELFPAY ==
[2023-03-16 19:51] VITALS: BMI 27.6
--- NOTE | 2023-09-01 09:06 | DI.MG.S_ITS ---
UNILATERAL LEFT DIGITAL DIAGNOSTIC MAMMOGRAM 3D/2D SHORT-TERM FOLLOW-UP: 09/01/2023 CLINICAL: Short term follow up. Comparison is made to exams dated: 02/17/2023 mammogram, 02/06/2023 mammogram, 02/05/2022 mammogram, and 07/31/2020 mammogram - [facility]. There are scattered areas of fibroglandular density in the left breast (category b / 25%-50% glandular tissue). There is a 5 mm oval equal density asymmetry with mildly irregular margin in the left breast at 10 o'clock posterior depth. This is less prominent and was not seen on the prior ultrasound. No other significant masses or calcifications are seen in the breast. IMPRESSION: PROBABLY BENIGN The 5 mm oval equal density asymmetry in the left breast is probably benign. A follow-up bilateral mammogram with possible left ultrasound in 6 months is recommended to demonstrate stability. Findings and recommendations were conveyed to the patient during today's evaluation. Based on the Tyrer Cuzick model (a risk assessment model) the patient's lifetime risk is 0.7% and her 10 year risk is 0.0%. According to the ACR, ACS, and NCCN guidelines, an annual breast MRI exam along with mammogram is recommended if the patient's lifetime risk is 20% or greater. This exam was interpreted at Station ID: [id number]. NOTE: For mammograms, a report in lay terms will be sent to the patient. Approximately 15% of breast malignancies will not be visualized mammographically. In the management of a palpable breast mass, a negative mammogram must not discourage biopsy of a clinically suspicious lesion. Electronically Signed By: Roc Chicas M.D. aty/:09/01/2023 16:59:14 letter sent: Followup Recommended ACR BI-RADS Category 3: Probably benign [id number]
== END ==
PROVIDERS: PCP Family Medicine; Referring Provider Family Medicine; Visit Provider Family Medicine
DX: R92.8 Other abnormal and inconclusive findings on diagnostic imaging of breast (principal); N63.21 Unspecified lump in the left breast, upper outer quadrant; R92.322 Mammographic fibroglandular density, left breast
CPT/HCPCS: 77065; G0279

== ENCOUNTER → 2023-12-18 07:32 | Outpatient (CLI) | payer MEDICARE, OTHER, SELFPAY ==
[2023-03-16 19:51] VITALS: BMI 27.6
--- NOTE | 2023-12-18 07:33 | DI.ECHO.S_ITS ---
[facility] : : [address] : : [place] : : [id number] : : Phone: [phone] Echocardiogram Report + + :Name: MICHAEL RUBIO Study Date: 12/18/2023 Height: 65 in : :[facility] ReadingLocation: Weight: 160 lb : : Gender: Female BSA: 1.8 m2 : :: 1940 Age: 83 yrs BP: 139/77 mmHg: :Reason For Study: SYNCOPE AND COLLAPSE : :Ordering Physician: JASVIR, : :KATE ARREDONDO Performed By: Kira Orosco : :Referring: KATE TAY MD : + + Interpretation Summary The left ventricle is normal in size and wall thickness. The ejection fraction is estimated to be 55-60%. Left ventricular global longitudinal strain average is abnormal, -12.8%. Gee on top pattern noted on GLS's bull eye. Consider cardiac amyloidosis or at least infiltrative cardiomyopathy. Possible inferolateral hypokinesis. Diastolic parameters suggest a pseudonormalization pattern, consistent with probable elevated filling pressures. The right ventricle is normal in size and function. Borderline left atrial enlargement. There is severe aortic stenosis. The peak aortic velocity is 3.9 m/sec. The calculated aortic valve area is 0.52 cm2. The aortic root is normal size. Procedure: A two-dimensional transthoracic echocardiogram with color flow and Doppler was performed. The study quality was technically adequate. Comparison is made with the echocardiogram of 04/07/2023. The patient was in sinus rhythm with heart rates between 68-80 bpm during the exam. Left Ventricle: The left ventricle is normal in size and wall thickness. The ejection fraction is estimated to be 55-60%. Left ventricular global longitudinal strain average is -12.8%. Gee on top pattern noted on GLS's bull eye. Consider cardiac amyloidosis or at least infiltrative cardiomyopathy. Possible inferolateral hypokinesis. Diastolic parameters suggest a pseudonormalization pattern, consistent with probable elevated filling pressures. Right Ventricle: The right ventricle is normal in size and function. Atria: Borderline left atrial enlargement. Right atrial size is normal. There is no Doppler evidence for an interatrial shunt. Mitral Valve: There is mild to moderate mitral annular calcification. The mitral valve leaflets are mildly calcified. The mitral valve mean gradient is 5.3 mmHg. There is mild mitral regurgitation. Aortic Valve: The aortic valve is severely calcified. There is severe aortic stenosis. The peak aortic velocity is 3.9 m/sec. The aortic valve mean gradient is 44 mmHg. The calculated aortic valve area is 0.52 cm2. There is trace aortic regurgitation. Tricuspid Valve: The tricuspid valve is normal in structure and function. There is mild tricuspid regurgitation. Pulmonary artery pressures cannot be estimated because of the lack of a measurable TR jet velocity. Pulmonic Valve: The pulmonic valve leaflets are thin and pliable; valve motion is normal. There is no pulmonic valvular regurgitation. Great Vessels: The aortic root is normal size. The dimensions of the ascending aorta are normal. The IVC is of normal diameter and collapses greater than 50% with a sniff. This suggests a low right atrial pressure of 3 mm Hg. Pericardium/ Pleura There is no pericardial effusion. There is no pleural effusion. MMode/2D Measurements & Calculations LVIDd: 4.3 cm LVOT diam: 2.0 cm LVIDs: 2.6 cm Ao root diam: 2.5 cm FS: 39.8 % asc Aorta Diam: 2.8 cm IVSd: 0.95 cm LVPWd: 1.2 cm LV herrera. diameter/BSA (cm/m^2): 2.4 LV sys. diameter/BSA (cm/m^2): 1.4 LA A2 area: 18.0 cm2 RA long axis: 5.2 cm LA A4 area: 19.0 cm2 RA area: 15.2 cm2 LA length (vol): 5.4 cm RA vol: 37.5 ml LA vol: 54.2 ml RA : 20.9 ml/m2 LA vol index: 30.1 ml/m2 IVC diam: 1.4 cm RVD1 (basal): 3.3 cm TAPSE: 2.0 cm Doppler Measurements & Calculations Ao V2 max: 399.5 cm/sec LVOT Max Aquiles: 64.0 cm/sec Ao V2 mean: 308.7 cm/sec LV V1 max P.6 mmHg Ao max P.0 mmHg LV V1 VTI: 16.1 cm Ao mean P.4 mmHg ROEL(I,D): 0.52 cm2 Ao V2 VTI: 94.0 cm ROEL(V,D): 0.49 cm2 sev ratio: 0.17 ROEL indexed to BSA (cm^2/m^2): 0.29 MV E max aquiles: 144.0 cm/sec PA pr(Accel): 34.5 mmHg MV A max aquiles: 99.5 cm/sec MV E/A: 1.4 Med Peak E' Aquiles: 6.0 cm/sec E/E' med: 24.0 Lat Peak E' Aquiles: 6.6 cm/sec E/E' lat: 21.8 E/e' average: 22.9 MV dec time: 0.22 sec MVA(VTI): 1.2 cm2 MV V2 mean: 99.1 cm/sec SV(LVOT): 48.9 ml MV mean P.3 mmHg MV V2 VTI: 41.1 cm Reading Physician:10:42 AM
== END ==
LOC: ECHO 07:33
PROVIDERS: PCP Family Medicine; Referring Provider Internal Medicine Interventional Cardiology; Visit Provider Internal Medicine Interventional Cardiology
DX: R55 Syncope and collapse (principal); R42 Dizziness and giddiness; I08.1 Rheumatic disorders of both mitral and tricuspid valves
CPT/HCPCS: 93306

== ENCOUNTER → 2023-12-25 12:14 | Outpatient (CLI) | payer MEDICARE, OTHER, SELFPAY ==
[2023-03-16 19:51] VITALS: BMI 27.6
--- NOTE | 2023-12-25 | DI.RAD.S_ITS ---
PROCEDURE: XR FOOT LT MIN 3V INDICATIONS: left foot pain TECHNIQUE: 3 views of the foot were acquired. COMPARISON: [facility], CR, XR FOOT RT MIN 3V, 07/28/2021, 8:45. [facility], CR, XR FOOT LT MIN 3V, 04/17/2021, 8:22. FINDINGS: Bones: No acute displaced fracture or dislocation. [id number] 1st MTP degenerative changes. There is a small bone fragment adjacent to the 5th metatarsal base, not seen in 2020. Soft tissues: No suspicious calcifications elsewhere plantar calcaneal enthesopathy. IMPRESSION: Age-indeterminate possible fracture fragment at the 5th metatarsal base, correlate with location of symptoms. This appears new compared to 202. First MTP degenerative changes. If there is high concern for further derangement, consider MRI evaluation. Dictated by: Casey Jj M.D. on 12/25/2023 at 18:19 Approved by: Casey Jj M.D. on 12/25/2023 at 18:21
--- NOTE | 2023-12-25 | DI.RAD.S_ITS ---
PROCEDURE: XR HIP W PEL IF DONE RT 2V INDICATIONS: right hip pain TECHNIQUE: 2 views of the hip were acquired. COMPARISON: [facility], VAL, [id number] W PEL IF PERFORMED, 09/15/2016, 10:12. [facility], VAL, HIP 2V LEFT, 11/01/2013, 11:09. FINDINGS: Bones: Moderate bilateral hip degenerative changes, slightly progressed from prior. No acute displaced fracture or dislocation. Lumbosacral and pubic symphysis degenerative changes. Soft tissues: Vascular calcifications. IMPRESSION: Moderate bilateral hip arthrosis, slightly progressed from prior. If there is high concern for further derangement, consider MRI evaluation. Dictated by: Casey Jj M.D. on 12/25/2023 at 18:18 Approved by: Casey Jj M.D. on 12/25/2023 at 18:19
== END ==
PROVIDERS: PCP Family Medicine; Referring Provider Family Medicine; Visit Provider Family Medicine
DX: M16.0 Bilateral primary osteoarthritis of hip (principal); M25.551 Pain in right hip; M79.672 Pain in left foot
CPT/HCPCS: 73502; 73630

== ENCOUNTER → 2024-01-19 07:47 | Outpatient (CLI) | payer MEDICARE, OTHER, SELFPAY ==
[2023-03-16 19:51] VITALS: BMI 27.6
--- NOTE | 2024-01-19 07:49 | DI.MRI.S_ITS ---
PROCEDURE: MR HIP RT WO CON INDICATIONS: TRAUMATIC HEMATOMA OF RIGHT HIP TECHNIQUE: Noncontrast coronal T1 spin echo and STIR through the bony pelvis. Coronal and axial T2 fast spin echo with fat saturation, sagittal T1 spin echo, and oblique axial T2 fast spin echo with fat saturation through the hip. COMPARISON: [facility] [place], CR, XR PELVIS WITH LATERAL HIP LEFT, 01/12/2024, 9:51. FINDINGS: Image quality: Excellent. Bones and joints: The visualized lower lumbar spine is unremarkable. The sacrum is intact. Bilateral sacroiliac joints are unremarkable. The right hip is well aligned. No acute fracture or dislocation of the right hip. No avascular necrosis of the right femoral head. Small right hip effusion. No significant degenerative changes of the right hip. The left hip is well aligned. No acute fracture or dislocation of the left hip. No significant degenerative changes of the left hip. Small left hip effusion. No avascular necrosis of the left femoral head. Tendons and ligaments: The right iliopsoas, and adductor tendon are unremarkable. The right hamstring tendon is unremarkable. The right gluteal minimus and gluteus medius is unremarkable. Labrum and cartilage: Tear of the anterior superior labrum. No paralabral cyst. No focal chondral defect of the right hip. Soft tissues: Mild muscle edema bilateral iliacus muscle, representing mild muscle strain. The uterus is not visualized, likely surgically absent. There is a 7.2 x 3.0 by 10.2 cm (axial by craniocaudal dimension), T1 and T2 heterogeneous lesion in the subcutaneous fat of the right buttock, favoring to represent a hematoma. IMPRESSION: 1. No acute fracture or dislocation of either hip. 2. Mild muscle strain of bilateral iliacus muscle. 3. 10.2 cm likely hematoma in the subcutaneous fat of the right buttock. Recommend clinical follow up to document resolution. Dictated by: Nadia Flores M.D. on 01/19/2024 at 17:09 Approved by: Nadia Flores M.D. on 01/19/2024 at 17:17
== END ==
LOC: MRI 07:48
PROVIDERS: PCP Family Medicine; Referring Provider Physician Assistant; Visit Provider Physician Assistant
DX: S70.01XA Contusion of right hip, initial encounter (principal); S76.012A Strain of muscle, fascia and tendon of left hip, initial encounter; S76.011A Strain of muscle, fascia and tendon of right hip, initial encounter; X58.XXXA Exposure to other specified factors, initial encounter
CPT/HCPCS: 73721

== ENCOUNTER 2024-02-23 09:07 | Observation (INO) | payer MEDICARE, OTHER, SELFPAY ==
[2023-03-16 19:51] VITALS: BMI 27.6
[2024-02-23] VITALS (75 sets, daily range): BP systolic 122–164; BP diastolic 56–86; PULSE 93–159; RESP 16–57; TEMP 36.4–36.5; O2SAT 80–99; BMI 29.8
--- NOTE | 2024-02-23 09:24 | DI.CT.S_ITS ---
PROCEDURE: CT CHEST ABD PEL W CON INDICATIONS: fall, hit head, ? rib fx, tender thoracic spine, t6/7, LUQ p TECHNIQUE: After the administration of intravenous contrast, 5 mm thick sections acquired from the lung apices to the symphysis. 2.5 mm thick coronal and sagittal reformats were acquired. Additional 7 mm thick coronal maximum intensity projection (MIP) reformats acquired through the lungs. Optional 10-minute delayed imaging may be performed from the kidneys to the bladder. For radiation dose reduction, the following was used: automated exposure control, adjustment of mA and/or kV according to patient size. COMPARISON: [facility], [place], PET NECK TO MID THIGH, 12/03/2023, 8:44. [facility], CT, CT CHEST ABD PEL W CON, 11/15/2018, 8:34. FINDINGS: Image quality: Diagnostic. CHEST: Lower Neck: No enlarged lymph nodes. Thyroid: No thyroid nodules which require sonographic evaluation.>> Axillae: No enlarged lymph nodes. Chest Wall: No subcutaneous gas. Lungs and Pleura: No pulmonary contusions or lacerations. No significant pleural effusion or pneumothorax. There is moderate centrilobular emphysema. Postsurgical changes are seen in right upper lobe unchanged from prior study. Masslike consolidation in right middle lobe is again seen extending to right infrahilar region. There is also small airspace consolidation involving posterior aspect of right lower lobe. Biapical scarring is also noted. Nodular thickening involving right oblique fissure measures 1.2 x 0.9 cm in size series 5, image 132 new since previous study. Nodular thickening adjacent to lateral pleura of right upper lobe measures 1.3 x 0.8 cm in size is also seen not definitely seen on previous study series 5, image 139. Mild bronchiectasis in bilateral lower lung carter are seen. No suspicious left lung nodule is noted. Mediastinum: No mediastinal hematomas. Heart size is enlarged. No pericardial effusion. Thoracic aorta and pulmonary arteries demonstrate normal size and enhancement. No mediastinal or hilar adenopathy. Esophagus is normal in caliber. No hiatal hernia. ABDOMEN: Liver: No lacerations. Patient's known hepatic lesion in posterior segment 8 remains unchanged in size and is FDG avid. Patient's known posterior segment 4 lesion is also unchanged and is FDG avid on previous PET scan. Gallbladder: No radiopaque stones or wall thickening. Biliary ducts: No biliary dilation. Pancreas: Homogenous enhancement. Spleen: Homogenous enhancement without laceration or hematoma. Adrenal Glands: Symmetric enhancement. Kidneys and Ureters: Symmetric enhancement. No hydronephrosis. No solid mass. No complex renal cystic lesion which requires follow up. Stomach and Bowel: Normal colonic caliber, without significant wall thickening. Peritoneum: No abnormal intraperitoneal fluid. No free air. Ventral Wall: No hernia. Abdominal Nodes: No retroperitoneal or mesenteric adenopathy by size criteria. Vessels: Aorta and inferior vena cava are normal in size. PELVIS: Pelvic Organs: Unremarkable. Bladder: Normal thickness. Pelvic Nodes: No enlarged lymph nodes. Miscellaneous: No inguinal hernias are seen. Bones: Pelvic ring is intact. No displaced rib fractures. No aggressive appearing intraosseous lesions. IMPRESSION: 1. Interval worsening of right lung aeration with increased size of airspace consolidation involving right middle lobe extending to right hilar region. Additional smaller airspace opacities are seen in posterior and lateral aspect of right lower lobe extending to right hilar region. Finding may represent post treatment changes in right middle lobe. Recurrent or metastatic disease cannot be entirely excluded. At least 2 solid nodule seen in right lower lobe as described above concerning for metastatic disease not definitely seen on previous study. 2. Moderate centrilobular emphysema. No pneumothorax. Trace right pleural effusion. 3. No mediastinal hematoma or. Cardiomegaly, no pericardial effusion. No mediastinal or hilar lymphadenopathy by size criteria. 4. No evidence of acute solid organ injury within abdomen or pelvis. No free fluid or free air. New 5. Patient's known liver metastatic lesions are grossly stable in size and appearance. 6. No displaced rib fracture. No acute fracture or dislocation is seen in chest, abdomen or pelvis. Dictated by: Chandana Gary M.D. on 02/23/2024 at 11:11 Approved by: Chandana Gary M.D. on 02/23/2024 at 11:23
--- NOTE | 2024-02-23 09:26 | ED_ITS ---
HPI - Fall General Chief Complaint: Fall Stated Complaint: fell, rib pain and right shoulder pain Time Seen by Provider: 02/23/24 09:24 Source: patient, RN notes reviewed and old records reviewed Mode of arrival: Family Vehicle Limitations: no limitations History of Present Illness HPI Narrative: 83-year-old female with known active lung cancer receiving immunotherapy, prior lymphoma, hypertension, dyslipidemia, chronic atrial fibrillation, aortic stenosis with plan for upcoming valve replacement on aspirin daily, patient is also on 2 L nasal cannula O2 daily. Patient presents she had a fall 1 or 2 days ago. Patient was in a walker that you can sit in her daughter was pushing or they caught the edge of the sidewalk and patient fell backwards striking the back of her head. Since then she has had a little bit of a mild headache, she describes some thoracic pain left rib pain and left upper abdominal discomfort patient also states she is some right shoulder pain. Patient states did not lose consciousness denies any neck pain, patient states left side of her chest hurts she has not noticed any skin changes. It is painful to take a deep breath. She does not feel more short of breath than normal. She does use home O2 2 L. Denies abdominal pain but is tender on exam. Denies any flank pain. Denies any dysuria urgency frequency or hematuria, no issues with bowel movements. She states her right shoulder is painful but she is able to move it does not think she broke anything. Denies injury or difficulty with any of her other extremities. Patient states she has on an aspirin daily describes little bit of mild headache initially but has not improved. No dizziness. States no tobacco, alcohol or recreational drugs. She follows with Oncology with Dr. Morillo at [facility]. Dr. Trotter is her primary care physician. Related Data Home Medications Medication Instructions Recorded Confirmed atorvastatin 40 mg tablet (Lipitor) 70 mg PO QPM ##0 04/22/12 02/23/24 doxepin 25 mg capsule 60 mg PO BID 12/17/17 02/23/24 metoprolol succinate 50 mg 50 mg PO BID 12/17/17 02/23/24 tablet,extended release 24 hr allopurinol 100 mg tablet 100 mg PO DAILY 09/09/21 02/23/24 acetaminophen 650 mg 650 mg PO BEDTIME 03/16/23 02/23/24 tablet,extended release calcium carbonate 600 mg-vitamin 1 tab PO DAILY 03/16/23 02/23/24 D3 10 mcg (400 unit) chewable tablet (Calcium 600 with Vitamin D3) citalopram 10 mg tablet 10 mg PO DAILY 03/16/23 02/23/24 blood sugar diagnostic (FreeStyle #10 ea 05/25/23 02/23/24 Lite Strips) blood-glucose meter (FreeStyle #1 ea 05/25/23 02/23/24 Lite Meter kit) ferrous sulfate 325 mg (65 mg 325 mg PO DAILY 05/25/23 02/23/24 iron) tablet (FeroSul) furosemide 20 mg tablet 20 mg PO DAILY 05/25/23 02/23/24 lancets 28 gauge (FreeStyle #100 ea 05/25/23 02/23/24 Lancets) metformin 500 mg tablet 500 mg PO 3XD 05/25/23 02/23/24 pantoprazole 40 mg tablet,delayed 40 mg PO DAILY 05/25/23 02/23/24 release empagliflozin 25 mg tablet 25 mg PO DAILY 02/23/24 02/23/24 (Jardiance) nitrofurantoin 1 cap PO BID 02/23/24 02/23/24 monohydrate/macrocrystals 100 mg capsule potassium chloride 20 mEq 20 meq PO DAILY 02/23/24 02/23/24 tablet,extended release prochlorperazine maleate 10 mg 10 mg PO Q6H PRN nausea/vomiting 02/23/24 02/23/24 tablet vibegron 75 mg tablet (Gemtesa) 75 mg PO DAILY 02/23/24 02/23/24 Previous Rx's Medication Instructions Recorded aspirin 81 mg tablet,delayed 81 mg PO DAILY #30 tabs 03/18/23 release sodium,potassium,mag sulfates 17.5 See Rx Instructions PO .COMPLEX 06/09/23 gram-3.13 gram-1.6 gram oral soln #354 mL (Suprep Bowel Prep Kit) Allergies Allergy/AdvReac Type Severity Reaction Status Date / Time petrayakatum,white Allergy Severe Difficulty Verified 07/08/23 08:06 [From A & D Barrier] Breathing venom-honey bee Allergy Severe HIVES Verified 07/08/23 08:06 [BEE VENOM (HONEY BEE)] adhesive [ADHESIVE] Allergy Intermediate REDNESS Verified 07/08/23 08:06 AND ITCHING OF SKIN WITH TAPE USE. Iodinated Contrast Media Allergy Intermediate RASH Verified 07/08/23 08:06 [IODINATED CONTRAST MEDIA - IV DYE] Penicillins [PENICILLINS] Allergy Intermediate SOB, Verified 07/08/23 08:06 ITCHING ALL TOPICAL OINTMENTS Allergy Severe RASH Uncoded 07/08/23 08:06 Review of Systems Review of Systems ROS Unobtainable: All systems reviewed & are unremarkable except as noted in HPI and below Patient History Medical History Gout Chronic respiratory failure with hypoxia History of lymphoma Chronic atrial fibrillation Type 2 diabetes mellitus Hyperlipidemia Hypertension Radiation fibrosis of lung Contrast media allergy Lung cancer COPD exacerbation Family History Sister Cancer Mother CAD (coronary artery disease) Father Malaria Social History household members: spouse Smoking Status: Former smoker alcohol intake: current Smoking Status: Former smoker tobacco type: cigarettes alcohol intake frequency: holidays/special occasions only Substance Use Type: does not use Exam Narrative Exam Narrative: GEN: Patient appears in mild distress. HEAD: No evidence of trauma, no raccoon/Segovia sign. NECK: Nontender, painless range of motion, trachea midline Negative Nexus criteria, no midline line tenderness, distracting injury, altered mental status, neuro deficit, recent EtOH. EYES: PERRLA, EOMI ENT: External inspection normal, trachea is midline, no hemotypanum, Nares are clear, no septal hematoma, no dental or oral injury, airway is normal and with normal occlusion, No bony tenderness RESP: Chest is left anterolateral ribs underneath the breast have tenderness and has symmetric movement, no ecchymosis, breath sounds are normal no crackles, wheezes or rales. 89% on room air placed on 2 L nasal cannula which is patients normal home O2 usage. CVS: Normal S1, S2, systolic ejection murmur noted, No JVD. No edema bilateral lower extremities. ABG/GI: Left upper quadrant tenderness, nondistended, soft, normal bowel sounds, no distention, no organomegaly, pelvic rock is negative NEURO: Oriented AOx3, neuro is grossly intact, sensation and motor is normal all 4 extremities moving, cranial nerves II through XII are intact, GCS is 15 PSYCH: Normal mood and affect SKIN: Intact, warm and dry, no crepitus and without decubitus BACK: No CVA tenderness, no vertebral tenderness cervical or lumbar spine, patient has some mild tenderness over T6-7 region, no step-off's, no crepitus EXT: Atraumatic, hips are nontender, no pedal edema, normal color and temperature, normal range of motion of extremities with normal tendon exam, 2+ pulses in all four extremities Initial Vital Signs Initial Vital Signs: Vital Signs Temperature 97.6 F 02/23/24 09:10 Pulse Rate 122 H 02/23/24 09:10 Respiratory Rate 18 02/23/24 09:10 Blood Pressure 122/56 L 02/23/24 09:10 Pulse Oximetry 89 L 02/23/24 09:10 Oxygen Delivery Method Room Air 02/23/24 09:10 Course Orders Ordered: Acetaminophen (Acetaminophen 325 Mg Tablet) 650 mg PO Q6H PRN PRN Reason: Fever/Mild Pain (1-3) Acetaminophen/Codeine Phosphate (Codeine/Acetaminophen 30/300 Tablet) 1 tab PO Q4HR PRN PRN Reason: Pain, Moderate (4-6) Albuterol/Ipratropium (Albuterol/Ipratropium 3 Ml Ampul) 3 ml INH RTQ4HR PRN PRN Reason: Shortness Of Breath Last Admin: 02/23/24 23:11 Dose: 3 ml Documented By: RYLEE Allopurinol (Allopurinol 100 Mg Tablet) 100 mg PO DAILY [facility] Aspirin (Aspirin Ec 81 Mg Tablet) 81 mg PO DAILY [facility] Atorvastatin Calcium (Atorvastatin 20 Mg Tablet) 70 mg PO QPM [facility] Calcium Carbonate (Calcium Carbonate 500 Mg Tab) 500 mg PO DAILY [facility] Citalopram Hydrobromide (Citalopram 10 Mg Tablet) 10 mg PO DAILY [facility] Enoxaparin Sodium (Enoxaparin 30 Mg/0.3 Ml Syringe) 30 mg SUBCUT DAILY [facility] Famotidine (Famotidine 20 Mg/2 Ml Vial) 20 mg IV NOW [place] Last Admin: 02/23/24 10:48 Dose: 20 mg Documented By: RICHARD Ferrous Sulfate (Ferrous Sulfate 325 Mg Tablet) 325 mg PO DAILY [facility] Furosemide (Furosemide 20 Mg Tablet) 20 mg PO DAILY [facility] Melatonin (Melatonin 3 Mg Tablet) 3 mg PO BEDTIME PRN PRN Reason: insomnia Last Admin: 02/23/24 20:59 Dose: 3 mg Documented By: MPO(2) Metformin HCl (Metformin Hcl 500 Mg Tablet) 500 mg PO TID [facility] Metoprolol Succinate (Metoprolol Er 50 Mg Tablet) 50 mg PO BID [facility] Last Admin: 02/23/24 20:59 Dose: 50 mg Documented By: MPO(2) Naloxone HCl (Naloxone 0.4 Mg/Ml Vial) 0.2 mg IV Q2MIN PRN PRN Reason: Opiate Reversal Nitrofurantoin Macrocrystals (Nitrofurantoin Er 100 Mg Capsule) 100 mg PO BID [facility] Last Admin: 02/23/24 20:59 Dose: 100 mg Documented By: MPO(2) Nf - Doxepin 25 Mg (Capsule) 60 mg PO BID [facility] Last Admin: 02/23/24 21:00 Dose: Not Given Documented By: MPO(2) Nf - Empagliflozin ( Jardiance) 25 Mg Tablet 25 mg PO DAILY [facility] Nf - Vibegron ( Gemtesa) 75 Mg Tablet 75 mg PO DAILY [facility] Ondansetron HCl (Ondansetron 4 Mg/2 Ml Inj) 4 mg IV Q8HR PRN PRN Reason: Nausea And Vomiting Pantoprazole Sodium (Pantoprazole Dr 40 Mg Tablet) 40 mg PO BEDTIME [facility] Last Admin: 02/23/24 21:42 Dose: 40 mg Documented By: MPO(2) Potassium Chloride (Potassium Chloride 20 Meq Tab) 20 meq PO DAILY [facility] Promethazine HCl (Promethazine 25 Mg Tablet) 12.5 mg PO Q6H PRN PRN Reason: nausea/vomiting Sodium Chloride (Sodium Chloride 0.9% Flush) 10 ml IV PRN PRN PRN Reason: Flush Last Admin: 02/23/24 23:15 Dose: 10 ml Documented By: MPO(2) Sodium Chloride (Sodium Chloride 0.9% Flush) 10 ml IV BID [facility] Last Admin: 02/23/24 20:59 Dose: 10 ml Documented By: MPO(2) Vitamin D (Cholecalciferol (Vitamin D3) 400 Unit Tablet) 400 unit PO DAILY [facility] Discontinued Medications Diltiazem HCl (Diltiazem 25 Mg/5 Ml Sdv) 10 mg IV NOW ONE Stop: 02/23/24 10:53 Last Admin: 02/23/24 10:53 Dose: 10 mg Documented By: MPO Diltiazem HCl (Diltiazem 25 Mg/5 Ml Sdv) 20 mg IV NOW ONE Stop: 02/23/24 10:57 Last Admin: 02/23/24 10:59 Dose: Not Given Documented By: MPO Diltiazem HCl (Diltiazem 25 Mg/5 Ml Sdv) 10 mg IV NOW ONE Stop: 02/23/24 10:58 Last Admin: 02/23/24 10:58 Dose: 10 mg Documented By: MPO Diphenhydramine HCl (Diphenhydramine 50 Mg/Ml Vial) 50 mg IV NOW ONE Stop: 02/23/24 09:25 Last Admin: 02/23/24 09:52 Dose: 50 mg Documented By: MPO Epinephrine HCl (Epinephrine 1 Mg/Ml) 0.5 mg IM NOW ONE Stop: 02/23/24 10:42 Last Admin: 02/23/24 10:48 Dose: 0.5 mg Documented By: MPO Furosemide (Furosemide 40 Mg/4 Ml Vial) 40 mg IV NOW ONE Stop: 02/23/24 23:05 Last Admin: 02/23/24 23:15 Dose: 40 mg Documented By: MPO(2) Sodium Chloride (Normal Saline 0.9%) 1,000 mls @ 1,000 mls/hr IV BOLUS ONE Stop: 02/23/24 11:39 Last Infusion: 02/23/24 12:00 Dose: Infused Documented By: Admin: 02/23/24 10:54 Dose: 1,000 mls/hr Documented By: MPO Lorazepam (Lorazepam 2 Mg/Ml Inj) 0.5 mg IV NOW ONE Stop: 02/23/24 10:53 Last Admin: 02/23/24 10:53 Dose: 0.5 mg Documented By: MPO Methylprednisolone (Methylprednisolone 125 Mg/2 Ml Vial) 125 mg IV NOW ONE Stop: 02/23/24 09:25 Last Admin: 02/23/24 09:52 Dose: 125 mg Documented By: MPO Pantoprazole Sodium (Pantoprazole Dr 40 Mg Tablet) 40 mg PO 0600 [facility] Vital Signs Vital signs: Vital Signs - 8 hr 02/23/24 09:10 02/23/24 09:22 02/23/24 09:30 Temperature 97.6 F Pulse Rate 122 H 102 H 102 H Respiratory Rate 18 Blood Pressure 122/56 L Pulse Oximetry 89 L 91 93 Oxygen Delivery Method Room Air Oxygen Flow Rate 02/23/24 09:31 02/23/24 09:31 02/23/24 10:00 Temperature Pulse Rate 101 H Respiratory Rate Blood Pressure 145/65 H 164/79 H Pulse Oximetry 93 Oxygen Delivery Method Oxygen Flow Rate 02/23/24 10:00 02/23/24 10:05 02/23/24 10:10 Temperature Pulse Rate 104 H 104 H 102 H Respiratory Rate 22 25 H 45 H Blood Pressure Pulse Oximetry 93 97 96 Oxygen Delivery Method Oxygen Flow Rate 02/23/24 10:15 02/23/24 10:20 02/23/24 10:38 Temperature Pulse Rate 104 H 101 H 98 H Respiratory Rate 28 H 31 H Blood Pressure Pulse Oximetry 95 95 80 L Oxygen Delivery Method Oxygen Flow Rate 02/23/24 10:40 02/23/24 10:45 02/23/24 10:50 Temperature Pulse Rate 158 H 139 H 159 H Respiratory Rate 35 H 45 H 57 H Blood Pressure Pulse Oximetry 88 L Oxygen Delivery Method Nasal Cannula Oxygen Flow Rate 4 02/23/24 10:55 02/23/24 11:00 02/23/24 11:05 Temperature Pulse Rate 144 H 126 H 122 H Respiratory Rate 39 H 36 H 41 H Blood Pressure Pulse Oximetry 82 L 95 96 Oxygen Delivery Method Oximask Oxygen Flow Rate 4.5 02/23/24 11:10 02/23/24 11:15 02/23/24 11:20 Temperature Pulse Rate 123 H 114 H 110 H Respiratory Rate 35 H 29 H 28 H Blood Pressure Pulse Oximetry 96 96 94 Oxygen Delivery Method Oxygen Flow Rate 02/23/24 11:25 02/23/24 11:30 02/23/24 11:35 Temperature Pulse Rate 108 H 102 H 103 H Respiratory Rate 31 H 25 H 29 H Blood Pressure Pulse Oximetry 94 92 90 L Oxygen Delivery Method Oxygen Flow Rate 02/23/24 11:40 02/23/24 11:45 02/23/24 11:50 Temperature Pulse Rate 103 H 99 H 99 H Respiratory Rate 27 H 24 26 H Blood Pressure Pulse Oximetry 92 90 L 90 L Oxygen Delivery Method Oximask Oxygen Flow Rate 5 02/23/24 11:55 02/23/24 12:00 02/23/24 12:05 Temperature Pulse Rate 97 H 98 H 98 H Respiratory Rate 34 H 25 H 26 H Blood Pressure Pulse Oximetry 90 L 91 89 L Oxygen Delivery Method Oximask Oxygen Flow Rate 10 02/23/24 12:10 02/23/24 12:15 02/23/24 12:20 Temperature Pulse Rate 98 H 100 H 99 H Respiratory Rate 31 H 40 H 26 H Blood Pressure Pulse Oximetry 94 94 94 Oxygen Delivery Method Oximask Oximask Oxygen Flow Rate 5 5 02/23/24 12:25 02/23/24 12:30 02/23/24 12:35 Temperature Pulse Rate 99 H 97 H 96 H Respiratory Rate 22 36 H 22 Blood Pressure Pulse Oximetry 92 92 92 Oxygen Delivery Method Oximask Oxygen Flow Rate 4 02/23/24 12:40 02/23/24 12:45 02/23/24 12:50 Temperature Pulse Rate 97 H 96 H 97 H Respiratory Rate 25 H 29 H 30 H Blood Pressure Pulse Oximetry 90 L 92 92 Oxygen Delivery Method Oxygen Flow Rate 02/23/24 12:55 02/23/24 13:00 02/23/24 13:05 Temperature Pulse Rate 97 H 97 H 97 H Respiratory Rate 25 H 36 H Blood Pressure Pulse Oximetry 91 92 91 Oxygen Delivery Method Oxygen Flow Rate 02/23/24 13:10 02/23/24 13:15 02/23/24 13:20 Temperature Pulse Rate 96 H 97 H 100 H Respiratory Rate 24 26 H 33 H Blood Pressure Pulse Oximetry 92 93 94 Oxygen Delivery Method Oxygen Flow Rate 02/23/24 13:25 02/23/24 13:30 02/23/24 13:35 Temperature Pulse Rate 97 H 97 H 94 H Respiratory Rate 24 24 30 H Blood Pressure Pulse Oximetry 94 96 94 Oxygen Delivery Method Oxygen Flow Rate 02/23/24 13:40 02/23/24 13:45 02/23/24 13:50 Temperature Pulse Rate 96 H 93 H 93 H Respiratory Rate 23 32 H 22 Blood Pressure Pulse Oximetry 95 97 97 Oxygen Delivery Method Oximask Oxygen Flow Rate 02/23/24 13:55 02/23/24 14:00 02/23/24 14:05 Temperature Pulse Rate 93 H 100 H 98 H Respiratory Rate 34 H 30 H 26 H Blood Pressure Pulse Oximetry 85 L 86 L 94 Oxygen Delivery Method Oximask Oximask Oxygen Flow Rate 5 5 02/23/24 14:10 02/23/24 14:15 02/23/24 14:20 Temperature Pulse Rate 101 H 103 H 100 H Respiratory Rate 31 H 28 H 27 H Blood Pressure Pulse Oximetry 87 L 87 L 98 Oxygen Delivery Method Oxygen Flow Rate 02/23/24 14:25 02/23/24 14:30 Temperature Pulse Rate 97 H 96 H Respiratory Rate 31 H 24 Blood Pressure Pulse Oximetry 98 98 Oxygen Delivery Method Oxygen Flow Rate MDM - Fall Lab Data 02/24/24 06:14 02/23/24 09:48 Labs: Lab Results 02/23/24 02/23/24 02/23/24 Range/Units 09:48 11:19 12:27 WBC 6.7 (4.5-11.0) X10^3/uL RBC 3.47 L (4.0-5.2) X10^6/uL Hgb 11.9 L (12.0-16.0) g/dL Hct 36.3 (36-46) % MCV 104.7 H (80-100) fL MCH 34.4 H (26-34) PG MCHC 32.9 (30-36) % RDW 16.1 H (11.6-14.8) % Plt Count 190 (150-400) X10^3/uL Neut % (Auto) 81.1 H (50-75) % Lymph % (Auto) 6.8 L (25-40) % [place] % (Auto) 9.1 (3-14) % Eos % (Auto) 1.8 L (2-4) % Baso % (Auto) 1.2 (0-2) % Neut # (Auto) 5400 (6614-5033) /uL Lymph # (Auto) 500 L (4947-7516) /uL [place] # (Auto) 600 (0-900) /uL Eos # (Auto) 100 (0-450) /uL Baso # (Auto) 100 (0-100) /uL ABG pH 7.22 L* (7.35-7.45) ABG pCO2 59.0 H (35-45) mmHg ABG HCO3 24 (23-27) mmol/L ABG Total CO2 25 (23-27) mmol/L ABG Base Excess -5.0 L (-2-3) mmol/L Sodium 137 (137-145) mmol/L Potassium 4.4 (3.4-5.1) mmol/L Chloride 105 (98-107) mmol/L Carbon Dioxide 29 (22-32) mmol/L BUN 40 H (7-17) mg/dL Creatinine 1.27 H (0.52-1.04) mg/dL Estimated GFR 42 L (>60) mL/min BUN/Creatinine Ratio 31.5 H (6-22) Glucose 127 H (80-110) mg/dL Calcium 8.7 (8.4-10.2) mg/dL Total Bilirubin 0.5 (0.2-1.3) mg/dL AST 36 (14-36) IU/L ALT 33 (<35) IU/L Alkaline Phosphatase 53 (38-126) U/L Total Creatine Kinase 84 (30-135) U/L Troponin I 0.018 (0.01-0.034) ng/mL NT-Pro-B Natriuret Pep 1550 H (<450) pg/mL Total Protein 6.3 (6.3-8.2) g/dL Albumin 3.5 (3.5-5.0) g/dL Globulin 2.8 (1.7-4.1) g/dL Albumin/Globulin Ratio 1.3 (1.0-2.8) Lipase 186 (23-300) U/L Imaging Data ct chest/abd/pelvis: Radiologist's Impression: Close Abdomen X-Ray (Signed) AbdirahmanRoxaneChandana - 02/23/24 [place] [address] XRay Report Signed Patient: Rowena Samaniego MR#: [id number] : 07/21/2004 Acct:[id number] Age/Sex: 19 / F Date of Service: 02/23/24 Loc: ED Accession Number: [id number] Procedure: XR abdomen min 2V Ordering Provider: Latoya Hagen D.O. PROCEDURE: XR ABDOMEN MIN 2V INDICATIONS: abd pain, acute on chronic, hx turners TECHNIQUE: 2 views of the abdomen were acquired. COMPARISON: None. FINDINGS: Surgical changes and devices: None. Bowel: No pneumoperitoneum. The bowel gas pattern is nonobstructive. Moderate fecal stasis in the colon is seen.. Soft tissues: No masses; visualized solid organ contours appear normal in size. No suspicious abdominal calcifications. Bones: No suspicious bony abnormalities. IMPRESSION: Moderate constipation. No gross free air. No abnormal renal calcifications. Dictated by: Chandana Gary M.D. on 02/23/2024 at 9:58 Approved by: Chandana Gary M.D. on 02/23/2024 at 9:59 CT scan - head: Radiologist's Impression: Close Head CT (Signed) Chandana Gary - 02/23/24 Chest/Abdomen/Pelvis CT (Signed) Chandana Gary - 02/23/[address] (Signed) Chandana Gary - 02/23/24 Hip MRI (Signed) Nadia Flores - 01/19/24 Hip X-Ray (Signed) Casey Jj - 12/25/23 Foot X-Ray (Signed) Casey Jj - 12/25/23 Echocardiogram Ultrasound (Signed) Gerber Posey - 12/18/23 Mammogram Diagnostic (Signed) Roc Chicas - 09/01/23 Liver MRI (Signed) José Miguel Kemp - 06/14/23 Chest X-Ray (Signed) Jose Juarez - 03/24/23 Telemetry Strips 03/16/23 Telemetry Strips 03/16/23 Chest X-Ray (Signed) Skylar Tay - 03/16/23 Mammogram, Additional Views (Signed) Millicent German - 02/17/23 Breast Ultrasound (Signed) Millicent German - 02/17/[address] (Signed) Macho Almazan - 02/13/23 Mammogram Screening (Signed) Millicent German - 02/06/[address] (Signed) José Miguel Kemp - 09/08/22 Myocardial Perfusion Scan Nuc Med (Signed) Debbie Davila - 04/07/[address] (Signed) Lila Restrepo - 03/06/22 Mammogram Diagnostic (Signed) Juanpablo Nguyen - 02/05/22 Breast Ultrasound (Signed) Juanpablo Nguyen - 02/05/22 Thoracic Spine X-Ray (Signed) Lila Restrepo - 11/15/[address] (Signed) Luan Overton - 09/03/21 Foot X-Ray (Signed) Ryan Sam - 07/28/21 Telemetry Strips 05/10/[address] (Signed) Terrell Velez - 05/10/21 Tibia/Fibula X-Ray (Signed) FlacoAlmae - 05/08/21 Foot X-Ray (Signed) Jarett Oliva - 04/17/21 Breast Ultrasound (Signed) RosieTerrell - 04/12/[address] (Signed) Millicent German - 02/05/21 Foot X-Ray (Signed) FlacoRyan - 01/27/21 PFT Result 11/22/20 PET, Tumor Imaging Skull-Mid Thigh (Signed) Brenton Robbins - 09/05/20 Lumbar Spine MRI (Signed) Skylar Tay - 08/16/[address] (Signed) Rosemary Holland - 08/14/20 Mammogram Screening (Signed) Millicent German - 07/31/[address] (Signed) Roc Chicas - 02/15/[address] (Signed) Krishan Guerrero - 11/09/19 Echocardiogram Ultrasound (Signed) Khai Vasquez - 08/04/19 PFT Result 07/29/19 Mammogram Screening (Signed) Macho Almazan - 07/28/[address] (Signed) Lila Restrepo - 05/11/19 Abdomen Ultrasound (Signed) Emory Garza - 04/22/19 Chest/Abdomen/Pelvis CT (Signed) Emory Garza - 11/15/18 Lumbar Spine MRI (Signed) Chandana Gary - 09/29/18 Chest/Abdomen CT (Signed) Krishan Guerrero - 05/14/18 Bone Scan Nuclear Medicine (Signed) Lucia Carrasquillo - 05/14/18 Chest X-Ray (Signed) Emory Garza - 04/05/18 Lumbar Spine X-Ray (Signed) Rosemary Holland - 12/29/17 Chest/Abdomen CT (Signed) Joseph Spann - 12/14/[address] [address] [address] Scan Report Signed Patient: Carlota Jacome MR#: [id number] : 1940 Acct:[id number] Age/Sex: 83 / F Date of Service: 02/23/24 Loc: ED Accession Number: [id number] Procedure: CT head/brain wo con Ordering Provider: Mank,Latoya C D.O. PROCEDURE: CT HEAD/BRAIN WO CON INDICATIONS: fall, hit head, ? rib fx, tender thoracic spine, t6/7, LUQ p TECHNIQUE: Noncontrast 4.5 mm thick angled axial sections acquired from the foramen magnum to the vertex, with coronal and sagittal reformats. For radiation dose reduction, the following was used: automated exposure control, adjustment of mA and/or kV according to patient size. COMPARISON: None. FINDINGS: Image quality: Diagnostic. CSF spaces: Basal cisterns are patent. No extra-axial fluid collections. The ventricles are symmetric in size and shape. Brain: No intracranial bleeds or masses. There is cerebral volume loss for age, with resultant ventricular and sulcal prominence. There are periventricular and deep white matter chronic small vessel ischemic changes. There is intracranial internal carotid artery atherosclerosis. Skull and face: Calvarium and visualized facial bones appear intact, without suspicious lesions. Sinuses: Visualized sinuses and mastoids are clear. IMPRESSION: 1. No CT evidence of acute intracranial pathology. 2. Age related volume loss and extensive white matter chronic small vessel ischemic changes. Dictated by: Chandana Gary M.D. on 02/23/2024 at 10:49 Approved by: Chandana Gary M.D. on 02/23/2024 at 10:55 CT - cervical spine: Radiologist's Impression: Carlota Jacome??83??F??1940 ? Allergy/Adv: petrolatum,white, venom-honey bee, adhesive, Iodinated Contrast Media, Penicillins, [ALL TOPICAL OINTMENTS] (More??) Close Head CT (Signed) Chandana Gary - 02/23/24 Chest/Abdomen/Pelvis CT (Signed) Chandana Gary - 02/23/[address] (Signed) Chandana Gary - 02/23/24 Hip MRI (Signed) Nadia Flores - 01/19/24 Hip X-Ray (Signed) Casey Jj - 12/25/23 Foot X-Ray (Signed) Casey Jj - 12/25/23 Echocardiogram Ultrasound (Signed) Gerber Posey - 12/18/23 Mammogram Diagnostic (Signed) Roc Chicas - 09/01/23 Liver MRI (Signed) José Miguel Kemp - 06/14/23 Chest X-Ray (Signed) Paras Juarezic - 03/24/23 Telemetry Strips 03/16/23 Telemetry Strips 03/16/23 Chest X-Ray (Signed) Skylar Tay - 03/16/23 Mammogram, Additional Views (Signed) Millicent German - 02/17/23 Breast Ultrasound (Signed) Millicent German - 02/17/[address] (Signed) ThaMacho - 02/13/23 Mammogram Screening (Signed) Millicent German - 02/06/[address] (Signed) José Miguel Kemp - 09/08/22 Myocardial Perfusion Scan Nuc Med (Signed) Debbie Davila - 04/07/[address] (Signed) Lila Restrepo - 03/06/22 Mammogram Diagnostic (Signed) Juanpablo Nguyen - 02/05/22 Breast Ultrasound (Signed) Juanpablo Nguyen - 02/05/22 Thoracic Spine X-Ray (Signed) Lila Restrepo - 11/15/[address] (Signed) Luan Overton - 09/03/21 Foot X-Ray (Signed) Ryan Sam - 07/28/21 Telemetry Strips 05/10/[address] (Signed) Terrell Velez - 05/10/21 Tibia/Fibula X-Ray (Signed) Ryan Sam - 05/08/21 Foot X-Ray (Signed) Jarett Oliva - 04/17/21 Breast Ultrasound (Signed) Terrell Velez - 04/12/[address] (Signed) Millicent German - 02/05/21 Foot X-Ray (Signed) Ryan Sam - 01/27/21 PFT Result 11/22/20 PET, Tumor Imaging Skull-Mid Thigh (Signed) Brenton Robbins - 09/05/20 Lumbar Spine MRI (Signed) Skylar Tay - 08/16/[address] (Signed) Rosemary Holland - 08/14/20 Mammogram Screening (Signed) Millicent German - 07/31/[address] (Signed) Roc Chicas - 02/15/[address] (Signed) Krishan Guerrero - 11/09/19 Echocardiogram Ultrasound (Signed) Khai Vasquez - 08/04/19 PFT Result 07/29/19 Mammogram Screening (Signed) Macho Almazan - 07/28/[address] (Signed) Lila Restrepo - 05/11/19 Abdomen Ultrasound (Signed) Emory Garza - 04/22/19 Chest/Abdomen/Pelvis CT (Signed) Emory Garza - 11/15/18 Lumbar Spine MRI (Signed) Chandana Gary - 09/29/18 Chest/Abdomen CT (Signed) YolandaElias villarrealflor - 05/14/18 Bone Scan Nuclear Medicine (Signed) Lucia Carrasquillo - 05/14/18 Chest X-Ray (Signed) Emory Garza - 04/05/18 Lumbar Spine X-Ray (Signed) Rosemary Holland - 12/29/17 Chest/Abdomen CT (Signed) Joseph Spann - 12/14/17 [place] [address] CT Scan Report Signed Patient: Carlota Jacome MR#: [id number] : 1940 Acct:[id number] Age/Sex: 83 / F Date of Service: 02/23/24 Loc: ED Accession Number: [id number] Procedure: CT cervical spine wo con Ordering Provider: Latoya Hagen D.O. PROCEDURE: CT CERVICAL SPINE WO CON INDICATIONS: fall, hit head, ? rib fx, tender thoracic spine, t6/7, LUQ p TECHNIQUE: Noncontrast 3 mm thick sections acquired from the skull base to the T4 level. Sagittal and coronal reformats were then constructed. For radiation dose reduction, the following was used: automated exposure control, adjustment of mA and/or kV according to patient size. COMPARISON: None. FINDINGS: Image quality: Excellent. Bones: No fractures or dislocations. 3 millimeter anterolisthesis of C2 on C3 and 3 millimeter anterolisthesis of C4 on C5 is seen. Significant loss of disc height, extensive degenerative endplate changes are noted at C5-6 and C6-7 levels. There is aida-rp-[id number] central canal stenosis and bilateral neural foraminal narrowing most notably at C6-7 level. Visualized superior ribs are intact. Soft tissues: Prevertebral soft tissues are normal in thickness. No paravertebral hematomas. No apical pneumothoraces. IMPRESSION: 1. No acute cervical spine fracture or dislocation. 2. Degenerative disc disease throughout cervical spine with likely degenerative spondylolisthesis at C2-3 and C4-5 levels as above. Dictated by: Chandana Gary M.D. on 02/23/2024 at 10:58 Approved by: Chandana Gary M.D. on 02/23/2024 at 11:01 ECG Data Attestation: I personally reviewed and interpreted this ECG as follows: Prior ECG tracings: available for review Interpretation: Sinus tachycardia rate of 101 ID 188 QRS is 74 QTC of 459, no acute ST elevation or depression noted. Patient has prior from 03/16/23 which appears overall similar. EKG 2. Sinus tach rate of 122 ID 152 QRS is 74 QTC 430, no acute ST elevation, patient does have some depression particularly in lateral leads. MDM Narrative Medical decision making narrative: 83-year-old female with known active lung cancer with prior lymphoma, COPD on home O2 and aspirin who had a fall from a wheelchair falling backwards with complaint of head injury, thoracic pain left chest pain and left abdominal pain. Patient is tender over her left chest suspect rib fractures, lung sounds are present bilaterally, she does have systolic ejection murmur present and states she is known aortic valve stenosis. She also tender in the left upper quadrant of her abdomen. Plan for labs, CT abdomen pelvis as well as head and C-spine as she is on aspirin and hit her head. Patient states she has not allergy to contrast dye but tolerates well with a pretreatment and was given Benadryl and Solu-Medrol. On asa 81mg with head injury. modified trauma. nursing notified to call Labs white count of 6.7 hemoglobin 11.9 macrocytosis, platelets of 109. Sodium, potassium chloride CO2 is are overall appropriate BUN 40 creatinine is 1.27 glucose is 127 LFTs are negative lipase is 186. EKG shows sinus tach no acute ST changes. CT head shows no acute change CT C-spine acute cervical spine fracture dislocation degenerative disease throughout. CT chest abdomen pelvis, interval worsening right lung aeration increased size airspace consolidation right middle lobe descending to right hilar additional small airspace opacity posterolateral aspect really left-sided right hilar findings may represent posttreatment changes right middle lobe recurrent or metastatic disease can not be entirely excluded to solid nodule seen right lower lobe concerning for metastatic disease not seen on previous study, prior studies from 6 722 for PET scan and a CT from 2019. Moderate centrilobular emphysema no mediastinal head Mickie or cardiomegaly no pericardial effusion. No evidence acute solid organ injury liver metastases are grossly stable no blisters placed rib fractures. Patient initially defers anything for pain. Patient was pretreated for CT imaging she states she has had Benadryl and steroids before and tolerated well, during CT started to feel more short of breath was brought back felt very uncomfortable in her chest, was sort of red all over no obvious hives she was unsure if any tightness in her throat. Concern for reaction to contrast was pulling up epinephrine when patient had loss of consciousness, did not lose pulses continued to have respirations heart rate was elevated on return from CT. Patient received epinephrine IM and had several minutes of assistance with oxygenation been improved slowly over time. She was still quite tachycardic did receive a 500 bolus, she received 2 doses of 10 mg diltiazem. Appears she likely had a reaction to contrast dye she states she feels much improved she still been requiring more O2 than she did prior. Troponin and BNP were sent after this episode. EKG was repeated shows sinus tach there is some depression in lateral lead. ABG shows a pH of 7.23 pCO2 of 58 CO 24 PO2 of 103, patient does not have any priors for comparison. Patient continues to be improved she did have 10 mg of diltiazem x2 heart rates continued to be improved into the 90s. She would 500 cc bolus. She does not feel worse at this point. After observation she has been able to eat and drink discuss I suspect she had a reaction that contrast/anaphylaxis as his all started during CT. PE was considered as well as possible fluids cysts or pleural effusion causing shortness of breath but CT does not shows acute changes and patient was not tachy or having any new hypoxia before the event and her main complaints were headache and chest pain where she fell and hit her chest which was reproducible. Spoke with patient she is DNR/DNI and she has a copy of her pulsed form here. Her also verifies this. Spoke with Dr. Kilgore for observation overnight as she is still requiring a little bit extra O2 in the setting what sounds like anaphylactic reaction despite having pretreatment for her CT. Critical Care Time Critical Care Time Critical Care Time: Yes Total Critical Care Time: 35 Attestation: The high probability of a clinically significant, sudden or life threatening deterioration of the cardiac,pulm system(s) required my full and direct attention, intervention and personal management. The aggregate critical care time was [--] minutes. This time is in addition to time spent performing reported procedures but includes the following: [x] Data Review and interpretation [x] Patient assessment and monitoring of vital signs [x] Documentation [x] Medication orders and management Discharge Plan Departure Patient Disposition: Admitted as Observation Clinical Impression: Contusion of rib on left side Anaphylaxis Qualifiers: Encounter type: initial encounter Qualified Code(s): T78.2XXA - Anaphylactic shock, unspecified, initial encounter Admit Date/Time: 02/23/24 15:13 Admit Provider: Mirella Kilgore
[2024-02-23] MEDS: diphenhydrAMINE 50 MG/ML VIAL IV (09:52)
[2024-02-23] MEDS: methylPREDNISolone 125 MG/2 ML VIAL IV (09:52)
[2024-02-23 10:04] LABS: Add Manual Diff / Slide Review NO; Basophils Absolute Auto 100 /uL (0-100); Basophils Percent Auto 1.2 % (0-2); Eosinophils Absolute Auto 100 /uL (0-450); Eosinophils Percent Auto 1.8 % (2-4); Hematocrit 36.3 % (36-46); Hemoglobin 11.9 g/dL (12.0-16.0); Lymphocytes Absolute Auto 500 /uL (1100-4500); Lymphocytes Percent Auto 6.8 % (25-40); Mean Corpuscular HGB Conc 32.9 % (30-36); Mean Corpuscular Hemoglobin 34.4 PG (26-34); Mean Corpuscular Volume 104.7 fL (80-100); Monocytes Absolute Auto 600 /uL (0-900); Monocytes Percent Auto 9.1 % (3-14); Neutrophils Absolute Auto 5400 /uL (1500-7000); Neutrophils Percent Auto 81.1 % (50-75); Platelet Count 190 X10^3/uL (150-400); Red Blood Cell Count 3.47 X10^6/uL (4.0-5.2); Red Cell Distribution Width 16.1 % (11.6-14.8); White Blood Cell Count 6.7 X10^3/uL (4.5-11.0)
[2024-02-23 10:18] LABS: Alanine Aminotransferase 33 IU/L (<35); Albumin 3.5 g/dL (3.5-5.0); Albumin Globulin Ratio 1.3 (1.0-2.8); Alkaline Phosphatase 53 U/L (38-126); Aspartate Aminotransferase 36 IU/L (14-36); BUN Creatinine Ratio 31.5 (6-22); Bilirubin Total 0.5 mg/dL (0.2-1.3); Blood Urea Nitrogen 40 mg/dL (7-17); Calcium 8.7 mg/dL (8.4-10.2); Carbon Dioxide 29 mmol/L (22-32); Chloride 105 mmol/L (98-107); Estimated Glomerular Filt Rate 42 mL/min (>60); Globulin 2.8 g/dL (1.7-4.1); Glucose 127 mg/dL (80-110); HEMOLYSIS < 15 (0-50); Lipase 186 U/L (23-300); Potassium 4.4 mmol/L (3.4-5.1); Sodium 137 mmol/L (137-145); Total Protein 6.3 g/dL (6.3-8.2)
[2024-02-23] MEDS: FAMOTIDINE 20 MG/2 ML VIAL IV (10:48)
[2024-02-23] MEDS: EPINEPHrine 1 MG/ML 0.5 MG IM (10:48)
--- NOTE | 2024-02-23 10:51 | EKG_ITS ---
[address] [address] Test Date: 2024-02-23 Pat Name: Carlota Jacome Department: Room: Gender: Female Account Liaison: lora : 1940 Requested By: Order Number: [id number] Reading MD: Kermit Cordero Measurements Intervals [place] Rate: 101 P: 48 CA: 188 QRS: 25 QRSD: 74 T: 63 QT: 354 QTc: 459 Interpretive Statements Sinus tachycardia ST & T wave abnormality, consider lateral ischemia Electronically Signed On 02-25-2024 19:47:44 PDT by Kermit Cordero
[2024-02-23] MEDS: LORazepam 2 MG/ML INJ 0.5 MG IV (10:53)
[2024-02-23] MEDS: dilTIAZem 25 MG/5 ML SDV 10 MG IV ×2 (10:53→10:58)
[2024-02-23] MEDS: SODIUM CHLORIDE 0.9% 1,000 ML 1000 ML IV (10:54)
--- NOTE | 2024-02-23 11:05 | EKG_ITS ---
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
[2024-02-23 11:23] LABS: HCO3 ABG 24 mmol/L (23-27); TCO2 ABG 25 mmol/L (23-27); pH ABG 7.22 (7.35-7.45)
--- NOTE | 2024-02-23 11:43 | PC.NURSE ---
Addendum entered by Cara Hua R.N. 02/23/24 12:19: 1219 Pt sitting up in bed. A&Ox4. Denies pain, cp, n/v. Remains 5L oxymask. Original Note: [address] and c/o SOB and difficulty breathing. O2 sat in 80s. Pt anxious and stated that she could not get a deep breath. Obvious work of breathing observed and Dr Hagen called to bedside. RN called RT and pt hooked back up to bedside court recording monitor. Dr Hagen to order epi & pepcid for allergic reaction. 0.5mg of IM epi given left deltoid. 1045 Pt collapsed backward, unresponsive, tachycardic and 2nd RN & Dr hagen called back to bedside. [facility] called. 20mg pepcid pushed via port. Pads placed on pt & RT began BVM ventilation. Suction set up. BG 149 at bedside. 1049 Pt responsive & fighting RT & RNs. Pt confused. Pt given 0.5mg of ativan IV as per verbal order by Dr Hagen. 18G IV placed in right AC. 1050 10mg IV Diltiazem pushed as per Dr Hagen's order. Pt remains SOB but a&ox3. Pt placed on 4.5L NC. 1057 10mg IV Diltiazem pushed as per DR Hagen verbal order. 1100 Pt sitting up in bed and a&ox4.
[2024-02-23 12:51] LABS: Creatine Kinase 84 U/L (30-135)
[2024-02-23 13:02] LABS: NT-proBNP (BNP-Adult 18+) 1550 pg/mL (<450)
[2024-02-23 13:04] LABS: Troponin I 0.018 ng/mL (0.01-0.034)
--- NOTE | 2024-02-23 15:47 | PC.NURSE ---
Attempt to call report for pt. Spoke with Yany Purcell RN. Elaine with pt at the time of call.
--- NOTE | 2024-02-23 17:54 | PC.NURSE ---
Patient wheened down to 3L of O2 from 4L, Dr. 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 She tolerated a clear liquid diet. Patient is actually off of o2 now and we are watching her sats. She is at 91%. Patient is also a type 2 diabetic. We will start blood sugar checks tonight at bed time as patient has already eaten. This is ok with Dr. Kilgore.
--- NOTE | 2024-02-23 18:07 | P.HP_ITS ---
History of Present Illness History of Present Illness Date Patient Seen: 02/23/24 Time Patient Seen: 18:07 Chief complaint: fell, rib pain and right shoulder pain Narrative: This is a very pleasant 83-year-old female who is under the primary care of Dr. Trotter. She sees Dr. Hendrix for oncology and Dr. Gary for Cardiology. 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 She has he receiving palliative immune therapy per Oncology. She has a distant history of tobacco use. She also has severe aortic stenosis and the thoughts were that she would have a TAVR but I believe her counts have not been good enough or her overall health not good enough that they have proceeded with that. Patient also has a history of AFib but currently is not on blood thinners she was taken off by her physicians. Patient has type 2 diabetes for which she takes Jardiance 25 mg daily. Patient apparently was in [place] on a trip with her daughter and grandson and and she fell I believe while using her walker. She fell on her left side and hit her head as well as her ribs. This occurred on February 20. She waited until they got back from [place] and then came to the ER this morning. Workup was unremarkable and CT scan of her head was obtained. Patient has a history of allergic reaction to iodine and she is usually pretreated to have scans but this time she received Solu-Medrol 125 mg and then had anaphylactic reaction as she was coming back from CT. She became very tachycardic and said she was unable to breathe. She turned very red but did have a specific urticarial rash or complain of sneezing itchy eyes or itchy throat. She was given epinephrine and then she became unresponsive very briefly and possible need for intubation however then patient started to recover. Also her pulsed form became available as well as discussion with her who is the DPOA and she would not want to be resuscitated. She would not want to be intubated. Patient was admitted to be monitored overnight for further complications or concerns. Patient currently is feeling that her breathing is better and she is not having any concerns. She did just recently eaten cites that she does become wheezy after she eats. Otherwise there is no new changes in her history. Past medical history: 1. Non-Hodgkin's lymphoma in 2006, underwent R-CHOP therapy 2. 2010 [id number] lung cancer 3. Recurrence of lung cancer to her chest wall in 2015, underwent radiation and chemotherapy and then recurrence in 2022 4. Distant history of tobacco use 5. Type 2 diabetes controlled on Jardiance 25 mg daily 6. Paroxysmal atrial fibrillation not currently on blood thinners as these were discontinued by her physicians 7. Hyperlipidemia 8. Depression 9. Hypertension 10. Obstructive sleep apnea on CPAP 11. Stage 3 chronic kidney disease 12. Peripheral arterial disease 13. Severe aortic stenosis 14. Diabetic neuropathy 15. COPD Allergies: Penicillin Iodine dye Past surgical history: Pulmonary lobectomy Health related behavior: Patient previously drank alcohol but not now Patient has smoked for about 40 years but quit in 1999 Patient can not walk very far. She is inactive. Family history: Paternal grandmother with breast cancer 2 sisters with bone cancer Social history: Patient is and lives with her in [place]. They retired here from [place]. Her was in the service. Patient has daughter who live in [place] 12 point review of systems is negative other than above Patient denies any weight loss or weight gain Patient denies any difficulty swallowing. Patient has dentures and she just got new dentures in his having sore spot on her gum Patient denies any change in her breathing capacity prior to today. Patient is having rib pain from her fall in his treating this with Tylenol No blood in her stool No change in bowel movements PENDING SALE TO [facility] Medical History Gout Chronic respiratory failure with hypoxia History of lymphoma Chronic atrial fibrillation Type 2 diabetes mellitus Hyperlipidemia Hypertension Radiation fibrosis of lung Contrast media allergy Lung cancer COPD exacerbation Family History Sister Cancer Mother CAD (coronary artery disease) Father Malaria Social History household members: spouse Smoking Status: Former smoker alcohol intake: current Meds Home Medications and Allergies Home Medications Medication Instructions Recorded Confirmed Type atorvastatin 40 mg tablet (Lipitor) 70 mg PO QPM ##0 04/22/12 02/23/24 History doxepin 25 mg capsule 60 mg PO BID 12/17/17 02/23/24 History metoprolol succinate 50 mg 50 mg PO BID 12/17/17 02/23/24 History tablet,extended release 24 hr allopurinol 100 mg tablet 100 mg PO DAILY 09/09/21 02/23/24 History acetaminophen 650 mg 650 mg PO BEDTIME 03/16/23 02/23/24 History tablet,extended release calcium carbonate 600 mg-vitamin 1 tab PO DAILY 03/16/23 02/23/24 History D3 10 mcg (400 unit) chewable tablet (Calcium 600 with Vitamin D3) citalopram 10 mg tablet 10 mg PO DAILY 03/16/23 02/23/24 History aspirin 81 mg tablet,delayed 81 mg PO DAILY #30 tabs 03/18/23 02/23/24 Rx release blood sugar diagnostic (FreeStyle #10 ea 05/25/23 02/23/24 History Lite Strips) blood-glucose meter (FreeStyle #1 ea 05/25/23 02/23/24 History Lite Meter kit) ferrous sulfate 325 mg (65 mg 325 mg PO DAILY 05/25/23 02/23/24 History iron) tablet (FeroSul) furosemide 20 mg tablet 20 mg PO DAILY 05/25/23 02/23/24 History lancets 28 gauge (FreeStyle #100 ea 05/25/23 02/23/24 History Lancets) metformin 500 mg tablet 500 mg PO 3XD 05/25/23 02/23/24 History pantoprazole 40 mg tablet,delayed 40 mg PO DAILY 05/25/23 02/23/24 History release sodium,potassium,mag sulfates 17.5 See Rx Instructions PO .COMPLEX 06/09/23 02/23/24 Rx gram-3.13 gram-1.6 gram oral soln #354 mL (Suprep Bowel Prep Kit) empagliflozin 25 mg tablet 25 mg PO DAILY 02/23/24 02/23/24 History (Jardiance) nitrofurantoin 1 cap PO BID 02/23/24 02/23/24 History monohydrate/macrocrystals 100 mg capsule potassium chloride 20 mEq 20 meq PO DAILY 02/23/24 02/23/24 History tablet,extended release prochlorperazine maleate 10 mg 10 mg PO Q6H PRN nausea/vomiting 02/23/24 02/23/24 History tablet vibegron 75 mg tablet (Gemtesa) 75 mg PO DAILY 02/23/24 02/23/24 History Allergies Allergy/AdvReac Type Severity Reaction Status Date / Time levartmarivel,white Allergy Severe Difficulty Verified 07/08/23 08:06 [From A & D Barrier] Breathing venom-honey bee Allergy Severe HIVES Verified 07/08/23 08:06 [BEE VENOM (HONEY BEE)] adhesive [ADHESIVE] Allergy Intermediate REDNESS Verified 07/08/23 08:06 AND ITCHING OF SKIN WITH TAPE USE. Iodinated Contrast Media Allergy Intermediate RASH Verified 07/08/23 08:06 [IODINATED CONTRAST MEDIA - IV DYE] Penicillins [PENICILLINS] Allergy Intermediate SOB, Verified 07/08/23 08:06 ITCHING ALL TOPICAL OINTMENTS Allergy Severe RASH Uncoded 07/08/23 08:06 Exam Vital Signs (past 8 hours): - 02/23/24 10:10 02/23/24 10:15 02/23/24 10:20 Temperature Pulse Rate 102 H 104 H 101 H Respiratory Rate 45 H 28 H 31 H Blood Pressure Pulse Oximetry 96 95 95 Oxygen Delivery Method Oxygen Flow Rate 02/23/24 10:38 02/23/24 10:40 02/23/24 10:45 Temperature Pulse Rate 98 H 158 H 139 H Respiratory Rate 35 H 45 H Blood Pressure Pulse Oximetry 80 L 88 L Oxygen Delivery Method Nasal Cannula Oxygen Flow Rate 4 02/23/24 10:50 02/23/24 10:55 02/23/24 11:00 Temperature Pulse Rate 159 H 144 H 126 H Respiratory Rate 57 H 39 H 36 H Blood Pressure Pulse Oximetry 82 L 95 Oxygen Delivery Method Oximask Oxygen Flow Rate 4.5 02/23/24 11:05 02/23/24 11:10 02/23/24 11:15 Temperature Pulse Rate 122 H 123 H 114 H Respiratory Rate 41 H 35 H 29 H Blood Pressure Pulse Oximetry 96 96 96 Oxygen Delivery Method Oxygen Flow Rate 02/23/24 11:20 02/23/24 11:25 02/23/24 11:30 Temperature Pulse Rate 110 H 108 H 102 H Respiratory Rate 28 H 31 H 25 H Blood Pressure Pulse Oximetry 94 94 92 Oxygen Delivery Method Oxygen Flow Rate 02/23/24 11:35 02/23/24 11:40 02/23/24 11:45 Temperature Pulse Rate 103 H 103 H 99 H Respiratory Rate 29 H 27 H 24 Blood Pressure Pulse Oximetry 90 L 92 90 L Oxygen Delivery Method Oximask Oxygen Flow Rate 5 02/23/24 11:50 02/23/24 11:55 02/23/24 12:00 Temperature Pulse Rate 99 H 97 H 98 H Respiratory Rate 26 H 34 H 25 H Blood Pressure Pulse Oximetry 90 L 90 L 91 Oxygen Delivery Method Oxygen Flow Rate 02/23/24 12:05 02/23/24 12:10 02/23/24 12:15 Temperature Pulse Rate 98 H 98 H 100 H Respiratory Rate 26 H 31 H 40 H Blood Pressure Pulse Oximetry 89 L 94 94 Oxygen Delivery Method Oximask Oximask Oxygen Flow Rate 10 5 02/23/24 12:20 02/23/24 12:25 02/23/24 12:30 Temperature Pulse Rate 99 H 99 H 97 H Respiratory Rate 26 H 22 36 H Blood Pressure Pulse Oximetry 94 92 92 Oxygen Delivery Method Oximask Oximask Oxygen Flow Rate 5 4 02/23/24 12:35 02/23/24 12:40 02/23/24 12:45 Temperature Pulse Rate 96 H 97 H 96 H Respiratory Rate 22 25 H 29 H Blood Pressure Pulse Oximetry 92 90 L 92 Oxygen Delivery Method Oxygen Flow Rate 02/23/24 12:50 02/23/24 12:55 02/23/24 13:00 Temperature Pulse Rate 97 H 97 H 97 H Respiratory Rate 30 H 25 H 36 H Blood Pressure Pulse Oximetry 92 91 92 Oxygen Delivery Method Oxygen Flow Rate 02/23/24 13:05 02/23/24 13:10 02/23/24 13:15 Temperature Pulse Rate 97 H 96 H 97 H Respiratory Rate 24 26 H Blood Pressure Pulse Oximetry 91 92 93 Oxygen Delivery Method Oxygen Flow Rate 02/23/24 13:20 02/23/24 13:25 02/23/24 13:30 Temperature Pulse Rate 100 H 97 H 97 H Respiratory Rate 33 H 24 24 Blood Pressure Pulse Oximetry 94 94 96 Oxygen Delivery Method Oxygen Flow Rate 02/23/24 13:35 02/23/24 13:40 02/23/24 13:45 Temperature Pulse Rate 94 H 96 H 93 H Respiratory Rate 30 H 23 32 H Blood Pressure Pulse Oximetry 94 95 97 Oxygen Delivery Method Oxygen Flow Rate 02/23/24 13:50 02/23/24 13:55 02/23/24 14:00 Temperature Pulse Rate 93 H 93 H 100 H Respiratory Rate 22 34 H 30 H Blood Pressure Pulse Oximetry 97 85 L 86 L Oxygen Delivery Method Oximask Oximask Oximask Oxygen Flow Rate 5 5 02/23/24 14:05 02/23/24 14:10 02/23/24 14:15 Temperature Pulse Rate 98 H 101 H 103 H Respiratory Rate 26 H 31 H 28 H Blood Pressure Pulse Oximetry 94 87 L 87 L Oxygen Delivery Method Oxygen Flow Rate 02/23/24 14:20 02/23/24 14:25 02/23/24 14:30 Temperature Pulse Rate 100 H 97 H 96 H Respiratory Rate 27 H 31 H 24 Blood Pressure Pulse Oximetry 98 98 98 Oxygen Delivery Method Oxygen Flow Rate 02/23/24 14:35 02/23/24 14:40 02/23/24 14:45 Temperature Pulse Rate 97 H 96 H 96 H Respiratory Rate 34 H 23 24 Blood Pressure Pulse Oximetry 98 98 97 Oxygen Delivery Method Simple Mask Simple Mask Simple Mask Oxygen Flow Rate 4 4 4 02/23/24 14:50 02/23/24 14:55 02/23/24 15:00 Temperature Pulse Rate 97 H 97 H 98 H Respiratory Rate 28 H 27 H 27 H Blood Pressure Pulse Oximetry 98 95 95 Oxygen Delivery Method Simple Mask Simple Mask Simple Mask Oxygen Flow Rate 4 4 4 02/23/24 15:05 02/23/24 15:10 02/23/24 15:20 Temperature Pulse Rate 100 H 98 H 105 H Respiratory Rate 28 H 27 H 29 H Blood Pressure Pulse Oximetry 95 96 97 Oxygen Delivery Method Simple Mask Simple Mask Simple Mask Oxygen Flow Rate 4 4 4 02/23/24 15:25 02/23/24 15:30 02/23/24 15:30 Temperature Pulse Rate 97 H 96 H Respiratory Rate 24 25 H Blood Pressure 151/71 H Pulse Oximetry 99 97 94 Oxygen Delivery Method Simple Mask Simple Mask Oximask Oxygen Flow Rate 4 4 4 02/23/24 15:35 02/23/24 15:40 02/23/24 16:30 Temperature 97.5 F L Pulse Rate 96 H 96 H 96 H Respiratory Rate 25 H 24 16 Blood Pressure 158/85 H Pulse Oximetry 97 94 99 Oxygen Delivery Method Oxygen Flow Rate 4 Oxygen Delivery Method Oximask Oxygen Flow Rate 4 Narrative Exam Narrative: Patient is alert and oriented in no apparent. She is lying in the hospital bed with 4 L of oxygen via mask. HEENT shows the patient is edentulous. There no her sores or sores. She does have bruising upper mid gum at the attachment to the buccal mucosa about 3 mm. Neck: Supple Chest: Clear to auscultation without wheezes, rhonchi or crackles, decreased breath sounds bases Cor: Regular rhythm with tachycardia in the low 100s. No murmur rubs or gallops Abdomen: Positive bowel sounds, soft of tenderness inferior to the left ribs but no guarding or rebound. Abdomen is obese appreciable hepatosplenomegaly Extremities no edema pulses intact Skin no evidence of bruising and no rashes Objective Labs 02/23/24 09:48 02/23/24 09:48 Labs: Laboratory Results - last 24 hr 02/23/24 02/23/24 02/23/24 09:48 11:19 12:27 WBC 6.7 RBC 3.47 L Hgb 11.9 L Hct 36.3 MCV 104.7 H MCH 34.4 H MCHC 32.9 RDW 16.1 H Plt Count 190 Neut % (Auto) 81.1 H Lymph % (Auto) 6.8 L [place] % (Auto) 9.1 Eos % (Auto) 1.8 L Baso % (Auto) 1.2 Neut # (Auto) 5400 Lymph # (Auto) 500 L [place] # (Auto) 600 Eos # (Auto) 100 Baso # (Auto) 100 ABG pH 7.22 L* ABG pCO2 59.0 H ABG HCO3 24 ABG Total CO2 25 ABG Base Excess -5.0 L Sodium 137 Potassium 4.4 Chloride 105 Carbon Dioxide 29 BUN 40 H Creatinine 1.27 H Estimated GFR 42 L BUN/Creatinine Ratio 31.5 H Glucose 127 H Calcium 8.7 Total Bilirubin 0.5 AST 36 ALT 33 Alkaline Phosphatase 53 Total Creatine Kinase 84 Troponin I 0.018 NT-Pro-B Natriuret Pep 1550 H Total Protein 6.3 Albumin 3.5 Globulin 2.8 Albumin/Globulin Ratio 1.3 Lipase 186 Assessment & Plan Assessment & Plan narrative: 83-year-old female with multiple medical problems including recurrent metastatic lung cancer to the liver admitted for anaphylaxis after having a CT scan of her head in the ER. Assessment 1. Anaphylaxis. Patient treated with steroids and epi and no residual symptoms. We will continue to evaluate overnight and and treat further with steroids if needed. At this time no evidence of residual sequela Assessment 2. Status post fall with rib pain and no evidence of fracture on x- ray. Head CT showed no evidence of bleeding. Will provide supportive care with Tylenol and if this does not treat her pain Tylenol with codeine. Assessment 3 chronic kidney disease with slight worsening related to above. Will continue to monitor. Recheck tomorrow. Assessment 4. Type 2 diabetes on Jardiance Plan: Will restart Jardiance. Will do CBGS q.a.c. and q.h.s.. Liver and a diabetic diet. Will continue to monitor Assessment 5. Metastatic lung cancer. At this point I do not think that this is contributing to her symptoms etiology. Continue per Oncology outpatient continue to monitor and continue to trend the labs Assessment 6. History of depression Plan: Continue doxepin and citalopram. No current symptoms. Assessment 7. Severe aortic stenosis I do not think is contributing to her current presenting problem. I reviewed her notes from Cardiology and Oncology and she will follow up with Cardiology. Assessment 8. Paroxysmal atrial fibrillation with tachycardia. Currently not on blood thinners because these were discontinued by her physicians. We will continue on others including metoprolol Assessment 9. DVT prophylaxis Plan: Will do Lovenox Assessment 10. Hypertension currently blood pressure elevated Plan: Will use home medications and monitor 77 minutes spent with patient in discussing with ER physician, nursing, reviewing clinic chart and multiple consultants chart and ER workup and meeting with patient in formulation of plan and documentation. Code status is DNR DNI Anticipate discharge home tomorrow Time-Based Coding :: [TOTAL MINUTES] spent with patient and on the chart (including review of chart, obtaining history, exam, reviewing outside data, placing orders, documenting exam and treatment plan, and counseling patient) on [DATE].
[2024-02-23] MEDS: SODIUM CHLORIDE 0.9% FLUSH 10 ML IV ×2 (20:59→23:15)
[2024-02-23] MEDS: NITROFURANTOIN ER 100 MG CAPSULE PO (20:59)
[2024-02-23] MEDS: MELATONIN 3 MG TABLET PO (20:59)
[2024-02-23] MEDS: METOPROLOL ER 50 MG TABLET PO (20:59)
[2024-02-23] MEDS: PANTOPRAZOLE DR 40 MG TABLET PO (21:42)
[2024-02-23] MEDS: ALBUTEROL/IPRATROPIUM 3 ML AMPUL INH (23:11)
[2024-02-23] MEDS: FUROSEMIDE 40 MG/4 ML VIAL IV (23:15)
[2024-02-24] VITALS: O2SAT 91
[2024-02-24 02:32] VITALS: BP 143/79; PULSE 107; RESP 20; TEMP 36.3; O2SAT 94
--- NOTE | 2024-02-24 04:45 | PC.NURSE ---
Pt. reported breathing a lot better now. RT. placed her with 3.5 liters when she had some dyspnea & short of breath @ 2300. 40 mg. of Lasix IVP administered & breathing treatment. Voided 1500 cc + unmeasured x2 earlier this shift. Noted her SPO2 in 3.5 liters was 98%. Turned her 02 down to 2.5 liters & SPO2 now is 90-93 %. Also reported that the pain in her rib cage area has resolved. Will continue plan of care & monitor.
[2024-02-24 05:04] VITALS: O2SAT 92
[2024-02-24 06:00] VITALS: O2SAT 93
[2024-02-24 06:48] LABS: Add Manual Diff / Slide Review NO; Basophils Absolute Auto 100 /uL (0-100); Basophils Percent Auto 0.7 % (0-2); Eosinophils Absolute Auto 0 /uL (0-450); Hematocrit 37.4 % (36-46); Hemoglobin 12.4 g/dL (12.0-16.0); Lymphocytes Absolute Auto 300 /uL (1100-4500); Lymphocytes Percent Auto 2.3 % (25-40); Mean Corpuscular Hemoglobin 34.2 PG (26-34); Mean Corpuscular Volume 103.7 fL (80-100); Monocytes Absolute Auto 600 /uL (0-900); Monocytes Percent Auto 4.9 % (3-14); Neutrophils Absolute Auto 12100 /uL (1500-7000); Neutrophils Percent Auto 92.1 % (50-75); Platelet Count 223 X10^3/uL (150-400); Red Blood Cell Count 3.61 X10^6/uL (4.0-5.2); Red Cell Distribution Width 15.6 % (11.6-14.8); White Blood Cell Count 13.1 X10^3/uL (4.5-11.0)
[2024-02-24 07:22] LABS: Alanine Aminotransferase 42 IU/L (<35); Albumin 4.1 g/dL (3.5-5.0); Albumin Globulin Ratio 1.4 (1.0-2.8); Alkaline Phosphatase 57 U/L (38-126); Aspartate Aminotransferase 49 IU/L (14-36); Bilirubin Total 0.5 mg/dL (0.2-1.3); Blood Urea Nitrogen 36 mg/dL (7-17); Calcium 8.6 mg/dL (8.4-10.2); Carbon Dioxide 25 mmol/L (22-32); Chloride 101 mmol/L (98-107); Estimated Glomerular Filt Rate 47 mL/min (>60); Globulin 2.9 g/dL (1.7-4.1); Glucose 151 mg/dL (80-110); HEMOLYSIS < 15 (0-50); Potassium 4.2 mmol/L (3.4-5.1); Sodium 134 mmol/L (137-145)
[2024-02-24 08:31] VITALS: BP 168/89; PULSE 108
[2024-02-24] MEDS: allopurinoL 100 MG TABLET PO (08:31)
[2024-02-24] MEDS: METFORMIN HCL 500 MG TABLET PO (08:31)
[2024-02-24] MEDS: NITROFURANTOIN ER 100 MG CAPSULE PO (08:31)
[2024-02-24] MEDS: CITALOPRAM 10 MG TABLET PO (08:31)
[2024-02-24] MEDS: CALCIUM CARBONATE 500 MG TAB PO (08:31)
[2024-02-24] MEDS: METOPROLOL ER 50 MG TABLET PO (08:31)
[2024-02-24] MEDS: POTASSIUM CHLORIDE 20 MEQ TAB PO (08:31)
[2024-02-24] MEDS: FERROUS SULFATE 325 MG TABLET PO (08:31)
[2024-02-24] MEDS: FUROSEMIDE 20 MG TABLET PO (08:31)
[2024-02-24] MEDS: ENOXAPARIN 30 MG/0.3 ML SYRINGE SUBCUT (08:31)
[2024-02-24] MEDS: ASPIRIN EC 81 MG TABLET PO (08:31)
[2024-02-24] MEDS: CHOLECALCIFEROL (VITAMIN D3) 400 UNIT TABLET PO (08:31)
[2024-02-24] MEDS: SODIUM CHLORIDE 0.9% FLUSH 10 ML IV (08:32)
--- NOTE | 2024-02-24 09:38 | P.DS_ITS ---
History of Present Illness History of Present Illness Date Patient Seen: 02/24/24 Time Patient Seen: 09:00 Chief complaint: fell, rib pain and right shoulder pain Narrative: CC: When can I leave? Pt one 2L of oxygen which is her baseline. Feels ready to go home back to her usual baseline which is not great given her multiple issues. Extensive discussion today about getting her towards an aortic procedure will f/up as outpt may need new referral. If she can get her home metoprolol before leaving by wheelchair that would be great. Her ride is bringing a walker and her oxygen concentrator. Discharge Providers Provider Date of admission: 02/23/24 15:13 Discharge Date: 02/24/24 Primary care physician: Chandrakant Trotter MD Discharge provider: Chandrakant Trotter MD Summary Hospital Course Hospital Course: This is a very pleasant 83-year-old female who is under my primary care who sees Dr. Hendrix for oncology and Dr. Gary for Cardiology. Patient has a very complicated history with non-Hodgkin's, and then diagnosis of [id number] lung cancer in 2009 and then recurrence in 2016 to the chest wall. She has he receiving palliative immune therapy per Oncology. She has a distant history of tobacco use. She also has severe aortic stenosis which she thinks makes her intermittently dizzy and which she is trying to get fixed. Patient also has a history of AFib but currently is not on blood thinners she was taken off. Patient has type 2 diabetes for which she takes Jardiance 25 mg daily. Patient apparently was in [place] on a trip with her daughter and grandson and and she fell on her left side and hit her head as well as her ribs. This occurred on February 20. She waited until they got back from [place] and then came to the ER yesterday morning. Workup was unremarkable and CT scan of her head was obtained. Patient has a history of allergic reaction to iodine and she is usually pretreated to have scans - this time she received Solu-Medrol 125 mg and then had anaphylactic reaction as she was coming back from [place]. She became very tachycardic and said she was unable to breathe. She turned very red was given epinephrine and then she became unresponsive very briefly and possible need for intubation was considered however then patient started to recover. Also her POLST form became available as well as discussion with her who is the DPOA and she would not want to be resuscitated. She would not want to be intubated. Patient was admitted to be monitored overnight for further complications or concerns. She overall felt ok after all this and the next morning felt like she was back to normal for her with normal appetite, on her usual 2L fo O2 etc. Her main priority is getting her addressed. Status at Discharge Cognitive/behavioral status at discharge: at baseline, oriented Functional status at discharge: uses cane/walker Overall status at discharge: patient is back to baseline Exam Vital Signs (past 8 hours): - 02/24/24 02:32 02/24/24 05:04 02/24/24 06:00 Temperature 97.3 F L Pulse Rate 107 H Respiratory Rate 20 Blood Pressure 143/79 H Pulse Oximetry 94 92 93 Oxygen Delivery Method Oxygen Flow Rate 3.5 2.5 2.5 02/24/24 07:40 02/24/24 08:31 Temperature Pulse Rate 108 H Respiratory Rate Blood Pressure 168/89 H Pulse Oximetry Oxygen Delivery Method Simple Mask Oxygen Flow Rate Fraction of Inspired Oxygen 28 SaO2/FiO2 Ratio 339 Oxygen Delivery Method Simple Mask Oxygen Flow Rate 2.5 Narrative Exam Narrative: Sitting in chair talking on phone multi threading conversation Eyes Other: Extraocular movements intact Resp Other: clear to auscultation bilaterally Cardio Other: Regular rate S1-S2 GI Other: Soft nontender nondistended active bowel sounds Skin Other: No rash or erythema noted Neuro Other: Alert and oriented cranial nerves 2-12 grossly intact Objective Labs 02/24/24 06:14 02/24/24 06:14 Labs: Laboratory Results - last 24 hr 02/23/24 02/23/24 02/23/24 09:48 11:19 12:27 WBC 6.7 RBC 3.47 L Hgb 11.9 L Hct 36.3 MCV 104.7 H MCH 34.4 H MCHC 32.9 RDW 16.1 H Plt Count 190 Neut % (Auto) 81.1 H Lymph % (Auto) 6.8 L [place] % (Auto) 9.1 Eos % (Auto) 1.8 L Baso % (Auto) 1.2 Neut # (Auto) 5400 Lymph # (Auto) 500 L [place] # (Auto) 600 Eos # (Auto) 100 Baso # (Auto) 100 ABG pH 7.22 L* ABG pCO2 59.0 H ABG HCO3 24 ABG Total CO2 25 ABG Base Excess -5.0 L Sodium 137 Potassium 4.4 Chloride 105 Carbon Dioxide 29 BUN 40 H Creatinine 1.27 H Estimated GFR 42 L BUN/Creatinine Ratio 31.5 H Glucose 127 H Calcium 8.7 Total Bilirubin 0.5 AST 36 ALT 33 Alkaline Phosphatase 53 Total Creatine Kinase 84 Troponin I 0.018 NT-Pro-B Natriuret Pep 1550 H Total Protein 6.3 Albumin 3.5 Globulin 2.8 Albumin/Globulin Ratio 1.3 Lipase 186 02/24/24 06:14 WBC 13.1 H D RBC 3.61 L Hgb 12.4 Hct 37.4 MCV 103.7 H MCH 34.2 H MCHC 33.0 RDW 15.6 H Plt Count 223 Neut % (Auto) 92.1 H Lymph % (Auto) 2.3 L [place] % (Auto) 4.9 Eos % (Auto) 0.0 L Baso % (Auto) 0.7 Neut # (Auto) 77485 H Lymph # (Auto) 300 L [place] # (Auto) 600 Eos # (Auto) 0 Baso # (Auto) 100 ABG pH ABG pCO2 ABG HCO3 ABG Total CO2 ABG Base Excess Sodium 134 L Potassium 4.2 Chloride 101 Carbon Dioxide 25 BUN 36 H Creatinine 1.16 H Estimated GFR 47 L BUN/Creatinine Ratio 31.0 H Glucose 151 H Calcium 8.6 Total Bilirubin 0.5 AST 49 H ALT 42 H Alkaline Phosphatase 57 Total Creatine Kinase Troponin I NT-Pro-B Natriuret Pep Total Protein 7.0 Albumin 4.1 Globulin 2.9 Albumin/Globulin Ratio 1.4 Lipase PFSH Medical History Gout Chronic respiratory failure with hypoxia History of lymphoma Chronic atrial fibrillation Type 2 diabetes mellitus Hyperlipidemia Hypertension Radiation fibrosis of lung Contrast media allergy Lung cancer COPD exacerbation Family History Sister Cancer Mother CAD (coronary artery disease) Father Malaria Social History household members: spouse Smoking Status: Former smoker alcohol intake: current Discharge Assessment & Plan Assessment and Plan Assessment: 83-year-old female with multiple medical problems including recurrent metastatic lung cancer to the liver admitted for anaphylaxis after having a CT scan of her head in the ER following a fall due to dizzy spell. #Anaphylaxis s/p tx with steroids and epi, no residual symptoms. Feeling ok this morning. Back to her usual baseline. #Status post fall with rib pain and no evidence of fracture on x-ray. Head CT showed no evidence of bleeding. Avoid further falls #chronic kidney disease improving, hydrate #non insulin dependent type 2 diabetes on Jardiance stable continue home meds on dc #Metastatic lung cancer Continue per Oncology outpatient continue to monitor and continue to trend the labs #History of depression Plan: Continue doxepin and citalopram. No current symptoms. #Severe aortic stenosis Possible contributor to dizzy spells but not anaphylaxis. Needs to f/up with cardiology. May need new cardiology referral. #Paroxysmal atrial fibrillation with tachycardia Currently not on blood thinners because these were discontinued by her physicians. We will continue on other meds including metoprolol #Hypertension stable, continue home meds Dispo: back to baseline pretty much, no damage noted from fall, dc home to f/up as outpt DVT: Lovenox Code: DNR DNI PCP: Sergo Discharge Plan Discharge Plan Patient Disposition: Home Discharge orders & Medications Prescriptions: Continued metformin 500 mg tablet 500 mg PO 3XD ferrous sulfate [FeroSul] 325 mg (65 mg iron) tablet 325 mg PO DAILY pantoprazole 40 mg tablet,delayed release (DR/EC) 40 mg PO DAILY furosemide 20 mg tablet 20 mg PO DAILY (DME) lancets [FreeStyle Lancets] 28 gauge misc See Rx Instructions .ROUTE .MEDSUPPLY Qty: 100 Patient Comments: [NO ORIGINAL SIG] Rx Instructions: As directed (DME) FreeStyle Lite Strips Strip See Rx Instructions .ROUTE .MEDSUPPLY Qty: 10 Rx Instructions: As directed (DME) blood-glucose meter [FreeStyle Lite Meter] Kit See Rx Instructions .ROUTE BID Qty: 1 Rx Instructions: As directed atorvastatin [Lipitor] 40 MG tablet 70 mg PO QPM Qty: 0 sodium,potassium,mag sulfates [Suprep Bowel Prep Kit] 17.5-3.13-1.6 gram recon soln See Rx Instructions PO .COMPLEX Qty: 354 0RF Rx Instructions: take as directed by Physician metoprolol succinate 50 mg Tablet Extended Release 24 Hr 50 mg PO BID doxepin 25 mg Capsule 60 mg PO BID allopurinol 100 mg Tablet 100 mg PO DAILY citalopram 10 mg tablet 10 mg PO DAILY acetaminophen 650 mg Tablet Extended Release 650 mg PO BEDTIME Calcium 600 with Vitamin D3 600 mg-10 mcg (400 unit) Tablet,Chewable 1 tab PO DAILY aspirin 81 mg Tablet,Delayed Release (Dr/Ec) 81 mg PO DAILY Qty: 30 0RF prochlorperazine maleate 10 mg tablet 10 mg PO Q6H PRN (Reason: nausea/vomiting) nitrofurantoin monohyd/m-cryst 100 mg capsule 1 cap PO BID potassium chloride 20 mEq tablet extended release 20 meq PO DAILY Jardiance 25 mg tablet 25 mg PO DAILY Gemtesa 75 mg tablet 75 mg PO DAILY Follow up/Referrals: Chandrakant Trotter MD [Primary Care Provider] - Visit Report/Discharge Packet Stand Alone Forms: Patient Portal/API, Stroke Signs & Symptoms Discharge Data Primary Care Provider: Chandrakant Trotter Attending Provider: Mirella Kilgore Admit Date/Time: 02/23/24 15:13
== END 2024-02-24 12:17 | disposition home or self-care (01) ==
LOC: ED 15:00 → AC 15:15
PROVIDERS: Admitting Provider Family Medicine; Emergency Provider Emergency Medicine; PCP Family Medicine; Referring Provider Emergency Medicine; Visit Provider Family Medicine
DX: R07.81 Pleurodynia (principal); M25.511 Pain in right shoulder; W18.39XA Other fall on same level, initial encounter; E11.9 Type 2 diabetes mellitus without complications; Z79.84 Long term (current) use of oral hypoglycemic drugs; I48.0 Paroxysmal atrial fibrillation; I12.9 Hypertensive chronic kidney disease with stage 1 through stage 4 chronic kidney disease, or unspecified chronic kidney disease; E11.22 Type 2 diabetes mellitus with diabetic chronic kidney disease; N18.30 Chronic kidney disease, stage 3 unspecified; G47.33 Obstructive sleep apnea (adult) (pediatric); C34.90 Malignant neoplasm of unspecified part of unspecified bronchus or lung; I35.0 Nonrheumatic aortic (valve) stenosis; T78.2XXA Anaphylactic shock, unspecified, initial encounter
CPT/HCPCS: 36415; 36600; 70450; 71260; 72125; 74177; 80053; 82550; 82962; 83690; 83880; 84484; 85025; 93005; 94640; 96361; 96372; 96374; 96375; 96376; 99284; 99291; G0378; J0171; J1200; J1650; J1940; J2060; J2919; Q9967

== ENCOUNTER 2025-04-07 22:41 | Inpatient (IN) | payer MEDICARE, OTHER, SELFPAY ==
[2024-02-23 16:40] VITALS: BMI 29.8
[2025-04-07 22:41] VITALS: BP 180/114; PULSE 88; RESP 18; TEMP 36.8; O2SAT 95; BMI 30.6
[2025-04-07 22:45] VITALS: PULSE 92; O2SAT 95
--- NOTE | 2025-04-07 22:50 | DI.RAD.S_ITS ---
PROCEDURE: XR HIP W PEL IF DONE RT 2V INDICATIONS: fall TECHNIQUE: 2 views of the hip were acquired. COMPARISON: [facility], CR, XR HIP W PEL IF DONE RT 2V, 12/25/2023, 12:35. FINDINGS: Bones: Acute subcapital right femoral neck fracture with impaction of the femur. No dislocation. Moderate bilateral hip osteoarthritis. Soft tissues: No suspicious soft tissue calcifications or masses. IMPRESSION: Right femoral neck fracture. Dictated by: Kun Chávez M.D. on 04/07/2025 at 23:45 Approved by: Kun Chávez M.D. on 04/07/2025 at 23:47
[2025-04-07 23:00] VITALS: PULSE 87; O2SAT 95
[2025-04-07 23:05] VITALS: BP 142/66; PULSE 87; O2SAT 95
[2025-04-07] MEDS: fentaNYL 100 MCG/2 ML INJ 50 MCG IV (23:09)
--- NOTE | 2025-04-07 23:24 | ED.FALL ---
HPI - Fall General Chief Complaint: Fall Stated Complaint: fall possible r hip fracture Time Seen by Provider: 04/07/25 22:57 Source: patient and EMS Mode of arrival: EMS History of Present Illness HPI Narrative: Patient is a 84-year-old female currently on hospice secondary to lung cancer, hyperlipidemia, diabetes, gout, comes into the ED from home via EMS for evaluation of right hip pain, states that she was in her house walking was holding some he and states that she lost her balance because she was not using her walker, she states that she turned and bumped the right side of her hip and fell onto the floor, she states that she did bump her head onto the wall as well but denies any headache loss of vision neck pain denies any blood thinners, does state she requires 4 L nasal cannula at baseline for her lung cancer. Her only complaints at this time is right hip pain. Related Data Home Medications ?Medication ?Instructions ?Recorded ?Confirmed atorvastatin 40 mg tablet (Lipitor) 70 mg PO QPM ##0 04/22/12 02/23/24 doxepin 25 mg capsule 60 mg PO BID 12/17/17 02/23/24 metoprolol succinate 50 mg 50 mg PO BID 12/17/17 02/23/24 tablet,extended release 24 hr allopurinol 100 mg tablet 100 mg PO DAILY 09/09/21 02/23/24 acetaminophen 650 mg 650 mg PO BEDTIME 03/16/23 02/23/24 tablet,extended release calcium 600 mg (as carbonate)-vit 1 tab PO DAILY 03/16/23 02/23/24 D3 10 mcg (400 unit) chewable tablet (Calcium 600 with Vitamin D3) citalopram 10 mg tablet 10 mg PO DAILY 03/16/23 02/23/24 blood sugar diagnostic (FreeStyle #10 ea 05/25/23 02/23/24 Lite Strips) blood-glucose meter (FreeStyle #1 ea 05/25/23 02/23/24 Lite Meter kit) ferrous sulfate 325 mg (65 mg 325 mg PO DAILY 05/25/23 02/23/24 iron) tablet (FeroSul) furosemide 20 mg tablet 20 mg PO DAILY 05/25/23 02/23/24 lancets 28 gauge (FreeStyle #100 ea 05/25/23 02/23/24 Lancets) metformin 500 mg tablet 500 mg PO 3XD 05/25/23 02/23/24 pantoprazole 40 mg tablet,delayed 40 mg PO DAILY 05/25/23 02/23/24 release empagliflozin 25 mg tablet 25 mg PO DAILY 02/23/24 02/23/24 (Jardiance) nitrofurantoin 1 cap PO BID 02/23/24 02/23/24 monohydrate/macrocrystals 100 mg capsule potassium chloride 20 mEq 20 meq PO DAILY 02/23/24 02/23/24 tablet,extended release prochlorperazine maleate 10 mg 10 mg PO Q6H PRN nausea/vomiting 02/23/24 02/23/24 tablet vibegron 75 mg tablet (Gemtesa) 75 mg PO DAILY 02/23/24 02/23/24 Previous Rx's ?Medication ?Instructions ?Recorded aspirin 81 mg tablet,delayed 81 mg PO DAILY #30 tabs 03/18/23 release sodium,potassium,mag sulfates 17.5 See Rx Instructions PO .COMPLEX 06/09/23 gram-3.13 gram-1.6 gram oral soln #354 mL (Suprep Bowel Prep Kit) Allergies Allergy/AdvReac Type Severity Reaction Status Date / Time petrolatum,white (From A & D Allergy Severe Difficulty Verified 04/07/25 22:53 Barrier) Breathing venom-honey bee (BEE VENOM Allergy Severe HIVES Verified 04/07/25 22:53 (HONEY BEE)) adhesive (ADHESIVE) Allergy Intermediate REDNESS Verified 04/07/25 22:53 AND ITCHING OF SKIN WITH TAPE USE. Iodinated Contrast Media Allergy Intermediate RASH Verified 04/07/25 22:53 (IODINATED CONTRAST MEDIA - IV DYE) Penicillins (PENICILLINS) Allergy Intermediate SOB, Verified 04/07/25 22:53 ITCHING ALL TOPICAL OINTMENTS Allergy Severe RASH Uncoded 04/07/25 22:53 Review of Systems Review of Systems Narrative: General: Denies fever, chills, weight loss HEENT: Denies headache, eye drainage, eye irritation, head trauma, sore throat, voice change Cardiovascular: Denies any chest pain, palpitations, tachycardia Respiratory: Denies any shortness of breath, cough, wheeze, stridor GI/: Denies any abdominal pain, nausea, vomiting, diarrhea, bright red blood per rectum, melanotic stools, urinary frequency, urinary retention, dysuria, hematuria MSK: Positive right hip pain Skin: Denies any rashes, lesions, discoloration Neuro: Denies any headache, lightheadedness, dizziness, fainting, weakness Psych: Denies SI/HI Patient History Medical History Gout Chronic respiratory failure with hypoxia History of lymphoma Chronic atrial fibrillation Type 2 diabetes mellitus Hyperlipidemia Hypertension Radiation fibrosis of lung Contrast media allergy Lung cancer COPD exacerbation Family History Sister Cancer Mother CAD (coronary artery disease) Father Malaria Social History household members: spouse alcohol intake: current Smoking Status: Former smoker tobacco type: cigarettes alcohol intake frequency: holidays/special occasions only Exam Narrative Exam Narrative: General: Cooperative, well-developed, not in acute distress HEENT: Normocephalic, atraumatic, PERRLA, normal sclera, eyelids normal Neck: Active full range of motion, atraumatic Chest: Normal to inspection, negative crepitus, no overlying erythema ecchymosis Respiratory: Normal respiratory effort, not in acute respiratory distress, clear to auscultation bilaterally negative cough, wheeze, tachypnea, rhonchi, rales Cardiology: Regular rate rhythm negative gallop, murmur, rubs GI/: No tenderness to palpation, soft, non rigid, normal to inspection, exam deferred MSK: Decreased active passive range of motion of the right hip secondary to pain, patient uses walker at baseline no gross deformity noted Skin: No rashes or lesions noted Neuro: Alert awake oriented x3, moves all 4 extremities spontaneously, cranial nerves intact, able to answer all questions appropriately follows commands appropriately Psych: Cooperative, negative suicidal or homicidal ideations Initial Vital Signs Initial Vital Signs: Vital Signs Temperature 98.3 F 04/07/25 22:41 Pulse Rate 88 04/07/25 22:41 Respiratory Rate 18 04/07/25 22:41 Blood Pressure 180/114 H 04/07/25 22:41 Pulse Oximetry 95 04/07/25 22:41 Oxygen Delivery Method Room Air 04/07/25 22:41 Course Orders Ordered: ED Orders 04/07/25 22:50 XR hip w pel RT 2V Stat 04/07/25 23:00 CBC Auto Diff [Complete Blood Count AUTO DIFF] Stat CMP [Comprehensive Metabolic Panel] Stat Lipase Stat MAG [Magnesium] Stat Troponin & CK Cardiac Panel Stat 04/07/25 23:57 CXR [XR chest 1V] Stat EKG-12 Lead Stat 04/08/25 00:55 CT pelvis wo con Stat 04/08/25 01:02 Trop I [Troponin I] Stat Discontinued Medications Fentanyl (Fentanyl 100 Mcg/2 Ml Inj) 50 mcg IV NOW ONE Stop: 04/07/25 23:05 Last Admin: 04/07/25 23:09 Dose: 50 mcg Documented By: TIERNEY Morphine Sulfate (Morphine 4 Mg/Ml Inj) 4 mg IV NOW ONE Stop: 04/08/25 01:11 Last Admin: 04/08/25 01:32 Dose: 4 mg Vital Signs Vital signs: Vital Signs - 8 hr 04/07/25 22:41 04/07/25 22:45 04/07/25 23:00 Temperature 98.3 F Pulse Rate 88 92 H 87 Respiratory Rate 18 Blood Pressure 180/114 H Pulse Oximetry 95 95 95 Oxygen Delivery Method Room Air Oxygen Flow Rate 04/07/25 23:05 04/07/25 23:05 04/07/25 23:30 Temperature Pulse Rate 87 90 Respiratory Rate Blood Pressure 142/66 H Pulse Oximetry 95 96 Oxygen Delivery Method Nasal Cannula Oxygen Flow Rate 4 04/07/25 23:30 04/08/25 00:00 04/08/25 00:00 Temperature Pulse Rate 86 Respiratory Rate 27 H Blood Pressure 177/81 H 144/68 H Pulse Oximetry 95 Oxygen Delivery Method Nasal Cannula Oxygen Flow Rate 4 - Fall Lab Data 04/07/25 23:00 04/07/25 23:00 Labs: Lab Results 04/07/25 04/08/25 Range/Units 23:00 01:02 WBC 8.3 (4.5-11.0) X10^3/uL RBC 3.90 L (4.0-5.2) X10^6/uL Hgb 13.7 (12.0-16.0) g/dL Hct 40.2 (36-46) % MCV 103.1 H (80-100) fL MCH 35.2 H (26-34) PG MCHC 34.2 (30-36) % RDW 16.8 H (11.6-14.8) % Plt Count 206 (150-400) X10^3/uL Neut % (Auto) 89.1 H (50-75) % Lymph % (Auto) 6.6 L (25-40) % [place] % (Auto) 3.4 (3-14) % Eos % (Auto) 0.1 L (2-4) % Baso % (Auto) 0.8 (0-2) % Neut # (Auto) 7400 H (2289-3748) /uL Lymph # (Auto) 600 L (4922-3227) /uL [place] # (Auto) 300 (0-900) /uL Eos # (Auto) 0 (0-450) /uL Baso # (Auto) 100 (0-100) /uL Sodium 131 L (137-145) mmol/L Potassium 4.7 (3.4-5.1) mmol/L Chloride 98 (98-107) mmol/L Carbon Dioxide 23 (22-32) mmol/L BUN 92 H (7-17) mg/dL Creatinine 2.46 H (0.52-1.04) mg/dL Estimated GFR 19 L (>60) mL/min BUN/Creatinine Ratio 37.4 H (6-22) Glucose 204 H (70-99) mg/dL Calcium 9.0 (8.4-10.2) mg/dL Magnesium 2.5 H (1.6-2.3) mg/dL Total Bilirubin 0.6 (0.2-1.3) mg/dL AST 46 H (14-36) IU/L ALT 48 H (<35) IU/L Alkaline Phosphatase 58 (38-126) U/L Total Creatine Kinase 80 (30-135) U/L Troponin I 0.531 H* 0.536 H* (0.01-0.034) ng/mL Total Protein 8.4 H (6.3-8.2) g/dL Albumin 4.9 (3.5-5.0) g/dL Globulin 3.5 (1.7-4.1) g/dL Albumin/Globulin Ratio 1.4 (1.0-2.8) Lipase 376 H (23-300) U/L ECG Data Interpretation: EKG interpreted ED physician sinus 86 beats per minute QTC 454, nonspecific ST changes no STEMI MDM Narrative Medical decision making narrative: 82-year-old female who currently on hospice for lung cancer on 4 L nasal cannula at baseline hypertension diabetes presenting for mechanical trip and fall, normally uses a walker but lost her balance and hit her left hip on the wall and fell unable to stand bear weight ambulate immediately after neurovascularly intact otherwise, x-ray does show right femoral neck fracture. Had a discussion with the patient as well as her hospice team she will have hospice revoked for surgical fixation, preoperative labs have been ordered, patient without any leukocytosis, patient did have slight increase in creatinine 2.46 fluids have been ordered for this, GFR 19, magnesium 2.5, troponin elevated at 0.531, did consult Cardiology Dr. Ramírez, he states given patient with end-stage lung cancer patient would not meet requirement for catheterization, he also states that given fracture he would not recommend heparinization at this time, he states to reach out to orthopedic surgery for surgical fixation admit the patient and just do medical management, after discussion with Dr. Vyas of Orthopedic surgery he is recommending we obtain CT scan for better visualization of the fracture repeat troponin and depending on the results of this we will determine admission versus transfer. 0149: Repeat troponin 0.536, did discuss the case again with Dr. Vyas of Orthopedic surgery, states that he will reach out to anesthesia at this time to see if they would be willing to take patient to OR here. 0200: Discussion with Dr. Vyas of Orthopedic surgery he states that he was able to get contact with anesthesiology they state that they are willing to take patient to the OR, this was discussed with the patient she would like to proceed with surgical fixation Dr. Vyas requesting admission to hospitalist we will reach out now. The patient's management plan was discussed Dr. Pat, who agrees to admit the patient to their service and assumes care of this patient at this time. Full admission orders will be placed by the primary team. Discharge Plan Departure Patient Disposition: Admitted As Inpatient Clinical Impression: Closed fracture of neck of right femur, SHAE (acute kidney injury)
[2025-04-07 23:30] VITALS: BP 177/81; PULSE 90; O2SAT 96
--- NOTE | 2025-04-07 23:57 | DI.RAD.S_ITS ---
PROCEDURE: XR CHEST 1V INDICATIONS: Preop TECHNIQUE: One view of the chest was acquired. COMPARISON: [facility], CR, XR CHEST 2V, 03/24/2023, 13:36. FINDINGS: Surgical changes and devices: Right shoulder replacements. Lungs and pleura: Right midlung opacity and right lung volume loss similar to prior examination. No new acute consolidation. Mediastinum: Mediastinal contours appear normal. Heart size is normal. Bones and chest wall: No suspicious bony lesions. Overlying soft tissues appear unremarkable. IMPRESSION: Stable examination. Dictated by: Kun Chávez M.D. on 04/08/2025 at 0:26 Approved by: Kun Chávez M.D. on 04/08/2025 at 0:27
[2025-04-08] VITALS (16 sets, daily range): BP systolic 94–185; BP diastolic 54–92; PULSE 71–99; RESP 16–27; TEMP 35.6–36.6; O2SAT 95–100; BMI 30.3
--- NOTE | 2025-04-08 00:05 | EKG_ITS ---
[place] [id number] [place] [id number] Test Date: 2025-04-08 Pat Name: Carlota Jacome Department: [facility] Room: 221 Gender: Female Clerk Of Works: Kishore : 1940 Requested By: Order Number: [id number] Reading MD: Buster Pat MD Measurements Intervals [place] Rate: 86 P: 60 VT: 226 QRS: 31 QRSD: 94 T: 87 QT: 380 QTc: 454 Interpretive Statements Sinus rhythm with 1st degree AV block Electronically Signed On 04-08-2025 8:37:16 PDT by Buster Pat MD
--- NOTE | 2025-04-08 00:08 | PC.NURSE ---
Imaging at bedside
[2025-04-08 00:12] LABS: Add Manual Diff / Slide Review NO; Hematocrit 40.2 % (36-46); Hemoglobin 13.7 g/dL (12.0-16.0); Lymphocytes Absolute Auto 600 /uL (1100-4500); Mean Corpuscular HGB Conc 34.2 % (30-36); Mean Corpuscular Hemoglobin 35.2 PG (26-34); Mean Corpuscular Volume 103.1 fL (80-100); Platelet Count 206 X10^3/uL (150-400)
[2025-04-08 00:27] LABS: Alanine Aminotransferase 48 IU/L (<35); Albumin 4.9 g/dL (3.5-5.0); Albumin Globulin Ratio 1.4 (1.0-2.8); Alkaline Phosphatase 58 U/L (38-126); Blood Urea Nitrogen 92 mg/dL (7-17); Calcium 9.0 mg/dL (8.4-10.2); Carbon Dioxide 23 mmol/L (22-32); Chloride 98 mmol/L (98-107); Creatine Kinase 80 U/L (30-135); Estimated Glomerular Filt Rate 19 mL/min (>60); Globulin 3.5 g/dL (1.7-4.1); Glucose 204 mg/dL (70-99); HEMOLYSIS 18 (0-50); Lipase 376 U/L (23-300); Magnesium 2.5 mg/dL (1.6-2.3); Potassium 4.7 mmol/L (3.4-5.1); Sodium 131 mmol/L (137-145); Total Protein 8.4 g/dL (6.3-8.2)
[2025-04-08 00:42] LABS: Troponin I 0.531 ng/mL (0.01-0.034)
--- NOTE | 2025-04-08 00:55 | DI.CT.S_ITS ---
PROCEDURE: CT PEL WO CON INDICATIONS: Right femoral neck fracture TECHNIQUE: After the administration of oral contrast, 5 mm thick sections acquired from the iliac crests to the symphysis. 5 mm coronal and sagittal reformats were then performed. For radiation dose reduction, the following was used: automated exposure control, adjustment of mA and/or kV according to patient size. COMPARISON: None. FINDINGS: Image quality: Diagnostic. PELVIS: Peritoneum and Bowel: Bowel loops demonstrate normal wall thickness and caliber. No free fluid or air. Pelvic Organs: No pelvic mass. Bladder: Normal wall thickness, accounting for underdistension. No perivesicular fat stranding. Pelvic Nodes: No enlarged lymph nodes. Miscellaneous: No inguinal hernias are seen. Bones: Impacted and angulated subcapital right femoral neck fracture. Moderate arthritic changes noted involving both hips. The pelvic ring is intact. Degenerative changes noted lower lumbar spine with left hemilaminotomy IMPRESSION: Impacted subcapital right femoral neck fracture Note: This final report is concordant with the preliminary after-hours interpretation provided by [email or web address] Approved by: Jose Juarez M.D. on 04/08/2025 at 9:06
--- NOTE | 2025-04-08 01:04 | PC.NURSE ---
Hospice nurse at bedside
[2025-04-08] MEDS: MORPHINE 4 MG/ML INJ IV (01:32)
[2025-04-08 01:46] LABS: Troponin I 0.536 ng/mL (0.01-0.034)
--- NOTE | 2025-04-08 01:46 | PC.NURSE ---
Pt to imaging via ED stretcher with cnc service technician.
--- NOTE | 2025-04-08 02:42 | PC.NURSE ---
Pt resting quietly with eyes closed, resps even and not labored. No distress noted at this time. Pt remains connected to blood pressure and pulse ox monitors with alarms on and audible. VS stable. Call light within reach. Exam room door remains open for frequent observation and per patient request.
--- NOTE | 2025-04-08 03:29 | DI.ECHO.S_ITS ---
[facility] : : [id number] : : [place] : : [id number] : : Phone: [phone] Echocardiogram Report + + :Name: MICHAEL RUBIO Study Date: 04/08/2025 Height: 65 in : :[facility] ReadingLocation: Weight: 187 lb: : Gender: Female BSA: 1.9 m2 : :: 1940 Age: 84 yrs : :Reason For Study: Aortic Stenosis : :Ordering Physician: IRENA, : :TISH Coyne Performed By: Abbi Flor : :Referring: TISH OSBORN : + + Interpretation Summary The study quality was technically difficult. Left ventricular wall thickness is mild-moderately increased. The ejection fraction is estimated to be 40-45%. Diastolic function is indeterminate. The right ventricle is not well visualized. There is severely reduced aortic valve leaflet mobility. Doppler interrogation of the aortic valve and LVOT is very limited. From the data available, it appears as though the dimensionless index is 0.17 which is consistent with the prior history of severe aortic stenosis. Pulmonary artery pressures cannot be estimated because of the lack of a measurable TR jet velocity but the IVC suggests a CVP of around 3 mmHg. Compared to the prior study 03/07/2024, the ejection fraction has increased. Procedure: A two-dimensional transthoracic echocardiogram with color flow and Doppler was performed. The study was done portably. Comparison is made with the echocardiogram of 03/07/2024. The study quality was technically difficult. The patient was in sinus rhythm with heart rates between 81-97 bpm during the exam. Left Ventricle: The left ventricle is normal in size. Left ventricular wall thickness is mild-moderately increased. The ejection fraction is estimated to be 40-45%. Diastolic function is indeterminate. Right Ventricle: The right ventricle is not well visualized. Atria: Both atria are normal in size. There is no Doppler evidence for an interatrial shunt. Mitral Valve: There is mild mitral annular calcification. The mitral valve leaflets are moderately calcified. There is no mitral valve stenosis. There is trace mitral regurgitation. Aortic Valve: The aortic valve is severely calcified. There is severely reduced leaflet mobility. The peak aortic velocity is 3.3 m/sec. The peak aortic velocity on the previous exam was 4.0 m/sec. There is trace aortic regurgitation. Tricuspid Valve: The tricuspid valve leaflets are thin and pliable. There is a trace or physiologic amount of tricuspid regurgitation. Pulmonary artery pressures cannot be estimated because of the lack of a measurable TR jet velocity but the IVC suggests a CVP of around 3 mmHg. Pulmonic Valve: The pulmonic valve is not well seen, but is grossly normal. Pulmonic valve acceleration time is 86 ms. Great Vessels: The aortic root is normal size. The aortic arch is normal in size. The ascending aorta is normal in size. The pulmonary artery is normal size. The IVC is of normal diameter and collapses greater than 50% with a sniff. This suggests a low right atrial pressure of 3 mm Hg. Pericardium/ Pleura There is no pericardial effusion. There is no pleural effusion. MMode/2D Measurements & Calculations LVIDd: 3.8 cm LVOT diam: 2.0 cm LVIDs: 3.6 cm Ao root diam: 2.9 cm FS: 4.4 % asc Aorta Diam: 2.8 cm EPSS: 1.1 cm Ao Arch Diam (Prox Trans): 1.9 cm IVSd: 1.3 cm LVPWd: 1.4 cm LV herrera. diameter/BSA (cm/m^2): 2.0 LV sys. diameter/BSA (cm/m^2): 1.9 LA A2 area: 16.7 cm2 RA long axis: 3.9 cm LA A4 area: 11.9 cm2 RA area: 7.5 cm2 LA length (vol): 3.8 cm RA vol: 12.1 ml LA vol: 44.6 ml RA : 6.3 ml/m2 LA vol index: 23.2 ml/m2 IVC diam: 0.69 cm TAPSE: 1.3 cm Doppler Measurements & Calculations Ao V2 max: 327.9 cm/sec MV E max aquiles: 82.9 cm/sec Ao V2 mean: 216.9 cm/sec MV A max aquiles: 87.3 cm/sec Ao max P.0 mmHg MV E/A: 0.95 Ao mean P.1 mmHg Med Peak E' Aquiles: 4.6 cm/sec Ao V2 VTI: 68.7 cm E/E' med: 18.0 Lat Peak E' Aquiles: 5.3 cm/sec E/E' lat: 15.6 E/e' average: 16.8 MV dec time: 0.18 sec PA V2 max: 82.9 cm/sec MV V2 mean: 61.5 cm/sec PA V2 mean: 48.8 cm/sec MV mean P.7 mmHg PA mean P.1 mmHg MV V2 VTI: 22.5 cm PA pr(Accel): 40.5 mmHg Reading Physician:03:23 PM
[2025-04-08] MEDS: DEXTROSE 5%-0.9% NS 1,000 ML 100 ML IV (03:41)
--- NOTE | 2025-04-08 08:23 | PM.HP.IH.1 ---
History of Present Illness History of Present Illness Date Patient Seen: 04/08/25 Time Patient Seen: 08:23 Chief complaint: fall possible r hip fracture Narrative: 84-year-old female who normally sees Dr. Chandrakant Trotter at [facility] admitted with hip fracture Patient with end-stage recurrent small-cell lung cancer has been on hospice since 2023 apparently was up in her home without her walker fell sustaining injury to her right hip diagnosed with CT imaging in the emergency department Patient has elected to discontinue hospice and would like surgical repair of her fracture Other medical history includes extensive vascular disease with known coronary artery disease although no significant obstruction on most recent catheterization in 2022. Her ER evaluation did demonstrate elevated troponin levels without evidence of ischemia on ECG without actual symptoms from patient. Troponin level seems stable were not rising and perhaps were in part related to her acute kidney injury. Cardiology consulted by ED Bilateral carotid disease including occlusion of left external carotid Patient with severe aortic stenosis with a gradient of 44 mm when last checked in February of 2024. Not felt to be a candidate for TAVR given her limited life span due to her malignancy. 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 Surgical history also updated and attached to this note Home medications are basically unknown as they are being managed by hospice we have no access to that information at this time, but presume comfort care/palliative care type medications only [facility] Medical History Chronic anemia Coronary artery disease HFrEF (heart failure with reduced ejection fraction) (~02/2024) Paroxysmal atrial fibrillation Aortic stenosis (HFpEF) heart failure with preserved ejection fraction Carotid stenosis Small cell lung cancer Hemorrhoids Acute radiation pneumonitis History of lung cancer Depression Mixed hyperlipidemia PAD (peripheral artery disease) Gout Chronic respiratory failure with hypoxia History of lymphoma Type 2 diabetes mellitus Hyperlipidemia Hypertension Radiation fibrosis of lung Contrast media allergy COPD exacerbation Surgical History H/O carotid endarterectomy H/O heart artery stent S/P hysterectomy Family History Sister Cancer Mother CAD (coronary artery disease) Father Malaria Social History household members: spouse Smoking Status: Former smoker alcohol intake: current Meds Home Medications and Allergies Home Medications ?Medication ?Instructions ?Recorded ?Confirmed ?Type atorvastatin 40 mg tablet (Lipitor) 40 mg PO QPM ##0 04/22/12 04/08/25 History Held on 04/08/25. Instructions: Change in level of care doxepin 25 mg capsule 25 mg PO BID 12/17/17 04/08/25 History metoprolol succinate 50 mg 12.5 mg PO BID 12/17/17 04/08/25 History tablet,extended release 24 hr allopurinol 100 mg tablet 100 mg PO DAILY 09/09/21 04/08/25 History acetaminophen 650 mg 650 mg PO BEDTIME 03/16/23 04/08/25 History tablet,extended release calcium 600 mg (as carbonate)-vit 1 tab PO DAILY 03/16/23 04/08/25 History D3 10 mcg (400 unit) chewable tablet (Calcium 600 with Vitamin D3) Held on 04/08/25. Instructions: Provider's Order citalopram 10 mg tablet 20 mg PO DAILY 03/16/23 04/08/25 History aspirin 81 mg tablet,delayed 81 mg PO DAILY #30 tabs 03/18/23 04/08/25 Rx release blood sugar diagnostic (FreeStyle #10 ea 05/25/23 02/23/24 History Lite Strips) blood-glucose meter (FreeStyle #1 ea 05/25/23 02/23/24 History Lite Meter kit) ferrous sulfate 325 mg (65 mg 325 mg PO DAILY 05/25/23 04/08/25 History iron) tablet (FeroSul) furosemide 20 mg tablet 80 mg PO DAILY 05/25/23 04/08/25 History lancets 28 gauge (FreeStyle #100 ea 05/25/23 02/23/24 History Lancets) metformin 500 mg tablet 500 mg PO DAILY 05/25/23 04/08/25 History pantoprazole 40 mg tablet,delayed 40 mg PO DAILY 05/25/23 04/08/25 History release empagliflozin 25 mg tablet 25 mg PO DAILY 02/23/24 04/08/25 History (Jardiance) prochlorperazine maleate 10 mg 10 mg PO Q6H PRN nausea/vomiting 02/23/24 04/08/25 History tablet Held on 04/08/25. Instructions: Change in level of care vibegron 75 mg tablet (Gemtesa) 75 mg PO DAILY 02/23/24 04/08/25 History amiodarone 200 mg tablet 200 mg PO QAM 04/08/25 04/08/25 History dexamethasone 2 mg tablet 2 mg PO DAILY 04/08/25 04/08/25 History magnesium oxide 400 mg PO DAILY 04/08/25 04/08/25 History methadone 10 mg/mL oral concentrate mg 04/08/25 History senna 2 tab PO DAILY 04/08/25 04/08/25 History spironolactone 25 mg tablet mg 04/08/25 History Allergies Allergy/AdvReac Type Severity Reaction Status Date / Time petrolatum,white (From A & D Allergy Severe Difficulty Verified 04/07/25 22:53 Barrier) Breathing venom-honey bee (BEE VENOM Allergy Severe HIVES Verified 04/07/25 22:53 (HONEY BEE)) adhesive (ADHESIVE) Allergy Intermediate REDNESS Verified 04/07/25 22:53 AND ITCHING OF SKIN WITH TAPE USE. Iodinated Contrast Media Allergy Intermediate RASH Verified 04/07/25 22:53 (IODINATED CONTRAST MEDIA - IV DYE) Penicillins (PENICILLINS) Allergy Intermediate SOB, Verified 04/07/25 22:53 ITCHING ALL TOPICAL OINTMENTS Allergy Severe RASH Uncoded 04/07/25 22:53 Review of Systems Review of Systems ROS: Yes All systems reviewed with the patient and are negative except as otherwise documented Exam Vital Signs (past 8 hours): - 04/08/25 00:30 04/08/25 00:30 04/08/25 01:00 Temperature Pulse Rate 89 90 Respiratory Rate Blood Pressure 180/84 H Pulse Oximetry 96 96 Oxygen Delivery Method Nasal Cannula Nasal Cannula Oxygen Flow Rate 4 4 Fraction of Inspired Oxygen 04/08/25 01:00 04/08/25 01:30 04/08/25 01:30 Temperature Pulse Rate 97 H Respiratory Rate Blood Pressure 182/84 H 185/84 H Pulse Oximetry 96 Oxygen Delivery Method Nasal Cannula Oxygen Flow Rate 4 Fraction of Inspired Oxygen 04/08/25 02:00 04/08/25 02:01 04/08/25 02:01 Temperature Pulse Rate 99 H 99 H Respiratory Rate Blood Pressure 175/89 H Pulse Oximetry 95 95 Oxygen Delivery Method Nasal Cannula Nasal Cannula Oxygen Flow Rate 4 4 Fraction of Inspired Oxygen 04/08/25 02:30 04/08/25 02:30 04/08/25 03:40 Temperature 97.1 F L Pulse Rate 95 H 91 H Respiratory Rate 21 Blood Pressure 163/74 H 179/83 H Pulse Oximetry 95 98 Oxygen Delivery Method Nasal Cannula Oxygen Flow Rate 4 4 Fraction of Inspired Oxygen 04/08/25 04:18 04/08/25 07:00 Temperature 97.8 F Pulse Rate 91 H Respiratory Rate 20 Blood Pressure 150/73 H Pulse Oximetry 98 97 Oxygen Delivery Method Nasal Cannula Oxygen Flow Rate 4 Fraction of Inspired Oxygen 36 Fraction of Inspired Oxygen 36 SaO2/FiO2 Ratio 272 Oxygen Delivery Method Nasal Cannula Oxygen Flow Rate 4 Narrative Exam Narrative: Elderly female lying in a hospital bed with oxygen in place. Does not appear to be generally super uncomfortable HEENT-unremarkable Lungs-clear good breath sounds as best I can hear anteriorly Heart-regular rate and rhythm grade 3-4/6 systolic ejection murmur at the right sternal border without particular radiation Abdomen-positive bowel tones soft nontender nondistended Objective Labs 04/07/25 23:00 04/08/25 10:07 Labs: Laboratory Results - last 24 hr 04/07/25 04/08/25 23:00 01:02 WBC 8.3 RBC 3.90 L Hgb 13.7 Hct 40.2 MCV 103.1 H MCH 35.2 H MCHC 34.2 RDW 16.8 H Plt Count 206 Neut % (Auto) 89.1 H Lymph % (Auto) 6.6 L Ripley % (Auto) 3.4 Eos % (Auto) 0.1 L Baso % (Auto) 0.8 Neut # (Auto) 7400 H Lymph # (Auto) 600 L [place] # (Auto) 300 Eos # (Auto) 0 Baso # (Auto) 100 Sodium 131 L Potassium 4.7 Chloride 98 Carbon Dioxide 23 BUN 92 H Creatinine 2.46 H Estimated GFR 19 L BUN/Creatinine Ratio 37.4 H Glucose 204 H Calcium 9.0 Magnesium 2.5 H Total Bilirubin 0.6 AST 46 H ALT 48 H Alkaline Phosphatase 58 Total Creatine Kinase 80 Troponin I 0.531 H* 0.536 H* Total Protein 8.4 H Albumin 4.9 Globulin 3.5 Albumin/Globulin Ratio 1.4 Lipase 376 H Assessment & Plan Assessment & Plan narrative: 1. Right hip fracture-plan for surgical repair. Cardiology consulted over the phone from the emergency department and felt like there was really not much more to be done to stabilize patient for surgery with patient understanding risks of surgery in the setting of cardiac ischemia etcetera. Orthopedic surgery also consulted via emergency department I suggest obtaining echocardiography prior to surgery to better determine current status of left ventricular function and aortic valve function prior to initiation of anesthesia etcetera. We will also trend troponin and creatinine together as well as recheck ECG. Will continue patient's beta-gilberto 2. Type 2 diabetes-will hold patient's oral meds and cover with insulin therapy. Carb consistent diet while taking oral intake 3. Aortic stenosis-will obtain echocardiography prior to surgery and anesthesia 4. Coronary artery disease-trending troponins as above. Continue beta-gilberto therapy as well. I do not believe patient with active ischemia at this time despite positive troponin but will continue to monitor. Continue with lipid lowering therapy as well 5. Congestive heart failure-patient with chronic congestive heart failure with reduced ejection fraction chronically on diuretics. Continue to monitor for now given her elevated creatinine and acute kidney injury I am going to hold diuretics and continue with IV fluids but somewhat more generally then I would otherwise 6. Chronic respiratory failure-continue patient's oxygen replacement therapy 7. Recurrent small-cell lung cancer-patient presumably well returned to hospice care once recovered from this injury surgery and hospitalization etcetera. 8. History of paroxysmal atrial fibrillation-monitor on tele for now. No anticoagulation indicated obviously as above. Continue beta-gilberto therapy as well for this reason 9. Code status-patient obviously do not resuscitate in the event of a sudden cardiac or respiratory arrest as indicated with her hospice status etcetera. Confirmed with patient 10. VTE prophylaxis-not appropriate for chemo prophylaxis but SCDs appropriate and ordered Time-Based Coding :: [TOTAL MINUTES] spent with patient and on the chart (including review of chart, obtaining history, exam, reviewing outside data, placing orders, documenting exam and treatment plan, and counseling patient) on [DATE]. 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
--- NOTE | 2025-04-08 09:07 | PM.HP.IH.1 ---
History of Present Illness History of Present Illness Chief complaint: fall possible r hip fracture [facility] Medical History Chronic anemia Coronary artery disease HFrEF (heart failure with reduced ejection fraction) (~02/2024) Paroxysmal atrial fibrillation Aortic stenosis (HFpEF) heart failure with preserved ejection fraction Carotid stenosis Small cell lung cancer Hemorrhoids Acute radiation pneumonitis History of lung cancer Depression Mixed hyperlipidemia PAD (peripheral artery disease) Gout Chronic respiratory failure with hypoxia History of lymphoma Type 2 diabetes mellitus Hyperlipidemia Hypertension Radiation fibrosis of lung Contrast media allergy COPD exacerbation Surgical History H/O carotid endarterectomy H/O heart artery stent S/P hysterectomy Family History Sister Cancer Mother CAD (coronary artery disease) Father Malaria Social History household members: spouse Smoking Status: Former smoker alcohol intake: current Meds Home Medications and Allergies Home Medications ?Medication ?Instructions ?Recorded ?Confirmed ?Type atorvastatin 40 mg tablet (Lipitor) 70 mg PO QPM ##0 04/22/12 04/08/25 History doxepin 25 mg capsule 60 mg PO BID 12/17/17 04/08/25 History metoprolol succinate 50 mg 50 mg PO BID 12/17/17 04/08/25 History tablet,extended release 24 hr allopurinol 100 mg tablet 100 mg PO DAILY 09/09/21 04/08/25 History acetaminophen 650 mg 650 mg PO BEDTIME 03/16/23 04/08/25 History tablet,extended release calcium 600 mg (as carbonate)-vit 1 tab PO DAILY 03/16/23 04/08/25 History D3 10 mcg (400 unit) chewable tablet (Calcium 600 with Vitamin D3) citalopram 10 mg tablet 10 mg PO DAILY 03/16/23 04/08/25 History aspirin 81 mg tablet,delayed 81 mg PO DAILY #30 tabs 03/18/23 04/08/25 Rx release blood sugar diagnostic (FreeStyle #10 ea 05/25/23 02/23/24 History Lite Strips) blood-glucose meter (FreeStyle #1 ea 05/25/23 02/23/24 History Lite Meter kit) ferrous sulfate 325 mg (65 mg 325 mg PO DAILY 05/25/23 04/08/25 History iron) tablet (FeroSul) furosemide 20 mg tablet 20 mg PO DAILY 05/25/23 04/08/25 History lancets 28 gauge (FreeStyle #100 ea 05/25/23 02/23/24 History Lancets) metformin 500 mg tablet 500 mg PO 3XD 05/25/23 04/08/25 History pantoprazole 40 mg tablet,delayed 40 mg PO DAILY 05/25/23 04/08/25 History release sodium,potassium,mag sulfates 17.5 See Rx Instructions PO .COMPLEX 06/09/23 04/08/25 Rx gram-3.13 gram-1.6 gram oral soln #354 mL (Suprep Bowel Prep Kit) empagliflozin 25 mg tablet 25 mg PO DAILY 02/23/24 04/08/25 History (Jardiance) nitrofurantoin 1 cap PO BID 02/23/24 04/08/25 History monohydrate/macrocrystals 100 mg capsule potassium chloride 20 mEq 20 meq PO DAILY 02/23/24 02/23/24 History tablet,extended release prochlorperazine maleate 10 mg 10 mg PO Q6H PRN nausea/vomiting 02/23/24 04/08/25 History tablet vibegron 75 mg tablet (Gemtesa) 75 mg PO DAILY 02/23/24 04/08/25 History Allergies Allergy/AdvReac Type Severity Reaction Status Date / Time petrolatum,white (From A & D Allergy Severe Difficulty Verified 04/07/25 22:53 Barrier) Breathing venom-honey bee (BEE VENOM Allergy Severe HIVES Verified 04/07/25 22:53 (HONEY BEE)) adhesive (ADHESIVE) Allergy Intermediate REDNESS Verified 04/07/25 22:53 AND ITCHING OF SKIN WITH TAPE USE. Iodinated Contrast Media Allergy Intermediate RASH Verified 04/07/25 22:53 (IODINATED CONTRAST MEDIA - IV DYE) Penicillins (PENICILLINS) Allergy Intermediate SOB, Verified 04/07/25 22:53 ITCHING ALL TOPICAL OINTMENTS Allergy Severe RASH Uncoded 04/07/25 22:53 Exam Vital Signs (past 8 hours): - 04/08/25 01:30 04/08/25 01:30 04/08/25 02:00 Temperature Pulse Rate 97 H 99 H Respiratory Rate Blood Pressure 185/84 H Pulse Oximetry 96 95 Oxygen Delivery Method Nasal Cannula Nasal Cannula Oxygen Flow Rate 4 4 Fraction of Inspired Oxygen 04/08/25 02:01 04/08/25 02:01 04/08/25 02:30 Temperature Pulse Rate 99 H Respiratory Rate Blood Pressure 175/89 H 163/74 H Pulse Oximetry 95 Oxygen Delivery Method Nasal Cannula Oxygen Flow Rate 4 Fraction of Inspired Oxygen 04/08/25 02:30 04/08/25 03:40 04/08/25 04:18 Temperature 97.1 F L Pulse Rate 95 H 91 H Respiratory Rate 21 Blood Pressure 179/83 H Pulse Oximetry 95 98 98 Oxygen Delivery Method Nasal Cannula Nasal Cannula Oxygen Flow Rate 4 4 4 Fraction of Inspired Oxygen 36 04/08/25 07:00 Temperature 97.8 F Pulse Rate 91 H Respiratory Rate 20 Blood Pressure 150/73 H Pulse Oximetry 97 Oxygen Delivery Method Oxygen Flow Rate Fraction of Inspired Oxygen Fraction of Inspired Oxygen 36 SaO2/FiO2 Ratio 272 Oxygen Delivery Method Nasal Cannula Oxygen Flow Rate 4 Objective Labs 04/07/25 23:00 04/07/25 23:00 Labs: Laboratory Results - last 24 hr 04/07/25 04/08/25 04/08/25 23:00 01:02 08:43 WBC 8.3 RBC 3.90 L Hgb 13.7 Hct 40.2 MCV 103.1 H MCH 35.2 H MCHC 34.2 RDW 16.8 H Plt Count 206 Neut % (Auto) 89.1 H Lymph % (Auto) 6.6 L [place] % (Auto) 3.4 Eos % (Auto) 0.1 L Baso % (Auto) 0.8 Neut # (Auto) 7400 H Lymph # (Auto) 600 L [place] # (Auto) 300 Eos # (Auto) 0 Baso # (Auto) 100 Sodium 131 L Potassium 4.7 Chloride 98 Carbon Dioxide 23 BUN 92 H Creatinine 2.46 H Estimated GFR 19 L BUN/Creatinine Ratio 37.4 H Glucose 204 H POC Whole Bld Glucose 141 H Calcium 9.0 Magnesium 2.5 H Total Bilirubin 0.6 AST 46 H ALT 48 H Alkaline Phosphatase 58 Total Creatine Kinase 80 Troponin I 0.531 H* 0.536 H* Total Protein 8.4 H Albumin 4.9 Globulin 3.5 Albumin/Globulin Ratio 1.4 Lipase 376 H Assessment & Plan Assessment & Plan narrative: CC: RIGHT Femoral Neck Fracture HPI: 84-year-old female on hospice for end-stage recurrent small cell lung cancer with past medical history of peripheral vascular disease, CAD, paroxysmal atrial fibrillation, bilateral carotid disease, aortic stenosis, type 2 diabetes, chronic respiratory failure requiring chronic oxygen replacement therapy, 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 She reports that she has isolated right hip pain with any movement of the hip. Denies numbness and tingling. Denies prior hip pain. In the ED she was found to have acute kidney injury and elevated troponin levels without evidence of ischemia on EKG. Patient denied any chest pain or shortness of breath. She is on 4 L of oxygen chronically. EXAM: RIGHT Hip: Inspection: No erythema, swelling, bruising, atrophy. ROM deferred due to known fracture Neurovascular exam: Fires ta/gc/ehl; SILT s/s/sp/dp/t Imaging: Radiographs of the right hip on April 07, 2025: Poor penetration due to body habitus. There appears to be a displaced femoral neck fracture. CT scan of the right hip on April 08, 2025: Displaced femoral neck fracture. ASSESSMENT: 84yo F with significant medical comorbidities has history, physical exam and imaging findings consistent with a right femoral neck fracture. We had a long discussion with this patient with regards to her treatment options. I explained her current medical condition and presence of hospice is complicated in making the appropriate decision to move forward with the procedure. I explained that having a hip fracture is an indication that her medical condition is worsening. We discussed nonoperative treatments and how the recovery process would look and that it would be unlikely if she returned to ambulation. I also explained that surgical management with a hemiarthroplasty is a significant procedure and that she has a high risk of not surviving the operation itself. Plus she would still have postoperative pain and she would have a hard time returning to ambulation with continued physical therapy. As of our conversation this morning, she would like to pursue surgical management. She will discuss this with her and we will revisit whether or not she would like to pursue surgical management. The risks, benefits and alternatives of the procedure were discussed with the patient to include bleeding, infection, damage to surrounding structures, ongoing pain, hip stiffness, reduction in ambulatory status, need for additional surgeries, hip dislocation and anesthesia risks such as heart attack, stroke and . Patient understood these risks and wanted to move forward with the procedure. She explained that if she starts to pass away during the procedure she does not want life-saving measures. She was consented for operative management of the right hip. The patient had the treatment plan explained, questions answered and seemed satisfied with the plan. There were no apparent barriers to communication. The documentation in this note may have been entered with the assistance of computer voice recognition and dictation software. Therefore, it may contain unintended errors in text, spelling, punctuation, or grammar. Ramos Vyas MD Orthopaedic Surgeon Time-Based Coding :: 90 minutes spent with patient and on the chart (including review of chart, obtaining history, exam, reviewing outside data, placing orders, documenting exam and treatment plan, and counseling patient) on 04/08/25. Quality VTE Deep Vein Thrombosis/Pulmonary Embolism Present on Admission: No IH PROFEE Menswear Salesperson Document charge(s): Yes
[2025-04-08] MEDS: CITALOPRAM 10 MG TABLET PO (09:40)
[2025-04-08] MEDS: PANTOPRAZOLE DR 40 MG TABLET PO (09:40)
[2025-04-08] MEDS: METOPROLOL ER 50 MG TABLET PO (09:40)
[2025-04-08] MEDS: FERROUS SULFATE 325 MG TABLET PO (09:40)
[2025-04-08] MEDS: SODIUM CHLORIDE 0.9% 1,000 ML 100 ML IV ×2 (10:00→20:44)
[2025-04-08 10:29] LABS: Alanine Aminotransferase 39 IU/L (<35); Albumin 4.2 g/dL (3.5-5.0); Albumin Globulin Ratio 1.4 (1.0-2.8); Alkaline Phosphatase 47 U/L (38-126); Blood Urea Nitrogen 80 mg/dL (7-17); Calcium 8.6 mg/dL (8.4-10.2); Carbon Dioxide 25 mmol/L (22-32); Chloride 101 mmol/L (98-107); Creatine Kinase 72 U/L (30-135); Estimated Glomerular Filt Rate 23 mL/min (>60); Globulin 3.0 g/dL (1.7-4.1); Glucose 197 mg/dL (70-99); HEMOLYSIS < 15 (0-50); Lipase 184 U/L (23-300); Potassium 4.0 mmol/L (3.4-5.1); Sodium 135 mmol/L (137-145); Total Protein 7.2 g/dL (6.3-8.2); Uric Acid 7.9 mg/dL (2.5-6.2)
[2025-04-08 10:47] LABS: Troponin I 0.578 ng/mL (0.01-0.034)
[2025-04-08] MEDS: AMIODARONE 200 MG TABLET PO (13:22)
[2025-04-08] MEDS: MAGNESIUM OXIDE 400 MG TABLET PO (13:22)
--- NOTE | 2025-04-08 15:33 | CM.DANOTE ---
DCP Assessment Note: Pt is a 84yo female, resident of [place], is admitted for a hip fracture after a fall. Pt lives in a house with her , Bob. Pt's Primary Care Provider is Dr. Chandrakant Trotter and insurance is Medicare and [employer]. Reviewed chart and discussed with multidisciplinary team pt's medical status and initial discharge needs. Per Provider, Ortho Surgery has been consulted and is scheduled for surgery on 04/09. Pending pt progress after surgery, plan could be resumption of hospice services vs. SNF with hospice. DCP met w/patient at bedside; introduced self and role. Patient was found in bed, alert and oriented, cooperative with assessment. Pt confirmed living situation and good support in . Pt expressed preference in discharge home after surgery but willing to discuss recommendations. Pt has no history of SNF Rehab or home health. Patient did state that she would appreciate a caregiver for 2hours/day to assist with ADLs (meal prep, grocery shopping - she has a boiler house inspector currently). Pt agreeable to working with therapies and following their recommendations. RA sent most recent clinicals via fax to [facility] for continuity of care. Plan: Anticipating discharge home with spouse when medically cleared vs SNF for initialy recovery period with hospice? CM team will follow closely for coordination of discharge plans. Eliane Dubose [facility] Discharge Planning/Care Management CM Discharge Assessment Start: 04/08/25 03:37 Freq: Status: Active Protocol: Document 04/08/25 14:44 MW (Rec: 04/08/25 14:53 MW Desktop) Discharge Planning Assessment Assigned Discharge RA [place] Sample Worker Provider Dr. Chandrakant Trotter MD Insurance Medicare, DPOA/Assigned Bob Jacome, Spouse Designee Name Contact Information [phone] Advance Directives? Yes: Advance Directive Advance Directives Yes on File History Provided By Patient,Medical Record Has Patient been No admitted in last 30 days? Prior Living House Arrangements Household Members spouse Type of Relies on Others transporation used prior to admit Independent with ADL No 's Is patient alert and Yes oriented? Caregiver for No [facility] used prior to admission: Barriers to No Discharge Discharge Plan Hospice Transportation Spouse will drive her home. Arrangement Additional Comment Pending surgery results/progress. Whiteboard Updated Yes in Patient Room with name and ext. # of [employer] Review Status In Process Please Provide Date 04/08/25 Initial DC Assessment Was Performed Next Review Type Continued Stay Review
--- NOTE | 2025-04-08 16:18 | P.PN_ITS ---
Exam Vital Signs (past 8 hours): - 04/08/25 09:15 04/08/25 09:40 04/08/25 12:00 Temperature 97.9 F Pulse Rate 91 H 82 Respiratory Rate 16 Blood Pressure 150/73 H 94/54 L Pulse Oximetry 96 Oxygen Delivery Method Nasal Cannula Fraction of Inspired Oxygen 36 SaO2/FiO2 Ratio 272 Oxygen Delivery Method Nasal Cannula Oxygen Flow Rate 4 Objective Labs 04/07/25 23:00 04/08/25 10:07 Labs: Laboratory Results - last 24 hr 04/07/25 04/08/25 04/08/25 23:00 01:02 08:43 WBC 8.3 RBC 3.90 L Hgb 13.7 Hct 40.2 MCV 103.1 H MCH 35.2 H MCHC 34.2 RDW 16.8 H Plt Count 206 Neut % (Auto) 89.1 H Lymph % (Auto) 6.6 L [place] % (Auto) 3.4 Eos % (Auto) 0.1 L Baso % (Auto) 0.8 Neut # (Auto) 7400 H Lymph # (Auto) 600 L [place] # (Auto) 300 Eos # (Auto) 0 Baso # (Auto) 100 Sodium 131 L Potassium 4.7 Chloride 98 Carbon Dioxide 23 BUN 92 H Creatinine 2.46 H Estimated GFR 19 L BUN/Creatinine Ratio 37.4 H Glucose 204 H POC Whole Bld Glucose 141 H Uric Acid Calcium 9.0 Magnesium 2.5 H Total Bilirubin 0.6 AST 46 H ALT 48 H Alkaline Phosphatase 58 Total Creatine Kinase 80 Troponin I 0.531 H* 0.536 H* Total Protein 8.4 H Albumin 4.9 Globulin 3.5 Albumin/Globulin Ratio 1.4 Lipase 376 H 04/08/25 04/08/25 04/08/25 10:07 11:54 15:18 WBC RBC Hgb Hct MCV MCH MCHC RDW Plt Count Neut % (Auto) Lymph % (Auto) [place] % (Auto) Eos % (Auto) Baso % (Auto) Neut # (Auto) Lymph # (Auto) [place] # (Auto) Eos # (Auto) Baso # (Auto) Sodium 135 L Potassium 4.0 Chloride 101 Carbon Dioxide 25 BUN 80 H Creatinine 2.13 H Estimated GFR 23 L BUN/Creatinine Ratio 37.6 H Glucose 197 H POC Whole Bld Glucose 138 H 161 H Uric Acid 7.9 H Calcium 8.6 Magnesium Total Bilirubin 0.4 AST 32 ALT 39 H Alkaline Phosphatase 47 Total Creatine Kinase 72 Troponin I 0.578 H* Total Protein 7.2 Albumin 4.2 Globulin 3.0 Albumin/Globulin Ratio 1.4 Lipase 184 D [facility] Medical History Chronic anemia Coronary artery disease HFrEF (heart failure with reduced ejection fraction) (~02/2024) Paroxysmal atrial fibrillation Aortic stenosis (HFpEF) heart failure with preserved ejection fraction Carotid stenosis Small cell lung cancer Hemorrhoids Acute radiation pneumonitis History of lung cancer Depression Mixed hyperlipidemia PAD (peripheral artery disease) Gout Chronic respiratory failure with hypoxia History of lymphoma Type 2 diabetes mellitus Hyperlipidemia Hypertension Radiation fibrosis of lung Contrast media allergy COPD exacerbation Surgical History H/O carotid endarterectomy H/O heart artery stent S/P hysterectomy Family History Sister Cancer Mother CAD (coronary artery disease) Father Malaria Social History household members: spouse Smoking Status: Former smoker alcohol intake: current Assessment & Plan Post-op Postoperative Procedures: Procedures Operation Date: 04/09/25 09:00 <No data on this case meets the specified criteria> Postoperative plan narrative: Additional Visit and Conversation: I returned to the hospital to revisit the same conversation that I had with Ms. Jacome earlier today. I wanted to ensure that she understood the operative versus nonoperative treatment options. We discussed her quality of life expectations with and without the surgery. We also discussed the postoperative course. We had this conversation with her on the phone. I clarified that if we pursue the nonoperative route that she likely will not ever ambulate independently. However then we would avoid the risks of the stress that would be placed on her body with undergoing the surgery. We also discussed the high risk of anesthesia and undergoing the surgical procedure. She states that she understands the risks and wanted to move forward with the procedure. I also asked her wishes with regards to life-saving measures. At this point she is electing to be do not resuscitate. I clearly asked the if he understands and he answered that he wants to move forward with his 's wishes. At this point we will pursue surgical management with a right hip hemiarthroplasty. The patient, her and the surgical/anesthesia team understands the increased risk of this operation. Time Spent With Patient Time with patient: 15-24 minutes Quality VTE Deep Vein Thrombosis/Pulmonary Embolism Present on Admission: No
[2025-04-08] MEDS: INSULIN LISPRO 100 UNIT/ML 3ML VIAL SUBCUT (17:16)
[2025-04-08] MEDS: ATORVASTATIN 20 MG TABLET 40 MG PO (17:16)
[2025-04-09] VITALS (8 sets, daily range): BP systolic 141–173; BP diastolic 61–79; PULSE 79–102; RESP 15–18; TEMP 35.9–36.4; O2SAT 94–100
[2025-04-09 06:54] LABS: Blood Urea Nitrogen 63 mg/dL (7-17); Calcium 8.3 mg/dL (8.4-10.2); Carbon Dioxide 25 mmol/L (22-32); Chloride 104 mmol/L (98-107); Estimated Glomerular Filt Rate 28 mL/min (>60); Glucose 118 mg/dL (70-99); HEMOLYSIS < 15 (0-50); Potassium 4.7 mmol/L (3.4-5.1); Sodium 136 mmol/L (137-145)
--- NOTE | 2025-04-09 08:10 | PM.PN.IH.1 ---
Subjective Subjective Date Patient Seen: 04/09/25 Time Patient Seen: 08:10 Interval history: Basically uneventful day yesterday. Patient's vital signs remained stable borderline hypertension. Patient did receive a higher than usual dose of her metoprolol as we did not have an accurate med list for her until her significant other arrived with her hospice med list and medications are updated Echocardiography was done and demonstrated slightly reduced ejection fraction of 40-45% with persistence of severe aortic stenosis. Overall ejection fraction actually improved from February 2024 study Blood work showed improvement in renal function with some IV fluids now probably approaching baseline with GFR of 28. Glucose overall adequately controlled. Troponin remained elevated but stable Patient seen just as she is being prepped to go downstairs for her surgery. Again denies any new cardiovascular symptoms seems stable on current oxygen therapy etcetera. Yesterday was uneventful she says. Pain somewhat better controlled with higher dose narcotics, not surprising given that she has been using an oral morphine solution as well at home and likely will require higher dose narcotics than average given her previous exposure to opiate narcotics Exam Vital Signs (past 8 hours): - 04/09/25 03:03 04/09/25 07:51 Temperature 96.6 F L 97.6 F Pulse Rate 79 79 Respiratory Rate 18 18 Blood Pressure 141/61 H 160/68 H Pulse Oximetry 96 94 Oxygen Flow Rate 0 Fraction of Inspired Oxygen 36 SaO2/FiO2 Ratio 272 Oxygen Delivery Method Nasal Cannula Oxygen Flow Rate 0 Objective Labs 04/07/25 23:00 04/09/25 06:12 Labs: Laboratory Results - last 24 hr 04/08/25 04/08/25 04/08/25 10:07 11:54 15:18 Sodium 135 L Potassium 4.0 Chloride 101 Carbon Dioxide 25 BUN 80 H Creatinine 2.13 H Estimated GFR 23 L BUN/Creatinine Ratio 37.6 H Glucose 197 H POC Whole Bld Glucose 138 H 161 H Uric Acid 7.9 H Calcium 8.6 Total Bilirubin 0.4 AST 32 ALT 39 H Alkaline Phosphatase 47 Total Creatine Kinase 72 Troponin I 0.578 H* Total Protein 7.2 Albumin 4.2 Globulin 3.0 Albumin/Globulin Ratio 1.4 Lipase 184 D 04/08/25 04/09/25 20:39 06:12 Sodium 136 L Potassium 4.7 Chloride 104 Carbon Dioxide 25 BUN 63 H Creatinine 1.78 H Estimated GFR 28 L BUN/Creatinine Ratio 35.4 H Glucose 118 H POC Whole Bld Glucose 141 H Uric Acid Calcium 8.3 L Total Bilirubin AST ALT Alkaline Phosphatase Total Creatine Kinase Troponin I Total Protein Albumin Globulin Albumin/Globulin Ratio Lipase PFSH Medical History Chronic anemia Coronary artery disease HFrEF (heart failure with reduced ejection fraction) (~02/2024) Paroxysmal atrial fibrillation Aortic stenosis (HFpEF) heart failure with preserved ejection fraction Carotid stenosis Small cell lung cancer Hemorrhoids Acute radiation pneumonitis History of lung cancer Depression Mixed hyperlipidemia PAD (peripheral artery disease) Gout Chronic respiratory failure with hypoxia History of lymphoma Type 2 diabetes mellitus Hyperlipidemia Hypertension Radiation fibrosis of lung Contrast media allergy COPD exacerbation Surgical History H/O carotid endarterectomy H/O heart artery stent S/P hysterectomy Family History Sister Cancer Mother CAD (coronary artery disease) Father Malaria Social History household members: spouse Smoking Status: Former smoker alcohol intake: current Assessment & Plan Assessment & Plan narrative: 1. Right hip fracture-plan for surgical repair. Patient's probably optimized as much as she is going to be. She does have a mild cardiomyopathy over improved over previous studies as well as severe aortic stenosis. Do not believe there is active cardiac ischemia at this time. Would recommend patient receive her beta-gilberto therapy preoperative this morning 2. Type 2 diabetes-adequate control with current insulin therapies. No change for now 3. Aortic stenosis-continues to show evidence of severe aortic stenosis but asymptomatic from a clinical standpoint. No evidence of active ischemia congestive heart failure or significant rhythm disturbance 4. Coronary artery disease-continue with patient's beta-gilberto therapy and statin therapies. Her beta-gilberto therapy has been adjusted to match her outpatient dosing and is relatively low-dose. 5. Congestive heart failure-continue off diuretics for now. May require some degree of diuresis postoperatively depending on her clinical course in the perioperative. As well as need for IV fluids etcetera 6. Chronic respiratory failure-continue patient on oxygen replacement therapy as necessary 7. Recurrent small-cell lung cancer-patient presumably well returned to hospice care once recovered from this injury surgery and hospitalization etcetera. 8. History of paroxysmal atrial fibrillation-monitor on tele for now. No anticoagulation indicated obviously as above. Continue beta-gilberto therapy as well for this reason Overall patient presumably to go for surgery later today. Hopefully will be relatively uneventful and then plans can be made as to appropriate discharge as well as consideration of re-initiation of hospice therapy. Dr. Trotter to resume care tomorrow ThursdayApril 10 Time-Based Coding :: [TOTAL MINUTES] spent with patient and on the chart (including review of chart, obtaining history, exam, reviewing outside data, placing orders, documenting exam and treatment plan, and counseling patient) on [DATE]. Quality VTE Deep Vein Thrombosis/Pulmonary Embolism Present on Admission: No IH PROFEE Brush Filler Hand Document charge(s): Yes Charge Codes Subsequent inpatient/observation care: [id number]
[2025-04-09] MEDS: METOPROLOL ER 50 MG TABLET 12.5 MG PO ×2 (08:15→19:46)
--- NOTE | 2025-04-09 08:42 | SUR.OPER ---
Lateral on padded OR bed. Gel axillary roll. Arms secured on padded armboard with pillow supporting top arm. Padded hip positioner braces x4 - anterior and posterior chest and pelvis. Additional gel pad used anterior pelvis. Gel pad under bottom leg from knee to foot and secured with tape over sheet. Final positioning done by provider
[2025-04-09] MEDS: LACTATED RINGERS 1,000 ML 42 ML IV (08:59)
--- NOTE | 2025-04-09 09:04 | SUR.HOLD ---
Dr Castañeda, anesthesilogist, explaining risk and benefits related to intubation and anesthesia. Per patient and agreement of anesthesia, patient prefers to be treated with medicine in the event of any cardiac arrest but refuses compressions if needed.
--- NOTE | 2025-04-09 10:29 | EKG_ITS ---
[address] [address] [place] [address] Test Date: 2025-04-09 Pat Name: Carlota Jacome Department: [facility] Room: 221 Gender: Female Nurse Assessor: BRINA : 1940 Requested By: Order Number: [id number] Reading MD: Buster Pat MD Measurements Intervals [place] Rate: 72 P: 33 CT: 186 QRS: 25 QRSD: 92 T: 116 QT: 400 QTc: 438 Interpretive Statements Normal sinus rhythm Nonspecific ST and T wave abnormality Electronically Signed On 04-16-2025 9:02:13 PST by Buster Pat MD
--- NOTE | 2025-04-09 11:14 | PM.OP.1 ---
Operative Date/Time/Diagnoses Date of procedure: 04/09/25 Time of procedure: 09:30 Pre-op diagnosis: RIGHT Hip Fracture Post-op diagnosis: same Procedure & Clinicians Procedure: Planned for a RIGHT Hip Hemiarthroplasty - however this was not completed Same procedure(s) as scheduled: Yes Surgeon: Ramos Vyas Assisted?: Yes Invoice Control Clerk: Arabella Jean Anesthesia Type: General Operative Notes Findings: Unstable Vital Signs Applied: none Estimated Blood Loss (mL): 0 Procedure in detail: Ms. Jacome was brought into the operating room where she underwent an arterial line, intubation and fully placement. She was then transferred over to the operating table. At that point she was responding well to the anesthesia without any concerning changes to her vital signs. The operative team then positioned her in the lateral position with her right hip up. Soon after being placed in this position she started to become hypotensive and bradycardic. Anesthesia immediately recognize the vital sign changes and responded. Please see anesthesia record for interventions provided. She was then placed supine on the table while the treatments were provided. An EKG was obtained which demonstrated no new acute events. Labs were obtained. It was decided that she would remain intubated and transferred to the ICU. Dr. Pat was made aware of the current situation. Her care will now be transferred to the tank wagon operator. Dr. Castañeda (anethesia) we will communicate the interventions that he performed in the operating room to the ICU attending. I spoke with the and explained what had occurred in the operating room. I explained to him that at this point it is unsafe for us to proceed with the surgical intervention. It would be my recommendation at this point to pursue nonoperative treatments. Complications: other (Ms. Jacome became bradycardic and hypotensive once we positioned her in the lateral position.) Post-operative Condition: critical Disposition: ICU
[2025-04-09 11:15] LABS: Alanine Aminotransferase 48 IU/L (<35); Albumin 3.7 g/dL (3.5-5.0); Albumin Globulin Ratio 1.4 (1.0-2.8); Alkaline Phosphatase 45 U/L (38-126); Blood Urea Nitrogen 55 mg/dL (7-17); Calcium 8.1 mg/dL (8.4-10.2); Carbon Dioxide 22 mmol/L (22-32); Chloride 106 mmol/L (98-107); Creatine Kinase 114 U/L (30-135); Estimated Glomerular Filt Rate 34 mL/min (>60); Globulin 2.7 g/dL (1.7-4.1); Glucose 253 mg/dL (70-99); HEMOLYSIS 31 (0-50); Potassium 4.6 mmol/L (3.4-5.1); Sodium 133 mmol/L (137-145); Total Protein 6.4 g/dL (6.3-8.2)
[2025-04-09 11:28] LABS: Troponin I 0.217 ng/mL (0.01-0.034)
--- NOTE | 2025-04-09 11:34 | PC.ADMIT ---
[email or web address] Admission Note: Patient admitted to ICU from OR via bed. Intubated on arrival with Dr. Castañeda at bedside. Precedex infusing at 0.5mcg/kg/hour to right AC peripheral IV. Dr Pat notified of arrival and is on the way to have a conversation with family about next steps. The patient,Carlota Jacome,84 y/o, was given written information regarding hospital policies, unit procedures and contact persons. Patient's smoking status: Former smoker. Vital Signs - 8 hr 04/09/25 07:00 04/09/25 07:00 04/09/25 07:51 Temperature 97.6 F Pulse Rate 79 Respiratory Rate 18 Blood Pressure 160/68 H Pulse Oximetry 94 Oxygen Delivery Method Nasal Cannula Nasal Cannula Oxygen Flow Rate 4 04/09/25 09:00 Temperature 97.4 F L Pulse Rate 86 Respiratory Rate 16 Blood Pressure 173/79 H Pulse Oximetry 98 Oxygen Delivery Method Nasal Cannula Oxygen Flow Rate 4
--- NOTE | 2025-04-09 11:36 | PC.NURSE ---
0800- Pt alert and oriented x4, hip fx, denied pain this morning. Tolerating ivf this morning. in room visiting. BS 115. Down to surgery around 0900, just came back to the floor vented and will be going to the icu in room 230. is aware and over in that room now, report given to ICU Buster. Patient did not have her surgery do to some cardiac and resp issues prior.
--- NOTE | 2025-04-09 11:44 | SUR.PHASEI ---
11:25 Patient directly to ICU room 230 after surgery aborted due to instability related to VSS; patient remains intubated on transport. Bedside report given to JESSICA Etienne, by Anesthesia provider and PACU nurse.
--- NOTE | 2025-04-09 11:54 | PC.NURSE ---
Pt pointing to ET tube, gripped air and pulling away from body. When asked if she wants the tube out, pt nods. Provider Dr. Pat notified. Dr. Pat at bedside, decision to extubate made by pt, family, and provider. Pt extubated at 1150 to 4L NC. Spouse at bedside. Care ongoing.
--- NOTE | 2025-04-09 11:54 | PM.EVENT ---
Event Note Date Patient Seen: 04/09/25 Time Patient Seen: 11:54 Event Note (Rapid Response, Code, or fall): Patient was taken to the OR, intubated anesthesia initiated and then after positioning her correctly for the anticipated surgery she apparently had significant hypotension and respiratory issues. She required epinephrine for blood pressure support and was not felt possible to continue with the planned procedure to repair her hip She remained intubated and was taken to the ICU for ongoing care Tele order make up clerk was consulted by anesthesia I spoke with Orthopedic surgery Prior to this of course patient had been on hospice for her lung cancer and she had been very clear she would not want CPR or cardioversion performed. However apparently there was no discussion of what to do in the eventuality of respiratory issues intubation etcetera. I myself did not discuss that with her I think I was more focused on her severe aortic stenosis and cardiac issues with her elevated troponin then thinking about her lung cancer etcetera In any event after anesthesia wore off she was awake requesting basically with gestures that she endotracheal tube be removed. Spouse was in attendance in the ICU and vital signs seems stable At this point I am going to go ahead and extubate her and if she declines under respiratory fashion we will not reintubate her. If her respiratory status declines further will try non aggressive methods to treat (such as diuretics etcetera) but if we do not have the ability to reverse some process such as congestive heart failure or pneumonia etcetera will focus on comfort care . In the meantime we will focus on comfort in the short term as she will clearly not be a candidate for surgical repair of her hip and will be bed-bound with pain management for the duration of her life span. We should plan to reinitiate hospice and return to her home JOANA assuming clinically that is appropriate. The next 24 hours should allow us to determine whether or not she will be appropriate to return home on hospice care or she will decline and here in the hospital. Patient after extubation is maintaining an oxygen saturation of about 90% with face mask at 4 L and is able to speak and remembers being in the hospital. She seems to understand when I tell her that she may not survive this hospitalization. Spouse is in attendance with her at the bedside and is in agreement with focusing on keeping her comfortable and treating any easily treatable condition such as congestive heart failure pneumonia etcetera.
--- NOTE | 2025-04-09 13:56 | CM.DPC ---
DCP Cont: Per MD and Ortho Surgeon, took pt to the OR this AM for hip surgery from [facility] with fx and pt was intubated and sedated but had medical complications and unsafe to continue with surgery and pt brought up to ICU intubated but able to be safely extubated and discussion with pt and spouse bedside of likely plan of return home and Re-instate Hospice services if pt remains stable vs risk of expiring here in the hospital. Pt and spouse aware that if she goes home then will likely be bed bound and pain management with Hospice services. SW faxed updated Event note to [facility] and called intake Radha and updated her on pt status and likely d/c back home with [facility] to continue. Will keep them updated in the AM on pt status. RA Husain
[2025-04-09] MEDS: INSULIN LISPRO 100 UNIT/ML 3ML VIAL SUBCUT ×2 (15:45→19:50)
[2025-04-09] MEDS: ACETAMINOPHEN 325 MG TABLET 650 MG PO (19:46)
[2025-04-10] VITALS (8 sets, daily range): BP systolic 123–180; BP diastolic 57–94; PULSE 69–110; RESP 16–19; TEMP 35.9–36.2; O2SAT 82–98
--- NOTE | 2025-04-10 06:56 | PC.NURSE ---
Pt very distraught. States she should've never come here. Wants to go home.States, Just help me walk out of here. Reminded pt that she could not walk do to her broken hip. Pt states that she forgot that. She did not sleep at all last night. Will address anxiety with day shift.
--- NOTE | 2025-04-10 07:13 | PM.PNPO.1 ---
Exam Vital Signs (past 8 hours): - 04/10/25 00:00 04/10/25 01:22 04/10/25 06:00 Temperature 97.1 F L 97.1 F L Pulse Rate 81 91 H Respiratory Rate 19 16 Blood Pressure 123/57 L 176/85 H Pulse Oximetry 95 98 Oxygen Delivery Method Nasal Cannula Oxygen Flow Rate 4 4 04/10/25 06:05 Temperature Pulse Rate Respiratory Rate Blood Pressure 170/94 H Pulse Oximetry Oxygen Delivery Method Oxygen Flow Rate Fraction of Inspired Oxygen 35 SaO2/FiO2 Ratio 271 Oxygen Delivery Method Nasal Cannula Oxygen Flow Rate 4 Objective Labs 04/07/25 23:00 04/09/25 10:43 Labs: Laboratory Results - last 24 hr 04/09/25 04/09/25 04/09/25 08:13 10:43 14:00 Sodium 133 L Potassium 4.6 Chloride 106 Carbon Dioxide 22 BUN 55 H Creatinine 1.54 H Estimated GFR 34 L BUN/Creatinine Ratio 35.7 H Glucose 253 H D POC Whole Bld Glucose 115 H 176 H Calcium 8.1 L Total Bilirubin 0.7 AST 50 H ALT 48 H Alkaline Phosphatase 45 Total Creatine Kinase 114 Troponin I 0.217 H* Total Protein 6.4 Albumin 3.7 Globulin 2.7 Albumin/Globulin Ratio 1.4 04/09/25 04/09/25 16:42 19:48 Sodium Potassium Chloride Carbon Dioxide BUN Creatinine Estimated GFR BUN/Creatinine Ratio Glucose POC Whole Bld Glucose 178 H 253 H Calcium Total Bilirubin AST ALT Alkaline Phosphatase Total Creatine Kinase Troponin I Total Protein Albumin Globulin Albumin/Globulin Ratio [facility] Medical History Chronic anemia Coronary artery disease HFrEF (heart failure with reduced ejection fraction) (~02/2024) Paroxysmal atrial fibrillation Aortic stenosis (HFpEF) heart failure with preserved ejection fraction Carotid stenosis Small cell lung cancer Hemorrhoids Acute radiation pneumonitis History of lung cancer Depression Mixed hyperlipidemia PAD (peripheral artery disease) Gout Chronic respiratory failure with hypoxia History of lymphoma Type 2 diabetes mellitus Hyperlipidemia Hypertension Radiation fibrosis of lung Contrast media allergy COPD exacerbation Surgical History H/O carotid endarterectomy H/O heart artery stent S/P hysterectomy Family History Sister Cancer Mother CAD (coronary artery disease) Father Malaria Social History household members: spouse Smoking Status: Former smoker alcohol intake: current Assessment & Plan Post-op Postoperative Procedures: Procedures Operation Date: 04/09/25 09:00 Actual Procedure Side Surgeon p Hip Hemiarthroplasty Right Ramos Vyas MD Postoperative plan narrative: ID: 84-year-old female on hospice for end-stage recurrent small cell lung cancer with past medical history of peripheral vascular disease, CAD, paroxysmal atrial fibrillation, bilateral carotid disease, aortic stenosis, type 2 diabetes, chronic respiratory failure requiring chronic oxygen replacement therapy, 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 Attempted to perform a right Hemiarthroplasty on 04/09/25 however upon positioning in the lateral position she became extremely hypotensive and bradycardic. It was decided that it was unsafe to proceed and the operation was cancelled. S: Patient is alert however confused. She explained that there is continued debris being blown out through the vent above her bed. She also believes that her was outside this morning working with several other men. She is very focused on returning to home. Denies right hip pain. Denies chest pain or shortness of breath. O: Alert. RIGHT Hip: Inspection: No erythema, swelling, bruising, atrophy. ROM deferred due to known fracture Neurovascular exam: Fires ta/gc/ehl; SILT s/s/sp/dp/t A: 84yo F with complex past medical history and is currently on hospice care who was admitted for a right hip fracture. Due to her medical fragility she is not a good candidate for operative fixation. At this point we will continue with nonoperative treatments. It was clearly communicated the patient that she will likely not be able to walk again. She is focused on returning to home. Hopefully we can accommodate her wishes. P: -admission to the ICU (appreciate their help with this patient) -nonweightbearing right lower extremity -DVT prophylaxis per the primary team -regular diet -orthopedics will continue to follow The patient had the treatment plan explained, questions answered and seemed satisfied with the plan. There were no apparent barriers to communication. The documentation in this note may have been entered with the assistance of computer voice recognition and dictation software. Therefore, it may contain unintended errors in text, spelling, punctuation, or grammar. Ramos Vyas MD Orthopedic Surgeon Time Spent With Patient Time with patient: 15-24 minutes Quality VTE Deep Vein Thrombosis/Pulmonary Embolism Present on Admission: No
[2025-04-10] MEDS: MAGNESIUM OXIDE 400 MG TABLET PO (08:27)
[2025-04-10] MEDS: CITALOPRAM 10 MG TABLET 20 MG PO (08:27)
[2025-04-10] MEDS: PANTOPRAZOLE DR 40 MG TABLET PO (08:27)
[2025-04-10] MEDS: FERROUS SULFATE 325 MG TABLET PO (08:27)
[2025-04-10] MEDS: METOPROLOL ER 50 MG TABLET 12.5 MG PO ×2 (08:27→19:33)
[2025-04-10] MEDS: AMIODARONE 200 MG TABLET PO (08:27)
--- NOTE | 2025-04-10 12:38 | DIET.CONS2 ---
Dietary Inpatient Consultation Note Admission Date: 04/08/2025 02:19 84 y F admitted for hip fracture. Dietitian screened for low MNA score. EMR reviewed and pt discussed in rounds. Likely going home on hospice. Will d/c nutrition consult. F/u if plan of care changes. Diet: 04/08/25 Breakfast Carbohydrate Consistent Diet Diet Modifications: Carbohydrate level: Medium (3 CHO) Reflex DM orders: No Food Texture: Level 7 - Regular Liquid Consistency: Level 0 - Thin Nutrition Percent Meal Consumed 100% 04/09/25 18:00 Percent Meal Consumed 100% 04/08/25 18:00 Percent Meal Consumed 100% 04/08/25 13:56 Electronically Signed by: Nena Quintero 04/10/25 12:38 Clinical Dietitian [address] [address]
[2025-04-10] MEDS: INSULIN LISPRO 100 UNIT/ML 3ML VIAL SUBCUT (12:41)
--- NOTE | 2025-04-10 13:48 | P.PN_ITS ---
Subjective Subjective Date Patient Seen: 04/10/25 Time Patient Seen: 09:50 Interval history: chief complaint: R hip fracture, fall, hospice Doing ok this morning - pulled out IV she is confused but redirectable - no pain laying in bed - planning hospice home discharge once there is a hospital bed and nurse to receive hopefully tomorrow until then comfort care. Exam Vital Signs (past 8 hours): - 04/10/25 06:00 04/10/25 06:05 04/10/25 08:00 Temperature 97.1 F L Pulse Rate 91 H Respiratory Rate 16 Blood Pressure 176/85 H 170/94 H Pulse Oximetry 98 Oxygen Delivery Method Nasal Cannula Oxygen Flow Rate 4 04/10/25 08:27 04/10/25 08:57 04/10/25 12:18 Temperature 96.7 F L Pulse Rate 69 78 Respiratory Rate Blood Pressure 180/74 H 140/65 Pulse Oximetry Oxygen Delivery Method Oxygen Flow Rate 04/10/25 12:18 Temperature Pulse Rate 110 H Respiratory Rate Blood Pressure Pulse Oximetry 82 L Oxygen Delivery Method Oxygen Flow Rate Fraction of Inspired Oxygen 35 SaO2/FiO2 Ratio 271 Oxygen Delivery Method Nasal Cannula Oxygen Flow Rate 4 Narrative Exam Narrative: alert laying in bed elder Resp Other: moving air speaking clearly in full sentences clear to auscultation bilaterally Cardio Other: regular rate GI Other: soft nontender active bowel sounds Neuro Other: alert awake confused and hallucinating with intact insight intermittently Objective Labs 04/07/25 23:00 04/09/25 10:43 Labs: Laboratory Results - last 24 hr 04/09/25 04/09/25 04/10/25 16:42 19:48 07:40 POC Whole Bld Glucose 178 H 253 H 116 H D 04/10/25 11:34 POC Whole Bld Glucose 164 H [facility] Medical History Chronic anemia Coronary artery disease HFrEF (heart failure with reduced ejection fraction) (~02/2024) Paroxysmal atrial fibrillation Aortic stenosis (HFpEF) heart failure with preserved ejection fraction Carotid stenosis Small cell lung cancer Hemorrhoids Acute radiation pneumonitis History of lung cancer Depression Mixed hyperlipidemia PAD (peripheral artery disease) Gout Chronic respiratory failure with hypoxia History of lymphoma Type 2 diabetes mellitus Hyperlipidemia Hypertension Radiation fibrosis of lung Contrast media allergy COPD exacerbation Surgical History H/O carotid endarterectomy H/O heart artery stent S/P hysterectomy Family History Sister Cancer Mother CAD (coronary artery disease) Father Malaria Social History household members: spouse Smoking Status: Former smoker alcohol intake: current Assessment & Plan Assessment & Plan narrative: #Right hip fracture failed attempt at surgical repair will be non op bed bound hospice discharge #Type 2 diabetes continue current regimen #Aortic stenosis, severe stable monitor #Coronary artery disease stable continue with patient's beta-gilberto therapy and statin therapies #Congestive heart failure stable might resume lasix on discharge #Chronic respiratory failure stable on oxygen at home continue patient on oxygen replacement therapy as necessary #Recurrent small-cell lung cancer continue comfort care will be reestablishing with hospice tomorrow at home. History of paroxysmal atrial fibrillation stable resume home meds dispo: home on home hospice tomorrow after bed and nurse are arranged PCP: Sergo Diet: diabetic code: DNR Time-Based Coding :: [TOTAL MINUTES] spent with patient and on the chart (including review of chart, obtaining history, exam, reviewing outside data, placing orders, documenting exam and treatment plan, and counseling patient) on [DATE]. Quality VTE Deep Vein Thrombosis/Pulmonary Embolism Present on Admission: No
--- NOTE | 2025-04-10 14:58 | CM.DPC ---
Addendum entered by RA Husain 04/10/25 15:07: Also provided spouse Senior Resource Guidebook and earmarked Caregiver agency list and encouraged him to start making calls to set up CG at home and spouse agreeable. BF Original Note: DCP Hospice Planning Cont: Per MD, pt medically stable to d/c home with Hospice once Hospice in place. SW called [facility] and updated on pt status and they confirm that their DESTATICIZER FEEDER will do bedside visit with pt this evening or in the morning and they will order hospital bed and bedside table to be delivered tomorrow morning (pt already has oxygen at home) and their RN can do start of care at home between [id number]. SW met bedside with pt and spouse and pt remains somewhat confused and at times having some visual hallucinations and she struggled to comprehend the discharge plan and information about the attempt at hip repair surgery that had to be discontinued. Per spouse, he is agreeable with d/c home tomorroow with Hospice delivering DME and discussed need for BLS transport due to pt's non-weight bearing status for hip fx and pain and spouse agreeable and only one small step to enter the house. Called [facility] and scheduled 1330 BLS transport to home and BLS form completed, just needs Dr. Trotter signature. Updated Dr. Trotter and RN. Plan: SW to fax d/c summary to [facility] at d/c for pt to go home via [facility] at 1330 with Hospice to open around 1430. RA Husain
--- NOTE | 2025-04-10 19:30 | PC.NURSE ---
Day shift: Pt only oriented to self, confused to situation, place, time, reporting hallucinations of the ceiling tiles falling and people present in her room. Tearful and reporting significant anxiety. Difficult to redirect. at bedside. Pt pulled IV out, provider Dr. Trotter notified. New orders received. Pt on hospital phone, dispatcher chief coal slurry on other end. Pt reassured of safety in hospital setting, called but unable to reach. Pt suspicious of care, declining repositions and interventions. This RN explained reasons for turning to prevent skin breakdown and for medications (insulin). Pt continued to decline. Bed alarm active, call light within reach. Care ongoing.
--- NOTE | 2025-04-11 06:19 | PC.NURSE ---
shift commander RN note pt began night restless and oriented to self and year, reoriented as needed, c/o pain to R hip, analgesic given with effect, stated she wanted her night time meds to sleep, HS meds given early per pt's request, pt slept quietly overnight, compliant with some turns, ferguson draining mod amt yellow urine, bed alarm on, call salvador within reach, care ongoing
--- NOTE | 2025-04-11 06:49 | PM.PNPO.1 ---
Exam Vital Signs (past 8 hours): Fraction of Inspired Oxygen 35 SaO2/FiO2 Ratio 271 Oxygen Delivery Method Nasal Cannula Oxygen Flow Rate 4 Objective Labs 04/07/25 23:00 04/09/25 10:43 Labs: Laboratory Results - last 24 hr 04/10/25 04/10/25 04/10/25 07:40 11:34 16:50 POC Whole Bld Glucose 116 H D 164 H 138 H 04/10/25 19:31 POC Whole Bld Glucose 146 H [facility] Medical History Chronic anemia Coronary artery disease HFrEF (heart failure with reduced ejection fraction) (~02/2024) Paroxysmal atrial fibrillation Aortic stenosis (HFpEF) heart failure with preserved ejection fraction Carotid stenosis Small cell lung cancer Hemorrhoids Acute radiation pneumonitis History of lung cancer Depression Mixed hyperlipidemia PAD (peripheral artery disease) Gout Chronic respiratory failure with hypoxia History of lymphoma Type 2 diabetes mellitus Hyperlipidemia Hypertension Radiation fibrosis of lung Contrast media allergy COPD exacerbation Surgical History H/O carotid endarterectomy H/O heart artery stent S/P hysterectomy Family History Sister Cancer Mother CAD (coronary artery disease) Father Malaria Social History household members: spouse Smoking Status: Former smoker alcohol intake: current Assessment & Plan Post-op Postoperative Procedures: Procedures Operation Date: 04/09/25 09:00 Actual Procedure Side Surgeon p Hip Hemiarthroplasty-ABORTED Right Ramos Vyas MD Postoperative plan narrative: ID: 84-year-old female on hospice for end-stage recurrent small cell lung cancer with past medical history of peripheral vascular disease, CAD, paroxysmal atrial fibrillation, bilateral carotid disease, aortic stenosis, type 2 diabetes, chronic respiratory failure requiring chronic oxygen replacement therapy, 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 Attempted to perform a right Hemiarthroplasty on 04/09/25 however upon positioning in the lateral position she became extremely hypotensive and bradycardic. It was decided that it was unsafe to proceed and the operation was cancelled. S: Patient is alert. She is very focused on returning to home. Denies right hip pain. Denies chest pain or shortness of breath. O: Alert. Confused but not as confused as yesterday. Asking appropriate questions. RIGHT Hip: Inspection: No erythema, swelling, bruising, atrophy. ROM deferred due to known fracture Neurovascular exam: Dianne ta/gc/ehl; ELISHA s/s/sp/dp/t A: 84yo F with complex past medical history and is currently on hospice care who was admitted for a right hip fracture. Due to her medical fragility she is NOT a good candidate for operative fixation. At this point we will continue with nonoperative treatments. It was clearly communicated the patient that she will likely not be able to walk again. She is focused on returning to home. Hopefully we can accommodate her wishes. P: -admission to the ICU (appreciate their help with this patient) -nonweightbearing right lower extremity -DVT prophylaxis per the primary team -regular diet -orthopedics will continue to follow The patient had the treatment plan explained, questions answered and seemed satisfied with the plan. There were no apparent barriers to communication. The documentation in this note may have been entered with the assistance of computer voice recognition and dictation software. Therefore, it may contain unintended errors in text, spelling, punctuation, or grammar. Ramos Vyas MD Orthopedic Surgeon Time Spent With Patient Time with patient: 15-24 minutes Quality VTE Deep Vein Thrombosis/Pulmonary Embolism Present on Admission: No
[2025-04-11 08:20] VITALS: BP 156/72; PULSE 97; O2SAT 96
--- NOTE | 2025-04-11 08:25 | P.DS_ITS ---
History of Present Illness History of Present Illness Date Patient Seen: 04/11/25 Time Patient Seen: 08:25 Date of Onset of Symptoms: 04/08/25 Chief complaint: fall possible r hip fracture Narrative: 84-year-old female who normally sees Dr. Chandrakant Trotter at [facility] admitted with hip fracture Patient with end-stage recurrent small-cell lung cancer has been on hospice since 2023 apparently was up in her home without her walker fell sustaining injury to her right hip diagnosed with CT imaging in the emergency department Patient has elected to discontinue hospice and would like surgical repair of her fracture Other medical history includes extensive vascular disease with known coronary artery disease although no significant obstruction on most recent catheterization in 2022. Her ER evaluation did demonstrate elevated troponin levels without evidence of ischemia on ECG without actual symptoms from patient. Troponin level seems stable were not rising and perhaps were in part related to her acute kidney injury. Cardiology consulted by ED Bilateral carotid disease including occlusion of left external carotid Patient with severe aortic stenosis with a gradient of 44 mm when last checked in February of 2024. Not felt to be a candidate for TAVR given her limited life span due to her malignancy. 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 Surgical history also updated and attached to this note Home medications are basically unknown as they are being managed by hospice we have no access to that information at this time, but presume comfort care/palliative care type medications only Discharge Providers Provider Date of admission: 04/08/25 02:19 Discharge Date: 04/11/25 Primary care physician: Chandrakant Trotter MD Consults: 04/08/25 03:29 Consult to Discharge Planning Routine Comment: Discharge provider: Khai Reyes MD Summary Hospital Course Discharge Diagnosis: Right hip fracture Type 2 diabetes Aortic stenosis severe Recurrent small-cell lung cancer Chronic respiratory failure History of paroxysmal atrial fibrillation Hospital Course: Patient was admitted to the hospital with right hip fracture. Orthopedic was consulted. A decision has been made to attempt to repair right hip fracture. Trying to improve quality of life. Patient was already on hospice prior to fall. Patient was taken to the operative theater and attempted to be placed after intubation into the appropriate position but she did not tolerate. Resuscitation was required and a decision was made not to proceed with operative repair. Discussion with family and patient was elected to not attempt any further repair and to resume hospice. Patient had stable type 2 diabetes and chronic respiratory failure. Biggest issue is her history of recurrent small- cell lung cancer which at this point not curable and not improvable. And had already been referred to hospice. At this point she will be discharge to home by ambulance to a hospital bed her house. Hospice will be there today to manage all further pain requirements and treatments. Patient comfortable with that. Voice no concerns or questions today 35 minute spent chart review orders dictation social service nursing interactions Exam Vital Signs (past 8 hours): Fraction of Inspired Oxygen 35 SaO2/FiO2 Ratio 271 Oxygen Delivery Method Nasal Cannula Oxygen Flow Rate 4 Narrative Exam Narrative: Alert elderly female lying in bed somewhat sleepy. Lungs are clear heart is regular rate and rhythm Objective Labs 04/07/25 23:00 04/09/25 10:43 Labs: Laboratory Results - last 24 hr 04/10/25 04/10/25 04/10/25 11:34 16:50 19:31 POC Whole Bld Glucose 164 H 138 H 146 H PFSH Medical History Chronic anemia Coronary artery disease HFrEF (heart failure with reduced ejection fraction) (~02/2024) Paroxysmal atrial fibrillation Aortic stenosis (HFpEF) heart failure with preserved ejection fraction Carotid stenosis Small cell lung cancer Hemorrhoids Acute radiation pneumonitis History of lung cancer Depression Mixed hyperlipidemia PAD (peripheral artery disease) Gout Chronic respiratory failure with hypoxia History of lymphoma Type 2 diabetes mellitus Hyperlipidemia Hypertension Radiation fibrosis of lung Contrast media allergy COPD exacerbation Surgical History H/O carotid endarterectomy H/O heart artery stent S/P hysterectomy Family History Sister Cancer Mother CAD (coronary artery disease) Father Malaria Social History household members: spouse Smoking Status: Former smoker alcohol intake: current Discharge Assessment & Plan Assessment and Plan Assessment: Stable Plan of Treatment: Discharge home on hospice Discharge Plan Discharge Plan Patient Disposition: Home Discharge orders & Medications Prescriptions: Continued metformin 500 mg tablet 500 mg PO DAILY ferrous sulfate [FeroSul] 325 mg (65 mg iron) tablet 325 mg PO DAILY pantoprazole 40 mg tablet,delayed release (DR/EC) 40 mg PO DAILY furosemide 20 mg tablet 80 mg PO DAILY (DME) lancets [FreeStyle Lancets] 28 gauge misc See Rx Instructions .ROUTE .MEDSUPPLY Qty: 100 Patient Comments: [NO ORIGINAL SIG] Rx Instructions: As directed (DME) FreeStyle Lite Strips Strip See Rx Instructions .ROUTE .MEDSUPPLY Qty: 10 Rx Instructions: As directed (DME) blood-glucose meter [FreeStyle Lite Meter] Kit See Rx Instructions .ROUTE BID Qty: 1 Rx Instructions: As directed atorvastatin [Lipitor] 40 MG tablet 40 mg PO QPM Qty: 0 metoprolol succinate 50 mg Tablet Extended Release 24 Hr 12.5 mg PO BID doxepin 25 mg Capsule 25 mg PO BID allopurinol 100 mg Tablet 100 mg PO DAILY citalopram 10 mg tablet 20 mg PO DAILY acetaminophen 650 mg Tablet Extended Release 650 mg PO BEDTIME Calcium 600 with Vitamin D3 600 mg-10 mcg (400 unit) Tablet,Chewable 1 tab PO DAILY aspirin 81 mg Tablet,Delayed Release (Dr/Ec) 81 mg PO DAILY Qty: 30 0RF prochlorperazine maleate 10 mg tablet 10 mg PO Q6H PRN (Reason: nausea/vomiting) Jardiance 25 mg tablet 25 mg PO DAILY Gemtesa 75 mg tablet 75 mg PO DAILY amiodarone 200 mg tablet 200 mg PO QAM dexamethasone 2 mg tablet 2 mg PO DAILY magnesium oxide 400 mg magnesium capsule 400 mg PO DAILY senna 2 tab PO DAILY spironolactone 25 mg tablet Patient Comments: 2 tablet by mouth once a day 2 Tablet ORAL 1 times a day for Edema (25 MG Tablet) Spironolactone 25mg take two tablets (50mg) by mouth daily for diuretic [PO; ] methadone 10 mg/mL concentrate Patient Comments: Take 0.2-0.4 ml by mouth twice a day 0.2 - 0.4mL = 2-4mg. Take 0.2mL (2MG) in the am and take 0.4mL (4MG) 12 (twelve) hours later for pain and trouble breathing. Follow up/Referrals: Chandrakant Trotter MD [Primary Care Provider, [facility]] Referral Note: Patient will be managed by hospice. Follow-up only as needed Discharge Health Status Multidrug resistant organism: No MDRO Diet/Activity/Treatments Diet: Diet as Tolerated and Carb-consistent/Diabetic Activity: Bed rest Oxygen: As needed to keep oxygen above 92% Visit Report/Discharge Packet Stand Alone Forms: Patient Portal/API, Stroke Signs & Symptoms Discharge Data Primary Care Provider: Chandrakant Trotter Quality VTE Deep Vein Thrombosis/Pulmonary Embolism Present on Admission: No
[2025-04-11 09:00] VITALS: RESP 18; TEMP 35.9
[2025-04-11 09:51] VITALS: BP 156/72; PULSE 98
[2025-04-11] MEDS: AMIODARONE 200 MG TABLET PO (09:51)
[2025-04-11] MEDS: CITALOPRAM 10 MG TABLET 20 MG PO (09:51)
[2025-04-11] MEDS: METOPROLOL ER 50 MG TABLET 12.5 MG PO (09:51)
[2025-04-11] MEDS: FERROUS SULFATE 325 MG TABLET PO (09:51)
[2025-04-11] MEDS: PANTOPRAZOLE DR 40 MG TABLET PO (09:51)
[2025-04-11] MEDS: MAGNESIUM OXIDE 400 MG TABLET PO (09:52)
--- NOTE | 2025-04-11 11:21 | CM.DPNOTE ---
DCP Continued: Reviewed EMR and team rounds for pt?s medical status. Per Provider, pt cleared for discharge home on 04/11 via BLS. Signed BLS transport form. BLS Transport scheduled for 1330 after DME delivered at ~1200 in patient home. [employer] provided emotional support with pt who was found to be tearful when discussing discharge plans. [employer] provided comfort quilt. Plan: BLS transport with [facility] at 1330, spouse and Hospice Team will be at pt home at 1430. CM Team will continue to follow for coordination of discharge plans. KAPIL Turk
[2025-04-11 13:03] VITALS: BP 112/57; PULSE 86; RESP 18; TEMP 35.9; O2SAT 97
== END 2025-04-11 13:40 | disposition home or self-care (01) | DRG 536 ==
LOC: ED 04-08 00:08 → AC 04-08 02:20 → ICU 04-09 11:27
PROVIDERS: Orthopaedic Surgery; Physician Assistant Surgical; Admitting Provider Internal Medicine; Emergency Provider Student in an Organized Health Care Education/Training Program; PCP Family Medicine; Referring Provider Student in an Organized Health Care Education/Training Program; Visit Provider Family Medicine
PROC: 0SRR0JZ Replacement of Right Hip Joint, Femoral Surface with Synthetic Substitute, Open Approach (ICD-10-PCS; CPT 27125; principal; 2025-04-09 09:00)
DX: S72.011A Unspecified intracapsular fracture of right femur, initial encounter for closed fracture (principal); N17.9 Acute kidney failure, unspecified; J96.10 Chronic respiratory failure, unspecified whether with hypoxia or hypercapnia; I50.22 Chronic systolic (congestive) heart failure; C34.90 Malignant neoplasm of unspecified part of unspecified bronchus or lung; I42.9 Cardiomyopathy, unspecified; I65.22 Occlusion and stenosis of left carotid artery; I35.0 Nonrheumatic aortic (valve) stenosis; E11.9 Type 2 diabetes mellitus without complications; I25.10 Atherosclerotic heart disease of native coronary artery without angina pectoris; I48.0 Paroxysmal atrial fibrillation; R79.89 Other specified abnormal findings of blood chemistry; I95.89 Other hypotension; R00.1 Bradycardia, unspecified; I73.9 Peripheral vascular disease, unspecified; M10.9 Gout, unspecified; I11.0 Hypertensive heart disease with heart failure; E78.5 Hyperlipidemia, unspecified; D63.0 Anemia in neoplastic disease; J44.9 Chronic obstructive pulmonary disease, unspecified; F32.A Depression, unspecified; W18.30XA Fall on same level, unspecified, initial encounter; Z53.8 Procedure and treatment not carried out for other reasons; Z99.81 Dependence on supplemental oxygen; Z66 Do not resuscitate; Z87.891 Personal history of nicotine dependence; Z79.84 Long term (current) use of oral hypoglycemic drugs
CPT/HCPCS: 36415; 71045; 72192; 73502; 80048; 80053; 82550; 82962; 83690; 83735; 84484; 84550; 85025; 93005; 93306; 94002; 94799; 96374; 96375; 99285; C1713; J0165; J1100; J1171; J1815; J2060; J2272; J2405; J2704; J3010; J7030; J7042; J7120